=== PATIENT | male | born 1955 | race Hispanic/Latino ===

== ENCOUNTER 2017-09-01 09:31 | Emergency (ER) | payer SELFPAY ==
[2017-09-01 09:57] LABS: Bilirubin Small (Negative); Blood, Urine Moderate (Negative); Glucose, Urine (Dipstick) Negative (Negative); Ketone, Urine Negative (Negative); Nitrite Negative (Negative); Protein, Urine (Dipstick) Trace mg/dL (Neg-Trace); Urobilinogen 0.2 mg/dL (0.2-1.0)
[2017-09-01 10:10] LABS: Bacteria/HPF 2+ HPF (None Seen); Hyaline Casts/LPF NONE SEEN LPF (0-3 Hyaline)
[2017-09-01] MEDS ORDERED: cefTRIAXone\\ROCEPHIN 1 GM VIAL ONE (11:15)
[2017-09-01 11:23] LABS: Hematocrit 41.7 % (42.0-52.0); Mean Platelet Volume 8.9 fL (7.4-10.4); Red Blood Cell (RBC) Count 4.22 mill/uL (4.70-6.10); White Blood Cell (WBC) Count 22.1 thou/uL (4.8-10.8)
[2017-09-01 11:36] LABS: ALT (SGPT) 14 U/L (8-55); AST (SGOT) 20 U/L (5-34); Acetaminophen Less than 6.0 mcg/mL (10.0-30.0); Alkaline Phosphatase 86 U/L (40-150); Anion Gap 10 mmol/L (10-20); BUN (Urea Nitrogen) 15 mg/dL (8.4-25.7); Calc. Creatinine Clearance 0 mL/min (70-130); Calcium 9.1 mg/dL (7.8-10.44); Carbon Dioxide 27 mmol/L (23-31); Chloride 101 mmol/L (98-107); Estimated GFR-MDRD 68; Globulin 4.6 g/dL (2.4-3.5); Lipase 13 U/L (8-78)
[2017-09-01 11:43] LABS: Band 4 % (5-11); Metamyelocyte 2 % (0-0); Neutrophil 71 % (42-75)
--- NOTE | 2017-09-01 14:11 | CT ---
CT ABDOMEN AND PELVIS WITH CONTRAST: Date: 09/01/17 HISTORY: Fever, chills, and right flank pain. Patient recently finished a bottle of Tylenol. FINDINGS: Lung bases are clear. No pericardial effusion. There is right-sided perinephric stranding, especially along the inferior margin. The exam is limite d to motion. There has been poor enhancement of intrapolar right kidney anterior cortex. There is also some poor enhancement of the superior pole posterior cortex. Small volume gas within the urinary bladder. No dilated loops of large or small bowel. Gallbladder i s unremarkable, as well as the liver. Spleen is unremarkable. Aortoiliac contour is normal. Moderate degenerative disease of the L5-S1 disc space. Moderate vascular calcification of the coronary arter ies. IMPRESSION: 1. Multifocal right-sided poor renal enhancement suggests multifocal pyelonephritis. There are also a few areas of poor enhancement of the left kidney, also concerning for pyelonephritis. Embolic phe nomenon is also within the differential. Recommend correlation with urinalysis. 2. Small volume gas within the urinary bladder may be sequelae of recent instrumentation. POS: TITO
== END 2017-09-01 13:15 | disposition home or self-care (01) ==
LOC: ERS 09:31
DX: N39.0 Urinary tract infection, site not specified (principal); I10 Essential (primary) hypertension; F17.200 Nicotine dependence, unspecified, uncomplicated; Z86.73 Personal history of transient ischemic attack (TIA), and cerebral infarction without residual deficits
CPT/HCPCS: 74177; 80053; 80307; 81003; 81015; 83690; 85025; 96365; 96375; J0696; J2270

== ENCOUNTER 2018-02-09 12:25 | Inpatient (IN) | payer SELFPAY ==
--- NOTE | 2018-02-09 13:21 | RAD ---
PORTABLE CHEST: Date: 02/09/18 PROVIDED CLINICAL HISTORY: Dyspnea. FINDINGS: Comparison is made with the study dated 07/22/17. The cardiac silhouette appears enlarged. The lungs are hypoinflated with accentuation of pulmonary br onchovascular markings. There is obscuration of a portion of the medial left hemidiaphragm which coul d reflect basilar parenchymal opacity. Lungs appear otherwise clear. No pleural fluid or pneumothorax apparent. IMPRESSION: Cardiomegaly and possible left basilar air space disease. Follow-up is recommended. POS: TIOT
[2018-02-09 13:24] LABS: Mean Corpuscular HGB CONC 32.5 g/dL (32.0-36.0); Mean Corpuscular Hemoglobin 32.3 pg (27.0-31.0); Mean Corpuscular Volume 99.4 fl (80.0-94.0); RBC Distribution Width 12.9 % (11.5-14.5); Red Blood Cell (RBC) Count 4.02 mill/uL (4.70-6.10); White Blood Cell (WBC) Count 7.8 thou/uL (4.8-10.8)
[2018-02-09 13:33] LABS: #Basophils 0.1 thou/uL (0.0-0.2); #Eosinphils 0.1 thou/uL (0.0-0.7); #Lymphocytes 2.8 thou/uL (1.20-3.40); #Monocytes 0.7 thou/uL (0.11-0.59); %Basophils 1.6 % (0.0-1.0); %Eosinophils 1.7 % (0.0-10.0); %Lymphocytes 35.9 % (21.0-51.0); %Monocytes 8.8 % (0.0-10.0); %Neutrophils 52.1 % (42.0-75.0); Large Platelets SLIGHT; MDiff Complete? YES; Mean Platelet Volume 10.2 fL (7.4-10.4); PLT Morphology Comment Appears Adequate; Platelet Count 146 thou/uL (130-400); RBC Morphology Normal
[2018-02-09 13:35] LABS: ALT (SGPT) 51 U/L (8-55); AST (SGOT) 70 U/L (5-34); Albumin 3.7 g/dL (3.4-4.8); Alkaline Phosphatase 98 U/L (40-150); Anion Gap 16 mmol/L (10-20); BUN (Urea Nitrogen) 10 mg/dL (8.4-25.7); Bilirubin, Total 1.6 mg/dL (0.2-1.2); Calc. Creatinine Clearance 0 mL/min (70-130); Calcium 8.5 mg/dL (7.8-10.44); Carbon Dioxide 21 mmol/L (23-31); Chloride 103 mmol/L (98-107); Estimated GFR-MDRD 72; Glucose 99 mg/dL (80-115); Potassium 3.8 mmol/L (3.5-5.1); Protein, Total 6.7 g/dL (5.8-8.1); Sodium 136 mmol/L (136-145)
[2018-02-09 13:39] LABS: CKMB 3.6 ng/mL (0-6.6); Troponin I 0.029 ng/mL (< 0.028)
[2018-02-09] MEDS ORDERED: Esmolol 100 MG/10 ML VIAL IVP SCH (14:45)
[2018-02-09] MEDS ORDERED: Diltiazem HCl 125 MG, Admixture Fee 1 EACH in Sodium Chloride 0.9% 100 ML IVPB SCH (14:45)
[2018-02-09] MEDS ORDERED: Calcium Carbonate 500 MG ChewTAB PO PRN (17:16)
[2018-02-09] MEDS ORDERED: Bisacodyl 5 MG TAB PO PRN (17:16)
[2018-02-09] MEDS ORDERED: Mag-Al 1200 mg/1200 mg/30 ML UDCUP PO PRN (17:16)
[2018-02-09] MEDS ORDERED: Senokot 8.6 MG TAB PO PRN (17:16)
[2018-02-09] MEDS ORDERED: Ondansetron HCl/PF 4 MG/2 ML Vial IVP PRN (17:16)
[2018-02-09] MEDS ORDERED: Milk Of Magnesia 30 ML UDCUP PO PRN (17:16)
[2018-02-09] MEDS ORDERED: Acetaminophen 325 MG TAB PO PRN (17:16)
--- NOTE | 2018-02-09 18:26 | HP ---
CHIEF COMPLAINT: Shortness of breath with generalized weakness for the past 3-4 weeks. HISTORY OF PRESENT ILLNESS: This is a 63-year-old gentleman with a past medical history significant for alcohol abuse as well as hypertension and a history of a hemorrhagic CVA who presents to the hosp ital because of shortness of breath and generalized weakness that has been going on for the past 3-4 weeks. The patient states that over these past 3-4 week span he has noticed that his shortness of br eath has gotten progressively worse, that was occurring on exertion, but is now occurring at rest. H e also along with this has been having generalized weakness. Because his symptoms do not go away and continued to persist or get worse, he decided to come to the hospital for further evaluation and man agement. While here, the patient was found to have heart rates as high as into 150s, which had impro armando with giving esmolol as the hospital is currently out of [facility] With esmolol given, his heart rate had improved to the 120s. Currently, the patient states that he is doing alright. He denies an y chest pain, cough, fevers, chills, dizziness, nausea, vomiting. Still does have some shortness of breath, but states that has improved a little bit since being here in the hospital. Of note, when as ked of the patient, the patient drinks approximately 10-12 beers a day as per the patient. PAST MEDICAL HISTORY: See HPI. PAST SURGICAL HISTORY: None. SOCIAL HISTORY: Current smoker. Drinks approximately 10-12 beers a day. Denies any recreational dr ug use. FAMILY HISTORY: He is unclear of his family history. REVIEW OF SYSTEMS: A 14-point review of systems was reviewed and was negative other than what was me ntioned in the HPI. HOME MEDICATIONS: Still trying to be retrieved at this time. PHYSICAL EXAMINATION: VITAL SIGNS: The patient had a blood pressure of 124/85, pulse was anywhere from 115-125, respirator y rate was 16, temperature was 98.6 and the patient was satting 98% oxygen on room air. GENERAL: Patient was in no apparent distress, resting comfortably in the bed, alert, awake, oriented x3. HEENT: Normocephalic, atraumatic. Eyes: Pupils are round and reactive to light. Extraocular muscl es were intact. Conjunctiva was pink. Sclerae was nonicteric. Mouth: Oral mucosa is pink and mois t. No erythema was noted. NECK: Soft, supple, no JVD, no carotid bruits, no lymphadenopathy. CARDIOVASCULAR: Irregularly regular rhythm, tachycardic S1, S2 sounds are heard. Cannot appreciate a murmur or gallops. RESPIRATORY: Clear to auscultation bilaterally. No added sounds. ABDOMEN: Bowel sounds, soft, nontender, nondistended. EXTREMITIES: Pulses were 2+ both dorsalis and radial pulse. No pitting edema could be appreciated. NEUROLOGIC: Cranial nerves II-XII are grossly intact. No focal deficits could be appreciated. DATABASE: White blood cell count was 7.8, hemoglobin is 13.0, hematocrit is 39.9, and platelet count was 146. Sodium 136, potassium 3.8, chloride is 103, bicarb is 21, BUN was 10, creatinine was 1.04. Troponin was 0.029 and BNP was 1400. Chest x-ray showed a possible left basilar airspace disease a nd EKG showed atrial fibrillation with RVR. ASSESSMENT AND PLAN: 1. Atrial fibrillation with rapid ventricular response. 2. Hypertension. 3. History of cerebrovascular accident. 4. Alcohol abuse. 5. Indeterminate elevation in troponins. PLAN: The patient is currently placed on esmolol drip as Cardizem has apparently been ran out of hos pital. We will start the patient on metoprolol 25 mg p.o. b.i.d. in hopes of being able to wean him off of the esmolol drip. We will consult Cardiology. We will get a 2-D echo with TSH. We will chec k liver panel as well. We will also check another set of troponins. I do believe this is likely due to the atrial fibrillation with RVR than other and a true ischemic event. We will also discuss with the patient about the importance of alcohol cessation. There is possibly that this could have been brought on due to significant alcohol use. We will monitor closely for withdrawals. On chest x-ray, it did show an opacity; however, patient does not appear to have any symptoms suggestive of an infec tious etiology. Therefore, we will hold off on starting him on any antibiotics. If the patient does begin to spike fevers, chills or leukocytosis without any left shift of any sort or symptoms suggest vicente of infectious etiology, at that point, we can reevaluate and start the patient on antibiotics. Espinoza ybarra was discussed with the patient. Further management pending reports. We will place the patient a s well on DVT prophylaxis as well.
[2018-02-09] MEDS: Esmolol 2,500 MG/250 ML 250 ML IVPB SCH (20:19)
[2018-02-09 20:57] LABS: Troponin I 0.032 ng/mL (< 0.028)
[2018-02-09] MEDS ORDERED: Metoprolol Tartrate 25 MG TAB PO SCH (21:00)
[2018-02-09] MEDS: Metoprolol Tartrate 25 MG TAB PO SCH (22:28)
[2018-02-10] MEDS: Esmolol 2,500 MG/250 ML 250 ML IVPB SCH ×5 (04:53→20:30)
[2018-02-10 05:51] LABS: #Basophils 0.1 thou/uL (0.0-0.2); #Eosinphils 0.2 thou/uL (0.0-0.7); #Lymphocytes 2.5 thou/uL (1.20-3.40); #Monocytes 0.6 thou/uL (0.11-0.59); #Neutrophils 3.3 thou/uL (1.40-6.50); %Basophils 1.3 % (0.0-1.0); %Eosinophils 2.9 % (0.0-10.0); %Lymphocytes 37.6 % (21.0-51.0); %Monocytes 9.1 % (0.0-10.0); %Neutrophils 49.2 % (42.0-75.0); Hemoglobin 12.8 g/dL (14.0-18.0); Mean Corpuscular HGB CONC 32.8 g/dL (32.0-36.0); Mean Corpuscular Hemoglobin 32.5 pg (27.0-31.0); Mean Corpuscular Volume 99.1 fl (80.0-94.0); Platelet Count 140 thou/uL (130-400); RBC Distribution Width 12.9 % (11.5-14.5); Red Blood Cell (RBC) Count 3.94 mill/uL (4.70-6.10); White Blood Cell (WBC) Count 6.6 thou/uL (4.8-10.8)
[2018-02-10 06:01] LABS: ALT (SGPT) 43 U/L (8-55); AST (SGOT) 54 U/L (5-34); Albumin 3.4 g/dL (3.4-4.8); Alkaline Phosphatase 86 U/L (40-150); Anion Gap 13 mmol/L (10-20); BUN (Urea Nitrogen) 12 mg/dL (8.4-25.7); Bilirubin, Total 1.6 mg/dL (0.2-1.2); Calc. Creatinine Clearance 68 mL/min (70-130); Calcium 8.6 mg/dL (7.8-10.44); Carbon Dioxide 22 mmol/L (23-31); Cardiac Risk 2.8 (Less than 4.5); Chloride 107 mmol/L (98-107); Cholesterol 99 mg/dl (< 200 Desired); Estimated GFR-MDRD 69; Globulin 2.8 g/dL (2.4-3.5); Glucose 95 mg/dL (80-115); HDL Cholesterol 36 mg/dL (>60 Neg Risk); LDL Cholesterol, Calculated 51 mg/dL; Potassium 4.2 mmol/L (3.5-5.1); Protein, Total 6.2 g/dL (5.8-8.1); Sodium 138 mmol/L (136-145); Triglycerides 59 mg/dL (Less than 150)
[2018-02-10] MEDS ORDERED: Lorazepam 2 MG/ML VIAL SLOW IVP PRN (08:03)
[2018-02-10] MEDS: Metoprolol Tartrate 25 MG TAB PO SCH (08:28)
[2018-02-10] MEDS: Enoxaparin Sodium 40 MG/0.4 ML SYRINGE SC SCH (08:29)
[2018-02-10] MEDS ORDERED: FLU VACC QS2017-18 36 mo. & older 0.5 ML SYRINGE IM ONE (09:00)
[2018-02-10] MEDS ORDERED: Metoprolol Tartrate 25 MG TAB PO ONE (11:25)
--- NOTE | 2018-02-10 14:08 | PDOC.PN ---
- Subjective Encounter Start Date: 02/10/18 Encounter Start Time: 10:45 Subjective: pt up in bed no complains - Objective Vital Signs & Weight: Vital Signs (12 hours) Temp Pulse Resp BP Pulse Ox 02/10/18 11:47 97.4 F L 114 H 20 144/103 H 02/10/18 08:32 97 F L 94 24 H 139/85 02/10/18 07:31 98.4 F 96 18 139/94 H 98 02/10/18 04:00 97.4 F L 98 18 132/92 H 98 Weight Weight 152 lb 14.4 oz I&O: 02/09/18 02/10/18 02/11/18 06:59 06:59 06:59 Intake Total 951 480 Output Total 500 Balance 451 480 Result Diagrams: 02/10/18 05:05 02/10/18 05:05 Phys Exam - Physical Examination HEENT: PERRLA Neck: no nodes Respiratory: no wheezing, no rales Cardiovascular: irregular Gastrointestinal: soft, non-tender Dx/Plan - Plan * . 1)New dx of afib ( afib with RVR) 2) alcohol abuse 3) hx of hemorrhagic CVA 4) htn plan: pt on esmolol will start to decrease dose. pt receiving metoprolol. his CHADVAS score is 1 will start pt on asa. He has had falls and had hemorrhagic cva in the past. His afib most likely due to his alcohol use. Pt was explained this using termite technician. echo pending pt educated to decrease his alcohol intake or stop. will place pt on ativan po and prn htn stable continue to monitor. Review of Systems - Review of Systems Eyes: negative: Pain, Vision Change, Conjunctivae Inflammation, Eyelid Inflammation, Redness, Other ENT: negative: Ear Pain, Ear Discharge, Nose Pain, Nose Discharge, Nose Congestion, Mouth Pain, Mouth Swelling, Throat Pain, Throat Swelling, Other Respiratory: negative: Cough, Dry, Shortness of Breath, Hemoptysis, SOB with Excertion, Pleuritic Pain, Sputum, Wheezing Cardiovascular: negative: chest pain, palpitations, orthopnea, paroxysmal nocturnal dyspnea, edema, light headedness, other Gastrointestinal: negative: Nausea, Vomiting, Abdominal Pain, Diarrhea, Constipation, Melena, Hematochezia, Other - Medications/Allergies Allergies/Adverse Reactions: Allergies Allergy/AdvReac Type Severity Reaction Status Date / Time No Known Drug Allergies Allergy Verified 02/02/15 15:49 Medications: Current Medications Acetaminophen (Tylenol) 650 mg PO Q6H PRN PRN Reason: Headache/Fever or Pain Al Hydroxide/Mg Hydroxide (Maalox) 30 ml PO Q6H PRN PRN Reason: Heartburn or Indigestion Bisacodyl (Dulcolax) 10 mg PO DAILYPRN PRN PRN Reason: Constipation Calcium Carbonate (Tums) 1,000 mg PO Q4H PRN PRN Reason: Heartburn or Indigestion Enoxaparin Sodium (Lovenox) 40 mg SC 0900 [facility] Last Admin: 02/10/18 08:29 Dose: 40 mg Esmolol HCl/Sodium Chloride (Brevibloc Rtu) 250 mls @ 41.708 mls/hr IVPB INF [facility]; 100 MCG/KG/MIN PRN Reason: Protocol Last Admin: 02/10/18 12:14 Dose: 250 mls Lorazepam (Ativan) 1 mg PO Q4H PRN PRN Reason: Alcohol Withdrawal Lorazepam (Ativan) 1 mg SLOW IVP Q4H PRN PRN Reason: Alcohol Withdrawal Lorazepam (Ativan) 0.5 mg PO Q4H [facility] Magnesium Hydroxide (Milk Of Magnesium) 30 ml PO DAILYPRN PRN PRN Reason: Constipation Metoprolol Tartrate (Lopressor) 50 mg PO BID [facility] Ondansetron HCl (Zofran) 4 mg IVP Q6H PRN PRN Reason: Nausea/Vomiting Senna (Senokot) 2 tab PO HSPRN PRN PRN Reason: Constipation Sodium Chloride (Flush - Normal Saline) 10 ml IVF Q12HR [facility] Sodium Chloride (Flush - Normal Saline) 10 ml IVF PRN PRN PRN Reason: Saline Flush
[2018-02-10] MEDS: Lorazepam 1 MG TAB PO PRN (14:32)
[2018-02-10] MEDS: Lorazepam 0.5 MG TAB PO SCH ×3 (14:34→21:53)
[2018-02-10 15:01] LABS: Troponin I 0.016 ng/mL (< 0.028)
[2018-02-10] MEDS: Famotidine 20 MG TAB PO SCH (20:33)
[2018-02-10] MEDS: Metoprolol Tartrate 50 MG TAB PO SCH (20:33)
[2018-02-11] MEDS: Lorazepam 0.5 MG TAB PO SCH ×6 (02:15→22:50)
[2018-02-11] MEDS: Esmolol 2,500 MG/250 ML 250 ML IVPB SCH (03:30)
[2018-02-11] MEDS: Famotidine 20 MG TAB PO SCH ×2 (09:03→20:35)
[2018-02-11] MEDS: Metoprolol Tartrate 50 MG TAB PO SCH ×2 (09:03→20:35)
[2018-02-11] MEDS: Enoxaparin Sodium 40 MG/0.4 ML SYRINGE SC SCH (09:05)
--- NOTE | 2018-02-11 17:46 | PDOC.PN ---
- Subjective Encounter Start Date: 02/11/18 Encounter Start Time: 10:00 Subjective: pt up in bed no complains - Objective Vital Signs & Weight: Vital Signs (12 hours) Temp Pulse Resp BP Pulse Ox 02/11/18 11:37 98.2 F 105 H 18 148/95 H 98 02/11/18 07:40 97.0 F L 101 H 17 142/105 H 97 Weight Weight 155 lb 1.6 oz I&O: 02/10/18 02/11/18 02/12/18 06:59 06:59 06:59 Intake Total 951 2367 480 Output Total 500 1200 Balance 451 1167 480 Result Diagrams: 02/14/18 09:35 02/15/18 10:35 Phys Exam - Physical Examination HEENT: PERRLA, moist MMs Neck: no nodes, no JVD Respiratory: no wheezing Cardiovascular: irregular Gastrointestinal: soft, non-tender Musculoskeletal: no edema Dx/Plan - Plan * . * . 1)New dx of afib ( afib with RVR) 2) alcohol abuse 3) hx of hemorrhagic CVA 4) htn 5) new systolic heart failure ef of 20-25% compensated plan: pt on esmolol will start to decrease dose. pt receiving metoprolol. his CHADVAS score is 1 will start pt on asa. He has had falls and had hemorrhagic cva in the past. His afib most likely due to his alcohol use. Pt was explained this using laborer pipelines. pt educated to decrease his alcohol intake or stop. will place pt on ativan po and prn htn stable continue to monitor. pt's echo indicates ef of 20-25% will add lisinopril. possible alcohol related vs CAD. cardiology consulted. pt on scheduled ativan for withdrawal Review of Systems - Review of Systems Eyes: negative: Pain, Vision Change, Conjunctivae Inflammation, Eyelid Inflammation, Redness, Other ENT: negative: Ear Pain, Ear Discharge, Nose Pain, Nose Discharge, Nose Congestion, Mouth Pain, Mouth Swelling, Throat Pain, Throat Swelling, Other Respiratory: negative: Cough, Dry, Shortness of Breath, Hemoptysis, SOB with Excertion, Pleuritic Pain, Sputum, Wheezing Cardiovascular: negative: chest pain, palpitations, orthopnea, paroxysmal nocturnal dyspnea, edema, light headedness, other - Medications/Allergies Allergies/Adverse Reactions: Allergies Allergy/AdvReac Type Severity Reaction Status Date / Time No Known Drug Allergies Allergy Verified 02/12/18 01:26 Medications: Current Medications Acetaminophen (Tylenol) 650 mg PO Q6H PRN PRN Reason: Headache/Fever or Pain Al Hydroxide/Mg Hydroxide (Maalox) 30 ml PO Q6H PRN PRN Reason: Heartburn or Indigestion Aspirin (Aspirin Chewable) 81 mg PO DAILY [facility] Last Admin: 02/11/18 09:03 Dose: 81 mg Bisacodyl (Dulcolax) 10 mg PO DAILYPRN PRN PRN Reason: Constipation Calcium Carbonate (Tums) 1,000 mg PO Q4H PRN PRN Reason: Heartburn or Indigestion Enoxaparin Sodium (Lovenox) 40 mg SC 0900 [facility] Last Admin: 02/11/18 09:05 Dose: 40 mg Famotidine (Pepcid) 20 mg PO BID [facility] Last Admin: 02/11/18 09:03 Dose: 20 mg Lisinopril (Zestril) 10 mg PO DAILY [facility] Lorazepam (Ativan) 1 mg PO Q4H PRN PRN Reason: Alcohol Withdrawal Last Admin: 02/10/18 14:32 Dose: 1 mg Lorazepam (Ativan) 1 mg SLOW IVP Q4H PRN PRN Reason: Alcohol Withdrawal Lorazepam (Ativan) 0.5 mg PO Q4H [facility] Last Admin: 02/11/18 14:50 Dose: 0.5 mg Magnesium Hydroxide (Milk Of Magnesium) 30 ml PO DAILYPRN PRN PRN Reason: Constipation Metoprolol Tartrate (Lopressor) 50 mg PO BID [facility] Last Admin: 02/11/18 09:03 Dose: 50 mg Ondansetron HCl (Zofran) 4 mg IVP Q6H PRN PRN Reason: Nausea/Vomiting Senna (Senokot) 2 tab PO HSPRN PRN PRN Reason: Constipation Last Admin: 02/11/18 06:41 Dose: 2 tab Sodium Chloride (Flush - Normal Saline) 10 ml IVF Q12HR [facility] Last Admin: 02/11/18 09:05 Dose: 10 ml Sodium Chloride (Flush - Normal Saline) 10 ml IVF PRN PRN PRN Reason: Saline Flush
[2018-02-11] MEDS ORDERED: Amiodarone In Dextrose 200 ML IVPB SCH (19:30)
[2018-02-11] MEDS ORDERED: Communication Order-Pharmacy FS SCH (19:45)
--- NOTE | 2018-02-11 19:49 | CON ---
DATE OF CONSULTATION: 02/11/2018 REASON FOR CONSULTATION: Heart failure. HISTORY OF PRESENT ILLNESS: Mr. Ortiz is a 63-year-old gentleman, mostly Greek speaking, who comes to the hospital for shortness of breath. He has noted increased shortness of breath over the last 3-4 weeks to the point where he could not take it last night, so he had to come in for evalu ation. He was found to have elevated BNP and also was in atrial fibrillation and RVR, heart rate in the 150s, so he was started on an esmolol drip and heart rate is better in the 120s. He feels better after some diuresis; however, he continues to feel short of breath with any exertion. PAST MEDICAL HISTORY: 1. Hypertension. 2. Hemorrhagic cerebrovascular accident in the past. 3. Alcohol abuse. PAST SURGICAL HISTORY: None. OUTPATIENT MEDICATIONS: None recently, but should be on lisinopril, thiamine, folic acid, and famoti dine. ALLERGIES: No known drug allergies. FAMILY HISTORY: Noncontributory. SOCIAL HISTORY: Smokes every day, drinks about 12 beers every day. Denies any drug use. REVIEW OF SYSTEMS: A 12 point review of systems was done and is all negative and as stated in histor y of present illness. PHYSICAL EXAMINATION: VITAL SIGNS: Temperature 98.0, pulse 122, respiration rate 19, satting 97% on room air, blood pressu re 142/96. GENERAL: Awake, alert, oriented x3, in no distress. HEENT: Normocephalic, atraumatic. NECK: Supple. LUNGS: Clear. CARDIOVASCULAR: S1, S2, no S3, S4. Irregularly irregular heart rate in the 120s. SKIN: Warm and dry. LABORATORY WORK: Reviewed. CBC was reviewed. Chemistries were reviewed. Total bilirubin 1.6, AST was 54, ALT and alkaline phosphatase were both normal. Troponin has been 0.02, 0.03 and 0.01. CK-MB was normal. BNP was 1404. TSH was normal. Triglycerides of 59, cholesterol of 99, LDL of 51, HDL of 36. Echocardiogram was reviewed, EF is severely reduced at 20-25% in atrial fibrillation during study, gl obal hypokinesis with a small pericardial effusion. No tamponade was seen. ASSESSMENT AND PLAN: 1. Acute systolic heart failure: Most likely related to alcohol use; however, due to his history of tobacco use, this may be also related to coronary artery disease. We will plan on further risk stra tifying with a heart catheterization. I spoke with him about this and he has agreed to stay for this . He really wants to go. He has not had a drink for 2 days. He says he is afraid that he is going to from not drinking as he has friends who stopped drinking and they soon after. I encourag ed him to stay as this is the best place to go through withdrawal, which is what would happen now kate t he stopped drinking, he will probably start going into withdrawal sometime tomorrow, so we will try to get this heart catheterization done before that. If unable to do so, we will wait for his withdr awal symptoms to get better. Otherwise, he agrees to proceed. We will plan on doing this tomorrow m matthew. 2. Agree with beta nataliia and YVONNE inhibitor for blood pressure control and heart failure. 3. Continue IV Lasix. 4. For his atrial fibrillation, we will switch his esmolol drip to amiodarone. Aspirin alone for st roke prophylaxis at this time as he is a poor candidate for full anticoagulation given noncompliance and alcohol use. Thank you for letting us participate in the care of your patient. We will follow.
[2018-02-11] MEDS: Amiodarone HCl 450 MG, Admixture Fee 1 EACH in Dextrose 5% in Water 250 ML IVPB SCH (21:23)
[2018-02-12] MEDS: Amiodarone HCl 450 MG, Admixture Fee 1 EACH in Dextrose 5% in Water 250 ML IVPB SCH (00:21)
[2018-02-12] MEDS: Lorazepam 0.5 MG TAB PO SCH ×2 (02:09→07:21)
[2018-02-12] MEDS ORDERED: Lorazepam 2 MG/ML VIAL SLOW IVP SCH ×2 (03:45→08:00)
[2018-02-12 05:38] LABS: Eosinophils 1 % (0-10); Hemoglobin 12.5 g/dL (14.0-18.0); Lymphocytes 39 % (21-51); MDiff Complete? YES; Mean Corpuscular HGB CONC 32.2 g/dL (32.0-36.0); Mean Corpuscular Hemoglobin 32.6 pg (27.0-31.0); Mean Platelet Volume 11.1 fL (7.4-10.4); Monocytes 11 % (0-10); Neutrophil 49 % (42-75); PLT Morphology Comment Appears Adequate; Platelet Count 125 thou/uL (130-400); RBC Distribution Width 13.2 % (11.5-14.5); Red Blood Cell (RBC) Count 3.85 mill/uL (4.70-6.10); White Blood Cell (WBC) Count 7.9 thou/uL (4.8-10.8)
[2018-02-12 05:51] LABS: Anion Gap 14 mmol/L (10-20); BUN (Urea Nitrogen) 12 mg/dL (8.4-25.7); Calc. Creatinine Clearance 80 mL/min (70-130); Calcium 8.6 mg/dL (7.8-10.44); Carbon Dioxide 22 mmol/L (23-31); Chloride 106 mmol/L (98-107); Estimated GFR-MDRD 82; Glucose 113 mg/dL (80-115); Potassium 3.7 mmol/L (3.5-5.1); Sodium 138 mmol/L (136-145)
[2018-02-12] MEDS ORDERED: BEER 1 CAN PO PRN (09:00)
[2018-02-12 09:46] LABS: ALT (SGPT) 37 U/L (8-55); AST (SGOT) 52 U/L (5-34); Albumin 3.5 g/dL (3.4-4.8); Alkaline Phosphatase 79 U/L (40-150); Bilirubin, Direct 0.7 mg/dL (0.1-0.3); Bilirubin, Total 1.3 mg/dL (0.2-1.2); Protein, Total 6.4 g/dL (5.8-8.1)
[2018-02-12] MEDS: Metoprolol Tartrate 50 MG TAB PO SCH ×2 (10:36→20:53)
[2018-02-12] MEDS: Lisinopril 10 MG TAB PO SCH (10:36)
[2018-02-12] MEDS: Lorazepam 2 MG/ML VIAL SLOW IVP SCH ×3 (10:36→22:26)
[2018-02-12] MEDS: Famotidine 20 MG TAB PO SCH ×2 (10:36→20:53)
[2018-02-12] MEDS ORDERED: BEER 1 CAN PO SCH (12:00)
--- NOTE | 2018-02-12 15:45 | PDOC.CTH ---
Cardiology Progress Note - Subjective He went into withdrawal earlier this morning and could not have LHC done. He is currently sedated in 4 points restraint, family at bedside. - Objective Vital Signs Temp Pulse Resp BP Pulse Ox 02/12/18 15:31 97.0 F L 100 20 165/110 H 99 02/12/18 12:31 97 F L 122 H 19 167/113 H 98 02/12/18 11:49 97.4 F L 100 22 H 96 02/12/18 08:00 97.0 F L 100 22 H 02/12/18 04:00 97.5 F L 100 20 139/98 H 99 Weight 154 lb 8 oz 02/11/18 02/12/18 02/13/18 06:59 06:59 06:59 Intake Total 2367 1590.5 Output Total 1200 675 Balance 1167 915.5 - Physical Examination General/Neuro: other: (sedtaed. ) Neck: no JVD present Lungs: unlabored respirations Heart: other: (Irregular.) Abdomen: NT/ND Extremities: + edema B (trace) - Telemetry Telemetry Rhythm: Afib HR 90-110 - Labs Result Diagrams: 02/12/18 04:31 02/12/18 04:31 Troponin/CKMB CK-MB (CK-2) 3.6 ng/mL (0-6.6) 02/09/18 13:05 Troponin I 0.016 ng/mL (< 0.028) 02/10/18 14:28 - Assessment/Plan 1. new onset CM EF at 20-25% 2. New onset Afib 3. Alcohol abuse. 4. Alcohol withdrawal with hallucinations. 5. Tobacco abuse. 6. HTN PLAN: - Continue supportive care for withdrawal. - Amiodarone for rate control for now. - Aspirin alone for stroke prophylaxis given alcohol use and history of hemorrhagic CVA which happened in the setting of being very drunk and falling and hitting his head on no anticoagulation. - Family tells me he drinks more than just a 12 pack of beers a day but he also takes a whole bottle of Bacardi rum and drinks it almost daily. - Absolutely no alcohol to be used for withrawal as this is toxic for his heart at this time. - Continue BB and ACEi for now. - Currently HR and BP elevated likely due to withdrawal. - Will follow.
--- NOTE | 2018-02-12 22:35 | PDOC.PN ---
- Subjective Encounter Start Date: 02/12/18 Encounter Start Time: 08:00 Subjective: pt up in bed 4 point restraints. updated - Objective Vital Signs & Weight: Vital Signs (12 hours) Temp Pulse Resp BP Pulse Ox 02/12/18 15:31 97.0 F L 100 20 165/110 H 99 02/12/18 12:31 97 F L 122 H 19 167/113 H 98 02/12/18 11:49 97.4 F L 100 22 H 96 Weight Weight 154 lb 8 oz I&O: 02/11/18 02/12/18 02/13/18 06:59 06:59 06:59 Intake Total 2367 1590.5 176 Output Total 1200 675 Balance 1167 915.5 176 Result Diagrams: 02/12/18 04:31 02/12/18 04:31 Phys Exam - Physical Examination HEENT: PERRLA Neck: no nodes Respiratory: no wheezing, no rales Cardiovascular: irregular Gastrointestinal: soft, non-tender Musculoskeletal: no edema Psychiatric: A&O x 3 Dx/Plan - Plan * 1)New dx of afib ( afib with RVR) 2) alcohol abuse 3) hx of hemorrhagic CVA 4) htn 5) new systolic heart failure ef of 20-25% compensated plan: pt on esmolol will start to decrease dose. pt receiving metoprolol. his CHADVAS score is 1 will start pt on asa. He has had falls and had hemorrhagic cva in the past. His afib most likely due to his alcohol use. Pt was explained this using renewals manager. pt educated to decrease his alcohol intake or stop. will place pt on ativan po and prn htn stable continue to monitor. pt's echo indicates ef of 20-25% will add lisinopril. possible alcohol related vs CAD. cardiology consulted. pt on scheduled ativan for withdrawal. 02/12 pt went into withdrawal this am. pt in 4 point restraints. will increase his ativan and give him beer with meals. at bedside updated. Review of Systems - Review of Systems Respiratory: negative: Cough, Dry, Shortness of Breath, Hemoptysis, SOB with Excertion, Pleuritic Pain, Sputum, Wheezing Cardiovascular: negative: chest pain, palpitations, orthopnea, paroxysmal nocturnal dyspnea, edema, light headedness, other Gastrointestinal: negative: Nausea, Vomiting, Abdominal Pain, Diarrhea, Constipation, Melena, Hematochezia, Other Genitourinary: negative: Dysuria, Frequency, Incontinence, Hematuria, Retention , Other - Medications/Allergies Allergies/Adverse Reactions: Allergies Allergy/AdvReac Type Severity Reaction Status Date / Time No Known Drug Allergies Allergy Verified 02/12/18 01:26 Medications: Current Medications Acetaminophen (Tylenol) 650 mg PO Q6H PRN PRN Reason: Headache/Fever or Pain Al Hydroxide/Mg Hydroxide (Maalox) 30 ml PO Q6H PRN PRN Reason: Heartburn or Indigestion Aspirin (Aspirin Chewable) 81 mg PO DAILY [facility] Last Admin: 02/12/18 10:36 Dose: 81 mg Bisacodyl (Dulcolax) 10 mg PO DAILYPRN PRN PRN Reason: Constipation Calcium Carbonate (Tums) 1,000 mg PO Q4H PRN PRN Reason: Heartburn or Indigestion Famotidine (Pepcid) 20 mg PO BID [facility] Last Admin: 02/12/18 20:53 Dose: 20 mg Folic Acid (Folvite) 1 mg PO DAILY [facility] Amiodarone HCl 450 mg/Miscellaneous Medication 1 each/ Dextrose/Water 259 mls @ 0 mls/hr IVPB INF [facility]; As Directed PRN Reason: Protocol Last Admin: 02/12/18 00:21 Dose: 259 mls Thiamine HCl 100 mg/ Sodium (Chloride) 51 mls @ 100 mls/hr IVPB Q24HR [facility] Last Admin: 02/12/18 10:47 Dose: 51 mls Lisinopril (Zestril) 10 mg PO DAILY [facility] Last Admin: 02/12/18 10:36 Dose: 10 mg Lorazepam (Ativan) 1 mg PO Q4H PRN PRN Reason: Alcohol Withdrawal Last Admin: 02/10/18 14:32 Dose: 1 mg Lorazepam (Ativan) 1 mg SLOW IVP Q4H PRN PRN Reason: Alcohol Withdrawal Lorazepam (Ativan) 2 mg SLOW IVP Q6H [facility] Last Admin: 02/12/18 22:26 Dose: 2 mg Magnesium Hydroxide (Milk Of Magnesium) 30 ml PO DAILYPRN PRN PRN Reason: Constipation Metoprolol Tartrate (Lopressor) 50 mg PO BID [facility] Last Admin: 02/12/18 20:53 Dose: 50 mg Ondansetron HCl (Zofran) 4 mg IVP Q6H PRN PRN Reason: Nausea/Vomiting Senna (Senokot) 2 tab PO HSPRN PRN PRN Reason: Constipation Last Admin: 02/11/18 06:41 Dose: 2 tab Sodium Chloride (Flush - Normal Saline) 10 ml IVF Q12HR [facility] Last Admin: 02/12/18 20:53 Dose: 10 ml Sodium Chloride (Flush - Normal Saline) 10 ml IVF PRN PRN PRN Reason: Saline Flush Last Admin: 02/12/18 04:40 Dose: 10 ml
[2018-02-12] MEDS ORDERED: Lorazepam 2 MG/ML VIAL SLOW IVP PRN (22:38)
[2018-02-13] MEDS: Lorazepam 2 MG/ML VIAL SLOW IVP SCH ×4 (03:55→21:24)
[2018-02-13 05:46] LABS: ALT (SGPT) 42 U/L (8-55); AST (SGOT) 58 U/L (5-34); Albumin 3.5 g/dL (3.4-4.8); Alkaline Phosphatase 79 U/L (40-150); Anion Gap 16 mmol/L (10-20); BUN (Urea Nitrogen) 11 mg/dL (8.4-25.7); Bilirubin, Total 1.3 mg/dL (0.2-1.2); Calc. Creatinine Clearance 76 mL/min (70-130); Calcium 8.8 mg/dL (7.8-10.44); Carbon Dioxide 18 mmol/L (23-31); Chloride 109 mmol/L (98-107); Estimated GFR-MDRD 79; Glucose 103 mg/dL (80-115); Potassium 3.6 mmol/L (3.5-5.1); Protein, Total 6.5 g/dL (5.8-8.1); Sodium 139 mmol/L (136-145)
[2018-02-13] MEDS: Amiodarone HCl 450 MG, Admixture Fee 1 EACH in Dextrose 5% in Water 250 ML IVPB SCH ×2 (06:09→22:29)
[2018-02-13] MEDS: Lisinopril 10 MG TAB PO SCH ×2 (09:55→21:13)
[2018-02-13] MEDS: Folic Acid 1 MG TAB PO SCH (09:55)
[2018-02-13] MEDS: Metoprolol Tartrate 50 MG TAB PO SCH (09:55)
[2018-02-13] MEDS: Famotidine 20 MG TAB PO SCH ×2 (09:55→21:13)
--- NOTE | 2018-02-13 16:11 | PDOC.PN ---
- Subjective Encounter Start Date: 02/13/18 Encounter Start Time: 08:45 Subjective: pt up in bed calm, sitter at bedside - Objective Vital Signs & Weight: Vital Signs (12 hours) Temp Pulse Resp BP BP Pulse Ox 02/13/18 12:00 97.6 F 118 H 20 165/118 H 165/118 H 98 02/13/18 11:00 111 H 20 152/102 H 02/13/18 10:00 121 H 20 163/117 H 02/13/18 09:55 163/117 H 02/13/18 09:00 120 H 20 155/125 H 02/13/18 08:00 97.9 F 116 H 20 163/117 H 159/126 H 98 02/13/18 07:00 120 H 20 154/122 H Weight Weight 153 lb 4.8 oz I&O: 02/12/18 02/13/18 02/14/18 06:59 06:59 06:59 Intake Total 1590.5 605 Output Total 675 Balance 915.5 605 Result Diagrams: 02/12/18 04:31 02/13/18 04:34 Phys Exam - Physical Examination HEENT: PERRLA, moist MMs Neck: no nodes, no JVD Respiratory: no wheezing, no rales Cardiovascular: irregular Gastrointestinal: soft, non-tender Musculoskeletal: no edema Dx/Plan - Plan * 1)New dx of afib ( afib with RVR) 2) alcohol abuse 3) hx of hemorrhagic CVA 4) htn 5) new systolic heart failure ef of 20-25% compensated plan: pt on esmolol will start to decrease dose. pt receiving metoprolol. his CHADVAS score is 1 will start pt on asa. He has had falls and had hemorrhagic cva in the past. His afib most likely due to his alcohol use. Pt was explained this using receiving team member. pt educated to decrease his alcohol intake or stop. will place pt on ativan po and prn htn stable continue to monitor. pt's echo indicates ef of 20-25% will add lisinopril. possible alcohol related vs CAD. cardiology consulted. pt on scheduled ativan for withdrawal. 02/12 pt went into withdrawal this am. pt in 4 point restraints. will increase his ativan and give him beer with meals. at bedside updated. 02/13 will continue ativan 2mg q6 will start decreasing it tri. pt more cooperative. Review of Systems - Review of Systems Eyes: negative: Pain, Vision Change, Conjunctivae Inflammation, Eyelid Inflammation, Redness, Other ENT: negative: Ear Pain, Ear Discharge, Nose Pain, Nose Discharge, Nose Congestion, Mouth Pain, Mouth Swelling, Throat Pain, Throat Swelling, Other Respiratory: negative: Cough, Dry, Shortness of Breath, Hemoptysis, SOB with Excertion, Pleuritic Pain, Sputum, Wheezing Cardiovascular: negative: chest pain, palpitations, orthopnea, paroxysmal nocturnal dyspnea, edema, light headedness, other Gastrointestinal: negative: Nausea, Vomiting, Abdominal Pain, Diarrhea, Constipation, Melena, Hematochezia, Other - Medications/Allergies Allergies/Adverse Reactions: Allergies Allergy/AdvReac Type Severity Reaction Status Date / Time No Known Drug Allergies Allergy Verified 02/12/18 01:26 Medications: Current Medications Acetaminophen (Tylenol) 650 mg PO Q6H PRN PRN Reason: Headache/Fever or Pain Al Hydroxide/Mg Hydroxide (Maalox) 30 ml PO Q6H PRN PRN Reason: Heartburn or Indigestion Aspirin (Aspirin Chewable) 81 mg PO DAILY [facility] Last Admin: 02/13/18 09:55 Dose: 81 mg Bisacodyl (Dulcolax) 10 mg PO DAILYPRN PRN PRN Reason: Constipation Calcium Carbonate (Tums) 1,000 mg PO Q4H PRN PRN Reason: Heartburn or Indigestion Famotidine (Pepcid) 20 mg PO BID [facility] Last Admin: 02/13/18 09:55 Dose: 20 mg Folic Acid (Folvite) 1 mg PO DAILY [facility] Last Admin: 02/13/18 09:55 Dose: 1 mg Amiodarone HCl 450 mg/Miscellaneous Medication 1 each/ Dextrose/Water 259 mls @ 0 mls/hr IVPB INF MACARIO; As Directed PRN Reason: Protocol Last Admin: 02/13/18 06:09 Dose: 259 mls Thiamine HCl 100 mg/ Sodium (Chloride) 51 mls @ 100 mls/hr IVPB Q24HR [facility] Last Admin: 02/13/18 11:54 Dose: 51 mls Lisinopril (Zestril) 10 mg PO BID [facility] Lorazepam (Ativan) 1 mg PO Q4H PRN PRN Reason: Alcohol Withdrawal Last Admin: 02/10/18 14:32 Dose: 1 mg Lorazepam (Ativan) 2 mg SLOW IVP Q6H [facility] Last Admin: 02/13/18 10:02 Dose: 2 mg Lorazepam (Ativan) 1 mg SLOW IVP Q4H PRN PRN Reason: Anxiety/Agitation Magnesium Hydroxide (Milk Of Magnesium) 30 ml PO DAILYPRN PRN PRN Reason: Constipation Metoprolol Succinate (Toprol Xl) 100 mg PO BID [facility] Ondansetron HCl (Zofran) 4 mg IVP Q6H PRN PRN Reason: Nausea/Vomiting Senna (Senokot) 2 tab PO HSPRN PRN PRN Reason: Constipation Last Admin: 02/11/18 06:41 Dose: 2 tab Sodium Chloride (Flush - Normal Saline) 10 ml IVF Q12HR [facility] Last Admin: 02/13/18 09:56 Dose: 10 ml Sodium Chloride (Flush - Normal Saline) 10 ml IVF PRN PRN PRN Reason: Saline Flush Last Admin: 02/12/18 04:40 Dose: 10 ml
[2018-02-14] MEDS: Lorazepam 2 MG/ML VIAL SLOW IVP SCH ×5 (03:54→20:52)
[2018-02-14] MEDS ORDERED: Metoprolol Tartrate 5 MG/5 ML VIAL ONE (09:35)
[2018-02-14 09:55] LABS: INR-International Normal Ratio 1.4; PTT 42.2 SEC (22.9-36.1); Prothrombin Time 17.7 SEC (12.0-14.7)
[2018-02-14 10:03] LABS: #Eosinphils 0.1 thou/uL (0.0-0.7); #Lymphocytes 2.5 thou/uL (1.20-3.40); #Monocytes 1.3 thou/uL (0.11-0.59); #Neutrophils 7.9 thou/uL (1.40-6.50); %Basophils 0.1 % (0.0-1.0); %Eosinophils 0.7 % (0.0-10.0); %Lymphocytes 20.8 % (21.0-51.0); %Monocytes 11.2 % (0.0-10.0); %Neutrophils 67.2 % (42.0-75.0); Hemoglobin 14.3 g/dL (14.0-18.0); Mean Corpuscular HGB CONC 32.3 g/dL (32.0-36.0); Mean Corpuscular Hemoglobin 32.2 pg (27.0-31.0); Mean Corpuscular Volume 99.6 fl (80.0-94.0); Mean Platelet Volume 10.6 fL (7.4-10.4); Platelet Count 111 thou/uL (130-400); RBC Distribution Width 13.6 % (11.5-14.5); Red Blood Cell (RBC) Count 4.45 mill/uL (4.70-6.10); White Blood Cell (WBC) Count 11.8 thou/uL (4.8-10.8)
[2018-02-14 10:11] LABS: CKMB 1.3 ng/mL (0-6.6); Troponin I 0.011 ng/mL (< 0.028)
[2018-02-14] MEDS ORDERED: Sodium Chloride 0.9% 1,000 ML IV SCH (10:15)
[2018-02-14] MEDS ORDERED: Diltiazem 125 MG in Sodium Chloride 0.9% 100 ML IVPB SCH (10:45)
[2018-02-14] MEDS ORDERED: Esmolol 2,500 MG/250 ML 250 ML IVPB SCH (11:00)
[2018-02-14] MEDS: Folic Acid 1 MG TAB PO SCH (11:09)
[2018-02-14] MEDS: Famotidine 20 MG TAB PO SCH ×2 (11:09→20:50)
[2018-02-14] MEDS: Lisinopril 10 MG TAB PO SCH ×2 (11:09→20:50)
[2018-02-14] MEDS ORDERED: Esmolol 100 MG/10 ML VIAL IVP SCH (11:15)
--- NOTE | 2018-02-14 11:30 | CT ---
CT BRAIN WITHOUT CONTRAST: Date: 02/14/18 HISTORY: 63-year-old male with left-sided facial droop, left arm weakness, and slurred speech. FINDINGS: Comparison made with exam of 02/04/15. No evidence of acute infarct, hemorrhage, midline shift, or abnormal extra-axial fluid collections ar e seen. The ventricular size is normal and the basilar cisterns are patent. There are changes of nuclear scientist radha small vessel ischemic disease in the periventricular white matter. There is a small bur hole in t he right frontal bone. Sclerotic lesion in the right lateral frontal bone is again seen. No acute oss eous abnormalities are seen. There is partial opacification of the right mastoid air cells. The paran allen sinuses and left mastoid air cells are well aerated. IMPRESSION: No CT evidence of acute intracranial process. Discussed over the telephone with at 0953 hours. CODE CR. POS: OFF
[2018-02-14] MEDS ORDERED: Lorazepam 2 MG/ML VIAL SLOW IVP SCH ×3 (12:00→13:00)
--- NOTE | 2018-02-14 12:01 | CT ---
CONTRAST ENHANCED CTA IMAGES OF THE CAROTIDS AND BRAIN: HISTORY: Patient with left facial drooping, possible stroke. TECHNIQUE: Contrast enhanced CTA images of the carotid and intracranial structures performed with 2D and 3D manjeet nstructed images performed on an independent 3D work station. FINDINGS: Images demonstrate small bilateral pleural effusions. Coronary artery calcifications are seen in the LAD and right coronary arteries. The aortic arch is unremarkable. The right and left common carotid arteries are unremarkable. There is minimal right proximal ICA atherosclerotic plaque, resulting in approximately 20% stenosis. The left ICA is patent. Normal flow is seen in the cervical, petrous, cavernous, and supraclinoid ICAs. Normal flow is seen in the CHENCHO, MCA, and WIND FIELD MANAGER vessels. Normal flow is seen in the right and left vertebral arteries, as w ell as the basilar artery. CT brain perfusion was performed. No evidence of abnormalities seen on t he mean transit time, blood flow, or blood volume study. IMPRESSION: 1. No significant evidence of carotid or intracranial occlusion. 2. Normal intracranial brain perfusion without evidence of ischemia. Message left for Dr. Ann on voice mail at 10:27 a.m. on 02/14/2018. CODE CR POS: [facility]
--- NOTE | 2018-02-14 13:30 | CON ---
DATE OF CONSULTATION: 02/14/2018 CHIEF COMPLAINT: Weakness on the left face, arm and leg. HISTORY OF PRESENT ILLNESS: The patient is able to give some history, but his primary girlfriend, monica riley was able to provide history as well. This morning around 9:20ish the patient was telling monica riley that he was feeling queasy, ready to throw up and did not feel right and he started to fall when they were walking to the bathroom. He had left-sided face, arm and leg weakness. She alerted t he nurse immediately. The episode lasted approximately 30 minutes per her. The patient reports he h as had a prior stroke with left-sided weakness and facial droop and he has not had any stroke-like sy mptoms. He reports he takes aspirin on a daily basis at home. At this time, he does not complain of any double vision or nausea or loss of vision or weakness or numbness. The patient's physician call ed me to consult on this patient and she also gave me additional history stating the patient has had high blood pressures through the admission and the concern is whether he has hypertensive crises vers us stroke. The patient had a CT of the brain which was reported as no evidence of acute infarct and he does have chronic small vessel ischemic changes and a small bur hole in the right frontal bone wit h a sclerotic lesion in the right lateral frontal bone and no acute stroke or bleeding was reported. CT angiogram report is pending at this time. PAST MEDICAL HISTORY: The patient has history of hypertension and he is also being evaluated by Card iology for atrial fibrillation and he has history of hemorrhagic cerebrovascular accident in the past . He is also pending cardiac cath at this time. He is on amiodarone which was started during this v isit for his atrial fibrillation. He also has history of alcohol abuse. PAST SURGICAL HISTORY: Although there is not much recorded in the chart, he does have a bur hole in the right side. I am assuming he has had a prior surgery for his hemorrhagic infarct. FAMILY HISTORY: Positive for stroke in his paternal side of the family. LABORATORY REPORTS: White count 11.8, hemoglobin 14.3, hematocrit 44.3, MCV 99.6, platelet count 111 . His chemistries: Sodium 139, potassium 3.6, chloride 109, bicarbonate 18, BUN 11, creatinine 0.96 . Glucose 103. AST 58, ALT 42, alkaline phosphatase 79. A CT scan of the head as discussed. PHYSICAL EXAMINATION: VITAL SIGNS: His blood pressure is 165/120, temperature 97.6, respiratory rate 18. GENERAL APPEARANCE: Well-built, well-nourished gentleman who is stable in his bed. CHEST: Clear vesicular breathing. CARDIOVASCULAR: S1, S2 heard, no murmurs. Carotids are clear. ABDOMEN: Soft, nontender. NEUROLOGICAL: High intellectual functions. He in is normal with normal orientation to time, place a nd person. Cranial nerves II-XII normal except for left facial droop. Normal extraocular movements. Fundus exam normal. Normal facial sensation. Tongue midline, no atrophy noted. Normal elevation of palate. Normal hearing. Motor exam; bulk normal, tone normal, strength 5/5 throughout in iliopso as, hamstrings, quadriceps, ankle dorsiflexion, plantar flexion, deltoid, biceps, triceps, wrist exte nsion and flexion bilaterally. Sensory examination; normal touch, pinprick, proprioception, vibratio n, and temperature bilaterally. Cerebellar: Normal [id number] and [id number]. Gait not exami gris. IMPRESSION: The patient is a 63-year-old gentleman with risk factors for stroke including hypertensi on, atrial fibrillation and prior hemorrhagic cerebrovascular accident with a bur hole in the right s lisa, perhaps prior surgery for his hemorrhage. He is pending cardiac catheterization at this time. He had a transient neurologic event which lasted approximately 30 minutes including left face, arm an d leg weakness. CT studies are negative. CT angio result is pending and he will need further workup to investigate if this is in fact a stroke versus hypertensive crisis. RECOMMENDATIONS: 1. MRI of the brain. 2. Echocardiogram and ultrasound of the carotid and check with the if he is in fact taking aspi rin on a daily basis at home and I will follow up with you. 3. Blood pressure parameters, allow for permissive hypertension with a systolic around 180 and diast olic around 80-90. Thank you. I will follow up with you.
[2018-02-14] MEDS: Lorazepam 1 MG TAB PO PRN (15:51)
--- NOTE | 2018-02-14 15:53 | PDOC.PN ---
- Subjective Encounter Start Date: 02/14/18 Encounter Start Time: 09:30 Subjective: went to see pt, had left side facial droop. stroke alert called -: pt states " i do not feel well" -: Nurse in room stated that she had walked the patient earlier Nurse stated that she walked pt earlier without any problems and he did not complain of any issues. - Objective Vital Signs & Weight: Vital Signs (12 hours) Temp Pulse Resp BP BP BP Pulse Ox 02/14/18 11:09 165/120 H 02/14/18 11:00 97.6 F 121 H 18 92 L 02/14/18 08:00 97.6 F 121 H 18 165/120 H 165/120 H 98 02/14/18 07:45 97.6 F 121 H 18 97 02/14/18 04:00 97.6 F 118 H 14 131/102 H 131/102 H 91 L Weight Weight 150 lb 9.6 oz I&O: 02/13/18 02/14/18 02/15/18 06:59 06:59 06:59 Intake Total 605 1628 Output Total 1050 Balance 605 578 Result Diagrams: 02/14/18 09:35 02/13/18 04:34 Additional Labs: Accuchecks 02/14/18 09:28 POC Glucose 119 H Phys Exam - Physical Examination HEENT: PERRLA, moist MMs Neck: no nodes Respiratory: no wheezing, no rales Cardiovascular: irregular tachycardia Gastrointestinal: soft, non-tender Musculoskeletal: no edema pt had left sided weakness Lymphatic: no nodes Dx/Plan - Plan * . * 1)New dx of afib ( afib with RVR) 2) alcohol abuse 3) hx of hemorrhagic CVA 4) htn 5) new systolic heart failure ef of 20-25% compensated plan: pt on esmolol will start to decrease dose. pt receiving metoprolol. his CHADVAS score is 1 will start pt on asa. He has had falls and had hemorrhagic cva in the past. His afib most likely due to his alcohol use. Pt was explained this using engineering manager electronics. pt educated to decrease his alcohol intake or stop. will place pt on ativan po and prn htn stable continue to monitor. pt's echo indicates ef of 20-25% will add lisinopril. possible alcohol related vs CAD. cardiology consulted. pt on scheduled ativan for withdrawal. 02/12 pt went into withdrawal this am. pt in 4 point restraints. will increase his ativan and give him beer with meals. at bedside updated. 02/13 will continue ativan 2mg q6 will start decreasing it tri. pt more cooperative. 02/14 pt's blood pressure has been elevated significantly. Pt was on ativan scheduled and prn were ordered per withdrawal score but pt was not receiving much prn ativan. I was not notified about his persisted elevated blood pressure. This am pt's heart rate was at 122 and his blood pressure was very high. He was found to have left facial droop and at this point stroke alert was called. Pt did have some left side weakness. He does have a hx of ? subdural hematomo vs hemorrhagic stroke. ct head negative. ct brain perfusion negative. I did call neurology in regards to pt's condition thinking possible Reversible posterior leukoencephalopathy syndrome. However the ct head did not indicate this. cta head and neck no embolic given his afib. Initially i was told his heart rate was ST but upon reveiwing his ekg he was in afib/flutter. I did given him one liter of NS. Cardiology was called in regards to pt's elevated heart rate and high blood pressure. Cardiology recommend no cardizem but ok for bb. He also recommended EP but i believe his elevated bp and tachycardia is due to withdrawal. Once esmolol was started his heart rate is more controlled and bp is improving. may add isosorbid for lowering his diastolic pressure since his ef is only 20%. unable to anticoagulate given his hx of falls and possible subdural hematoma vs hemorrhagic stroke ( i do not see any evidence of previous hemorrhagic stroke on his ct).
[2018-02-14] MEDS: Esmolol 2,500 MG/250 ML 250 ML IVPB SCH (21:57)
[2018-02-15] MEDS: Lorazepam 2 MG/ML VIAL SLOW IVP SCH ×5 (00:41→16:51)
[2018-02-15 01:28] LABS: Amphetamine Not Detected (NotDetected); Barbiturates Screen Not Detected (NotDetected); Benzodiazepine Screen Detected (NotDetected); Cocaine Metabolite Screen Not Detected (NotDetected); Medtox Control Line Valid? VALID (VALID); Medtox Reader # READER 4; Methadone Not Detected (NotDetected); Methamphetamine Detected (NotDetected); Opiate Screen Not Detected (NotDetected); Oxycodone Screen Not Detected (NotDetected); Phencyclidine (PCP) Not Detected (NotDetected); THC/Cannabinoid Screen Not Detected (NotDetected); Tricyclic Screen Not Detected (NotDetected)
[2018-02-15] MEDS: Esmolol 2,500 MG/250 ML 250 ML IVPB SCH (02:51)
[2018-02-15] MEDS ORDERED: Isosorbide Dinitrate 20 MG TAB PO ONE (07:25)
[2018-02-15] MEDS ORDERED: Isosorbide Dinitrate 5 MG TAB PO ONE (07:30)
[2018-02-15] MEDS ORDERED: Digoxin 0.5 MG/2 ML AMP SLOW IVP SCH ×2 (07:30→10:30)
[2018-02-15] MEDS: Famotidine 20 MG TAB PO SCH ×2 (08:59→20:53)
[2018-02-15] MEDS: Lisinopril 10 MG TAB PO SCH ×2 (08:59→20:53)
[2018-02-15] MEDS: Folic Acid 1 MG TAB PO SCH (09:00)
[2018-02-15] MEDS: Sodium Chloride 0.9% 1,000 ML IV SCH (10:33)
[2018-02-15 10:58] LABS: Anion Gap 14 mmol/L (10-20); BUN (Urea Nitrogen) 16 mg/dL (8.4-25.7); Calc. Creatinine Clearance 56 mL/min (70-130); Calcium 8.6 mg/dL (7.8-10.44); Carbon Dioxide 22 mmol/L (23-31); Chloride 107 mmol/L (98-107); Estimated GFR-MDRD 56; Glucose 91 mg/dL (80-115); Magnesium 1.7 mg/dL (1.6-2.6); Potassium 4.2 mmol/L (3.5-5.1); Sodium 139 mmol/L (136-145)
--- NOTE | 2018-02-15 11:47 | PRG ---
DATE OF SERVICE: 02/15/2018 CHIEF COMPLAINT: CVA. INTERVAL HISTORY: The patient and nursing staff report the patient has been doing well. No further events or weakness. His MRI is currently pending due to him not being cooperative during yesterday's MRI. It had to be rescheduled. The patient remained stable. LABORATORY RESULTS: White count 11.8, hemoglobin 14.3, hematocrit 44.3, platelets 111. Chemistry is as noted. His glucose levels are at 130 and is today's labs. He did not have labs yesterday, but p labs from 02/13/2018 shows sodium 139, potassium 3.6, chloride 109, bicarbonate 18, BUN 11, and creatinine 0.8. PHYSICAL EXAMINATION: VITAL SIGNS: Blood pressure 130/101 and pulse is 119, temperature 97.7. GENERAL: Well-built, well-nourished man. He is stable, doing well at this time. NEUROLOGIC: Higher intellectual functions, normal orientation to time, place, person. Cranial nerve s: Left facial droop. Motor exam, bulk normal, tone normal, strength 5/5 in upper and lower extremi ties. IMPRESSION: Patient with possible acute stroke; however, transient event with symptoms that lasted o nly 30 minutes and currently he is still in the ICU for better blood pressure control. His blood pre ssures seem to be rather high. At this time, his examination is essentially normal except for facial droop. RECOMMENDATIONS: Please continue to complete his MRI and will follow up clinically tomorrow.
--- NOTE | 2018-02-15 13:12 | EKG ---
Test Reason : Blood Pressure : / mmHG Vent. Rate : 143 BPM Atrial Rate : 178 BPM P-R Int : 000 ms QRS Dur : 078 ms QT Int : 316 ms P-R-T Axes : 000 000 -06 degrees QTc Int : 487 ms Atrial fibrillation with rapid ventricular response Nonspecific T wave abnormality Abnormal ECG Confirmed by IMANI COLLINS [id number]), editor dictionary ELSY MENDEZ ([id number]) on 02/15/2018 1:12:00 PM Referred By: Confirmed By:IMANI COLLINS
--- NOTE | 2018-02-15 14:20 | PDOC.PN ---
- Subjective Encounter Start Date: 02/15/18 Encounter Start Time: 08:30 Subjective: pt up in bed still feels weak all over -: at bedside updated about pt's condition - Objective Vital Signs & Weight: Vital Signs (12 hours) Temp Pulse Resp BP BP BP Pulse Ox 02/15/18 12:00 97.6 F 92 20 119/73 100 02/15/18 10:33 119 H 02/15/18 08:59 119 H 130/101 H 02/15/18 07:55 97.7 F 119 H 24 H 132/104 H 97 02/15/18 07:38 98.5 F 120 H 18 97 02/15/18 06:06 120 H 18 134/110 H 02/15/18 05:05 120 H 20 133/104 H 02/15/18 04:10 98.5 F 119 H 20 130/101 H 130/101 H 02/15/18 03:00 136/98 H Weight Weight 150 lb 9.6 oz I&O: 02/14/18 02/15/18 02/16/18 06:59 06:59 06:59 Intake Total 1628 600 Output Total 1050 400 Balance 578 200 Result Diagrams: 02/14/18 09:35 02/15/18 10:35 Additional Labs: Accuchecks 02/15/18 02/14/18 02/14/18 11:11 22:00 16:31 POC Glucose 165 H 130 H 124 H Phys Exam - Physical Examination HEENT: PERRLA, moist MMs Neck: no nodes, no JVD Respiratory: no wheezing, no rales Cardiovascular: irregular Gastrointestinal: soft, non-tender He does have some drooping of his left facial area. Dx/Plan - Plan * . * 1)New dx of afib ( afib with RVR) 2) alcohol abuse 3) hx of hemorrhagic CVA 4) htn 5) new systolic heart failure ef of 20-25% compensated plan: pt on esmolol will start to decrease dose. pt receiving metoprolol. his CHADVAS score is 1 will start pt on asa. He has had falls and had hemorrhagic cva in the past. His afib most likely due to his alcohol use. Pt was explained this using production mechanic tin cans. pt educated to decrease his alcohol intake or stop. will place pt on ativan po and prn htn stable continue to monitor. pt's echo indicates ef of 20-25% will add lisinopril. possible alcohol related vs CAD. cardiology consulted. pt on scheduled ativan for withdrawal. 02/12 pt went into withdrawal this am. pt in 4 point restraints. will increase his ativan and give him beer with meals. at bedside updated. 02/13 will continue ativan 2mg q6 will start decreasing it tri. pt more cooperative. 02/14 pt's blood pressure has been elevated significantly. Pt was on ativan scheduled and prn were ordered per withdrawal score but pt was not receiving much prn ativan. I was not notified about his persisted elevated blood pressure. This am pt's heart rate was at 122 and his blood pressure was very high. He was found to have left facial droop and at this point stroke alert was called. Pt did have some left side weakness. He does have a hx of ? subdural hematomo vs hemorrhagic stroke. ct head negative. ct brain perfusion negative. I did call neurology in regards to pt's condition thinking possible Reversible posterior leukoencephalopathy syndrome. However the ct head did not indicate this. cta head and neck no embolic given his afib. Initially i was told his heart rate was ST but upon reveiwing his ekg he was in afib/flutter. I did given him one liter of NS. Cardiology was called in regards to pt's elevated heart rate and high blood pressure. Cardiology recommend no cardizem but ok for bb. He also recommended EP but i believe his elevated bp and tachycardia is due to withdrawal. Once esmolol was started his heart rate is more controlled and bp is improving. may add isosorbid for lowering his diastolic pressure since his ef is only 20%. unable to anticoagulate given his hx of falls and possible subdural hematoma vs hemorrhagic stroke ( i do not see any evidence of previous hemorrhagic stroke on his ct). 02/15 pt's bp and heart rate was still elevated this am. He is on esmolol drip. will start pt on digoxin load and daily for heart rate control. Not sure if his elevated heart rate is due to alcohol withdrawal vs uncontrolled afib. pt is on ativan scheduled and prn and has been getting it. spoke with cardiology who agreed with digoxin for rate control given his poor ef. cardioversion is an option but pt is no on AC due to his hx of fall and subdural hematoma in the past. pt also given one dose of isosorbid for elevated diastolic bp. pt on asa. frequency of ativan decreased. pt yesterday unable to do MRI brain Review of Systems - Review of Systems Eyes: negative: Pain, Vision Change, Conjunctivae Inflammation, Eyelid Inflammation, Redness, Other ENT: negative: Ear Pain, Ear Discharge, Nose Pain, Nose Discharge, Nose Congestion, Mouth Pain, Mouth Swelling, Throat Pain, Throat Swelling, Other Respiratory: negative: Cough, Dry, Shortness of Breath, Hemoptysis, SOB with Excertion, Pleuritic Pain, Sputum, Wheezing Cardiovascular: negative: chest pain, palpitations, orthopnea, paroxysmal nocturnal dyspnea, edema, light headedness, other - Medications/Allergies Allergies/Adverse Reactions: Allergies Allergy/AdvReac Type Severity Reaction Status Date / Time No Known Drug Allergies Allergy Verified 02/12/18 01:26 Medications: Current Medications Acetaminophen (Tylenol) 650 mg PO Q6H PRN PRN Reason: Headache/Fever or Pain Al Hydroxide/Mg Hydroxide (Maalox) 30 ml PO Q6H PRN PRN Reason: Heartburn or Indigestion Aspirin (Aspirin Chewable) 81 mg PO DAILY [facility] Last Admin: 02/15/18 08:59 Dose: 81 mg Bisacodyl (Dulcolax) 10 mg PO DAILYPRN PRN PRN Reason: Constipation Calcium Carbonate (Tums) 1,000 mg PO Q4H PRN PRN Reason: Heartburn or Indigestion Digoxin (Lanoxin) 0.125 mg PO DAILY [facility] Digoxin (Lanoxin) 0.125 mg PO NOW [facility] Stop: 02/15/18 16:30 Famotidine (Pepcid) 20 mg PO BID [facility] Last Admin: 02/15/18 08:59 Dose: 20 mg Folic Acid (Folvite) 1 mg PO DAILY [facility] Last Admin: 02/15/18 09:00 Dose: 1 mg Thiamine HCl 100 mg/ Sodium (Chloride) 51 mls @ 100 mls/hr IVPB Q24HR [facility] Last Admin: 02/15/18 10:33 Dose: 51 mls Esmolol HCl/Sodium Chloride (Brevibloc Rtu) 250 mls @ 51.233 mls/hr IVPB INF MACARIO; 125 MCG/KG/MIN PRN Reason: Protocol Last Admin: 02/15/18 02:51 Dose: 250 mls Sodium Chloride (Normal Saline 0.9%) 1,000 mls @ 50 mls/hr IV .Q20H [facility] Last Admin: 02/15/18 10:33 Dose: 1,000 mls Magnesium Sulfate 2 gm/ Device 100 mls @ 100 mls/hr IVPB NOW [facility] Stop: 02/15/18 16:30 Lisinopril (Zestril) 10 mg PO BID [facility] Last Admin: 02/15/18 08:59 Dose: 10 mg Lorazepam (Ativan) 1 mg PO Q4H PRN PRN Reason: Alcohol Withdrawal Last Admin: 02/14/18 15:51 Dose: 1 mg Lorazepam (Ativan) 1 mg SLOW IVP Q4H PRN PRN Reason: Anxiety/Agitation Last Admin: 02/14/18 11:47 Dose: 1 mg Lorazepam (Ativan) 2 mg SLOW IVP Q6HR [facility] Last Admin: 02/15/18 12:19 Dose: Not Given Magnesium Hydroxide (Milk Of Magnesium) 30 ml PO DAILYPRN PRN PRN Reason: Constipation Ondansetron HCl (Zofran) 4 mg IVP Q6H PRN PRN Reason: Nausea/Vomiting Last Admin: 02/14/18 09:22 Dose: 4 mg Senna (Senokot) 2 tab PO HSPRN PRN PRN Reason: Constipation Last Admin: 02/11/18 06:41 Dose: 2 tab Sodium Chloride (Flush - Normal Saline) 10 ml IVF Q12HR [facility] Last Admin: 02/15/18 09:00 Dose: 10 ml Sodium Chloride (Flush - Normal Saline) 10 ml IVF PRN PRN PRN Reason: Saline Flush Last Admin: 02/13/18 17:13 Dose: 10 ml
[2018-02-15] MEDS ORDERED: Magnesium 2 GM/NS 0.9% 100 ML 2 GM in Premix Bag 1 BAG IVPB SCH (14:30)
[2018-02-15] MEDS ORDERED: Digoxin 0.125 MG TAB PO SCH (14:30)
[2018-02-15] MEDS ORDERED: Lorazepam 2 MG/ML VIAL SLOW IVP SCH (15:00)
[2018-02-15] MEDS ORDERED: Metoprolol Tartrate 50 MG TAB PO SCH (16:30)
--- NOTE | 2018-02-15 17:19 | CON ---
DATE OF CONSULTATION: 02/15/2018 HISTORY OF PRESENT ILLNESS: Mr. Jamshid Ortiz is a 63-year-old gentleman who was transferre d from the medical floor to the stroke unit for stroke alert. He had a CT angio of the head and neck, all has revealed no obvious ischemic event. He is now on an esmolol drip and digoxin for SVT. Cardiology has been seeing him. His is at [facility] bedside who states that he has been in the hospital here now for several days. In fact, he present ed a week ago with what appears to be shortness of breath. He has a longstanding history of excessiv e alcohol and tobacco abuse. is an extremely poor historian. The patient denies any chest pain, chills or sweats. He was found on numerous times, in fact, during his previous hospitalization, he had traumatic subdur al hematoma. He drinks, apparently, over 12 beers a day. He has no history of atrial fibrillation. He is apparen tly with a new problem. His states he has no primary care physician, lives in [facility], go es to [facility] for routine care. PAST MEDICAL AND SURGICAL HISTORY: Hypertension, 2 hemorrhagic cerebrovascular accidents, previous c raniotomy for a bleed from fall. HABITS: Chronic alcohol or tobacco abuse. Denies substance abuse. MEDICATIONS: List of medicines at home, unknown. 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 REVIEW OF SYSTEMS: Otherwise, difficult to obtain. PHYSICAL EXAMINATION: GENERAL: He is sedated with Ativan. VITAL SIGNS: on room air; blood pressure 100/ ; pulse 119, atrial fibrillation; and temper ature 97. CHEST: No wheezing, no crackle. CARDIAC: Normal S1 and S2. ABDOMEN: Soft. No masses. LABORATORY AND X-RAY FINDINGS: White count 11,000, hemoglobin and hematocrit 14 and 43, platelet cou nt is low 111. This has been getting progressively low. His INR is 1.4. His toxicology screen reve aled meth and benzos. CT head, brain perfusions; neck, negative. His chemistry profile shows that his BUN and creatinine are normal. His liver functions were mildly elevated. IMPRESSION: 1. Atrial fibrillation. 2. Tobacco abuse. 3. Alcohol abuse. 4. Multiple cerebral events, traumatic brain injury, status post evacuation of subdural. 5. Atrial fibrillation that is new. PLAN: The patient needs ongoing counseling if he is able to go to one. Continue present medication, esmolol, IV digoxin, though clearly he can be switched over to oral medication. He is getting Ativa n for withdrawal symptoms, 2 mg as scheduled every 4 hours. I would definitely try and decrease it. Pulmonary is going to follow while in the MICU. This is a consultation note, 70 minutes of which 50% of the time was spent in direct patient care.
[2018-02-15] MEDS: Metoprolol Tartrate 50 MG TAB PO SCH (20:53)
[2018-02-16] MEDS: Lorazepam 2 MG/ML VIAL SLOW IVP SCH ×4 (00:19→17:25)
[2018-02-16] MEDS: Sodium Chloride 0.9% 1,000 ML IV SCH (06:00)
[2018-02-16] MEDS: Lisinopril 10 MG TAB PO SCH ×2 (09:05→20:08)
[2018-02-16] MEDS: Famotidine 20 MG TAB PO SCH ×2 (09:05→20:08)
[2018-02-16] MEDS: Metoprolol Tartrate 50 MG TAB PO SCH ×2 (09:05→20:08)
[2018-02-16] MEDS: Folic Acid 1 MG TAB PO SCH (09:05)
[2018-02-16] MEDS: Digoxin 0.125 MG TAB PO SCH (09:05)
--- NOTE | 2018-02-16 09:10 | PDOC.PN ---
- Subjective Encounter Start Date: 02/16/18 Encounter Start Time: 09:08 Subjective: Seen and examined feeling better - Objective Vital Signs & Weight: Vital Signs (12 hours) Temp Pulse Resp BP BP BP BP 02/16/18 09:05 82 111/55 L 02/16/18 08:00 82 18 164/91 H 02/16/18 06:03 82 18 145/94 H 02/16/18 04:22 134/85 02/16/18 03:57 98.3 F 75 19 134/85 02/16/18 02:10 79 18 130/83 02/16/18 00:17 148/89 H 02/16/18 00:00 98.3 F 76 19 148/89 H 02/15/18 22:14 62 18 134/77 02/15/18 21:23 65 18 119/81 Pulse Ox 02/16/18 09:05 02/16/18 08:00 100 02/16/18 06:03 02/16/18 04:22 02/16/18 03:57 96 02/16/18 02:10 02/16/18 00:17 02/16/18 00:00 93 L 02/15/18 22:14 02/15/18 21:23 Weight Weight 150 lb 9.6 oz I&O: 02/15/18 02/16/18 02/17/18 06:59 06:59 06:59 Intake Total 600 800 Output Total 400 925 Balance 200 -125 Result Diagrams: 02/14/18 09:35 02/15/18 10:35 Additional Labs: Accuchecks 02/16/18 02/15/18 02/15/18 05:51 20:36 16:34 POC Glucose 88 110 115 H 02/15/18 02/15/18 16:18 11:11 POC Glucose 40 L* 165 H Phys Exam - Physical Examination Constitutional: NAD HEENT: PERRLA, moist MMs, sclera anicteric, TM's clear Neck: no nodes, no JVD, supple, full ROM Respiratory: no wheezing, no rales, no rhonchi, clear to auscultation bilateral Cardiovascular: RRR, no significant murmur, no rub Gastrointestinal: soft, non-tender, no distention, positive bowel sounds Musculoskeletal: no edema, pulses present Dx/Plan (1) Afib Code(s): I48.91 - UNSPECIFIED ATRIAL FIBRILLATION Status: Acute (2) Alcohol abuse Code(s): F10.10 - ALCOHOL ABUSE, UNCOMPLICATED Status: Acute (3) Intracerebral hemorrhage Code(s): I61.9 - NONTRAUMATIC INTRACEREBRAL HEMORRHAGE, UNSPECIFIED Status: Acute - Plan cont current plan of care, plan discussed w/ family, PT/OT, renal social worker, respiratory therapy Ok to transfer to Tele or stroke unit -: D/c IVF * .
--- NOTE | 2018-02-16 12:34 | PRG ---
DATE OF SERVICE: 02/16/2018 CHIEF COMPLAINT: Left-sided weakness. INTERVAL HISTORY: The patient is stable. He is still pending his MRI brain. At this time, he does not report any new problems. LABORATORY RESULTS: White count 11.8, hemoglobin 14.3, hematocrit 44.3, platelets 111. Chemistry: Glucose is 97. Chem, sodium 139, potassium 4.2, chloride 107, carbon dioxide 22, BUN 16, creatinine 1.29. PHYSICAL EXAMINATION: VITAL SIGNS: Blood pressure is 143/80, temperature 97.6, pulse 69, respiratory rate 18. CHEST: Clear vesicular breathing. CARDIOVASCULAR: Normal. NEUROLOGIC: Higher intellectual functions, normal orientation to time, place, person. Cranial nerve s, no facial asymmetry noted. Motor exam, bulk normal, tone normal, strength 5/5 in upper and lower extremities. IMPRESSION: Patient is a 63-year-old man with transient left-sided weakness lasted about 10 minutes or so. At this time, he is still pending his MRI and echocardiogram. RECOMMENDATIONS: Please continue aspirin for stroke prophylaxis and complete his stroke workup inclu ding echo and MRI. Please call Neurology if MRI is abnormal.
--- NOTE | 2018-02-16 18:17 | PRG ---
DATE OF SERVICE: 02/16/2018 SUBJECTIVE: This morning, he appears somewhat more responsive, not agitated. Apparently, he had run of V-tach, given magnesium. OBJECTIVE: VITAL SIGNS: Blood pressure 110/50, sats are 100% on room air, respirations 18, temperature 98. CHEST: Reveals no wheezing. CARDIAC: Normal S1 and S2. ABDOMEN: Soft, no masses. IMPRESSION: 1. Encephalopathy. 2. Stroke alert. 3. Atrial fibrillation. 4. Previous cerebrovascular accident. PLAN: From a pulmonary standpoint of view, nothing additional to offer. Await input from Cardiology . We will follow.
[2018-02-17] MEDS: Lorazepam 2 MG/ML VIAL SLOW IVP SCH ×4 (00:57→17:32)
[2018-02-17] MEDS: Digoxin 0.125 MG TAB PO SCH (08:27)
[2018-02-17] MEDS: Metoprolol Tartrate 50 MG TAB PO SCH (08:27)
[2018-02-17] MEDS: Folic Acid 1 MG TAB PO SCH (08:27)
[2018-02-17] MEDS: Lisinopril 10 MG TAB PO SCH (08:28)
[2018-02-17] MEDS: Famotidine 20 MG TAB PO SCH ×2 (08:28→22:04)
--- NOTE | 2018-02-17 11:17 | PDOC.PN ---
- Subjective Encounter Start Date: 02/17/18 Encounter Start Time: 11:16 Patient seen and examined, states he feels about the same as yesterday with no new symptoms or issues overnight. No family at bedside, all questions answered. - Objective MAR Reviewed: Yes Vital Signs & Weight: Vital Signs (12 hours) Temp Pulse Resp BP BP BP BP 02/17/18 08:28 177/108 H 02/17/18 08:27 91 02/17/18 08:00 98.3 F 91 18 159/91 H 02/17/18 07:43 97.5 F L 95 16 02/17/18 04:40 97.5 F L 95 16 177/108 H 177/108 H 02/16/18 23:30 97.6 F 83 18 161/105 H 161/105 H Pulse Ox 02/17/18 08:28 02/17/18 08:27 02/17/18 08:00 95 02/17/18 07:43 02/17/18 04:40 97 02/16/18 23:30 97 Weight Weight 150 lb 9.6 oz I&O: 02/16/18 02/17/18 02/18/18 06:59 06:59 06:59 Intake Total 800 100 Output Total 925 Balance -125 100 Result Diagrams: 02/14/18 09:35 02/15/18 10:35 Additional Labs: Accuchecks 02/16/18 11:23 POC Glucose 97 Phys Exam - Physical Examination Constitutional: NAD HEENT: PERRLA, moist MMs Neck: no nodes, no JVD Respiratory: no wheezing, no rales Cardiovascular: RRR, no significant murmur Gastrointestinal: soft, non-tender Musculoskeletal: no edema, pulses present Neurological: non-focal, normal sensation Dx/Plan (1) Afib Code(s): I48.91 - UNSPECIFIED ATRIAL FIBRILLATION Status: Acute (2) Alcohol abuse Code(s): F10.10 - ALCOHOL ABUSE, UNCOMPLICATED Status: Acute (3) Encephalopathy Code(s): G93.40 - ENCEPHALOPATHY, UNSPECIFIED Status: Acute - Plan * MRI pending * neurology and critical care following * Await image results for now * no changes in plan of care from medical perspective * no family at bedside * further management per subspecialists
--- NOTE | 2018-02-17 11:58 | PDOC.CTH ---
<Xuan Levi - Last Filed: 02/17/18 11:56> Cardiology Progress Note - Subjective EP progress note: Patient seen and examined. Resting in bed. Going for brain MRI soon. No heart racing, palpitations, shortness of breath, syncope/near syncope, or chest pain. Denies new stroke or stroke like symptoms. No new cardiac complaints or concerns today. - Objective Vital Signs Temp Pulse Resp BP BP BP Pulse Ox 02/17/18 11:55 97.7 F 82 16 175/108 H 97 02/17/18 08:28 177/108 H 02/17/18 08:27 91 02/17/18 08:00 98.3 F 91 18 159/91 H 95 02/17/18 07:43 97.5 F L 95 16 02/17/18 04:40 97.5 F L 95 16 177/108 H 177/108 H 97 Weight 150 lb 9.6 oz 02/16/18 02/17/18 02/18/18 06:59 06:59 06:59 Intake Total 800 100 Output Total 925 Balance -125 100 - Physical Examination General/Neuro: alert & oriented x3, NAD Neck: carotid US brisk, no JVD present Lungs: CTA, unlabored respirations Heart: PMI normal Abdomen: no HSM, NT/ND - Telemetry Telemetry Rhythm: A. Fib - Labs Result Diagrams: 02/14/18 09:35 02/15/18 10:35 Troponin/CKMB CK-MB (CK-2) 1.3 ng/mL (0-6.6) 02/14/18 09:35 Troponin I 0.011 ng/mL (< 0.028) 02/14/18 09:35 - Assessment/Plan 1. Atrial arrhythmias. Initially noted to be in a CTI dependent typical flutter. Now, in atrial fibrillation. Rates are well controlled with digoxin 0.125mg QD and metoprolol 50mg BID. 2. Not on anticoagulation, given history of 2 prior hemorrhagic CVAs as well as a SDH requiring craniotomy for hematoma evacuation. 3. History of hemorrhagic CVA in the setting of severe hypertension precluding patient from oral anticoagulation 02/02/14-right basal ganglia intraparenchymal hemorrhage 02/02/15- intraventricular hemorrhage (3rd Ventricle) and mild obstructive hydrocephalus 4. Severe hypertension- per medicine 5. Severe alcohol abuse- per medicine Recommendations: Continue rate control. If this becomes difficult with medication alone, ablation can be considered. Treatment is somewhat limited given patient not being anticoagulated at this time. If neurology feels patient can safely be anticoagulated, he could be scheduled for FAVIO/DCCV either as inpatient or outpatient. <Hima Bowen - Last Filed: 02/17/18 16:18> Cardiology Progress Note - Objective Vital Signs Temp Pulse Resp BP BP BP Pulse Ox 02/17/18 16:00 97.4 F L 83 16 175/89 H 96 02/17/18 11:55 97.7 F 82 16 175/108 H 97 02/17/18 08:28 177/108 H 02/17/18 08:27 91 02/17/18 08:00 98.3 F 91 18 159/91 H 95 02/17/18 07:43 97.5 F L 95 16 02/17/18 04:40 97.5 F L 95 16 177/108 H 177/108 H 97 Weight 150 lb 9.6 oz 02/16/18 02/17/18 02/18/18 06:59 06:59 06:59 Intake Total 800 100 Output Total 925 Balance -125 100 - Labs Result Diagrams: 02/14/18 09:35 02/15/18 10:35 Troponin/CKMB CK-MB (CK-2) 1.3 ng/mL (0-6.6) 02/14/18 09:35 Troponin I 0.011 ng/mL (< 0.028) 02/14/18 09:35 Attending Addendum - Attending Addendum Date/Time: 02/17/18 0001 I personally evaluated the patient and discussed the management with Ms Moeller. I agree with the History, Examination, Assessment and Plan documented above with any addition or exceptions noted below.
--- NOTE | 2018-02-17 13:58 | MRI ---
MRI BRAIN WITHOUT CONTRAST: Date: 02/17/18 HISTORY: Left-sided facial drop, weakness. COMPARISON: None. FINDINGS: Along both the left middle frontal gyrus and precentral gyrus is a focal area of abnormally increased signal on the diffusion-weighted imaging sequence with associated decreased signal on ADC confirming an acute infarction. No other abnormal areas of diffusion restriction. Multiple areas of signal alteration in the basal ganglia and subcortical white matter on the suscepti bility weighted imaging sequence suggesting an old foci of hemorrhage. No hydrocephalus. Moderate microvascular ischemic changes in periventricular and deep white matter. O rbits unremarkable. The flow-voids are maintained. The marrow signal of the clivus is normal. Corpus callosum appears unremarkable. IMPRESSION: 1. Acute infarction, small, of the right middle frontal gyrus and precentral gyrus, likely accountin g for patient's symptomatology. 2. Likely chronic small hypertensive hemorrhages in the basal ganglia and subcortical white matter. POS: TPC
[2018-02-17] MEDS ORDERED: ADENOSINE 60 MG/20 ML VIAL ONE (16:01)
--- NOTE | 2018-02-17 18:13 | PDOC.CTH ---
Cardiology Progress Note - Subjective He has new right facial weakness. His MRI confirms new CVA. He still wants to go home. He states he feels better and is able to lay flat without getting SOB or coughing. - Objective Vital Signs Temp Pulse Pulse Pulse Resp BP BP 02/17/18 16:00 97.4 F L 83 16 02/17/18 15:10 87 94 172/105 H 02/17/18 11:55 97.7 F 82 16 02/17/18 08:28 177/108 H 02/17/18 08:27 91 02/17/18 08:00 98.3 F 91 18 02/17/18 07:43 97.5 F L 95 16 BP BP Pulse Ox 02/17/18 16:00 175/89 H 96 02/17/18 15:10 186/102 H 02/17/18 11:55 175/108 H 97 02/17/18 08:28 02/17/18 08:27 02/17/18 08:00 159/91 H 95 02/17/18 07:43 Weight 150 lb 9.6 oz 02/16/18 02/17/18 02/18/18 06:59 06:59 06:59 Intake Total 800 100 Output Total 925 Balance -125 100 - Physical Examination General/Neuro: alert & oriented x3, NAD Neck: no JVD present Lungs: CTA, unlabored respirations Heart: other: (Irreg) Abdomen: NT/ND Extremities: other: (no edema.) - Telemetry Telemetry Rhythm: Afib - Labs Result Diagrams: 02/14/18 09:35 02/15/18 10:35 Troponin/CKMB CK-MB (CK-2) 1.3 ng/mL (0-6.6) 02/14/18 09:35 Troponin I 0.011 ng/mL (< 0.028) 02/14/18 09:35 - Assessment/Plan 1. New onset CM EF at 20-25% 2. New onset Afib/flutter 3. Alcohol abuse. 4. Alcohol withdrawal with hallucinations, improved. 5. Tobacco abuse. 6. HTN 7. Acute stroke. PLAN: - Continue amiodarone for rate control for now. - Aspirin alone for stroke prophylaxis given alcohol use and history of hemorrhagic CVA. - Continue BB and ACEI for now. - Not good candidate for anticoagulation due to alcohol use, previous hemorrhagic CVA. - Lariat may be a possibility, Will discuss with EP. - Likely non ischemic CM due to alcohol use, will screen for ischemia with an MPI. Would not do a LHC due to acute CVA.
--- NOTE | 2018-02-17 20:14 | PRG ---
DATE OF SERVICE: 02/17/2018 SUBJECTIVE: Mr. Mendes is a pleasant 63-year-old male who presented with the complaint of l eft generalized weakness and shortness of breath. He had a sudden onset of left face, arm and leg we akness. He had MRI brain done today which did show acute right middle cerebral artery distribution i schemic infarct. The patient reports of improvement in his strength. He denies any headache, chest pain, palpitation, nausea, vomiting, or abdominal pain. OBJECTIVE: VITAL SIGNS: Blood pressure of 175/89, pulse of 83, temperature of 97.4, respirations of 16, O2 sats of 96% on room air. GENERAL: Well-developed, well-nourished male, in no apparent distress. RESPIRATORY: Clear to auscultation bilaterally. CARDIOVASCULAR: Regular rate and rhythm. NEUROLOGICAL: Mental status: The patient is awake, alert, oriented x3. Speech and language: Fluen t speech. Cranial nerves: Pupils are 3 mm and reactive. Visual horne are intact. He has a left f acial droop noted. Motor exam showed normal tone and bulk with a 5/5 strength in both upper extremit ies. Sensory: Sensation appears intact. Babinski: Plantar responses flexion bilaterally. IMAGING STUDIES: MRI brain without contrast was reviewed, which showed a small acute right distal mi ddle cerebral artery distribution ischemic infarct. IMPRESSION: 1. Small acute right distal middle cerebral artery distribution ischemic infarct. 2. Cardiomyopathy. 3. Congestive heart failure. 4. Alcohol abuse. PLAN: Mr. Mendes is a pleasant 63-year-old male who presented with the shortness of breath and later developed left-sided weakness. He is found to have small distal right middle cerebral myrna ry distribution ischemic infarct. I agree with Dr. Quintero of continuing patient on aspirin for secon marvin stroke prevention. I would not recommend starting him on anticoagulation given his behavioral h istory of alcohol use in the past along with poor compliance. I would recommend continuing current m edical management. No further neurological workup needed from my standpoint. I will sign off. Plea se call us if there are any questions or concern.
[2018-02-17] MEDS: Lisinopril 20 MG TAB PO SCH (22:03)
[2018-02-17] MEDS: Atorvastatin Calcium 10 MG TAB PO SCH (22:05)
[2018-02-17] MEDS: Metoprolol Tartrate 100 MG TAB PO SCH (22:05)
[2018-02-18] MEDS: Lorazepam 2 MG/ML VIAL SLOW IVP SCH ×4 (00:07→11:58)
[2018-02-18] MEDS: Metoprolol Tartrate 100 MG TAB PO SCH ×2 (11:58→20:50)
[2018-02-18] MEDS: Lisinopril 20 MG TAB PO SCH ×2 (12:22→20:49)
[2018-02-18] MEDS: Digoxin 0.125 MG TAB PO SCH (12:22)
[2018-02-18] MEDS: Folic Acid 1 MG TAB PO SCH (12:23)
[2018-02-18] MEDS: Famotidine 20 MG TAB PO SCH ×2 (12:23→20:49)
--- NOTE | 2018-02-18 13:10 | NM ---
NUCLEAR MEDICINE CARDIAC STRESS TEST WITH EJECTION FRACTION: HISTORY: Cardiomyopathy. Difficulty breathing. Hypertension. CVA. Smoker. COMPARISON: None. TECHNIQUE: Stress and rest was performed after the intravenous administration of 33 and 9 mCi technetium-99m ses tamibi intravenously, respectively. FINDINGS: No evidence of scar or ischemia. There is hypokinesis of the inferior wall and septal wall. Calculated ejection fraction is 45%. IMPRESSION: 1. No evidence of scar or ischemia. 2. Hypokinesis of the inferior wall and septal wall. 3. Ejection fraction is 45%. POS: TITO
--- NOTE | 2018-02-18 13:59 | STRESS ---
Acquisition Time: 2018-02-18 09:50:01 Total Exercise Time: 00:04:00 Test Indications: DIFFICULTY BREATHING Medications: Protocol: ADENOSINE Max HR: 087 BPM 55% of Pred: 156 BPM Max BP: 174/098 mmHG Max Work Load: 1.0 METS THE PATIENT WAS INJECTED WITH ADENOSINE. HE DID NOT DEVELOP CHEST PAIN. THERE WAS NO SIGNIFICANT ST DEPRESSION. AWAIT NUCLEAR IMAGES FOR DEFINITIVE DIAGNOSIS. Confirmed by NAYA ALEXANDER ([id number]), editorial manager KAROLYN MANSFIELD ([id number]) on 02/18/2018 1:58:55 PM Referred By: MD Mitzy VALENCIA Confirmed By:NAYA ALEXANDER
--- NOTE | 2018-02-18 14:26 | CT ---
CONTRAST ENHANCED CTA IMAGES OF THE CAROTIDS AND BRAIN: HISTORY: Patient with left facial drooping, possible stroke. TECHNIQUE: Contrast enhanced CTA images of the carotid and intracranial structures performed with 2D and 3D manjeet nstructed images performed on an independent 3D work station. FINDINGS: Images demonstrate small bilateral pleural effusions. Coronary artery calcifications are seen in the LAD and right coronary arteries. The aortic arch is unremarkable. The right and left common carotid arteries are unremarkable. There is minimal right proximal ICA atherosclerotic plaque, resulting in approximately 20% stenosis. The left ICA is patent. Normal flow is seen in the cervical, petrous, cavernous, and supraclinoid ICAs. Normal flow is seen in the CHENCHO, MCA, and SENIOR CIVIL ENG[employer]ER vessels. Normal flow is seen in the right and left vertebral arteries, as w ell as the basilar artery. CT brain perfusion was performed. No evidence of abnormalities seen on t he mean transit time, blood flow, or blood volume study. IMPRESSION: 1. No significant evidence of carotid or intracranial occlusion. 2. Normal intracranial brain perfusion without evidence of ischemia. Message left for Dr. Ann on voice mail at 10:27 a.m. on 02/14/2018. CODE CR
--- NOTE | 2018-02-18 14:42 | PDOC.PN ---
- Subjective Encounter Start Date: 02/18/18 Encounter Start Time: 09:00 Patient seen and examined, no new issues or complaints, pending stress test for today. - Objective Vital Signs & Weight: Vital Signs (12 hours) Temp Pulse Resp BP BP BP BP 02/18/18 13:43 168/93 H 02/18/18 13:41 168/93 H 02/18/18 12:22 88 02/18/18 12:00 98 F 88 18 187/102 H 02/18/18 08:00 98.1 F 88 20 175/119 H 02/18/18 07:47 175/110 H 02/18/18 07:30 98.1 F 88 20 175/119 H 175/119 H 02/18/18 04:00 97.8 F 70 16 166/104 H 166/104 H Pulse Ox 02/18/18 13:43 02/18/18 13:41 02/18/18 12:22 02/18/18 12:00 02/18/18 08:00 96 02/18/18 07:47 02/18/18 07:30 96 02/18/18 04:00 97 Weight Weight 150 lb 9.6 oz I&O: 02/17/18 02/18/18 02/19/18 06:59 06:59 06:59 Intake Total 100 Balance 100 Result Diagrams: 02/14/18 09:35 02/15/18 10:35 Phys Exam - Physical Examination Constitutional: NAD HEENT: PERRLA, moist MMs, sclera anicteric Neck: no nodes, no JVD, supple Respiratory: no wheezing, no rales, no rhonchi Cardiovascular: RRR, no significant murmur, no rub Gastrointestinal: soft, non-tender, no distention Musculoskeletal: no edema, pulses present Dx/Plan (1) Afib Code(s): I48.91 - UNSPECIFIED ATRIAL FIBRILLATION Status: Acute (2) Alcohol abuse Code(s): F10.10 - ALCOHOL ABUSE, UNCOMPLICATED Status: Acute (3) Encephalopathy Code(s): G93.40 - ENCEPHALOPATHY, UNSPECIFIED Status: Acute - Plan * stress test for today * cardio and EP followng * continue current medical management * will follow up with results and input from subspecialists once available * case and plan d/w patient at length, he understands and agrees with this plan
[2018-02-18] MEDS ORDERED: Lorazepam 2 MG/ML VIAL SLOW IVP PRN (15:44)
--- NOTE | 2018-02-18 16:39 | PDOC.CTH ---
<AyoestefaniXuan reyna - Last Filed: 02/18/18 16:37> Cardiology Progress Note - Subjective Patient seen and examined. No new cardiac complaints overnight. - Objective Vital Signs Temp Pulse Resp BP BP BP BP 02/18/18 16:00 97.2 F L 81 16 168/101 H 02/18/18 13:43 168/93 H 02/18/18 13:41 168/93 H 02/18/18 12:22 88 02/18/18 12:00 98 F 88 18 187/102 H 02/18/18 08:00 98.1 F 88 20 175/119 H 02/18/18 07:47 175/110 H 02/18/18 07:30 98.1 F 88 20 175/119 H 175/119 H Pulse Ox 02/18/18 16:00 96 02/18/18 13:43 02/18/18 13:41 02/18/18 12:22 02/18/18 12:00 02/18/18 08:00 96 02/18/18 07:47 02/18/18 07:30 96 Weight 150 lb 9.6 oz 02/17/18 02/18/18 02/19/18 06:59 06:59 06:59 Intake Total 100 480 Balance 100 480 - Physical Examination General/Neuro: NAD, other: Neck: carotid US brisk, no JVD present Lungs: CTA, unlabored respirations Abdomen: no HSM, NT/ND, soft - Labs Result Diagrams: 02/14/18 09:35 02/15/18 10:35 Troponin/CKMB CK-MB (CK-2) 1.3 ng/mL (0-6.6) 02/14/18 09:35 Troponin I 0.011 ng/mL (< 0.028) 02/14/18 09:35 - Assessment/Plan 1. Atrial arrhythmias. Initially noted to be in a CTI dependent typical flutter. Now, in atrial fibrillation. Rates are well controlled with digoxin 0.125mg QD and metoprolol 50mg BID. For now, continue rate control & medical management. 2. Not on anticoagulation, given history of 2 prior hemorrhagic CVAs as well as a SDH requiring craniotomy for hematoma evacuation. 3. History of hemorrhagic CVA in the setting of severe hypertension precluding patient from oral anticoagulation 02/02/14-right basal ganglia intraparenchymal hemorrhage 02/02/15- intraventricular hemorrhage (3rd Ventricle) and mild obstructive hydrocephalus 4. Severe hypertension- per medicine 5. Severe alcohol abuse- per medicine Recommendations: Continue rate control. If this becomes difficult with medication alone, ablation can be considered. Treatment is somewhat limited with patient not anticoagulated at this time. Even watchman placement for left atrial appendage closure would require brief anticoagulation (6 weeks on coumadin followed by 6 months on ASA and plavix). Per neurology note, patient is ok for ASA but not in favor of full anticoagulation given ETOH, non compliance, and multiple bleeds. Will follow up as outpatient. <Hima Bowen - Last Filed: 02/19/18 16:52> Cardiology Progress Note - Objective Vital Signs Temp Pulse Resp BP BP BP Pulse Ox 02/19/18 16:00 98.3 F 86 16 178/100 H 96 02/19/18 14:49 168/103 H 02/19/18 12:00 98.3 F 73 16 172/100 H 99 02/19/18 08:06 97.6 F 69 16 02/19/18 08:05 160/101 H 02/19/18 08:03 160/101 H 02/19/18 08:02 69 02/19/18 08:00 98.2 F 69 16 160/101 H 97 Weight 150 lb 9.6 oz 02/18/18 02/19/18 02/20/18 06:59 06:59 06:59 Intake Total 710 Balance 710 - Labs Result Diagrams: 02/14/18 09:35 02/15/18 10:35 Troponin/CKMB CK-MB (CK-2) 1.3 ng/mL (0-6.6) 02/14/18 09:35 Troponin I 0.011 ng/mL (< 0.028) 02/14/18 09:35 Attending Addendum - Attending Addendum Date/Time: 02/19/18 [id number] I personally evaluated the patient and discussed the management with Ms Levi. I agree with the History, Examination, Assessment and Plan documented above with any addition or exceptions noted below.
--- NOTE | 2018-02-18 17:34 | PDOC.CTH ---
Cardiology Progress Note - Subjective No new issues. He had his stress test done. - Objective Vital Signs Temp Pulse Resp BP BP BP BP 02/18/18 17:26 168/101 H 02/18/18 16:00 97.2 F L 81 16 168/101 H 02/18/18 13:43 168/93 H 02/18/18 13:41 168/93 H 02/18/18 12:22 88 02/18/18 12:00 98 F 88 18 187/102 H 02/18/18 08:00 98.1 F 88 20 175/119 H 02/18/18 07:47 175/110 H 02/18/18 07:30 98.1 F 88 20 175/119 H 175/119 H Pulse Ox 02/18/18 17:26 02/18/18 16:00 96 02/18/18 13:43 02/18/18 13:41 02/18/18 12:22 02/18/18 12:00 02/18/18 08:00 96 02/18/18 07:47 02/18/18 07:30 96 Weight 150 lb 9.6 oz 02/17/18 02/18/18 02/19/18 06:59 06:59 06:59 Intake Total 100 480 Balance 100 480 - Physical Examination General/Neuro: alert & oriented x3, NAD Neck: no JVD present Lungs: CTA, unlabored respirations Heart: RRR Abdomen: NT/ND Extremities: other: (no edema.) - Telemetry Telemetry Rhythm: Afib HR 80's. - Labs Result Diagrams: 02/14/18 09:35 02/15/18 10:35 Troponin/CKMB CK-MB (CK-2) 1.3 ng/mL (0-6.6) 02/14/18 09:35 Troponin I 0.011 ng/mL (< 0.028) 02/14/18 09:35 - Assessment/Plan 1. New onset CM EF at 20-25% 2. New onset Afib/flutter 3. Alcohol abuse. 4. Alcohol withdrawal with hallucinations, improved. 5. Tobacco abuse. 6. HTN 7. Acute stroke. PLAN: - Continue amiodarone, BB and digoxin for rate control for now. - Aspirin alone for stroke prophylaxis given alcohol use and history of hemorrhagic CVA. - Continue BB and ACEI for now. - Lariat may be a possibility in the future. - Likely non ischemic CM due to alcohol use and afib, no ischemia or scar on stress test. - EF improved now to 45%, no need for lifevest. - May discharge home any time from cardiac perspective.
--- NOTE | 2018-02-18 20:14 | EKG ---
Test Reason : AFTER Blood Pressure : / mmHG Vent. Rate : 118 BPM Atrial Rate : 118 BPM P-R Int : 154 ms QRS Dur : 084 ms QT Int : 404 ms P-R-T Axes : 070 061 059 degrees QTc Int : 566 ms Sinus tachycardia Nonspecific ST and T wave abnormality Abnormal ECG When compared with ECG of 09-FEB-2018 11:37, (Unconfirmed) Sinus rhythm has replaced Atrial fibrillation Questionable change in QRS axis ST elevation now present in Inferior leads Non-specific change in ST segment in Lateral leads Inverted T waves have replaced nonspecific T wave abnormality in Anterior leads Confirmed by MONE KWAN (2) on 02/18/2018 8:13:38 PM Referred By: CHECO Confirmed By:MONE KWAN
[2018-02-18] MEDS: Atorvastatin Calcium 10 MG TAB PO SCH (20:49)
[2018-02-19] MEDS: Famotidine 20 MG TAB PO SCH ×2 (08:02→20:35)
[2018-02-19] MEDS: Folic Acid 1 MG TAB PO SCH (08:02)
[2018-02-19] MEDS: Digoxin 0.125 MG TAB PO SCH (08:02)
[2018-02-19] MEDS: Lisinopril 20 MG TAB PO SCH ×2 (08:03→20:34)
[2018-02-19] MEDS: Metoprolol Tartrate 100 MG TAB PO SCH ×2 (08:03→20:35)
--- NOTE | 2018-02-19 14:43 | PDOC.EVN ---
Event Note - Event Note Event Note: [id number] dc summary dictated 1. Acute stroke 2. HTN 3. Afib 4. chf see dc summary
--- NOTE | 2018-02-19 14:58 | DIS ---
DATE OF ADMISSION: 02/09/2018 DATE OF DISCHARGE: 02/19/2018 DISCHARGE DIAGNOSES: 1. Acute stroke. 2. New onset atrial fibrillation. 3. New onset atrial flutter. 4. New onset congestive heart failure, but improved to 45%. 5. Alcohol abuse. 6. Alcohol withdrawal. 7. Hypertension. 8. Tobacco abuse. DISCHARGE CONDITION: Stable. DISPOSITION: To home. CONSULTANTS DURING THE HOSPITAL STAY: 1. Cardiology. 2. Pulmonary. 3. Neurology. PROCEDURES DURING HOSPITAL STAY: 1. CTA head and neck. 2. MRI brain. 3. Nuclear stress test. 4. CTA. 5. Echocardiogram. DISCHARGE DIAGNOSIS: Stable. DISPOSITION: Home. HOSPITAL COURSE: The patient is 63-year-old male admitted secondary to new onset atrial fibrillation . 1. New onset atrial fibrillation. The patient was seen by Cardiology in the hospital stay. The elton bess's initial 2D echo showed low ejection fraction, but improved later on. The patient was advised to follow with Cardiology as an outpatient. 2. Hypertension. Blood pressure monitored during the hospital stay and was stable. Advised to cont inue same medications. 3. Alcohol abuse. The patient was also initially admitted to the ICU. The patient's mental status improved. At the time of discharge, patient was seen by Pulmonary also during the hospital stay. 4. Acute stroke during the hospital stay. The patient was in acute stroke, but patient was seen by PT, OT and Neurology also. The patient is stable at the time of discharge and the patient discharged on aspirin. PHYSICAL EXAMINATION: On the day of discharge: VITAL SIGNS: Temperature 98.3, heart rate 73, respiration 16, pulse ox 99%. GENERAL: The patient appears comfortable. HEENT: Pupils equal, round, and reactive. Anterior nares patent. Nose normal. Ears normal. Teeth intact. Tongue is moist. NECK: Supple, no JVD. CARDIOVASCULAR: S1, S2 present. No murmurs, no rubs. RESPIRATORY SYSTEM: No wheezing, no rhonchi. Breath sounds present bilaterally. GASTROINTESTINAL: Abdomen is soft. The patient is stable at the time of discharge. Discharge time 45 minutes.
[2018-02-19] MEDS ORDERED: NIFEdipine XL 60 MG TAB PO SCH (15:00)
--- NOTE | 2018-02-19 17:41 | PDOC.CTH ---
Cardiology Progress Note - Subjective He was getting ready to go home but his BP was very high. He feels well otherwise. - Objective Vital Signs Temp Pulse Resp BP BP BP Pulse Ox 02/19/18 16:00 98.3 F 86 16 178/100 H 96 02/19/18 14:49 168/103 H 02/19/18 12:00 98.3 F 73 16 172/100 H 99 02/19/18 08:06 97.6 F 69 16 02/19/18 08:05 160/101 H 02/19/18 08:03 160/101 H 02/19/18 08:02 69 02/19/18 08:00 98.2 F 69 16 160/101 H 97 Weight 150 lb 9.6 oz 02/18/18 02/19/18 02/20/18 06:59 06:59 06:59 Intake Total 710 Balance 710 - Physical Examination General/Neuro: alert & oriented x3, NAD Neck: no JVD present Lungs: CTA, unlabored respirations Heart: other: (Irregular) Abdomen: NT/ND Extremities: other: (no edema.) - Telemetry Telemetry Rhythm: Afib HR 80's. - Labs Result Diagrams: 02/14/18 09:35 02/15/18 10:35 Troponin/CKMB CK-MB (CK-2) 1.3 ng/mL (0-6.6) 02/14/18 09:35 Troponin I 0.011 ng/mL (< 0.028) 02/14/18 09:35 - Assessment/Plan 1. New onset CM EF better at 45%, suspected non ischemic from alcohol abuse. 2. New onset Afib/flutter 3. Alcohol abuse. 4. Alcohol withdrawal with hallucinations, resolved. 5. Tobacco abuse. 6. HTN 7. Acute stroke. PLAN: - Will add Imdur to regimen for better BP control. - Continue amiodarone, BB and digoxin for rate control for now. - Aspirin alone for stroke prophylaxis given alcohol use and history of hemorrhagic CVA. - Continue BB and ACEI for now. - Lariat may be a possibility in the future. - Likely non ischemic CM due to alcohol use and afib, no ischemia or scar on stress test. - EF improved now to 45%, no need for lifevest. - Home tomorrow. - Follow up in 1 month in the office.
--- NOTE | 2018-02-19 18:00 | PRG ---
ELECTROPHYSIOLOGY FOLLOWUP NOTE DATE OF SERVICE: 02/19/2018 REFERRING PHYSICIAN: Dr. Brewer. I am seeing Mr. Mendes at our telemetry floor as a followup. SUBJECTIVE: He seems to be doing well. No new chest pain or shortness of breath. No new neurologic al deficits are seen. OBJECTIVE DATA: VITAL SIGNS: Blood pressure is 160/100, heart rate 86, respiration rate 16 and temperature 98.3 degr ees Fahrenheit. GENERAL: This is an alert and oriented man in no apparent distress. NECK: Supple. Jugular veins not distended. CHEST: Coarse without crackles. CARDIOVASCULAR: Heart sounds are regular to rate and rhythm. No murmur or gallop. ABDOMEN: Benign. Bowel sounds positive. EXTREMITIES: Lower extremity edema without edema, clubbing or cyanosis. DATABASE: The EKG reveals atrial fibrillation. ASSESSMENT AND PLAN: Mr. Mendes is a 63-year-old man with; 1. History of recurrent strokes. He had a hemorrhagic stroke in the past as well, although he has n ewly onset persisting atrial fibrillation. At this point, we managed him conservatively and the hist ory of hemorrhagic stroke. For now, he is unable to take anticoagulants, aspirin. Consideration for appendage occlusion device could be made in the future. 2. New onset cardiomyopathy, initially 20% to 25%, but improved to 45% on a stress test. For now, n o significant arrhythmias. Continue monitoring. For now, he does not qualify for ICD implantation. 3. History of EtOH abuse and tobacco abuse cessation advised. 4. Hypertension, rate controlled. Routine follow up requested in the office.
[2018-02-19] MEDS: NIFEdipine XL 60 MG TAB PO SCH (20:35)
[2018-02-19] MEDS: Atorvastatin Calcium 10 MG TAB PO SCH (20:35)
[2018-02-20] MEDS: Lisinopril 20 MG TAB PO SCH (08:56)
[2018-02-20] MEDS: Famotidine 20 MG TAB PO SCH (08:56)
[2018-02-20] MEDS: Metoprolol Tartrate 100 MG TAB PO SCH (08:56)
[2018-02-20] MEDS: NIFEdipine XL 60 MG TAB PO SCH (08:56)
[2018-02-20] MEDS: Digoxin 0.125 MG TAB PO SCH (08:56)
[2018-02-20] MEDS: Folic Acid 1 MG TAB PO SCH (08:56)
[2018-02-20 11:49] VITALS: BP 115/73; TEMP 97.3
--- NOTE | 2018-02-20 14:22 | PDOC.PN ---
- Subjective Encounter Start Date: 02/20/18 Encounter Start Time: 14:37 cc: dyspnea sub: pt says he feels better - Objective Vital Signs & Weight: Vital Signs (12 hours) Temp Pulse Resp BP BP BP Pulse Ox 02/20/18 11:48 97.3 F L 70 20 115/73 97 02/20/18 08:56 76 116/74 02/20/18 08:00 97.7 F 76 18 115/66 96 02/20/18 04:07 116/74 02/20/18 04:00 97.3 F L 70 16 116/74 96 Weight Weight 150 lb 9.6 oz I&O: 02/19/18 02/20/18 02/21/18 06:59 06:59 06:59 Intake Total 710 120 Balance 710 120 Result Diagrams: 02/14/18 09:35 02/15/18 10:35 Phys Exam - Physical Examination Constitutional: NAD HEENT: moist MMs Neck: no JVD Respiratory: no wheezing, no rales, no rhonchi Cardiovascular: RRR, no significant murmur, no rub Gastrointestinal: soft, non-tender, no distention Musculoskeletal: no edema Neurological: non-focal Psychiatric: normal affect, A&O x 3 Skin: no rash Dx/Plan - Plan Pt is 63 yrs old male 1. Acute stroke 2. HTN 3. New onset acute CHF 4. AFIB/Alfutter PLAN Improving will dc patient home adviced to follow up with cardio dinah adams case d/w pt & RN
== END 2018-02-20 15:02 | disposition home or self-care (01) | DRG 64 ==
LOC: ERS 12:25 → 2NO 17:58 → IMCU/EMU 02-14 09:54 → 2SE 02-16 11:58
PROVIDERS: ADMIT Internal Medicine; ATTEND Internal Medicine
PROC: [UNRECOGNIZED PROCEDURE] (principal; 2018-02-18)
DX: I63.511 Cerebral infarction due to unspecified occlusion or stenosis of right middle cerebral artery (principal); G93.40 Encephalopathy, unspecified; I47.2 Ventricular tachycardia; I50.23 Acute on chronic systolic (congestive) heart failure; I42.6 Alcoholic cardiomyopathy; G81.94 Hemiplegia, unspecified affecting left nondominant side; I48.92 Unspecified atrial flutter; F10.151 Alcohol abuse with alcohol-induced psychotic disorder with hallucinations; I48.2 Chronic atrial fibrillation; Z86.73 Personal history of transient ischemic attack (TIA), and cerebral infarction without residual deficits; F17.210 Nicotine dependence, cigarettes, uncomplicated; R29.810 Facial weakness; Z79.82 Long term (current) use of aspirin; I11.0 Hypertensive heart disease with heart failure; Z78.1 Physical restraint status
CPT/HCPCS: 0042T; 36415; 36416; 70450; 70496; 70498; 70551; 71045; 78452; 80048; 80053; 80061; 80076; 80162; 80306; 82550; 82553; 83735; 83880; 84100; 84443; 84484; 85007; 85025; 85027; 85610; 85730; 90471; 90682; 90732; 93005; 93010; 93017; 93306; 96365; 96366; 96376; A4216; A9500; G0008; G0009; G8978-GP-CJ; G8979-GP-CJ; G8980-GP-CJ; G8987-GO-CI; G8988-GO-CI; G8989-GO-CI; G9168-GN-CK; G9169-GN-CJ; J0153; J0282; J1160; J1650; J2060; J2405; J3411; J7050; J7070; Q2036

== ENCOUNTER 2018-05-14 15:56 | Inpatient (IN) | payer SELFPAY ==
--- NOTE | 2018-05-14 16:50 | RAD ---
CHEST ONE VIEW: 05/14/18 HISTORY: Dyspnea. Swelling. COMPARISON: 02/09/18. FINDINGS: The cardiac silhouette magnified and enlarged. Pulmonary vasculature upper limits of normal. Mediasti num midline. No lobar consolidation or evidence of pneumothorax. Blunting of the right lateral costop hrenic angle. IMPRESSION: Cardiomegaly with mild pulmonary vascular congestion. Small amount of right pleural fluid. POS: [facility]
[2018-05-14 16:53] LABS: #Eosinphils 0.2 thou/uL (0.0-0.7); #Lymphocytes 2.1 thou/uL (1.20-3.40); #Neutrophils 5.4 thou/uL (1.40-6.50); %Basophils 0.2 % (0.0-1.0); %Eosinophils 2.6 % (0.0-10.0); %Lymphocytes 23.9 % (21.0-51.0); %Monocytes 11.2 % (0.0-10.0); %Neutrophils 62.1 % (42.0-75.0); Hemoglobin 11.6 g/dL (14.0-18.0); Mean Corpuscular HGB CONC 33.5 g/dL (32.0-36.0); Mean Corpuscular Volume 98.4 fl (80.0-94.0); Mean Platelet Volume 10.6 fL (7.4-10.4); Platelet Count 121 thou/uL (130-400); RBC Distribution Width 15.9 % (11.5-14.5); Red Blood Cell (RBC) Count 3.53 mill/uL (4.70-6.10); White Blood Cell (WBC) Count 8.7 thou/uL (4.8-10.8)
[2018-05-14 17:09] LABS: ALT (SGPT) 30 U/L (8-55); AST (SGOT) 52 U/L (5-34); Albumin 4.2 g/dL (3.4-4.8); Alkaline Phosphatase 89 U/L (40-150); Anion Gap 14 mmol/L (10-20); BUN (Urea Nitrogen) 15 mg/dL (8.4-25.7); Bilirubin, Total 2.4 mg/dL (0.2-1.2); CK (CPK) 301 U/L (30-200); Calc. Creatinine Clearance 0 mL/min (70-130); Calcium 9.5 mg/dL (7.8-10.44); Carbon Dioxide 22 mmol/L (23-31); Chloride 107 mmol/L (98-107); Estimated GFR-MDRD 54; Globulin 3.3 g/dL (2.4-3.5); Glucose 136 mg/dL (80-115); Potassium 3.3 mmol/L (3.5-5.1); Protein, Total 7.5 g/dL (5.8-8.1); Sodium 140 mmol/L (136-145)
[2018-05-14 17:13] LABS: CKMB 3.2 ng/mL (0-6.6); Troponin I 0.012 ng/mL (< 0.028)
[2018-05-14] MEDS ORDERED: Benzonatate 100 MG CAP PO PRN (17:30)
[2018-05-14] MEDS ORDERED: traMADol HCl 50 MG TAB PO PRN (17:30)
[2018-05-14] MEDS ORDERED: Mag-Al 1200 mg/1200 mg/30 ML UDCUP PO PRN (17:30)
[2018-05-14] MEDS ORDERED: Loratadine 10 MG TAB PO PRN (17:30)
[2018-05-14] MEDS ORDERED: Acetaminophen 325 MG TAB PO PRN (17:30)
[2018-05-14] MEDS ORDERED: Diabetic Tussin 200 MG/10 ML UDCUP PO PRN (17:30)
[2018-05-14] MEDS ORDERED: cloNIDine 0.1 MG TAB PO PRN (17:30)
[2018-05-14] MEDS ORDERED: Bisacodyl 5 MG TAB PO PRN ×2 (17:30)
[2018-05-14] MEDS ORDERED: hydrALAZINE 20 MG/ML VIAL SLOW IVP PRN (17:30)
[2018-05-14] MEDS ORDERED: Calcium Carbonate 500 MG ChewTAB PO PRN (17:30)
[2018-05-14] MEDS ORDERED: Senokot 8.6 MG TAB PO PRN ×2 (17:30)
[2018-05-14] MEDS ORDERED: Ondansetron HCl/PF 4 MG/2 ML Vial IVP PRN (17:30)
[2018-05-14] MEDS ORDERED: Lorazepam 1 MG TAB PO PRN (17:30)
[2018-05-14] MEDS ORDERED: Nitroglycerin 0.4 MG TAB (25 Tab Bottle) SL PRN (17:30)
[2018-05-14] MEDS ORDERED: Diltiazem 125 MG/25 ML ONE (17:31)
[2018-05-14] MEDS ORDERED: Diltiazem HCl 125 MG, Admixture Fee 1 EACH in Sodium Chloride 0.9% 100 ML IVPB SCH (17:45)
[2018-05-14] MEDS ORDERED: Aspirin 325 MG TAB PO SCH (17:45)
[2018-05-14] MEDS ORDERED: Digoxin 0.5 MG/2 ML AMP ONE (18:30)
[2018-05-14] MEDS ORDERED: Furosemide 20 MG/2 ML VIAL SLOW IVP SCH (19:00)
--- NOTE | 2018-05-14 20:09 | HP ---
PRIMARY CARE PHYSICIAN: Dr. Huber. CHIEF COMPLAINT: Worsening shortness of breath. HISTORY OF PRESENT ILLNESS: Mr. Mendes is a 63-year-old male with a history of new diagnosi s of atrial fibrillation and congestive heart failure and acute ischemic stroke in 01/2018 and chroni c alcohol abuse, who presented to the ER with the above-mentioned complaint. History is mainly obtai gris by the patient himself and his has supplemented the history. Case has been discussed with t he admitting ER physician, Dr. Mosley. Electronic medical records have been reviewed. He was admit mayra to our facility in 01/2018, and at which time, he was found to have acute infarction as well as n ew onset atrial fibrillation and congestive heart failure. 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 He was started on aspirin for anticoagulation as he has a history of hemorrha gic CVA and cannot take any other anticoagulation. He was discharged on appropriate medications. The patient reports that at the medications were too expensive and he only took them for 1 month and then he stopped taking them. He continues to drink a lot of alcohol on a daily basis, mainly beer. He has noted that for the last 2 weeks, he is unable to sleep flat. Every time, he starts to go to [facility], he has a feeling of choking. He is also noticing worsening shortness of breath especially on e xertion. He has also been noticing that his legs, arms, abdomen, and scrotum are really swollen. He eventually presented to his primary care physician's office yesterday and his medications were refil led including the digoxin, isosorbide, nifedipine, and Lasix, and he has only taken one dose of all o f them. He presented to the ER today with worsening symptoms and he was found to have atrial fibrillation wit h RVR again. His heart rate was in the 130s, and his blood pressure systolic was in the 110s. He wa s also found to have significant swelling. His BNP was elevated to over 300 almost 400 and a chest x -ray was done which suggested mild pulmonary vascular congestion. Because of the low blood pressure, he was not given any diuretics and after discussion with emergency room physician, he will receive r ate control medication before any diuretics if his blood pressure permits. He is now being admitted to the hospital with recurrence of atrial fibrillation with RVR and acute co ngestive heart failure. Please note that his EF in the past has been up to 25%, but most recently in 01/2018. His EF was noted to be improved to 45%. PAST MEDICAL HISTORY: 1. Atrial fibrillation. 2. Alcohol abuse. 3. Chronic systolic heart failure, EF of 45% in 01/2018. 4. Hypertension. 5. Tobacco abuse. 6. Acute ischemic stroke in 01/2018. 7. History of hemorrhagic cerebrovascular accident. PAST SURGICAL HISTORY: None and reviewed with the patient. SOCIAL HISTORY: He drinks 10-12 beers per day of 12 ounce or more. No history of drug abuse. He sm okes on a daily basis. FAMILY HISTORY: The patient denies any family history of any heart disease or stroke. MEDICATIONS: None. ALLERGIES: No known medication allergies. REVIEW OF SYSTEMS: Twelve-point review of systems was done and is negative except for those mentione d in the history and physical. Constitutional: Weight loss or gain, ability to conduct usual activities. Skin: Rash, itching. Eyes: Double vision, pain. ENT/Mouth: Nose bleeding, neck stiffness, pain, tenderness. Cardiovascular: Palpitations, dyspnea on exertion, orthopnea. Respiratory: Shortness of breath, wheezing, cough, hemoptysis, fever or night sweats. Gastrointestinal: Poor appetite, abdominal pain, heartburn, nausea, vomiting, constipation, or diarrhea. Genitourinary: Urgency, frequency, dysuria, nocturia. Musculoskeletal: Pain, swelling. Neurologic/Psychiatric: Anxiety, depression. Allergy/Immunologic: Skin rash, bleeding tendency. LABORATORY DATA: His CBC today shows hemoglobin of 11.6 and macrocytosis. Platelet count of 121. S ryne chemistry shows potassium of 3.3, bicarbonate 22, creatinine 1.33, total bilirubin 2.4, AST 52, ALT 30, creatinine kinase is 301. BNP 391. CK-MB and troponin within normal limits. Chest x-ray by my review shows mild pulmonary vascular congestion. PHYSICAL EXAMINATION: VITAL SIGNS: Systolic blood pressure most recent 113, heart rate of 117, saturating 95% on room air, afebrile. GENERAL: No acute distress. He is awake, alert, oriented x3. HEENT: Mucous membrane is moist and pink. No oropharyngeal exudate or erythema. Head is normocepha lic and atraumatic. Pupils equal, reactive to light and accommodation. Extraocular movement intact. NECK: Supple without any lymphadenopathy, JVD or bruit. CHEST: Has few bibasilar crackles bilaterally without any significant wheezes. Rate and rhythm is t achycardic and irregular. No specific murmurs heard. ABDOMEN: Distended with positive fluid wave and tender to palpation in the right and left upper quad rants. EXTREMITIES: Diffuse pitting edema extending all the way up to his thighs and scrotum. SKIN: Free of any rashes or bruises. Feel warm and dry to touch. NEUROLOGIC: Nonfocal. PSYCHIATRIC: Normal affect. IMPRESSION AND PLAN: 1. Recurrent atrial fibrillation with rapid ventricular response. This is secondary to medication n oncompliance and continued alcohol abuse. The patient has a history of nonischemic cardiomyopathy du e to alcohol abuse in the past. At this time, he will get rate control medication either with calciu m channel nataliia, beta nataliia if the blood pressure permits and if not, then just with the digoxin for now. If necessary, we will give him fluid and start him on Cardizem drip. We will repeat the ec hocardiogram to rule out any intracardiac thrombus and consult Cardiology again. There is a high pos sibility that the patient has worsening of his ejection fraction due to continued alcohol abuse and m edication noncompliance even though it was because of financial reasons. We will restart him on aspi rin to full dose for now for thromboembolism prophylaxis. He will be admitted to telemetry floor. 2. Acute on chronic systolic congestive heart failure. He will be diuresed gently and with monitori ng of his blood pressure closely. 3. Acute kidney insufficiency. This is likely secondary to cardiorenal syndrome. Monitor his sympt oms and diurese as the blood pressure tolerates. 4. Cardiogenic shock, most likely because of worsening congestive heart failure and atrial fibrillat ion. We will restart him on cardiac prudent medication. We performed an echocardiogram and resuscit ate him with fluids if necessary. We will give him dopamine or dobutamine drip. 5. Alcohol abuse. The patient has been counseled extensively. 6. History of hemorrhagic and ischemic stroke in the past. Continue with aspirin and avoid any furt her anticoagulation for now. 7. Deep venous thrombosis and gastrointestinal prophylaxis. 8. Code status: FULL CODE. Discussed with the patient. DISPOSITION: Mr. Mendes is currently being admitted to the hospital with recurrent atrial fibrillati on RVR and acute CHF. Estimated length of stay is at least 2-3 midnight. Further management will de pend upon his clinical course.
[2018-05-14 20:30] LABS: Troponin I Less than 0.010 ng/mL (< 0.028)
[2018-05-14 20:38] VITALS: BMI 27.6
[2018-05-14] MEDS ORDERED: Potassium Chloride 20 MEQ TAB PO SCH (21:00)
[2018-05-14 22:54] LABS: Troponin I 0.011 ng/mL (< 0.028)
[2018-05-14] MEDS: Metoprolol Tartrate 50 MG TAB PO SCH (23:05)
[2018-05-14] MEDS: Famotidine 20 MG TAB PO SCH (23:05)
[2018-05-15 05:43] LABS: #Eosinphils 0.5 thou/uL (0.0-0.7); #Lymphocytes 1.8 thou/uL (1.20-3.40); #Monocytes 0.9 thou/uL (0.11-0.59); %Basophils 0.6 % (0.0-1.0); %Eosinophils 6.5 % (0.0-10.0); %Lymphocytes 25.3 % (21.0-51.0); %Monocytes 12.6 % (0.0-10.0); %Neutrophils 54.9 % (42.0-75.0); Hemoglobin 11.2 g/dL (14.0-18.0); Mean Corpuscular HGB CONC 33.2 g/dL (32.0-36.0); Mean Corpuscular Hemoglobin 32.9 pg (27.0-31.0); Mean Platelet Volume 10.6 fL (7.4-10.4); Platelet Count 108 thou/uL (130-400); Red Blood Cell (RBC) Count 3.41 mill/uL (4.70-6.10); White Blood Cell (WBC) Count 7.2 thou/uL (4.8-10.8)
[2018-05-15 05:53] LABS: Anion Gap 13 mmol/L (10-20); BUN (Urea Nitrogen) 13 mg/dL (8.4-25.7); Calc. Creatinine Clearance 72 mL/min (70-130); Calcium 8.8 mg/dL (7.8-10.44); Carbon Dioxide 26 mmol/L (23-31); Chloride 106 mmol/L (98-107); Estimated GFR-MDRD 75; Glucose 115 mg/dL (80-115); Potassium 3.4 mmol/L (3.5-5.1); Sodium 142 mmol/L (136-145)
[2018-05-15] MEDS ORDERED: Digoxin 0.125 MG TAB PO SCH (09:00)
[2018-05-15] MEDS ORDERED: Furosemide 40 MG/4 ML VIAL SLOW IVP SCH (09:00)
[2018-05-15] MEDS: Aspirin 325 MG TAB PO SCH (09:23)
[2018-05-15] MEDS: Metoprolol Tartrate 50 MG TAB PO SCH ×2 (09:23→21:10)
[2018-05-15] MEDS: Enoxaparin Sodium 40 MG/0.4 ML SYRINGE SC SCH (09:23)
[2018-05-15] MEDS: Famotidine 20 MG TAB PO SCH ×2 (09:23→21:10)
--- NOTE | 2018-05-15 12:28 | PDOC.PN ---
- Subjective Encounter Start Date: 05/15/18 Encounter Start Time: 12:26 Subjective: feels much better. reports that breathing easier & leg swelling improving -: no F/C.no Cough -: no chest pain - Objective MAR Reviewed: Yes Vital Signs & Weight: Vital Signs (12 hours) Temp Pulse Resp BP Pulse Ox 05/15/18 09:23 84 05/15/18 09:14 98.0 F 84 17 108/68 94 L 05/15/18 04:10 97.6 F 86 21 H 113/68 93 L Weight Weight 151 lb I&O: 05/14/18 05/15/18 05/16/18 06:59 06:59 06:59 Intake Total 200 Output Total 800 Balance -600 Result Diagrams: 05/15/18 05:12 05/15/18 05:12 Additional Labs: Laboratory Tests 05/14/18 05/14/18 05/14/18 16:39 19:40 22:19 Troponin I 0.012 Less than 0.010 0.011 LABS REVIEWED Phys Exam - Physical Examination Constitutional: NAD HEENT: PERRLA, moist MMs, sclera anicteric, oral pharynx no lesions Neck: no nodes, no JVD, supple, full ROM Respiratory: no wheezing, no rales, no rhonchi, clear to auscultation bilateral Cardiovascular: RRR, no significant murmur, no rub Gastrointestinal: soft, non-tender, no distention, positive bowel sounds Musculoskeletal: edema present (+2 pitting) Neurological: non-focal, normal sensation, moves all 4 limbs Psychiatric: normal affect, A&O x 3 Skin: no rash Dx/Plan (1) Chronic atrial fibrillation with RVR Code(s): I48.2 - CHRONIC ATRIAL FIBRILLATION Status: Acute Comment: HR controlled on Metoprolol now (2) Acute on chronic systolic CHF (congestive heart failure) Code(s): I50.23 - ACUTE ON CHRONIC SYSTOLIC (CONGESTIVE) HEART FAILURE Status : Acute (3) Non-ischemic cardiomyopathy Code(s): I42.8 - OTHER CARDIOMYOPATHIES Status: Acute (4) Hypokalemia Code(s): E87.6 - HYPOKALEMIA Status: Acute (5) Alcohol abuse Code(s): F10.10 - ALCOHOL ABUSE, UNCOMPLICATED Status: Chronic Comment: counselling provided (6) Cardiogenic shock Code(s): R57.0 - CARDIOGENIC SHOCK Status: Resolved - Plan plan discussed w/ family, PT/OT, out of bed/ambulate, DVT proph w/SCDs cont lasix .strict I/Os.daily weight. -: ECHO shows improved EF.cont BB,ASA.restart YVONNE-i if BP permits -: BP improved.monitro. -: replace and recheck lytes -: cardiology consulted.CR ,refer to HF clinic * . Review of Systems - Review of Systems Constitutional: negative: fever, chills, sweats, weakness, malaise, other Eyes: negative: Pain, Vision Change, Conjunctivae Inflammation, Eyelid Inflammation, Redness, Other Respiratory: SOB with Excertion. negative: Cough, Dry, Shortness of Breath, Hemoptysis, Pleuritic Pain, Sputum, Wheezing Cardiovascular: orthopnea, edema. negative: chest pain, palpitations, paroxysmal nocturnal dyspnea, light headedness, other Gastrointestinal: negative: Nausea, Vomiting, Abdominal Pain, Diarrhea, Constipation, Melena, Hematochezia, Other Genitourinary: negative: Dysuria, Frequency, Incontinence, Hematuria, Retention , Other Musculoskeletal: negative: Neck Pain, Shoulder Pain, Arm Pain, Back Pain, Hand Pain, Leg Pain, Foot Pain, Other Skin: negative: Rash, Lesions, Maycol, Bruising, Other Neurological: negative: Weakness, Numbness, Incoordination, Change in Speech, Confusion, Seizures, Other - Medications/Allergies Allergies/Adverse Reactions: Allergies Allergy/AdvReac Type Severity Reaction Status Date / Time No Known Drug Allergies Allergy Verified 02/12/18 01:26 Medications: Current Medications Acetaminophen (Tylenol) 650 mg PO Q4H PRN PRN Reason: Headache/Fever or Pain Al Hydroxide/Mg Hydroxide (Maalox) 30 ml PO Q6H PRN PRN Reason: Heartburn or Indigestion Aspirin (Aspirin) 325 mg PO QA-[facility] Last Admin: 05/15/18 09:23 Dose: 325 mg Benzonatate (Tessalon) 100 mg PO Q4H PRN PRN Reason: Cough Bisacodyl (Dulcolax) 10 mg PO DAILYPRN PRN PRN Reason: Constipation Calcium Carbonate (Tums) 1,000 mg PO Q4H PRN PRN Reason: Heartburn or Indigestion Clonidine (Catapres) 0.1 mg PO Q4H PRN PRN Reason: Systolic BP > 160 Enoxaparin Sodium (Lovenox) 40 mg SC 0900 [facility] Last Admin: 05/15/18 09:23 Dose: 40 mg Famotidine (Pepcid) 20 mg PO BID [facility] Last Admin: 05/15/18 09:23 Dose: 20 mg Furosemide (Lasix) 40 mg PO 0900,1400 [facility] Guaifenesin (Robitussin Sf) 200 mg PO Q4H PRN PRN Reason: Cough Hydralazine HCl (Apresoline) 10 mg SLOW IVP Q4H PRN PRN Reason: Systolic BP > 170 Loratadine (Claritin) 10 mg PO DAILYPRN PRN PRN Reason: Sinus Symptoms Lorazepam (Ativan) 1 mg PO Q4H PRN PRN Reason: Anxiety/Agitation Metoprolol Tartrate (Lopressor) 50 mg PO BID [facility] Last Admin: 05/15/18 09:23 Dose: 50 mg Nitroglycerin (Nitrostat) 0.4 mg SL Q5MIN PRN PRN Reason: Chest Pain Ondansetron HCl (Zofran) 4 mg IVP Q6H PRN PRN Reason: Nausea/Vomiting Potassium Chloride (Klor-Con) 20 meq PO BID-[facility] Senna (Senokot) 2 tab PO HSPRN PRN PRN Reason: Constipation Sodium Chloride (Flush - Normal Saline) 10 ml IVF Q12HR [facility] Last Admin: 05/15/18 10:13 Dose: 10 ml Sodium Chloride (Flush - Normal Saline) 10 ml IVF PRN PRN PRN Reason: Saline Flush Tramadol HCl (Ultram) 50 mg PO Q4H PRN PRN Reason: Moderate Pain (4-6)
[2018-05-15] MEDS: Furosemide 40 MG TAB PO SCH (14:14)
[2018-05-15] MEDS: Potassium Chloride 20 MEQ TAB PO SCH (17:05)
--- NOTE | 2018-05-15 21:01 | CON ---
DATE OF CONSULTATION: 05/15/2018 REASON FOR CONSULTATION: Heart failure. PRIMARY WELL LOGGING CAPTAIN MUD ANALYSIS: Ion Quintero M.D. HISTORY OF PRESENT ILLNESS: Mr. Mendes is a pleasant 63-year-old gentleman who comes to the hospital for increased shortness of breath. He was diagnosed about 2 to 3 months ago with what was thought to be nonischemic cardiomyopathy. His EF was about 20%-25%. At that time, he had daily alco hol use. It was thought to be possibly alcoholic cardiomyopathy. Also has had a new diagnosis of at rial fibrillation with RVR. He was diuresed at that time slowed down and discharged home in good hea rt failure medication. Before discharge, he had a stress test that showed an EF of 45%. He had alre burak improved and he had no ischemia on his MPI, so he was labeled as nonischemic cardiomyopathy. He has never had a heart catheterization. He never followed up. He never had any follow up with Cardio logy. He did see his primary care doctor who prescribed his medications. Again, he ran out. He was off of them for about a month. He had noticed increased swelling, increased lower extremity edema a s well as abdominal and lower back edema. He saw PCP who gave him back his prescriptions. He got hi m 1 day, but his shortness of breath became so much worse that he had to come in for evaluation. Her e, he was found to be in atrial fibrillation with RVR, heart rate in the 130s and to be in heart fail ure, so he was admitted. He was given already one dose of IV Lasix and he has diuresed a little bit more and is already feeling better. He still has significant edema, however. PAST MEDICAL HISTORY: 1. Chronic atrial fibrillation. 2. Alcohol use. 3. Chronic systolic heart failure, last EF of 45%. Most recent echo today was more like 50%-55%, th ought to be nonischemic. 4. Hypertension. 5. Tobacco abuse. 6. History of hemorrhagic cerebrovascular accident. PAST SURGICAL HISTORY: None. SOCIAL HISTORY: Drinks about 2 to 6 packs of beer a day. No drug use. Smokes daily. FAMILY HISTORY: Noncontributory. OUTPATIENT MEDICATIONS: Currently none. ALLERGIES: No known drug allergies. REVIEW OF SYSTEMS: A 12-point review of systems was done and it is all negative unless stated in the history of present illness. PHYSICAL EXAMINATION: VITAL SIGNS: Temperature 97.8, pulse 72, respiration rate 16, satting 93% on room air, blood pressur e 117/76. GENERAL: Awake, alert, oriented x3, in no distress. HEENT: Normocephalic, atraumatic. NECK: Supple. LUNGS: Clear. CARDIOVASCULAR: S1, S2, no S3 or S4. Irregular regular heart rate in the 80s. ABDOMEN: Soft, positive bowel sounds. EXTREMITIES: 2+ edema. Edema is all the way up to the mid thighs, also on his scrotum initially, bu t much better now. SKIN: Warm and dry. LABORATORY DATA: Laboratory work was reviewed. CBC with a normal white count, hemoglobin of 11.6, h ematocrit of 34, platelet count of 121. Chemistries with a sodium of 140, potassium was 3.4, BUN of 13, creatinine is better from 1.3 to 1.0, GFR of 75, glucose of 115, calcium of 8.8. Troponin is neg ative x3. BNP was 391. IMAGING DATA: Echocardiogram done on this admission was reviewed, EF is now at 50%-55%, it is still in atrial fibrillation, moderately dilated left atrium. Dilated IVC is consistent with history of fl uid overload and a very tiny pericardial effusion without tamponade. ASSESSMENT AND PLAN: 1. Acute on chronic systolic and diastolic heart failure. 2. Atrial fibrillation with rapid ventricular rate, rate controlled now. 3. Noncompliance. 4. Alcohol use. 5. Most likely nonischemic cardiomyopathy. PLAN: 1. Diurese with IV Lasix. We will restart beta nataliia and YVONNE inhibitor in the next few days as bl ood pressure allows. 2. We will try to get all his medications to be included in the [facility] list so he will be able to afford these. 3. Counseled on need to be compliant as this will continue to happen. He will continue to get admit mayra to the hospital. I also counseled on substance abuse and not drinking any alcohol. He understan ds and verbalized understanding of this. He states that he just felt so bad in the last week that he started to drink again. Thank you for letting us to participate in the care of your patient. We will follow.
[2018-05-16 05:50] LABS: Anion Gap 15 mmol/L (10-20); BUN (Urea Nitrogen) 10 mg/dL (8.4-25.7); Calc. Creatinine Clearance 79 mL/min (70-130); Calcium 9.1 mg/dL (7.8-10.44); Carbon Dioxide 33 mmol/L (23-31); Chloride 97 mmol/L (98-107); Estimated GFR-MDRD Greater than 90; Glucose 88 mg/dL (80-115); Sodium 142 mmol/L (136-145)
[2018-05-16 05:53] LABS: Potassium 2.8 mmol/L (3.5-5.1)
[2018-05-16] MEDS ORDERED: Potassium Chloride 20 MEQ TAB PO SCH (06:00)
[2018-05-16] MEDS: Metoprolol Tartrate 50 MG TAB PO SCH (08:09)
[2018-05-16] MEDS: Aspirin 325 MG TAB PO SCH (08:09)
[2018-05-16] MEDS: Potassium Chloride 20 MEQ TAB PO SCH (08:09)
[2018-05-16] MEDS: Famotidine 20 MG TAB PO SCH (08:09)
[2018-05-16] MEDS: Furosemide 40 MG TAB PO SCH ×2 (08:10→14:51)
[2018-05-16] MEDS: Enoxaparin Sodium 40 MG/0.4 ML SYRINGE SC SCH (08:10)
[2018-05-16] MEDS ORDERED: Lisinopril 5 MG TAB PO SCH ×2 (09:00→13:20)
--- NOTE | 2018-05-16 12:40 | PDOC.PN ---
- Subjective Encounter Start Date: 05/16/18 Encounter Start Time: 12:38 Subjective: feels very well & wants to go home -: reports that his abd swelling and leg swelling is completly gone -: no more orthopnea and SOB - Objective MAR Reviewed: Yes Vital Signs & Weight: Vital Signs (12 hours) Temp Pulse Pulse Pulse Resp BP BP 05/16/18 11:38 83 84 130/90 123/74 05/16/18 08:09 91 05/16/18 08:05 97.8 F 64 16 05/16/18 03:33 98.8 F 91 14 BP Pulse Ox Pulse Ox Pulse Ox 05/16/18 11:38 96 96 05/16/18 08:09 05/16/18 08:05 136/37 L 94 L 05/16/18 03:33 148/84 H 100 Weight Weight 137 lb I&O: 05/15/18 05/16/18 05/17/18 06:59 06:59 06:59 Intake Total 200 630 Output Total 800 400 Balance -600 230 Result Diagrams: 05/15/18 05:12 05/16/18 04:35 Phys Exam - Physical Examination Constitutional: NAD HEENT: PERRLA, moist MMs, sclera anicteric, oral pharynx no lesions Neck: no nodes, no JVD, supple, full ROM Respiratory: no wheezing, no rales, no rhonchi, clear to auscultation bilateral Cardiovascular: RRR, no significant murmur, no rub Gastrointestinal: soft, non-tender, no distention, positive bowel sounds Musculoskeletal: no edema, pulses present Neurological: non-focal, normal sensation, moves all 4 limbs Psychiatric: normal affect, A&O x 3 Skin: no rash Dx/Plan (1) Chronic atrial fibrillation with RVR Code(s): I48.2 - CHRONIC ATRIAL FIBRILLATION Status: Acute Comment: HR controlled on Metoprolol and digoxin now (2) Acute on chronic systolic CHF (congestive heart failure) Code(s): I50.23 - ACUTE ON CHRONIC SYSTOLIC (CONGESTIVE) HEART FAILURE Status : Acute (3) Non-ischemic cardiomyopathy Code(s): I42.8 - OTHER CARDIOMYOPATHIES Status: Acute Comment: Improved EF (4) Hypokalemia Code(s): E87.6 - HYPOKALEMIA Status: Acute (5) Alcohol abuse Code(s): F10.10 - ALCOHOL ABUSE, UNCOMPLICATED Status: Chronic Comment: counselling provided (6) Cardiogenic shock Code(s): R57.0 - CARDIOGENIC SHOCK Status: Resolved - Plan out of bed/ambulate, DVT proph w/SCDs Cont diuresis .lost almost 14 lbs .Hd stable. -: cont BB,digoxin.BP stable -: add Lisinopril back on w BP monitoring -: renata ERICKSON later today if cleared by cardiology -: extensive counselling about alcohal & med compliance * . Review of Systems - Review of Systems Constitutional: negative: fever, chills, sweats, weakness, malaise, other ENT: negative: Ear Pain, Ear Discharge, Nose Pain, Nose Discharge, Nose Congestion, Mouth Pain, Mouth Swelling, Throat Pain, Throat Swelling, Other Respiratory: negative: Cough, Dry, Shortness of Breath, Hemoptysis, SOB with Excertion, Pleuritic Pain, Sputum, Wheezing Cardiovascular: negative: chest pain, palpitations, orthopnea, paroxysmal nocturnal dyspnea, edema, light headedness, other Gastrointestinal: negative: Nausea, Vomiting, Abdominal Pain, Diarrhea, Constipation, Melena, Hematochezia, Other Genitourinary: negative: Dysuria, Frequency, Incontinence, Hematuria, Retention , Other Musculoskeletal: negative: Neck Pain, Shoulder Pain, Arm Pain, Back Pain, Hand Pain, Leg Pain, Foot Pain, Other Skin: negative: Rash, Lesions, Maycol, Bruising, Other Neurological: negative: Weakness, Numbness, Incoordination, Change in Speech, Confusion, Seizures, Other - Medications/Allergies Allergies/Adverse Reactions: Allergies Allergy/AdvReac Type Severity Reaction Status Date / Time No Known Drug Allergies Allergy Verified 02/12/18 01:26 Medications: Current Medications Acetaminophen (Tylenol) 650 mg PO Q4H PRN PRN Reason: Headache/Fever or Pain Al Hydroxide/Mg Hydroxide (Maalox) 30 ml PO Q6H PRN PRN Reason: Heartburn or Indigestion [facility] Admin: 05/16/18 08:09 Dose: 325 mg Benzonatate (Tessalon) 100 mg PO Q4H PRN PRN Reason: Cough Bisacodyl (Dulcolax) 10 mg PO DAILYPRN PRN PRN Reason: Constipation Calcium Carbonate (Tums) 1,000 mg PO Q4H PRN PRN Reason: Heartburn or Indigestion Clonidine (Catapres) 0.1 mg PO Q4H PRN PRN Reason: Systolic BP > 160 Enoxaparin Sodium (Lovenox) 40 mg SC 0900 [facility] Last Admin: 05/16/18 08:10 Dose: 40 mg Famotidine (Pepcid) 20 mg PO BID [facility] Last Admin: 05/16/18 08:09 Dose: 20 mg Furosemide (Lasix) 40 mg PO 0900,1400 [facility] Last Admin: 05/16/18 08:10 Dose: 40 mg Guaifenesin (Robitussin Sf) 200 mg PO Q4H PRN PRN Reason: Cough Hydralazine HCl (Apresoline) 10 mg SLOW IVP Q4H PRN PRN Reason: Systolic BP > 170 Lisinopril (Zestril) 5 mg PO BID [facility] Last Admin: 05/16/18 08:09 Dose: 5 mg Loratadine (Claritin) 10 mg PO DAILYPRN PRN PRN Reason: Sinus Symptoms Lorazepam (Ativan) 1 mg PO Q4H PRN PRN Reason: Anxiety/Agitation Metoprolol Tartrate (Lopressor) 50 mg PO BID [facility] Last Admin: 05/16/18 08:09 Dose: 50 mg Nitroglycerin (Nitrostat) 0.4 mg SL Q5MIN PRN PRN Reason: Chest Pain Ondansetron HCl (Zofran) 4 mg IVP Q6H PRN PRN Reason: Nausea/Vomiting Potassium Chloride (K-Dur) 20 meq PO BID-[facility] Last Admin: 05/16/18 08:09 Dose: 20 meq Senna (Senokot) 2 tab PO HSPRN PRN PRN Reason: Constipation Sodium Chloride (Flush - Normal Saline) 10 ml IVF Q12HR [facility] Last Admin: 05/16/18 08:11 Dose: 10 ml Sodium Chloride (Flush - Normal Saline) 10 ml IVF PRN PRN PRN Reason: Saline Flush Tramadol HCl (Ultram) 50 mg PO Q4H PRN PRN Reason: Moderate Pain (4-6)
[2018-05-16 12:57] VITALS: BP 146/93; TEMP 97.3
--- NOTE | 2018-05-16 13:25 | PDOC.CTH ---
Cardiology Progress Note - Subjective He is doing much better. He has diuresed well. - Objective Vital Signs Temp Pulse Pulse Pulse Resp BP BP 05/16/18 12:00 97.3 F L 93 16 05/16/18 11:38 83 84 130/90 123/74 05/16/18 08:09 91 05/16/18 08:05 97.8 F 64 16 05/16/18 03:33 98.8 F 91 14 BP Pulse Ox Pulse Ox Pulse Ox 05/16/18 12:00 146/93 H 94 L 05/16/18 11:38 96 96 05/16/18 08:09 05/16/18 08:05 136/37 L 94 L 05/16/18 03:33 148/84 H 100 Weight 137 lb 05/15/18 05/16/18 05/17/18 06:59 06:59 06:59 Intake Total 200 630 Output Total 800 400 Balance -600 230 - Physical Examination General/Neuro: alert & oriented x3, NAD Neck: no JVD present Lungs: unlabored respirations Heart: other: (Irreg) Abdomen: NT/ND Extremities: + edema B (Trace) - Telemetry Telemetry Rhythm: Afib HR 60's to 90's. - Labs Result Diagrams: 05/15/18 05:12 05/16/18 04:35 Troponin/CKMB CK-MB (CK-2) 3.2 ng/mL (0-6.6) 05/14/18 16:39 Troponin I 0.011 ng/mL (< 0.028) 05/14/18 22:19 - Assessment/Plan 1. Acute on chronic systolic heart failure. 2. Dilated CM, presumed non ischemic with a normal MPI 3. Alcohol abuse 4. Hypokalemia. 5. Chronic afib 6. Non compliance. PLAN: - Will continue current dose of BB, increase lisinopril to 10 mg BID. - Continue aspirin for stroke prophylaxis as full anticoagulation would be prohibitive in the setting of alcohol abuse. - Continue current lasix dose with potassium supplementation only when taking lasix. - May discharge home today. - Follow up in office in 1-2 months. - Alcohol cessation counseling performed.
[2018-05-16] MEDS ORDERED: Lisinopril 10 MG TAB PO SCH ×2 (13:30→21:00)
--- NOTE | 2018-05-16 15:01 | DIS ---
DATE OF ADMISSION: 05/14/2018 DATE OF DISCHARGE: 05/16/2018 PRIMARY CARE PHYSICIAN: Dr. Huber. DISCHARGE DIAGNOSES: 1. Acute on chronic systolic congestive heart failure. 2. Dilated cardiomyopathy, presumed nonischemic. 3. Ongoing alcohol abuse. 4. Hypokalemia. 5. Chronic atrial fibrillation with rapid ventricular response on presentation. 6. Noncompliance. DISCHARGE MEDICATIONS: Potassium chloride 10 mEq daily, metoprolol tartrate 50 mg p.o. b.i.d., lisin opril 10 mg p.o. b.i.d., Lasix 40 mg p.o. b.i.d., digoxin 0.125 mg daily, Lipitor 10 mg daily, and as pirin 325 mg daily. DISCHARGE FOLLOWUP: 1. Outpatient cardiac rehabilitation. 2. Cardiology, Dr. Quintero. 3. Primary care physician on 05/22/2018 at 3:00 p.m. 4. [facility]. CONSULTATIONS INHOUSE: Cardiology, Dr. Qunitero. PROCEDURES DONE IN HOSPITAL: Include transthoracic echocardiogram that shows improvement in his ejec tion fraction to 50%-55%. Initially, he had EF of 25%, which has improved to 40% in the past. He holder d atrial fibrillation and dilated IVC as well as moderate enlarged right atrium and left atrium dilat ation. HISTORY OF PRESENT ILLNESS: Mr. Mendes is a 63-year-old male with known history of paroxysm al atrial fibrillation and acute systolic CHF and nonischemic cardiomyopathy, who presented to the ER with complaints of significant orthopnea, PND, shortness of breath and significant swelling of the l eg and abdomen. He was found to be in atrial fibrillation with RVR in the emergency room and somewha t hypotensive. He was treated with digoxin due to low blood pressure which helped control his heart rate very well. He was also restarted on his metoprolol. Please see admission history and physical for further details. HOSPITAL COURSE: Mr. Mendes has been very noncompliant with his medications. He has not had any med ications that were described to him for more than 2 months. He was diagnosed with atrial fibrillatio n not too long ago with a nonischemic cardiomyopathy and CHF. He was found to be in gross fluid over load and acute CHF. He was started on diuretics. Lisinopril, metoprolol, aspirin and atorvastatin w ere restarted and Cardiology was consulted. Echocardiogram was done. Echo actually showed improveme nt in his ejection fraction. He had significant improvement in his symptoms with extensive diuresis, and all of his swelling and his dyspnea resolved. He was back to his baseline and eager to go home this morning and has been cleared by Cardiology for discharge as well. Extensive counseling was prov ided for medication compliance. He was provided medication from the [facility] list. He is a lso drinking heavily on a daily basis and counseling was provided extensively. He was set up for out patient cardiac rehabilitation and [facility] Failure [facility] follow up. He is instructed to follow up wit h primary care physician as well. He was seen and examined prior to discharge this morning. Please see hospitalist progress note from today's date for further detail including [id number] interaction. The patient is currently hemodyn amically stable and will be discharged. Total time spent in the discharge 32 minutes.
== END 2018-05-16 15:30 | disposition home or self-care (01) | DRG 291 ==
LOC: ERS 15:56 → 2NO 20:01
PROVIDERS: ADMIT Internal Medicine; ATTEND Internal Medicine
DX: I11.0 Hypertensive heart disease with heart failure (principal); R57.0 Cardiogenic shock; I48.2 Chronic atrial fibrillation; I50.23 Acute on chronic systolic (congestive) heart failure; E87.6 Hypokalemia; F10.10 Alcohol abuse, uncomplicated; Z86.73 Personal history of transient ischemic attack (TIA), and cerebral infarction without residual deficits; Z91.14 Patient's other noncompliance with medication regimen; F17.210 Nicotine dependence, cigarettes, uncomplicated; N28.9 Disorder of kidney and ureter, unspecified; I42.0 Dilated cardiomyopathy; I48.0 Paroxysmal atrial fibrillation; I95.9 Hypotension, unspecified
CPT/HCPCS: 36415; 71045; 80048; 80053; 82553; 83880; 84484; 85025; 93005; 93306; 93798; 96374; A4216; J1160; J1650; J1940; J7050

== ENCOUNTER 2018-12-06 12:55 | Inpatient (IN) | payer SELFPAY ==
[2018-12-06 13:43] LABS: Digoxin Less than 0.15 ng/mL (0.8-2.0)
[2018-12-06 13:45] LABS: ALT (SGPT) 105 U/L (8-55); AST (SGOT) 220 U/L (5-34); Albumin 3.7 g/dL (3.4-4.8); Alkaline Phosphatase 87 U/L (40-150); Anion Gap 17 mmol/L (10-20); BUN (Urea Nitrogen) 19 mg/dL (8.4-25.7); Bilirubin, Total 1.6 mg/dL (0.2-1.2); CK (CPK) 160 U/L (30-200); Calc. Creatinine Clearance 0 mL/min (70-130); Carbon Dioxide 20 mmol/L (23-31); Chloride 103 mmol/L (98-107); Estimated GFR-MDRD 60; Globulin 3.5 g/dL (2.4-3.5); Glucose 86 mg/dL (80-115); Lipase 18 U/L (8-78); Potassium 3.9 mmol/L (3.5-5.1); Protein, Total 7.2 g/dL (5.8-8.1); Sodium 136 mmol/L (136-145)
[2018-12-06 13:51] LABS: #Basophils 0.1 thou/uL (0.0-0.2); #Eosinphils 0.1 thou/uL (0.0-0.7); #Lymphocytes 2.5 thou/uL (1.20-3.40); #Monocytes 1.2 thou/uL (0.11-0.59); #Neutrophils 4.8 thou/uL (1.40-6.50); %Basophils 0.9 % (0.0-1.0); %Eosinophils 0.8 % (0.0-10.0); %Lymphocytes 29.2 % (21.0-51.0); %Monocytes 13.9 % (0.0-10.0); %Neutrophils 55.2 % (42.0-75.0); Hemoglobin 13.2 g/dL (14.0-18.0); Mean Corpuscular HGB CONC 32.8 g/dL (32.0-36.0); Mean Corpuscular Volume 97.4 fL (78.0-98.0); Platelet Count 143 thou/uL (130-400); RBC Distribution Width 12.6 % (11.5-14.5); Red Blood Cell (RBC) Count 4.12 mill/uL (4.70-6.10); White Blood Cell (WBC) Count 8.7 thou/uL (4.8-10.8)
[2018-12-06 14:06] LABS: CKMB 3.3 ng/mL (0-6.6)
[2018-12-06] MEDS ORDERED: Pantoprazole 40 MG VIAL ONE ×2 (14:23→14:24)
--- NOTE | 2018-12-06 16:00 | CT ---
CT ABDOMEN AND PELVIS WITH CONTRAST: 12/06/18 HISTORY: Abdominal pain. COMPARISON: CT 09/01/17. FINDINGS: There is a moderate layering right pleural effusion. Heart size is enlarged. New from the comparison examination is small volume ascites. The pancreas is unremarkable. Renal hyp odensities are similar. Adrenal glands are unremarkable. The aortoiliac contour is nonaneurysmal. No acute osseous abnormality. IMPRESSION: Marked cardiomegaly with new moderate right pleural effusion as well as third spacing of fluid and sm all volume ascites, all likely sequela of underlying congestive heart failure. No acute inflammatory process with abdomen or pelvis. POS: [facility]
[2018-12-06] MEDS ORDERED: Diltiazem 125 MG/25 ML ONE (16:02)
[2018-12-06] MEDS ORDERED: Furosemide 40 MG/4 ML VIAL ONE (16:02)
[2018-12-06] MEDS ORDERED: Iopamidol 370 76% 100 ML VIAL ONE (17:08)
[2018-12-06 17:37] LABS: Troponin I 0.191 ng/mL (< 0.028)
[2018-12-06] MEDS ORDERED: hydrALAZINE 20 MG/ML VIAL SLOW IVP PRN (19:05)
[2018-12-06] MEDS ORDERED: Ondansetron PF 4 MG/2 ML Vial IVP PRN (19:05)
[2018-12-06] MEDS ORDERED: Lorazepam 2 MG/ML VIAL SLOW IVP PRN (19:05)
[2018-12-06] MEDS ORDERED: Diltiazem 125 MG in Sodium Chloride 0.9% 100 ML IVPB SCH (19:05)
[2018-12-06] MEDS ORDERED: Ondansetron ODT 4 MG TAB PO PRN (19:05)
[2018-12-06] MEDS ORDERED: Acetaminophen 500 MG TAB PO PRN (19:05)
[2018-12-06 20:08] LABS: Bilirubin Negative (Negative); Blood, Urine Negative (Negative); Clarity CLEAR (Clear); Glucose, Urine (Dipstick) Negative (Negative); Leukocyte Negative (Negative); Nitrite Negative (Negative); Protein, Urine (Dipstick) Negative (Neg-Trace); Specific Gravity, Urine 1.012 (1.002-1.036); Urobilinogen 0.2 mg/dL (0.2-1.0); pH, Urine 6.5 (5.0-9.0)
[2018-12-06 20:24] LABS: Troponin I 0.175 ng/mL (< 0.028)
[2018-12-06] MEDS ORDERED: Metoprolol Tartrate 50 MG TAB ONE (20:47)
[2018-12-06] MEDS ORDERED: Famotidine 20 MG TAB ONE (20:47)
[2018-12-06] MEDS ORDERED: Multivitamins, Adult 10 ML, Folic Acid 1 MG, Thiamine HCl 100 MG in Dextrose 5 %-0.45 %... IV SCH (21:00)
[2018-12-06 21:48] VITALS: BMI 23.6
[2018-12-06] MEDS: Sodium Chloride 0.9% 1,000 ML IV SCH (21:59)
[2018-12-06] MEDS: Famotidine 20 MG TAB PO SCH (22:17)
--- NOTE | 2018-12-07 00:33 | HP ---
PRIMARY CARE PROVIDER: Dr. Huber. CHIEF COMPLAINT: Abdominal pain. HISTORY OF PRESENT ILLNESS: This is a 63-year-old male who presents to [facility] Emergency Department complaining of 1 to 2 day history of increasing abdominal pain with some bloating sensation. The patient denied any recent trauma, injury, diarrhea, documented fever, chills, or exposure history. The patient does admit to drinking 10 beers a day with intermittent Tequila on a daily basis. The patient denies any specific increasing weight gain or documented weight loss. The patient states he has been eating a regular diet with some mild increased shortness of breath. The patient admits to some fatigue, but typically ambulates without assistance or difficulty. The patient denied any withdrawal symptoms, blacking out, unilateral weakness, or chest pain. The patient denies taking any specific home remedies for his symptoms and denies any other family members have similar symptoms. The patient denies any specific nausea, vomiting, but localizes most of the symptoms in his mid to left lower quadrant. In the emergency room, the patient underwent general evaluation including CT of the abdomen and pelvis showing cardiomegaly with moderate right pleural effusion and mild small volume ascites. The patient received IV Lasix 40 mg x1 dose in addition to thiamine 100 mg and Cardizem 10 mg IV push x1 dose after the patient's telemetry monitoring showed atrial fibrillation with rapid ventricular response in the 120s. Currently, the patient is asking to eat and when he will move to his regular room. PAST MEDICAL HISTORY: 1. Chronic atrial fibrillation without anticoagulation. 2. Hypertension. 3. Medication noncompliance. 4. Alcohol abuse. 5. History of CVA x2. 6. Congestive heart failure with preserved ejection fraction of 50% to 55%. 7. Cardiomyopathy, secondary to alcohol abuse. PAST SURGICAL HISTORY: Status post craniotomy, secondary to hemorrhage status post mechanical fall. CURRENT MEDICATIONS: 1. Lasix 20 mg p.o. daily. 2. Isosorbide mononitrate 30 mg p.o. daily. 3. Nifedipine extended release 60 mg p.o. daily. 4. Aspirin 325 mg p.o. daily. 5. Lipitor 10 mg p.o. at bedtime. 6. Digoxin 0.125 mg p.o. daily. 7. Lisinopril 10 mg p.o. b.i.d. 8. Metoprolol tartrate 50 mg p.o. b.i.d. 9. Potassium chloride 10 mEq p.o. daily. ALLERGIES: NO KNOWN DRUG ALLERGIES. FAMILY HISTORY: No inheritable disease per the patient's report. SOCIAL HISTORY: The patient is , resides in [place], [place]. Former tobacco user, none currently. Drinks 10 beers with intermittent Tequila daily. No illicit drug use. REVIEW OF SYSTEMS: CONSTITUTIONAL: Negative for weight loss or gain, ability to conduct usual activities. SKIN: Negative for rash, itching. EYES: Negative for double vision, pain. ENT/MOUTH: Negative for nose bleeding, neck stiffness, pain, tenderness. CARDIOVASCULAR: Negative for palpitations, dyspnea on exertion, orthopnea. RESPIRATORY: Negative for shortness of breath, wheezing, cough, hemoptysis, fever or night sweats. GASTROINTESTINAL: Negative for poor appetite, abdominal pain, heartburn, nausea, vomiting, constipation, or diarrhea. GENITOURINARY: Negative for urgency, frequency, dysuria, nocturia. MUSCULOSKELETAL: Negative for pain, swelling. NEUROLOGIC/PSYCHIATRIC: Negative for anxiety, depression. ALLERGY/IMMUNOLOGIC: Negative for skin rash, bleeding tendency. Otherwise negative except as stated per HPI. PHYSICAL EXAMINATION: VITAL SIGNS: On admission; blood pressure 148/108, pulse 110, respiratory rate 18, temperature 99.1 degrees Fahrenheit, and O2 saturation is 99% on room air. GENERAL APPEARANCE: This is a 63-year-old male, alert and oriented x3, responsive, in no acute distress. HEENT: Pupils are equal, round, and reactive to light and accommodation. Extraocular muscles are intact. No scleral icterus. No conjunctival injection. Nares patent. OP is clear. Teeth in poor repair. NECK: Supple. No cervical adenopathy. No thyromegaly. No carotid bruits. No JVD appreciated. Cervical spine with full active and passive range of motion. No meningeal signs appreciated. CHEST: Diminished breath sounds in the right base. Occasional crackle noted. CARDIOVASCULAR: S1 and S2 with irregular rate and rhythm. No murmur or rub appreciated. ABDOMEN: Rounded, soft with mild tenderness to palpation in the left lower quadrant. No rebound or guarding noted. No fluid wave noted. No palpable mass. EXTREMITIES: Warm and dry with fair turgor. Minimal edema to the distal tibias bilaterally. Pulses are palpable distally at the dorsalis pedis, posterior tibial, and popliteal arteries bilaterally. Capillary refill less than 2 seconds. NEUROLOGIC: Cranial nerves 2 through 12 are grossly intact. No focal or lateralizing signs appreciated. PERTINENT LAB AND X-RAY FINDINGS: Sodium 136, potassium 3.9, chloride 103, CO2 of 20, BUN 19, creatinine 1.22, estimated GFR 60, glucose 86, and calcium 9.0. Total bilirubin 1.6, AST 220, ALT 105, and alkaline phosphatase 87. Troponin I ranged between 0.191 to 0.200. BNP 2577 previously noted 391 on 05/14/2018. Lipase 18. CBC showed a white blood cell count of 8.7, hemoglobin 13.2, hematocrit 40, platelet count 143 with 55% neutrophils. Digoxin level less than 0.15. CT of the abdomen and pelvis dated 12/06/2018 showed marked cardiomegaly with moderate right pleural effusion and small volume of ascites. EKG dated 12/06/2018 by my interpretation shows atrial fibrillation with rapid ventricular response, heart rates in the low 110s. Attenuated R-waves noted in the precordial leads. Normal axis. No acute ST-T wave changes appreciated. ASSESSMENT AND PLAN: 1. Atrial fibrillation with rapid ventricular response. The patient will be admitted to the telemetry unit. We will initiate Cardizem 5 mg/hour. The patient received Cardizem 10 mg IV push x1 dose in the emergency room. We will resume home digoxin, metoprolol, and nifedipine. We will continue to monitor clinical response. We will initiate intravenous normal saline at 75 mL/h. No anticoagulation due to alcohol abuse, history of falls, and noncompliance. 2. Demand ischemia. Suspect secondarily to #1. We will continue trending troponin I. Continue aspirin 325 mg daily. 3. Right pleural effusion. Suspect multifactorial given the patient's alcohol abuse in conjunction with history of congestive heart failure. We will continue Lasix 40 mg IV b.i.d. Monitor respiratory status. Oxygen supplementation to maintain O2 saturations greater than or equal to 90%. 4. Alcohol abuse. Banana bag intravenously daily. Ativan 1 mg IV q.6 hours p.r.n. withdrawal symptoms. We will offer alcohol cessation resources prior to discharge. 5. Transaminitis, secondary to alcohol abuse. We will continue serial monitoring. See above. Repeat LFTs in the a.m. 6. Prophylaxis. Sequential compression devices while in bed. Pepcid 20 mg p.o. b.i.d. CODE STATUS: Full. The patient's surrogate medical decision maker is the patient's spouse. Job ID: [id number]
[2018-12-07] MEDS: Furosemide 40 MG/4 ML VIAL SLOW IVP SCH ×2 (04:23→13:36)
[2018-12-07] MEDS: Metoprolol Tartrate 50 MG TAB PO SCH ×3 (06:42→21:28)
[2018-12-07 07:08] LABS: Band 2 % (5-11); Eosinophils 3 % (0-10); Hemoglobin 12.9 g/dL (14.0-18.0); Lymphocytes 29 % (21-51); MDiff Complete? YES; Mean Corpuscular HGB CONC 33.7 g/dL (32.0-36.0); Mean Corpuscular Hemoglobin 32.8 pg (27.0-31.0); Mean Corpuscular Volume 97.4 fL (78.0-98.0); Mean Platelet Volume 10.1 fL (7.4-10.4); Monocytes 7 % (0-10); Neutrophil 53 % (42-75); Platelet Count 156 thou/uL (130-400); RBC Distribution Width 12.6 % (11.5-14.5); Reactive Lymphocytes 6 % (0-10); Red Blood Cell (RBC) Count 3.93 mill/uL (4.70-6.10); White Blood Cell (WBC) Count 9.1 thou/uL (4.8-10.8)
[2018-12-07 07:18] LABS: ALT (SGPT) 85 U/L (8-55); AST (SGOT) 130 U/L (5-34); Albumin 3.5 g/dL (3.4-4.8); Alkaline Phosphatase 87 U/L (40-150); Anion Gap 13 mmol/L (10-20); BUN (Urea Nitrogen) 19 mg/dL (8.4-25.7); Calc. Creatinine Clearance 63 mL/min (70-130); Calcium 8.5 mg/dL (7.8-10.44); Carbon Dioxide 25 mmol/L (23-31); Chloride 104 mmol/L (98-107); Estimated GFR-MDRD 65; Globulin 3.4 g/dL (2.4-3.5); Glucose 113 mg/dL (80-115); Magnesium 1.5 mg/dL (1.6-2.6); Potassium 3.1 mmol/L (3.5-5.1); Protein, Total 6.9 g/dL (5.8-8.1); Sodium 139 mmol/L (136-145)
[2018-12-07] MEDS ORDERED: Furosemide 20 MG TAB PO SCH (09:00)
[2018-12-07] MEDS: Digoxin 0.125 MG TAB PO SCH (09:43)
[2018-12-07] MEDS: Aspirin 325 MG TAB PO SCH (09:43)
[2018-12-07] MEDS: Folic Acid 1 MG TAB PO SCH (09:44)
[2018-12-07] MEDS: NIFEdipine XL 60 MG TAB PO SCH (09:44)
[2018-12-07] MEDS: Famotidine 20 MG TAB PO SCH ×2 (09:44→21:30)
[2018-12-07] MEDS: Sodium Chloride 0.9% 1,000 ML IV SCH (09:53)
--- NOTE | 2018-12-07 14:40 | PDOC.PN ---
- Subjective Encounter Start Date: 12/07/18 Encounter Start Time: 14:38 Subjective: feels much better.denies any SOB/CP/palpitations -: had stopped taking meds when he runs out - Objective Resuscitation Status - Order Detail: 12/06/18 18:59 Resuscitation Status Routine Resuscitation Status: FULL: Full Resuscitation MAR Reviewed: Yes Vital Signs & Weight: Vital Signs (12 hours) Temp Pulse Resp BP BP Pulse Ox 12/07/18 11:45 98.6 F 56 L 18 111/74 96 12/07/18 09:44 70 115/67 12/07/18 09:43 70 12/07/18 07:49 97.3 F L 75 18 120/81 98 12/07/18 04:00 96 Weight Weight 150 lb 11.2 oz I&O: 12/06/18 12/07/18 12/08/18 06:59 06:59 06:59 Intake Total 900 360 Output Total 1600 Balance -700 360 Result Diagrams: 12/07/18 06:20 12/07/18 06:20 Additional Labs: Laboratory Tests 05/14/18 05/14/18 12/06/18 16:39 16:39 13:11 Total Bilirubin 1.6 H AST 52 H 220 H ALT 30 105 H Troponin I B-Natriuretic Peptide 391.0 H Lipase 18 TSH 3rd Generation 12/06/18 12/06/18 12/06/18 13:11 13:40 17:05 Total Bilirubin AST ALT Troponin I 0.200 H 0.191 H B-Natriuretic Peptide 2576.9 H Lipase TSH 3rd Generation 12/06/18 12/07/18 12/07/18 19:48 06:20 06:20 Total Bilirubin 1.0 AST 130 H ALT 85 H Troponin I 0.175 H B-Natriuretic Peptide Lipase TSH 3rd Generation 4.1967 Phys Exam - Physical Examination Constitutional: NAD HEENT: PERRLA, moist MMs, sclera anicteric, oral pharynx no lesions Neck: no nodes, no JVD, supple, full ROM Respiratory: no wheezing, no rales, no rhonchi, clear to auscultation bilateral Cardiovascular: RRR, no significant murmur, no rub Gastrointestinal: soft, non-tender, no distention, positive bowel sounds Musculoskeletal: no edema, pulses present Neurological: non-focal, normal sensation, moves all 4 limbs Psychiatric: normal affect, A&O x 3 Skin: no rash Dx/Plan (1) Acute on chronic systolic CHF (congestive heart failure) Code(s): I50.23 - ACUTE ON CHRONIC SYSTOLIC (CONGESTIVE) HEART FAILURE Status : Acute (2) Chronic atrial fibrillation with RVR Code(s): I48.2 - CHRONIC ATRIAL FIBRILLATION Status: Acute Comment: SVR .CCB drip stopped. cont BB and Digoxin.not on any OAC due to fall eisk,non compliance and chronic ETOH abuse (3) Troponin level elevated Code(s): R74.8 - ABNORMAL LEVELS OF OTHER SERUM ENZYMES Status: Acute Comment: demand ischemia due to #1 (4) Non-ischemic cardiomyopathy Code(s): I42.8 - OTHER CARDIOMYOPATHIES Status: Acute Comment: Improved EF (5) Alcohol abuse Code(s): F10.10 - ALCOHOL ABUSE, UNCOMPLICATED Status: Chronic Comment: counselling provided - Plan DVT proph w/SCDs counselling done again for med compliance & ETOH abstinence -: educated about [employer] & 4$ scrpit programs -: HD stable. -: Stop IVF.start PO thiamine,FA -: start ASE protocol. high risk of DTs. * .home in am if HR better. * HD stable Review of Systems - Review of Systems Constitutional: negative: fever, chills, sweats, weakness, malaise, other ENT: negative: Ear Pain, Ear Discharge, Nose Pain, Nose Discharge, Nose Congestion, Mouth Pain, Mouth Swelling, Throat Pain, Throat Swelling, Other Respiratory: negative: Cough, Dry, Shortness of Breath, Hemoptysis, SOB with Excertion, Pleuritic Pain, Sputum, Wheezing Cardiovascular: negative: chest pain, palpitations, orthopnea, paroxysmal nocturnal dyspnea, edema, light headedness, other Gastrointestinal: negative: Nausea, Vomiting, Abdominal Pain, Diarrhea, Constipation, Melena, Hematochezia, Other Genitourinary: negative: Dysuria, Frequency, Incontinence, Hematuria, Retention , Other Neurological: negative: Weakness, Numbness, Incoordination, Change in Speech, Confusion, Seizures, Other - Medications/Allergies Allergies/Adverse Reactions: Allergies Allergy/AdvReac Type Severity Reaction Status Date / Time No Known Drug Allergies Allergy Verified 12/06/18 21:47 Medications: Current Medications Acetaminophen (Tylenol) 1,000 mg PO Q6H PRN PRN Reason: Mild Pain (1-3) Aspirin (Aspirin) 325 mg PO QAM-WM [facility] Last Admin: 12/07/18 09:43 Dose: 325 mg Digoxin (Lanoxin) 0.125 mg PO DAILY [facility] Last Admin: 12/07/18 09:43 Dose: 0.125 mg Famotidine (Pepcid) 20 mg PO BID [facility] Last Admin: 12/07/18 09:44 Dose: 20 mg Folic Acid (Folvite) 1 mg PO DAILY [facility] Last Admin: 12/07/18 09:44 Dose: 1 mg Furosemide (Lasix) 40 mg SLOW IVP 0600,1400 [facility] Last Admin: 12/07/18 13:36 Dose: 40 mg Hydralazine HCl (Apresoline) 10 mg SLOW IVP Q4H PRN PRN Reason: SBP > 180 and HR < 70 Diltiazem HCl 125 mg/ Sodium (Chloride) 125 mls @ 5 mls/hr IVPB INF [facility]; Protocol Last Admin: 12/06/18 22:17 Dose: 125 mls Isosorbide Mononitrate (Imdur Er) 30 mg PO DAILY [facility] Last Admin: 12/07/18 09:44 Dose: 30 mg Lorazepam (Ativan) 1 mg SLOW IVP Q6H PRN PRN Reason: Alcohol Withdrawal Metoprolol Tartrate (Lopressor) 50 mg PO BID [facility] Last Admin: 12/07/18 09:44 Dose: 50 mg Nifedipine (Procardia Xl) 60 mg PO DAILY [facility] Last Admin: 12/07/18 09:44 Dose: 60 mg Ondansetron HCl (Zofran Odt) 4 mg PO Q6H PRN PRN Reason: Nausea/Vomiting Ondansetron HCl (Zofran) 4 mg IVP Q6H PRN PRN Reason: Nausea/Vomiting Sodium Chloride (Flush - Normal Saline) 10 ml IVF Q12HR [facility] Sodium Chloride (Flush - Normal Saline) 10 ml IVF PRN PRN PRN Reason: Saline Flush Thiamine HCl (Thiamine) 100 mg PO DAILY [facility] Last Admin: 12/07/18 09:45 Dose: 100 mg
[2018-12-08] MEDS: Furosemide 40 MG/4 ML VIAL SLOW IVP SCH ×2 (05:39→15:26)
[2018-12-08] MEDS: NIFEdipine XL 60 MG TAB PO SCH (09:00)
[2018-12-08] MEDS: Digoxin 0.125 MG TAB PO SCH (09:00)
[2018-12-08] MEDS: Metoprolol Tartrate 50 MG TAB PO SCH ×2 (09:00→21:02)
[2018-12-08] MEDS: Aspirin 325 MG TAB PO SCH (09:00)
[2018-12-08] MEDS: Folic Acid 1 MG TAB PO SCH (09:01)
[2018-12-08] MEDS: Famotidine 20 MG TAB PO SCH ×2 (09:01→21:01)
--- NOTE | 2018-12-08 12:55 | PDOC.PN ---
- Subjective Encounter Start Date: 12/08/18 Encounter Start Time: 12:54 -: old records requested/rev Pt seen and examined, chart reviewe din its entirety. This is my first visit with this patient follow up for NSTEMI, New onset CHF. No f/C, no N/V/D/C, ambulating in room. All systems reviewed and neg x as above - Objective Resuscitation Status - Order Detail: 12/06/18 18:59 Resuscitation Status Routine Resuscitation Status: FULL: Full Resuscitation MAR Reviewed: Yes Vital Signs & Weight: Vital Signs (12 hours) Temp Pulse Resp BP BP Pulse Ox 12/08/18 12:10 101/58 L 12/08/18 11:56 97.8 F 90 16 101/58 L 98 12/08/18 09:00 94 100/61 12/08/18 08:07 100/61 12/08/18 07:48 98.8 F 94 16 100/61 92 L 12/08/18 03:37 98.4 F 90 12 92/58 L 94 L Weight Weight 150 lb 11.2 oz I&O: 12/07/18 12/08/18 12/09/18 06:59 06:59 06:59 Intake Total 900 1440 300 Output Total 1600 1125 Balance -700 315 300 Result Diagrams: 12/07/18 06:20 12/07/18 06:20 Radiology Reviewed by me: Yes EKG Reviewed by me: Yes Phys Exam - Physical Examination Constitutional: NAD HEENT: PERRLA, moist MMs, sclera anicteric, oral pharynx no lesions Neck: no nodes, no JVD, supple, full ROM Respiratory: no wheezing, no rales, no rhonchi, clear to auscultation bilateral Cardiovascular: RRR, no significant murmur, no rub Gastrointestinal: soft, non-tender, no distention, positive bowel sounds Musculoskeletal: pulses present, edema present Neurological: non-focal, normal sensation, moves all 4 limbs Lymphatic: no nodes Psychiatric: normal affect, A&O x 3 Skin: no rash, normal turgor, cap refill <2 seconds Dx/Plan (1) Acute on chronic systolic CHF (congestive heart failure) Code(s): I50.23 - ACUTE ON CHRONIC SYSTOLIC (CONGESTIVE) HEART FAILURE Status : Acute Comment: echo 6 months ago, pt noncomplaint [employer] meds, restarted, better. (2) Troponin level elevated Code(s): R74.8 - ABNORMAL LEVELS OF OTHER SERUM ENZYMES Status: Acute Comment: demand ischemia due to #1 (3) Afib Code(s): I48.91 - UNSPECIFIED ATRIAL FIBRILLATION Status: Chronic Qualifiers: Atrial fibrillation type: chronic Qualified Code(s): I48.2 - Chronic atrial fibrillation (4) Chronic atrial fibrillation with RVR Code(s): I48.2 - CHRONIC ATRIAL FIBRILLATION Status: Acute Comment: SVR .CCB drip stopped. cont BB and Digoxin.not on any OAC due to fall risk,non compliance and chronic ETOH abuse (5) Encephalopathy Code(s): G93.40 - ENCEPHALOPATHY, UNSPECIFIED Status: Resolved (6) Hypokalemia Code(s): E87.6 - HYPOKALEMIA Status: Resolved (7) Non-ischemic cardiomyopathy Code(s): I42.8 - OTHER CARDIOMYOPATHIES Status: Chronic Comment: Improved EF (8) Alcohol abuse Code(s): F10.10 - ALCOHOL ABUSE, UNCOMPLICATED Status: Chronic Comment: counselling provided (9) Cardiogenic shock Code(s): R57.0 - CARDIOGENIC SHOCK Status: Resolved - Plan cont current plan of care, PT/OT, out of bed/ambulate * .
[2018-12-09] MEDS: Furosemide 40 MG/4 ML VIAL SLOW IVP SCH ×2 (05:51→15:59)
[2018-12-09] MEDS: Digoxin 0.125 MG TAB PO SCH (08:57)
[2018-12-09] MEDS: Aspirin 325 MG TAB PO SCH (08:57)
[2018-12-09] MEDS: Metoprolol Tartrate 50 MG TAB PO SCH (08:58)
[2018-12-09] MEDS: Folic Acid 1 MG TAB PO SCH (08:58)
[2018-12-09] MEDS: NIFEdipine XL 60 MG TAB PO SCH (08:58)
[2018-12-09] MEDS: Famotidine 20 MG TAB PO SCH (08:59)
--- NOTE | 2018-12-09 11:48 | DIS ---
DATE OF ADMISSION: 12/06/2018 DATE OF DISCHARGE: 12/09/2018 PRIMARY CARE PHYSICIAN: Kati Henry. DIAGNOSES ON ADMISSION: 1. [id number] diastolic congestive heart failure. 2. Chronic alcohol abuse. 3. Hypertension, essential. 4. Chronic atrial fibrillation, medical nonadherence. 5. Demand ischemia. 6. Atrial fibrillation with rapid ventricular response, present on admission, now resolved. CONSULTATIONS: None. PROCEDURES: None. HISTORY AND PHYSICAL: The patient is a 63-year-old gentleman with a history of heavy alcohol abuse and the other above medical issues. He presented to the emergency department for evaluation on the day of admission with complaint of abdominal pain and shortness of breath. Workup revealed him to be in heart failure and atrial fibrillation with RVR, so we were called for admission. HOSPITAL COURSE: The patient was seen and examined by Dr. Gary. His home medicines were restarted. The patient was placed on inpatient status on the telemetry monitoring unit. From 12/07 to 12/09, the patient continued to take his regular medications. His troponins normalized out. His respiratory status improved, he was weaned off oxygen, and subsequently his heart rate came back down into the controlled atrial fibrillation rate. Heart rate in the 70s. He is stable for discharge with outpatient followup. PHYSICAL EXAMINATION: The patient was seen and examined discharge on the day of discharge. Discharge planning, disposition, and need to adhere to his medical regimen were discussed with the patient [id number] at the bedside. DISCHARGE MEDICATIONS: 1. Lasix 40 mg p.o. b.i.d. 2. Isosorbide mononitrate 30 mg p.o. daily. 3. Nifedipine ER 60 mg p.o. daily. 4. Aspirin 325 mg daily. 5. Digoxin 0.125 mg p.o. daily. 6. Metoprolol tartrate 50 mg p.o. b.i.d. FOLLOWUP APPOINTMENTS: Primary care physician in a week. DISCHARGE ACTIVITY: Per cardiopulmonary limits. DISCHARGE DIET: Heart healthy recommended. DISCHARGE CONDITION: Stable. DISPOSITION: Discharged home via private vehicle. DISCHARGE INSTRUCTIONS: The patient was counseled on the dissociate drinking. Job ID: [id number]
[2018-12-09 15:28] VITALS: BP 104/58; TEMP 97.4
== END 2018-12-09 18:35 | disposition home or self-care (01) | DRG 291 ==
LOC: ERS 12:55 → ERHOLD 16:21 → 2SW 21:24
PROVIDERS: ADMIT Family Medicine; ATTEND Family Medicine
DX: I11.0 Hypertensive heart disease with heart failure (principal); R57.0 Cardiogenic shock; R18.8 Other ascites; I24.8 Other forms of acute ischemic heart disease; G93.40 Encephalopathy, unspecified; I50.33 Acute on chronic diastolic (congestive) heart failure; I42.9 Cardiomyopathy, unspecified; I48.2 Chronic atrial fibrillation; F10.10 Alcohol abuse, uncomplicated; Z91.19 Patient's noncompliance with other medical treatment and regimen; I42.8 Other cardiomyopathies; E87.5 Hyperkalemia; Z86.73 Personal history of transient ischemic attack (TIA), and cerebral infarction without residual deficits
CPT/HCPCS: 36415; 74177; 80053; 80162; 81003; 82550; 82553; 83690; 83735; 83880; 84443; 84484; 85007; 85025; 85027; 90471; 90686; 90732; 93005; 93798; 96361; 96374; 96375; C9113; G0008; G0009; J1940; J3411; J7042; J7050

== ENCOUNTER 2019-03-30 20:10 | Inpatient (IN) | payer SELFPAY ==
[2019-03-30 21:32] LABS: Bilirubin Negative (Negative); Blood, Urine Negative (Negative); Clarity CLEAR (Clear); Glucose, Urine (Dipstick) Negative (Negative); Leukocyte Negative (Negative); Nitrite Negative (Negative); Protein, Urine (Dipstick) 100 mg/dL (Neg-Trace); Specific Gravity, Urine 1.013 (1.002-1.036)
[2019-03-30 21:34] LABS: Bacteria/HPF None Seen HPF (None Seen); Hyaline Casts/LPF 0-3 HYALINE CAST LPF (0-3 Hyaline); RBC/HPF 0-3 HPF (0-3); Squamous Epithelial None Seen HPF (0-3); WBC/HPF None Seen HPF (0-3)
[2019-03-30 21:42] LABS: Hemoglobin 14.4 g/dL (14.0-18.0); Mean Corpuscular HGB CONC 32.3 g/dL (32.0-36.0); Mean Corpuscular Hemoglobin 32.4 pg (27.0-31.0); RBC Distribution Width 14.6 % (11.5-14.5); Red Blood Cell (RBC) Count 4.44 mill/uL (4.70-6.10); White Blood Cell (WBC) Count 12.8 thou/uL (4.8-10.8)
--- NOTE | 2019-03-30 21:43 | RAD ---
Radiograph chest 2 views: 03/30/2019 at 9:23 PM HISTORY: 64-year-old male with dyspnea COMPARISON: A 1 View study of 05/14/2018 FINDINGS: There is a new finding of a retrocardiac left lower lobe infiltrate currently there is no pleural eff usion. There is cardiomegaly but no pulmonary edema. No pneumothorax. Upper lobe pulmonary veins are mildly dilated, as previously. IMPRESSION: 1. Left lower lobe infiltrate suspicious for left lower lobe pneumonia. 2. Cardiomegaly and borderline pulmonary venous congestion.
[2019-03-30 21:57] LABS: #Lymphocytes 2.2 thou/uL (1.20-3.40); #Monocytes 1.1 thou/uL (0.11-0.59); #Neutrophils 9.5 thou/uL (1.40-6.50); %Basophils 0.2 % (0.0-1.0); %Eosinophils 0.1 % (0.0-10.0); %Monocytes 8.3 % (0.0-10.0); %Neutrophils 74.4 % (42.0-75.0); Large Platelets SLIGHT; MDiff Complete? YES; Mean Platelet Volume 10.3 fL (7.4-10.4); Platelet Count 114 thou/uL (130-400); Platelet Morphology Comment Appears Decreased
[2019-03-30 22:02] LABS: ALT (SGPT) 23 U/L (8-55); AST (SGOT) 57 U/L (5-34); Albumin 3.9 g/dL (3.4-4.8); Alkaline Phosphatase 97 U/L (40-150); Anion Gap 15 mmol/L (10-20); BUN (Urea Nitrogen) 11 mg/dL (8.4-25.7); Bilirubin, Total 1.6 mg/dL (0.2-1.2); Calc. Creatinine Clearance 0 mL/min (70-130); Carbon Dioxide 26 mmol/L (23-31); Chloride 99 mmol/L (98-107); Estimated GFR-MDRD 66; Globulin 3.5 g/dL (2.4-3.5); Glucose 111 mg/dL (80-115); Protein, Total 7.4 g/dL (5.8-8.1); Sodium 136 mmol/L (136-145)
[2019-03-30 22:24] LABS: CKMB 2.5 ng/mL (0-6.6)
[2019-03-30] MEDS ORDERED: Aspirin Chewable 81 MG TAB ONE (22:27)
[2019-03-30] MEDS ORDERED: cefTRIAXone\\ROCEPHIN 2 GM VIAL ONE ×2 (22:28)
[2019-03-31 01:01] LABS: Troponin I 0.034 ng/mL (< 0.028)
[2019-03-31 03:59] LABS: Troponin I 0.014 ng/mL (< 0.028)
[2019-03-31] MEDS ORDERED: Sodium Chloride 0.9% 1,000 ML IV SCH (04:00)
[2019-03-31] MEDS ORDERED: Eucerin (Mineral Oil/Petrolatum,White) 30 gm Jar TOP PRN (08:35)
[2019-03-31] MEDS ORDERED: Loratadine 10 MG TAB PO PRN (08:35)
[2019-03-31] MEDS ORDERED: Artificial Tears 18 DROP/0.9 ML EA EYE PRN (08:35)
[2019-03-31] MEDS ORDERED: Zolpidem Tartrate 5 MG TAB PO PRN ×2 (08:35)
[2019-03-31] MEDS ORDERED: Senokot S 8.6-50 MG TAB PO PRN (08:35)
[2019-03-31] MEDS ORDERED: HYDROcodone/Acetaminophen 5/325 mg Tablet PO PRN (08:35)
[2019-03-31] MEDS ORDERED: Diabetic Tussin 200 MG/10 ML UDCUP PO PRN (08:35)
[2019-03-31] MEDS ORDERED: Nitroglycerin 0.4 MG TAB (25 Tab Bottle) SL PRN (08:35)
[2019-03-31] MEDS ORDERED: Sodium Chloride 0.65% Nasal 44 ML BOT EA NARE PRN (08:35)
[2019-03-31] MEDS ORDERED: hydrALAZINE 20 MG/ML VIAL SLOW IVP PRN (08:35)
[2019-03-31] MEDS ORDERED: Loperamide HCl 2 MG CAP PO PRN (08:35)
[2019-03-31] MEDS ORDERED: Calcium Carbonate 500 MG ChewTAB PO PRN (08:35)
[2019-03-31] MEDS ORDERED: Cepastat Lozenges 1 LOZ PO PRN (08:35)
[2019-03-31] MEDS ORDERED: Bisacodyl 10 MG SUPP PR PRN (08:35)
[2019-03-31] MEDS ORDERED: NIFEdipine XL 60 MG TAB PO SCH (09:00)
[2019-03-31] MEDS ORDERED: Prevnar 13-Val Conj/PF 0.5 ML SYRINGE IM ONE (09:00)
[2019-03-31] MEDS ORDERED: Diltiazem 125 MG in Sodium Chloride 0.9% 100 ML IVPB SCH ×2 (10:00→11:30)
[2019-03-31] MEDS ORDERED: Furosemide 40 MG TAB ONE ×2 (10:22→14:40)
[2019-03-31] MEDS ORDERED: Digoxin 0.125 MG TAB ONE (10:22)
[2019-03-31] MEDS ORDERED: Famotidine 20 MG TAB ONE (10:22)
[2019-03-31] MEDS ORDERED: Enoxaparin Sodium 40 MG/0.4 ML SYRINGE ONE (10:22)
[2019-03-31] MEDS ORDERED: Metoprolol Tartrate 50 MG TAB ONE (10:22)
[2019-03-31] MEDS: guaiFENesin ER 600 MG TAB PO SCH ×2 (10:29→21:12)
[2019-03-31] MEDS: Furosemide 40 MG TAB PO SCH ×2 (10:29→14:42)
[2019-03-31] MEDS: Lisinopril 10 MG TAB PO SCH (10:29)
[2019-03-31] MEDS: Digoxin 0.125 MG TAB PO SCH (10:29)
[2019-03-31] MEDS: Famotidine 20 MG TAB PO SCH (10:29)
[2019-03-31] MEDS: Metoprolol Tartrate 50 MG TAB PO SCH ×2 (10:30→21:12)
[2019-03-31] MEDS: Saccharomyces boulardii 250 MG CAP PO SCH (10:30)
--- NOTE | 2019-03-31 10:38 | HP ---
PRIMARY CARE PHYSICIAN: Saira Huber MD. REASON FOR ADMISSION: Left lower lobe pneumonia and atrial fibrillation with rapid ventricular response. HISTORY OF PRESENT ILLNESS: A 64-year-old male, who came to emergency room with complaint of recent upper respiratory infection. Subsequently, his symptom progressed to sore throat. He denies any difficulty swallowing. He was having subjective low-grade fever at home and he was having dry cough. He was feeling gradually day-by-day more weak and he started having productive of scant amount of sputum without any blood. He was also having chest pain left-sided, which was pleuritic in nature. He denies any recent travel or sick exposure. He denies any UTI symptoms. He denies any constipation, diarrhea, melena, or hematochezia. When he presented to emergency room, he was having AFib with RVR. He was given IV fluid. Despite that when I saw this morning at that time, his heart rate was not well controlled. He was still having cough and shortness of breath. He denies any lower extremity edema, orthopnea, or PND. Today, in the emergency room, evaluation showed leukocytosis with left shift and slightly elevated troponin along with chest x-ray showing left lower lobe pneumonia. PAST MEDICAL HISTORY: Chronic diastolic heart failure, nonischemic cardiomyopathy due to alcohol, history of CVA x2, alcohol abuse, medication noncompliance, hypertension, and chronic atrial fibrillation. PAST SURGICAL HISTORY: Craniotomy due to hemorrhage after mechanical fall. PAST PSYCHIATRIC HISTORY: Reviewed and negative. CURRENT HOME MEDICATIONS: The patient does not have any medications with him at this point, but based on our hospital record, he is on following medications; 1. Aspirin 325 mg daily. 2. Digoxin 0.125 mg p.o. daily. 3. Lasix 40 mg b.i.d. 4. Imdur 30 mg daily. 5. Lisinopril 10 mg b.i.d. 6. Metoprolol 50 mg p.o. b.i.d. 7. Procardia XL 60 mg p.o. daily. ALLERGIES: NO KNOWN DRUG ALLERGIES. FAMILY HISTORY: No family history of coronary artery disease, stroke, or cancer. SOCIAL HISTORY: The patient lives in [place], [place]. He is . He is a former smoker. He currently denies any smoking. He drinks alcohol in the form of Tequila intermittently. No other illicit drug abuse. REVIEW OF SYSTEMS: CONSTITUTIONAL: Negative for weight loss or gain, ability to conduct usual activities. SKIN: Negative for rash, itching. EYES: Negative for double vision, pain. ENT/MOUTH: Negative for nose bleeding, neck stiffness, pain, tenderness. CARDIOVASCULAR: Negative for palpitations, dyspnea on exertion, orthopnea. RESPIRATORY: Negative for shortness of breath, wheezing, cough, hemoptysis, fever or night sweats. GASTROINTESTINAL: Negative for poor appetite, abdominal pain, heartburn, nausea, vomiting, constipation, or diarrhea. GENITOURINARY: Negative for urgency, frequency, dysuria, nocturia. MUSCULOSKELETAL: Negative for pain, swelling. NEUROLOGIC/PSYCHIATRIC: Negative for anxiety, depression. ALLERGY/IMMUNOLOGIC: Negative for skin rash, bleeding tendency. Please see my HPI for pertinent positives and negatives. All other review of systems reviewed and negative except as mentioned in HPI. EMERGENCY ROOM COURSE: The patient received Rocephin, levofloxacin, IV fluid, and aspirin. PHYSICAL EXAMINATION: VITAL SIGNS: Currently, blood pressure 154/102, pulse 122 and irregular, respiratory rate 22, temperature 97.9, saturation 97% on room air, and weight 63.5 kg. GENERAL: The patient is currently alert and awake. No obvious acute distress. HEENT: Head, normocephalic and atraumatic. Eyes; pupils round and reactive to light. Extraocular muscle intact. ENT, oropharynx within normal limits. Moist mucous membranes. No oral lesion. No pharyngeal erythema. No exudate. NECK: Supple. No JVD. No thyromegaly. No carotid bruit. LUNGS: Bilateral wheezing noted. Left lower lobe rales noted. CARDIAC: S1 and S2 irregularly irregular. No murmur. No gallop. No rub. ABDOMEN: Soft. Bowel sounds present. Nontender. Nondistended. No organomegaly. No mass. No suprapubic tenderness. BACK: Unremarkable. No CVA tenderness. EXTREMITIES: Upper extremity, passive movement of all joints are normal. Lower extremity, no edema. Good distal pulsation. No calf tenderness. SKIN: No skin rash. HEMATOLOGICAL SYSTEM: No lymphadenopathy. PSYCHIATRIC: Normal affect. SIGNIFICANT LABORATORY DATA: EKG showing AFib with RVR. Chest x-ray showing left lower lobe infiltration, cardiomegaly, and pulmonary vascular congestion. CBC; WBC 12.8, hemoglobin 14.4, and platelet 114 with left shift. BMP; sodium 136, potassium 4.0, chloride 99, carbon dioxide 26, BUN 11, creatinine 1.12, glucose 111, and calcium 9.0. Lactic acid 1.6. LFT; bilirubin 1.6, AST 57, ALT 23, alkaline phosphatase 97, albumin 3.9, and CK-MB 2.5. Troponin 0.029, 0.034, and then 0.014. Urinalysis normal. Chest x-ray consistent with left lower lobe pneumonia, cardiomegaly, and pulmonary vascular congestion. ASSESSMENT: 1. Sepsis secondary to community-acquired pneumonia. 2. Left lower lobe community-acquired pneumonia suspecting streptococcal. 3. Atrial fibrillation with rapid ventricular response. 4. Macrocytosis and thrombocytopenia likely due to alcohol abuse. 5. Chronic diastolic heart failure with acute on chronic exacerbation stage C. 6. Hypertension. 7. Nonischemic cardiomyopathy. 8. Alcohol abuse. PLAN: Admission to telemetry floor. Start Cardizem drip for AFib with RVR. Continue Rocephin 1 g q.24 hours and levofloxacin 750 mg IV daily for pneumonia. Discontinue IV fluid because of congestive heart failure. Resume home medication with aspirin 325 mg p.o. daily, digoxin 0.125 mg p.o. daily, metoprolol 50 mg b.i.d., lisinopril 10 mg p.o. b.i.d., and Imdur 30 mg p.o. daily. Monitor on telemetry floor and repeat labs tomorrow. DVT prophylaxis, Lovenox 40 mg subcu daily. GI prophylaxis, Pepcid 20 mg p.o. daily. CODE STATUS: The patient is full code. The patient does not have any surrogate decision maker. DISPOSITION PLAN: Based on clinical course. We are expecting the patient's stay in hospital more than 2 midnights. Plan of care discussed with the patient in detail. Job ID: [id number]
[2019-03-31] MEDS: Enoxaparin Sodium 40 MG/0.4 ML SYRINGE SC SCH (10:45)
[2019-03-31] MEDS: cefTRIAXone\\ROCEPHIN 1 GM in Sodium Chloride 0.9% 100 ML IVPB SCH (21:55)
[2019-04-01] MEDS: Lisinopril 10 MG TAB PO SCH ×3 (00:01→20:09)
[2019-04-01 05:34] LABS: ALT (SGPT) 18 U/L (8-55); AST (SGOT) 35 U/L (5-34); Albumin 3.1 g/dL (3.4-4.8); Alkaline Phosphatase 92 U/L (40-150); Anion Gap 13 mmol/L (10-20); BUN (Urea Nitrogen) 14 mg/dL (8.4-25.7); Calc. Creatinine Clearance 70 mL/min (70-130); Calcium 8.3 mg/dL (7.8-10.44); Carbon Dioxide 26 mmol/L (23-31); Chloride 104 mmol/L (98-107); Estimated GFR-MDRD 80; Glucose 94 mg/dL (80-115); Potassium 3.4 mmol/L (3.5-5.1); Protein, Total 6.1 g/dL (5.8-8.1); Sodium 140 mmol/L (136-145)
[2019-04-01 05:47] LABS: #Basophils 0.1 thou/uL (0.0-0.2); #Eosinphils 0.1 thou/uL (0.0-0.7); #Lymphocytes 2.6 thou/uL (1.20-3.40); #Neutrophils 8.2 thou/uL (1.40-6.50); %Basophils 0.5 % (0.0-1.0); %Eosinophils 0.8 % (0.0-10.0); %Lymphocytes 21.6 % (21.0-51.0); %Monocytes 8.3 % (0.0-10.0); %Neutrophils 68.8 % (42.0-75.0); Hemoglobin 13.9 g/dL (14.0-18.0); MDiff Complete? YES; Macrocytosis SLIGHT = 6-15 cells (100X) (0-5/hpf); Mean Corpuscular HGB CONC 33.1 g/dL (32.0-36.0); Mean Corpuscular Hemoglobin 33.3 pg (27.0-31.0); Platelet Count 113 thou/uL (130-400); Platelet Morphology Comment Appears Decreased; RBC Distribution Width 14.3 % (11.5-14.5); Red Blood Cell (RBC) Count 4.17 mill/uL (4.70-6.10); White Blood Cell (WBC) Count 11.9 thou/uL (4.8-10.8)
[2019-04-01] MEDS: Digoxin 0.125 MG TAB PO SCH (09:40)
[2019-04-01] MEDS: Acetaminophen 325 MG TAB PO PRN (09:40)
[2019-04-01] MEDS: Furosemide 40 MG TAB PO SCH ×2 (09:41→13:25)
[2019-04-01] MEDS: Famotidine 20 MG TAB PO SCH (09:42)
[2019-04-01] MEDS: Saccharomyces boulardii 250 MG CAP PO SCH (09:43)
[2019-04-01] MEDS: Aspirin 325 MG TAB PO SCH (09:43)
[2019-04-01] MEDS: Enoxaparin Sodium 40 MG/0.4 ML SYRINGE SC SCH (09:43)
[2019-04-01] MEDS: Metoprolol Tartrate 50 MG TAB PO SCH ×2 (09:49→20:09)
--- NOTE | 2019-04-01 11:07 | PDOC.PN ---
- Subjective Encounter Start Date: 04/01/19 Encounter Start Time: 11:05 Subjective: f/u for LLL PNA on Levaquin/Rocephin and A-fib RVR on Cardizem gtt. -: No new complaints. - Objective Resuscitation Status - Order Detail: 03/31/19 08:35 Resuscitation Status Routine Resuscitation Status: FULL: Full Resuscitation MAR Reviewed: Yes Vital Signs & Weight: Vital Signs (12 hours) Temp Pulse Resp BP BP Pulse Ox 04/01/19 09:41 153/103 H 97 04/01/19 09:40 89 04/01/19 07:40 97.6 F 89 18 153/103 H 97 04/01/19 03:59 98.6 F 91 18 146/99 H 99 03/31/19 23:59 99.6 F 99 20 132/75 96 Weight Weight 139 lb 15.896 oz Result Diagrams: 04/01/19 04:39 04/01/19 04:39 Additional Labs: Microbiology 03/30/19 21:30 Throat - Pending Group A Streptococcus Culture - Final 03/30/19 21:00 Tonsil - Pending Group A Streptococcus Screen (JENNIFER) - Final 03/30/19 21:00 Nasal swab Influenza Types A,B Direct EIA - Final 03/30/19 22:45 Venous blood - Right Hand Blood Culture - Preliminary Specimen has been received and culture in progress. No Growth to date. 03/30/19 22:41 Venous blood - Right Arm Blood Culture - Preliminary Specimen has been received and culture in progress. No Growth to date. 03/30/19 21:06 Urine voided Urine Culture - Preliminary NO GROWTH AT 12 HOURS Laboratory Tests 03/30/19 03/30/19 03/31/19 21:33 21:33 00:30 Potassium 4.0 AST 57 H Troponin I 0.029 H 0.034 H 03/31/19 04/01/19 03:28 04:39 Potassium AST 35 H Troponin I 0.014 Radiology Reviewed by me: Yes (PCXR - LLL infilitrate) EKG Reviewed by me: Yes (Tele - A-fib in 90's) Phys Exam - Physical Examination Constitutional: NAD HEENT: PERRLA, sclera anicteric, oral pharynx no lesions Neck: no nodes, no JVD, supple, full ROM Respiratory: no wheezing, no rales, no rhonchi, clear to auscultation bilateral S1, S2 Cardiovascular: no significant murmur, no rub, gallop, irregular Gastrointestinal: soft, non-tender, no distention, positive bowel sounds Musculoskeletal: no edema, pulses present Neurological: normal sensation, moves all 4 limbs Psychiatric: A&O x 3 Skin: normal turgor, cap refill <2 seconds Dx/Plan (1) LLL pneumonia Code(s): J18.1 - LOBAR PNEUMONIA, UNSPECIFIED ORGANISM Status: Acute Comment : Continue Rocephin/Levaquin another 24h then de-escalate coverage, initial cx negative, suspect gm + cocci bacterial PNA (2) Chronic atrial fibrillation with RVR Code(s): I48.2 - CHRONIC ATRIAL FIBRILLATION Status: Acute Comment: Rate controlled currently, d/c Cardizem gtt, resume Digoxin/Metoprolol, no anticoagulation due to non-compliance and alcohol abuse (3) Non-ischemic cardiomyopathy Code(s): I42.8 - OTHER CARDIOMYOPATHIES Status: Chronic Comment: Last EF in 50-55%%, compensated (4) HTN (hypertension) Code(s): I10 - ESSENTIAL (PRIMARY) HYPERTENSION Status: Chronic Qualifiers: Hypertension type: essential hypertension Qualified Code(s): I10 - Essential (primary) hypertension Comment: Resume home BP regimen and titrate to optimal response (5) Alcohol abuse Code(s): F10.10 - ALCOHOL ABUSE, UNCOMPLICATED Status: Chronic Comment: Cessation resources, start MVI, Thiamine/Folate - Plan continue antibiotics, 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
[2019-04-01] MEDS: guaiFENesin ER 600 MG TAB PO SCH ×2 (11:43→20:10)
[2019-04-01] MEDS ORDERED: Multivitamin W/ Minerals 1 TAB PO SCH (12:15)
[2019-04-01 12:36] VITALS: BMI 21.9
[2019-04-01] MEDS: cefTRIAXone\\ROCEPHIN 1 GM in Sodium Chloride 0.9% 100 ML IVPB SCH (22:42)
[2019-04-02 05:17] LABS: Eosinophils 5 % (0-10); Hemoglobin 13.8 g/dL (14.0-18.0); Lymphocytes 25 % (21-51); MDiff Complete? YES; Mean Corpuscular HGB CONC 31.9 g/dL (32.0-36.0); Mean Corpuscular Hemoglobin 32.1 pg (27.0-31.0); Monocytes 13 % (0-10); Neutrophil 54 % (42-75); Platelet Count 138 thou/uL (130-400); RBC Distribution Width 14.3 % (11.5-14.5); Reactive Lymphocytes 3 % (0-10); Red Blood Cell (RBC) Count 4.29 mill/uL (4.70-6.10); White Blood Cell (WBC) Count 10.6 thou/uL (4.8-10.8)
[2019-04-02 05:24] LABS: Anion Gap 11 mmol/L (10-20); BUN (Urea Nitrogen) 17 mg/dL (8.4-25.7); Calc. Creatinine Clearance 67 mL/min (70-130); Calcium 8.4 mg/dL (7.8-10.44); Carbon Dioxide 30 mmol/L (23-31); Chloride 101 mmol/L (98-107); Estimated GFR-MDRD 77; Glucose 97 mg/dL (80-115); Potassium 3.3 mmol/L (3.5-5.1); Sodium 139 mmol/L (136-145)
[2019-04-02] MEDS: Acetaminophen 325 MG TAB PO PRN (08:45)
[2019-04-02] MEDS: Saccharomyces boulardii 250 MG CAP PO SCH (08:46)
[2019-04-02] MEDS: Digoxin 0.125 MG TAB PO SCH (08:46)
[2019-04-02] MEDS: Aspirin 325 MG TAB PO SCH (08:46)
[2019-04-02] MEDS: Metoprolol Tartrate 50 MG TAB PO SCH (08:47)
[2019-04-02] MEDS: Lisinopril 10 MG TAB PO SCH (08:47)
[2019-04-02] MEDS: Furosemide 40 MG TAB PO SCH (08:48)
[2019-04-02] MEDS: guaiFENesin ER 600 MG TAB PO SCH (08:48)
[2019-04-02] MEDS: Famotidine 20 MG TAB PO SCH (08:48)
[2019-04-02] MEDS: Enoxaparin Sodium 40 MG/0.4 ML SYRINGE SC SCH (08:49)
[2019-04-02] MEDS ORDERED: Folic Acid 1 MG TAB PO SCH (09:00)
[2019-04-02] MEDS ORDERED: Thiamine 100 MG TAB PO SCH (09:00)
[2019-04-02] MEDS ORDERED: Multivitamin W/ Minerals 1 TAB PO SCH (09:00)
[2019-04-02 11:40] VITALS: BP 140/97; TEMP 98.6
--- NOTE | 2019-04-03 01:40 | DIS ---
DATE OF ADMISSION: 03/31/2019 DATE OF DISCHARGE: 04/02/2019 DISCHARGE DIAGNOSES: 1. Left lower lobe bacterial pneumonia, suspected gram-positive cocci, improved. 2. Chronic atrial fibrillation with variable rate. 3. Nonischemic cardiomyopathy with ejection fraction 50% to 55%. 4. Hypertension, stable. 5. Alcohol abuse. CONSULTATIONS: None. PERTINENT LAB AND X-RAY FINDINGS: Potassium ranged between 3.3 to 4.0. Lactic acid level 1.6. CBC showed a white blood cell count ranged between 10.6 to 12.8, hemoglobin ranged between 13.8 to 14.4. Blood cultures x2 dated 03/30/2019, showed no growth at 48 hours. Influenza A and B antigen dated 03/30/2019, negative. Group A throat streptococcal screen dated 03/30/2019, negative. Urine culture dated 03/30/2019, showed no growth at 36 hours. Portable chest x-ray dated 03/30/2019, showed left lower lobe infiltrate consistent with pneumonia. HOSPITAL COURSE: The patient was admitted to the telemetry unit after initially presenting with subjective fever, dry cough, and shortness of breath. The patient also complained of left-sided chest pain, undergoing chest imaging showing evidence of left lower lobe infiltrate concerning for pneumonia. The patient was placed on Levaquin and Rocephin and given general pulmonary supportive measures. The patient was also noted with concomitant atrial fibrillation with rapid ventricular response, placed on a Cardizem drip. The patient with longstanding history of chronic atrial fibrillation, on rate control measures at home. The patient transitioned off Cardizem infusion and resumed his home rate control agents including metoprolol and digoxin. Overall, the patient did clinically stabilize with general supportive management and continuation of IV antibiotic therapy. I have examined the patient at the time of discharge and discussed followup instructions. The patient verbalized understanding and agreement ready for discharge on 04/02/2019. DISCHARGE MEDICATIONS: 1. Aspirin 325 mg p.o. daily. 2. Digoxin 0.125 mg p.o. daily. 3. Lasix 40 mg p.o. b.i.d. 4. Imdur 30 mg p.o. daily. 5. Levaquin 500 mg p.o. daily x7 days. 6. Metoprolol tartrate 50 mg p.o. b.i.d. FOLLOWUP: The patient may follow up with his primary care provider, Dr. Saira Huber within 7 days of discharge. CONDITION ON DISCHARGE: Stable. ACTIVITY: Ad-suzi. DIET: Heart healthy. SPECIAL INSTRUCTIONS: No anticoagulation recommended due to the patient's ongoing alcohol abuse. CODE STATUS: Full. DISPOSITION: Home, 04/02/2019. Job ID: [id number]
== END 2019-04-02 12:32 | disposition home or self-care (01) | DRG 871 ==
LOC: ERS 20:10 → ERHOLD 03-31 00:03 → 2SE 03-31 16:35
PROVIDERS: ADMIT Hospitalist; ATTEND Hospitalist
DX: A41.9 Sepsis, unspecified organism (principal); J18.1 Lobar pneumonia, unspecified organism; I50.33 Acute on chronic diastolic (congestive) heart failure; I42.8 Other cardiomyopathies; F10.10 Alcohol abuse, uncomplicated; I11.0 Hypertensive heart disease with heart failure; I48.2 Chronic atrial fibrillation; D69.6 Thrombocytopenia, unspecified; Z86.73 Personal history of transient ischemic attack (TIA), and cerebral infarction without residual deficits; Z91.14 Patient's other noncompliance with medication regimen; Z79.82 Long term (current) use of aspirin; Z79.01 Long term (current) use of anticoagulants; Z79.899 Other long term (current) drug therapy; Z87.891 Personal history of nicotine dependence
CPT/HCPCS: 36415; 71046; 80048; 80053; 81003; 81015; 82553; 83605; 84484; 85007; 85025; 85027; 87040; 87081; 87086; 87430; 87804; 93005; J0696; J1650; J1956; J3490

== ENCOUNTER 2019-04-23 04:30 | Observation (INO) | payer SELFPAY ==
[2019-04-23] MEDS ORDERED: Morphine 4 MG/ML VIAL ONE (04:44)
[2019-04-23] MEDS ORDERED: Ondansetron PF 4 MG/2 ML Vial ONE (04:44)
[2019-04-23 05:03] LABS: #Basophils 0.1 thou/uL (0.0-0.2); #Eosinphils 0.6 thou/uL (0.0-0.7); #Lymphocytes 3.1 thou/uL (1.20-3.40); #Monocytes 0.6 thou/uL (0.11-0.59); #Neutrophils 3.6 thou/uL (1.40-6.50); %Eosinophils 6.9 % (0.0-10.0); %Lymphocytes 39.1 % (21.0-51.0); %Monocytes 7.7 % (0.0-10.0); %Neutrophils 45.2 % (42.0-75.0); Hemoglobin 13.8 g/dL (14.0-18.0); Mean Corpuscular HGB CONC 32.9 g/dL (32.0-36.0); Mean Corpuscular Hemoglobin 32.7 pg (27.0-31.0); Mean Corpuscular Volume 99.5 fL (78.0-98.0); Mean Platelet Volume 10.1 fL (7.4-10.4); Platelet Count 164 thou/uL (130-400); RBC Distribution Width 13.6 % (11.5-14.5); Red Blood Cell (RBC) Count 4.22 mill/uL (4.70-6.10)
[2019-04-23 05:28] LABS: ALT (SGPT) 17 U/L (8-55); AST (SGOT) 43 U/L (5-34); Albumin 3.8 g/dL (3.4-4.8); Alcohol 13 mg/dL (Less than 10); Alkaline Phosphatase 88 U/L (40-150); Anion Gap 15 mmol/L (10-20); BUN (Urea Nitrogen) 8 mg/dL (8.4-25.7); Bilirubin, Total 1.3 mg/dL (0.2-1.2); Calc. Creatinine Clearance 0 mL/min (70-130); Calcium 8.9 mg/dL (7.8-10.44); Carbon Dioxide 22 mmol/L (23-31); Chloride 106 mmol/L (98-107); Estimated GFR-MDRD 69; Globulin 3.7 g/dL (2.4-3.5); Glucose 102 mg/dL (80-115); Lipase 18 U/L (8-78); Potassium 4.4 mmol/L (3.5-5.1); Protein, Total 7.5 g/dL (5.8-8.1); Sodium 139 mmol/L (136-145)
[2019-04-23 05:50] LABS: CKMB 4.8 ng/mL (0-6.6)
[2019-04-23 06:03] LABS: Clarity Clear (Clear); Leukocyte Negative (Negative); Nitrite Negative (Negative); Protein, Urine (Dipstick) Negative (Neg-Trace); Specific Gravity, Urine 1.015 (1.005-1.030)
[2019-04-23 06:04] LABS: Bilirubin Negative (Negative); Blood, Urine Negative (Negative); Glucose, Urine (Dipstick) Negative (Negative); Urobilinogen 0.2 mg/dL (0.2-1.0)
[2019-04-23] MEDS ORDERED: Furosemide 40 MG/4 ML VIAL ONE (06:04)
[2019-04-23] MEDS ORDERED: Nitroglycerin 2% Ointment 1 INCH/1 GM Packet ONE (06:04)
[2019-04-23 06:15] LABS: Digoxin 0.42 ng/mL (0.8-2.0)
--- NOTE | 2019-04-23 06:57 | CT ---
CT ABDOMEN AND PELVIS WITH IV CONTRAST: Date: 04/23/19 COMPARISON: 12/06/18. INDICATION: Generalized abdominal pain. FINDINGS: There is enlargement of the visualized cardiac chambers. Mild, nonspecific subpleural opacification i s seen at the lung bases. There is mild generalized ascites. Right renal hypodensity is stable. There is moderate distention of the gallbladder with a hyperdense, thickened wall. The urinary bladder wall is thickened and there i s ill-defined multifocal heterogeneity at the lower pole of the left kidney. To a lesser extent, ther e is also subtle heterogeneity posteriorly within the right kidney. Scattered vascular disease is pre sent. The bowel is incompletely assessed without enteric contrast administration. There is no free ai r. No interval acute osseous pathology. IMPRESSION: 1. Moderate distention of gallbladder with hyperdense, thickened wall. Consider gallbladder ultrasou nd for further evaluation. 2. Ill-defined multifocal heterogeneous hypodensity at the lower pole of the left kidney, as well as subtle hypodensity involving the posterior aspect of the mid right kidney, together with urinary mitchell dder wall thickening indicating urinary tract infection, ascending, with development of pyelonephriti s. Correlate with laboratory values. 3. Ascites and evidence of CHF. POS: NWK
--- NOTE | 2019-04-23 07:51 | RAD ---
CHEST 1 VIEW: INDICATION: Dyspnea. COMPARISON: Prior exam dated 05/14/2018. IMPRESSION: There is moderate cardiomegaly with mild pulmonary vascular congestion. Left costophrenic angle is e xcluded. No definite pleural effusion is evident. No pneumothorax is noted. COMMENTS: No acute osseous abnormality is evident. POS: BH
[2019-04-23 07:53] VITALS: BMI 21.6
[2019-04-23 09:11] LABS: Troponin I 0.028 ng/mL (< 0.028)
[2019-04-23] MEDS ORDERED: Guaifenesin DM 100-10/5 ML UDCUP PO PRN (09:46)
[2019-04-23] MEDS ORDERED: Senokot S 8.6-50 MG TAB PO PRN (09:46)
[2019-04-23] MEDS ORDERED: Acetaminophen 325 MG TAB PO PRN (09:46)
--- NOTE | 2019-04-23 11:29 | HP ---
REASON FOR ADMISSION: Abdominal pain, CHF exacerbation with diastolic dysfunction. HISTORY OF PRESENTING ILLNESS: The patient gives history of having right upper and lower quadrant pain, felt like as though he had stones in his stomach. This pain radiated upwards to his right shoulder and neck area. This started around 10 in the morning yesterday. The pain was off and on, colicky in nature. He currently has no pain. He has felt very nauseous, but not had any vomiting. No diarrhea, but passed 2 regular stools yesterday. No blood in his stool. He could not sleep the whole night and finally his brought him to the emergency room. Has no complaints of chest pain as such at present. No complaints of shortness of breath. No palpitations or PND. PAST MEDICAL AND SURGICAL HISTORY: History of chronic atrial fibrillation, history of CHF with diastolic dysfunction, prior history of CVA, hypertension, history of craniotomy, dyslipidemia, tobacco and alcohol abuse, recent history of left lung pneumonia. CURRENT MEDICATIONS: The patient is on: 1. Aspirin 81 mg p.o. daily. 2. Digoxin 0.125 mg p.o. daily. 3. Lasix 40 mg twice daily. 4. Imdur 30 mg daily. 5. Lopressor 50 mg twice daily. ALLERGIES: NO KNOWN DRUG ALLERGIES. PERSONAL HISTORY: Does not smoke or abuse drugs, but drinks 6 beer cans on a daily basis. He lives with his . FAMILY HISTORY: Mother at the age of 70. Father at the age of 80, both due to old age per the patient. They in [place] and he does not know the actual cause of . Has a brother living here, who does not have any history of cancer. CODE STATUS: Full. Power of employment attorney is his . REVIEW OF SYSTEMS: CONSTITUTIONAL: Negative for weight loss or gain, ability to conduct usual activities. SKIN: Negative for rash, itching. EYES: Negative for double vision, pain. ENT/MOUTH: Negative for nose bleeding, neck stiffness, pain, tenderness. CARDIOVASCULAR: Negative for palpitations, dyspnea on exertion, orthopnea. RESPIRATORY: Negative for shortness of breath, wheezing, cough, hemoptysis, fever or night sweats. GASTROINTESTINAL: Negative for poor appetite, abdominal pain, heartburn, nausea , vomiting, constipation, or diarrhea. GENITOURINARY: Negative for urgency, frequency, dysuria, nocturia. MUSCULOSKELETAL: Negative for pain, swelling. NEUROLOGIC/PSYCHIATRIC: Negative for anxiety, depression. ALLERGY/IMMUNOLOGIC: Negative for skin rash, bleeding tendency. PHYSICAL EXAMINATION: GENERAL: The patient is a 64-year-old male, who is currently not in any acute distress. VITAL SIGNS: Blood pressure 142/94, pulse 86 per minute, respiratory rate 16 per minute, temperature 97.6 degrees Fahrenheit, saturating 98% on room air. NECK: Supple. No elevated JVD. The patient has fullness in his left supraclavicular area, likely fat pad. MOUTH: Oral cavity, mucous membranes are moist. No exudates or congestion. CARDIOVASCULAR: S1, S2 heard. Irregular rhythm. RESPIRATORY: Air entry 1+ bilateral, basal rales plus. No wheezing. ABDOMEN: Soft. Mild tenderness in the right upper quadrant. No rigidity or guarding. EXTREMITIES: No peripheral edema or calf tenderness. VASCULAR: Peripheral pulses 1+ bilateral. No ischemic ulcerations or gangrene. CENTRAL NERVOUS: No gross focal deficits noted. The patient is oriented well. PSYCHIATRIC: The patient's mood is euthymic. No hallucinations or delusions. LABORATORY DATA: White count of 8, H and H 13 and 42, platelet count 164, MCV is 99 with 45% neutrophils. Electrolytes stable. BUN 8, creatinine 1.0, total bilirubin 1.3, AST 43, ALT 17, CK-MB 4.8, troponin I 0.03, second set is normal at 0.02. BNP is 2904. Albumin is 3.8, dig levels are 0.42. Plasma alcohol levels are 13 mg/ dL. IMAGIN. EKG done shows atrial fibrillation at 103 beats per minute. 2. CT of the abdomen and pelvis done, shows moderate distention of gallbladder with hyperdense thickened wall. There is also ill-defined multifocal heterogeneous hypodensity at the lower pole of left kidney as well as subtle hypodensity involving posterior aspect of mid right kidney. He also has urinary bladder wall thickening suggestive of possible UTI, ascites with evidence of CHF. 3. Chest x-ray shows cardiomegaly with mild pulmonary vascular congestion. CLINICAL IMPRESSION AND PLAN: The patient will be under observation on telemetry for right upper and lower quadrant pain radiating to his chest and neck area. The patient has known history of alcohol abuse with cirrhosis and mild ascites. His CT scan findings are suspicious for possible cholecystitis and with the patient's typical symptoms, we will obtain a right upper quadrant ultrasound and General surgery consultation with Dr. Stuart. The patient also has [id number] congestive heart failure exacerbation with diastolic dysfunction. His last echo in May of 2018 showed an EF of 50%. He also had a stress test in January of 2018, which showed no reversible ischemia, but had inferior and septal wall hypokinesis. He will be gently diuresed for this. We will continue his aspirin, digoxin, Lopressor, and Imdur as before. We will follow up on the ultrasound scans and keep him n.p.o. for now. Job ID: [id number] [facility] HOSPITALAndrade
--- NOTE | 2019-04-23 11:44 | ULT ---
EXAM: Abdominal ultrasound complete: HISTORY: Follow-up abnormal CT scan, abdominal pain COMPARISON: CT scan, 04/23/2019 FINDINGS: The liver appears unremarkable. Evidence for ascites. No gallstones, there does appear to be some pericholecystic fluid and wall thickening. If there is concern for acute cholecystitis, follow-up nuclear medicine hepatobiliary scan is suggest ed. The common bile duct is Within normal limits. Visualized pancreas: Unremarkable. Visualized abdominal aorta: Unremarkable. Visualized IVC: Unremarkable. Visualized spleen: Unremarkable. Visualized kidneys: No evidence for renal hydronephrosis. 1.3 cm right renal cyst. Somewhat less than optimal imaging of the left kidney, in particular the lower pole which is abnormal prior CT. No evidence of mass, abscess, or adenopathy. IMPRESSION: Scattered ascites. Somewhat distended gallbladder with minimal gallbladder wall thickening without ov ert gallstones. Consider follow-up nuclear medicine hepatobiliary scan. Right renal cyst. Poor visualization of the lower pole region of the left kidney.
[2019-04-23] MEDS ORDERED: Iopamidol 370 76% 100 ML VIAL ONE (14:16)
[2019-04-23] MEDS: Furosemide 40 MG/4 ML VIAL SLOW IVP SCH (15:32)
[2019-04-23] MEDS: Metoprolol Tartrate 50 MG TAB PO SCH (19:54)
--- NOTE | 2019-04-23 20:34 | CON ---
DATE OF CONSULTATION: 04/23/2019 HISTORY: A 64-year-old man, who was admitted with insidious onset of right-sided abdominal pain, which radiated to his neck and right shoulder. Pain started approximately at 10 a.m. in the morning. It was crampy in nature and associated with some nausea, but no emesis. The patient denies any abdominal bloating, frequent flatulence, or diarrhea. His bowel habit has been normal, and last bowel movement was yesterday and regular. He denies any hematochezia or melena. The patient denies any fevers or chills. PAST MEDICAL HISTORY: Significant for chronic atrial fibrillation, status post cerebrovascular accident with no residual neurologic deficits, chronic congestive heart failure, and essential hypertension. PAST SURGICAL HISTORY: Pertinent for previous craniotomy. SOCIAL HISTORY: Drinks 6 pack of beer per day. He denies any cigarette smoking or illicit drug abuse. He resides at home with his . FAMILY HISTORY: Noncontributory for this patient's age. PREHOSPITALIZATION MEDICATIONS: Include; 1. Imdur 30 mg p.o. daily. 2. Lasix 40 mg p.o. b.i.d. 3. Lopressor 50 mg p.o. b.i.d. 4. Digoxin 0.125 mg p.o. daily. 5. Aspirin 81 mg p.o. daily. ALLERGIES: THE PATIENT DENIES ANY KNOWN DRUG ALLERGIES. REVIEW OF SYSTEMS: Ten-point review of systems is essentially unremarkable except as stated in past medical history and chief complaint. Acute coronary syndrome has been excluded. PHYSICAL EXAMINATION: GENERAL: Reveals a 64-year-old, normally developed man, who is otherwise coherent, interactive, and appears stated age. The patient is alert and oriented x3. Denies any abdominal pain at the time of this evaluation. VITAL SIGNS: Currently include blood pressure 147/90, pulse 85, respiratory rate 16, temperature 97.3 degrees Fahrenheit, and oxygen saturation 98% on room air. HEENT: Reveals normocephalic and atraumatic. Pupils are equal, round, reactive to light and accommodation. HEART: Reveals regular rate and rhythm. No murmurs or gallops auscultated. LUNGS: Clear to auscultation bilaterally. Breathing, regular and nonlabored. ABDOMEN: Soft, nontender, and nondistended. Liver and spleen are nonpalpable below costal margin. EXTREMITIES: Reveals 2+ radial and pedal pulses bilaterally. NEUROLOGIC: Reveals no focal deficits present. LABORATORY FINDINGS: Today includes CBC with 8000 white blood cells, hemoglobin and hematocrit are 13.8 and 42.0 respectively. Platelet count is 164,000. Metabolic profile; sodium 139, potassium is 4.4, chloride is 106, bicarb is 22, BUN 8, creatinine is 1.08, glucose 102, total bilirubin is 1.3, AST is 43, ALT is normal at 17, alkaline phosphatase is also normal at 88. Serum lipase is normal at 18. I have personally reviewed the abdominal ultrasound, which reveals biliary sludge. No gallstones, no gallbladder wall thickening or pericholecystic fluid present. The common bile duct is normal in diameter for this patient's age. IMPRESSIONS: Vague abdominal pain, resolved. There is no clinical or radiographic evidence of acute cholecystitis for this patient. Given his history of chronic alcoholism, esophagitis or alcoholic gastritis could certainly be in the differential. RECOMMENDATIONS: There is no acute surgical indication for this patient at this time. Recommend placing the patient on a proton pump inhibitor, which could be both diagnostic and therapeutic in this setting. Above findings and plan discussed with the patient with his nurse present at bedside. I have answered his questions. Thank you again, Dr. Sheldon, for allowing me the opportunity to participate in the care of this patient. Job ID: [id number]
[2019-04-24 04:38] LABS: #Basophils 0.1 thou/uL (0.0-0.2); #Eosinphils 0.9 thou/uL (0.0-0.7); #Lymphocytes 2.2 thou/uL (1.20-3.40); #Monocytes 0.7 thou/uL (0.11-0.59); #Neutrophils 3.1 thou/uL (1.40-6.50); %Basophils 1.5 % (0.0-1.0); %Eosinophils 13.3 % (0.0-10.0); %Lymphocytes 31.3 % (21.0-51.0); %Monocytes 9.8 % (0.0-10.0); %Neutrophils 44.1 % (42.0-75.0); Hemoglobin 13.8 g/dL (14.0-18.0); Mean Corpuscular HGB CONC 33.2 g/dL (32.0-36.0); Mean Corpuscular Hemoglobin 33.1 pg (27.0-31.0); Mean Corpuscular Volume 99.7 fL (78.0-98.0); Mean Platelet Volume 10.1 fL (7.4-10.4); Platelet Count 152 thou/uL (130-400); RBC Distribution Width 13.4 % (11.5-14.5); Red Blood Cell (RBC) Count 4.16 mill/uL (4.70-6.10); White Blood Cell (WBC) Count 7.1 thou/uL (4.8-10.8)
[2019-04-24 05:05] LABS: ALT (SGPT) 13 U/L (8-55); AST (SGOT) 25 U/L (5-34); Albumin 3.5 g/dL (3.4-4.8); Alkaline Phosphatase 87 U/L (40-150); Anion Gap 14 mmol/L (10-20); BUN (Urea Nitrogen) 12 mg/dL (8.4-25.7); Bilirubin, Total 1.7 mg/dL (0.2-1.2); Calc. Creatinine Clearance 59 mL/min (70-130); Calcium 8.5 mg/dL (7.8-10.44); Carbon Dioxide 28 mmol/L (23-31); Chloride 100 mmol/L (98-107); Estimated GFR-MDRD 66; Globulin 3.2 g/dL (2.4-3.5); Glucose 128 mg/dL (80-115); Protein, Total 6.7 g/dL (5.8-8.1); Sodium 139 mmol/L (136-145)
[2019-04-24 05:07] LABS: Potassium 2.9 mmol/L (3.5-5.1)
[2019-04-24] MEDS: Potassium Chloride 20 MEQ TAB PO SCH ×2 (05:35→08:30)
[2019-04-24] MEDS: Furosemide 40 MG/4 ML VIAL SLOW IVP SCH ×2 (05:37→13:39)
[2019-04-24] MEDS: Metoprolol Tartrate 50 MG TAB PO SCH (08:30)
[2019-04-24] MEDS ORDERED: Aspirin Chewable 81 MG TAB PO SCH (09:00)
[2019-04-24] MEDS ORDERED: Enoxaparin Sodium 40 MG/0.4 ML SYRINGE SC SCH (09:00)
[2019-04-24] MEDS ORDERED: Digoxin 0.125 MG TAB PO SCH (09:00)
[2019-04-24 11:44] VITALS: TEMP 97.5
[2019-04-24 11:49] VITALS: BP 125/94
--- NOTE | 2019-04-24 13:01 | PDOC.PN ---
- Subjective Encounter Start Date: 04/24/19 Encounter Start Time: 09:00 Subjective: no abd pain or sob -: is ambulating in hallway -: feels good and wants to go home - Objective Resuscitation Status - Order Detail: 04/23/19 09:41 Resuscitation Status Routine Resuscitation Status: FULL: Full Resuscitation MAR Reviewed: Yes Vital Signs & Weight: Vital Signs (12 hours) Temp Pulse Pulse Pulse Resp BP BP 04/24/19 11:44 97.5 F L 77 16 04/24/19 09:26 90 88 125/94 H 136/85 04/24/19 08:30 88 04/24/19 07:52 97.6 F 88 16 04/24/19 03:13 97.7 F 90 12 BP Pulse Ox Pulse Ox Pulse Ox 04/24/19 11:44 135/85 97 04/24/19 09:26 97 97 04/24/19 08:30 04/24/19 07:52 134/100 H 96 04/24/19 03:13 150/98 H 97 Weight Weight 138 lb 3.2 oz I&O: 04/23/19 04/24/19 04/25/19 06:59 06:59 06:59 Intake Total 844 Output Total 175 Balance 669 Result Diagrams: 04/24/19 04:12 04/24/19 04:12 Phys Exam - Physical Examination HEENT: PERRLA, moist MMs Neck: no JVD, supple Respiratory: no wheezing, no rales Cardiovascular: RRR, no significant murmur Gastrointestinal: soft, non-tender, positive bowel sounds Musculoskeletal: no edema, pulses present Neurological: non-focal, moves all 4 limbs Psychiatric: normal affect, A&O x 3 Dx/Plan (1) Acute exacerbation of CHF (congestive heart failure) Code(s): I50.9 - HEART FAILURE, UNSPECIFIED Status: Acute Qualifiers: Heart failure type: diastolic Qualified Code(s): I50.33 - Acute on chronic diastolic (congestive) heart failure Comment: class B (2) Abdominal pain Code(s): R10.9 - UNSPECIFIED ABDOMINAL PAIN Status: Resolved Qualifiers: Abdominal location: upper abdomen, unspecified Qualified Code(s): R10.10 - Upper abdominal pain, unspecified (3) Afib Code(s): I48.91 - UNSPECIFIED ATRIAL FIBRILLATION Status: Chronic Qualifiers: Atrial fibrillation type: chronic (4) Alcohol abuse Code(s): F10.10 - ALCOHOL ABUSE, UNCOMPLICATED Status: Chronic (5) HTN (hypertension) Code(s): I10 - ESSENTIAL (PRIMARY) HYPERTENSION Status: Chronic Qualifiers: (6) Non-ischemic cardiomyopathy Code(s): I42.8 - OTHER CARDIOMYOPATHIES Status: Chronic Comment: Last EF in 50% - Plan diuresed well, no sob or palp -: total of 3 doses of kdur for today -: dc pt home -: counselled to see his PCP in [place] in 1 week -: Will have outpt f/u with heart failure clinic, will need ref for GI as outp * .
--- NOTE | 2019-04-25 16:22 | DIS ---
DATE OF ADMISSION: 04/23/2019 DATE OF DISCHARGE: 04/24/2019 DISCHARGE DISPOSITION: Home. PRIMARY DISCHARGE DIAGNOSES: Acute congestive heart failure exacerbation with diastolic dysfunction class B; abdominal pain, resolved, unclear etiology. SECONDARY DISCHARGE DIAGNOSES: Nonischemic cardiomyopathy with EF of 50%, alcohol abuse, chronic atrial fibrillation, and hypertension. PROCEDURES DONE DURING HOSPITALIZATION: Ultrasound of the abdomen done showed scattered ascites, somewhat distended gallbladder with minimal gallbladder wall thickening without overt gallstones, right renal cyst, poor visualization of the lower pole region of the left kidney. CT of abdomen and pelvis with IV contrast done showed moderate distention of gallbladder with hyperdense thickened wall consider gallbladder ultrasound. Ill-defined multifocal heterogeneous hypodensity at the lower pole of the left kidney as well as subtle hypodensity involving the posterior aspect of the mid right kidney. Ascites, findings of CHF. Hemoglobin and hematocrit of 13 and 41, platelet count 152, MCV 99. BNP 2904. Albumin is 3.5 , BUN 12, creatinine 1.1. AST on arrival was 43, ALT 17. Plasma alcohol 13 mg/dL. Digoxin levels were 0.42 ng/mL. DISCHARGE MEDICATIONS: 1. Aspirin 81 mg p.o. daily. 2. Digoxin 0.125 mg p.o. daily. 3. Lasix 40 mg twice daily. 4. Imdur extended release 30 mg daily. 5. Lopressor 50 mg twice daily. 6. Protonix 40 mg daily. 7. K-Dur 20 mEq p.o. daily. ALLERGIES: NO KNOWN DRUG ALLERGIES. DISCHARGE PLAN: The patient to follow up with primary care physician in 1 week. He also needs screening colonoscopy and upper endoscopy. He needs to follow up with primary care physician in 1 week. BRIEF COURSE DURING HOSPITALIZATION: The patient initially came to ER with complaints of right upper and lower quadrant abdominal pain with pain radiating to his shoulder. He was also in CHF exacerbation with diastolic dysfunction. The patient had initial CT of the abdomen and pelvis done, which was suspicious for possible cholecystitis. Right upper quadrant ultrasound done showed no evidence of gallstones or cholecystitis. He was evaluated by Dr. Stuart. The patient was placed on Protonix. His abdominal pain completely resolved. He was counseled with regarding alcohol usage. The patient was gently diuresed during his brief stay here. Prior to discharge, he is ambulating and eating well. His medications were optimized prior to discharge. He needs to follow up with Heart Failure Clinic and also needs outpatient referral for Gastroenterology via his primary care physician for screening colonoscopy and likely upper endoscopy as well. He has remained hemodynamically stable and will be shortly discharged home. Please see a [id number] documentation for the day of discharge on [facility]. Job ID: [id number] MTDD
== END 2019-04-24 17:37 | disposition home or self-care (01) ==
LOC: ERS 04:30 → 2SW 06:01
PROVIDERS: ADMIT Hospitalist; ATTEND Hospitalist
DX: I11.0 Hypertensive heart disease with heart failure (principal); I50.33 Acute on chronic diastolic (congestive) heart failure; R10.11 Right upper quadrant pain; R10.31 Right lower quadrant pain; I48.2 Chronic atrial fibrillation; I42.8 Other cardiomyopathies; K70.31 Alcoholic cirrhosis of liver with ascites; F10.10 Alcohol abuse, uncomplicated; E78.5 Hyperlipidemia, unspecified; Z86.73 Personal history of transient ischemic attack (TIA), and cerebral infarction without residual deficits; Z87.891 Personal history of nicotine dependence; Z79.82 Long term (current) use of aspirin; Z79.899 Other long term (current) drug therapy
CPT/HCPCS: 36415; 71045; 74177; 76700; 80053; 80162; 80307; 81003; 82553; 83690; 83880; 84443; 84484; 85025; 93005; 93798; 96372; 96374; 96375; 96376; G0378; J1650; J1940; J2270; J2405; Q9967

== ENCOUNTER 2019-06-13 07:56 | Inpatient (IN) | payer MEDICARE, SELFPAY ==
[2019-06-13 08:24] LABS: #Basophils 0.1 thou/uL (0.0-0.2); #Eosinphils 2.5 thou/uL (0.0-0.7); #Lymphocytes 4.2 thou/uL (1.20-3.40); #Monocytes 0.7 thou/uL (0.11-0.59); #Neutrophils 4.2 thou/uL (1.40-6.50); %Basophils 1.3 % (0.0-1.0); %Eosinophils 20.9 % (0.0-10.0); %Neutrophils 35.8 % (42.0-75.0); Hemoglobin 14.5 g/dL (14.0-18.0); Mean Corpuscular Hemoglobin 31.3 pg (27.0-31.0); Mean Corpuscular Volume 97.8 fL (78.0-98.0); Platelet Count 143 thou/uL (130-400); RBC Distribution Width 13.5 % (11.5-14.5); Red Blood Cell (RBC) Count 4.62 mill/uL (4.70-6.10); White Blood Cell (WBC) Count 11.7 thou/uL (4.8-10.8)
[2019-06-13] MEDS ORDERED: Metoprolol Tartrate 5 MG/5 ML VIAL ONE (08:29)
--- NOTE | 2019-06-13 08:29 | CT ---
CT Brain WO Con: 06/13/2019 8:08 AM CLINICAL HISTORY: Stroke protocol. IMAGING TECHNIQUE: Multiple CT images were obtained of the brain without IV contrast. COMPARISON: Prior exam dated February 14, 2018 FINDINGS: Infarct: No acute infarct is evident. There is a remote interval infarct involving left parietal lob e. There is remote lacunar infarct involving the right globus pallidus. There is remote cortical infarcts involving the right frontal lobe and right cerebellar hemisphere. This is superimposed on mi ld/moderate chronic small vessel white matter ischemic change. Hemorrhage: None.. Hydrocephalus: None.. Basal cisterns: Normal.. Cerebral parenchyma: Normal.. Midline shift: None.. Cerebellum: Remote right cerebellar hemisphere infarct. Brainstem: Normal. OTHER: Calvarium: Intact.. Visualized Paranasal sinuses: Clear.. Extracranial soft tissues:Normal. IMPRESSION: No acute intracranial abnormality. Chronic ischemic change. Findings called to Dr. Britton at 8:20 AM on June 13, 2019.
[2019-06-13 08:33] LABS: INR-International Normal Ratio 1.2; PTT 37.8 SEC (22.9-36.1); Prothrombin Time 15.3 SEC (12.0-14.7)
--- NOTE | 2019-06-13 08:33 | RAD ---
Portable chest: HISTORY: Shortness of breath COMPARISON: 04/23/2019 FINDINGS:Heart mildly enlarged but stable. Lung horne clear. Vascular markings normal. IMPRESSION:Borderline cardiomegaly is stable. No acute lung process.
--- NOTE | 2019-06-13 08:36 | CT ---
CTA of the head with and without IV contrast and 3-D reformatted imaging. CTA of the neck with IV contrast and 3-D reformatted imaging. INDICATION: Level 1 stroke alert; history of right hand weakness, right facial droop and slurred spee ch COMPARISON: CT the brain dated June 13, 2019 FINDINGS: CTA OF THE HEAD WITH CONTRAST: CTA OF THE BRAIN: Right ICA: Patent. Right MCA: Patent. Right CHENCHO: Patent. ACOM: Patent. Left ICA: Patent. Left MCA: Patent. Left CHENCHO: Patent. PCOMs: There is a origin to the left posterior cerebral artery. The right PCO M appears patent . Vertebral arteries: The right vertebral artery is diminutive. Left vertebral artery appears patent Basilar Artery: Patent. technical support director: Right ARRESTING GEAR OPERATOR is patent. The left ARRESTING GEAR OPERATOR is in origin. Incidentals: No area of abnormal enhancement is demonstrated. CTA OF THE NECK WITH CONTRAST: Right CCA: Patent. Right ICA: There are mild vascular calcifications involving the right carotid bulb and proximal righ t ICA. Right Subclavian: Patent. Right Vertebral Artery: Diminutive Left CCA: Patent. Left ICA: Patent. Left Subclavian: Patent. Left Vertebral Artery: There is high-grade stenosis involving the origin and proximal aspect the lef t vertebral artery. Aerodigestive tract: Clear. Parotids/Submandibular/Thyroid glands: Normal. Lymph nodes: No pathologically enlarged lymph nodes. Lung Apices: Mild emphysema Bones: No acute osseous abnormality. Incidentals: None. IMPRESSION: 1. No hemodynamically significant stenosis, occlusion or aneurysmal formation within the brain. 2. High-grade stenosis involving the origin and proximal aspect of left vertebral artery due to calci fied atherosclerotic plaque 3. Findings called to Dr. Britton at 8:30 AM on June 13, 2019
[2019-06-13 08:43] LABS: Digoxin Less than 0.15 ng/mL (0.8-2.0)
[2019-06-13 08:44] LABS: Acetaminophen Less than 6.0 mcg/mL (10.0-30.0); Alcohol Less than 10 mg/dL (Less than 10); Salicylate Less than 8.0 mg/dL (15.0-30.0)
[2019-06-13 08:49] LABS: ALT (SGPT) 11 U/L (8-55); AST (SGOT) 36 U/L (5-34); Albumin 4.2 g/dL (3.4-4.8); Alkaline Phosphatase 102 U/L (40-150); Anion Gap 16 mmol/L (10-20); BUN (Urea Nitrogen) 11 mg/dL (8.4-25.7); Bilirubin, Total 1.7 mg/dL (0.2-1.2); CK (CPK) 129 U/L (30-200); Calc. Creatinine Clearance 0 mL/min (70-130); Calcium 9.4 mg/dL (7.8-10.44); Carbon Dioxide 21 mmol/L (23-31); Chloride 103 mmol/L (98-107); Estimated GFR-MDRD 60; Glucose 110 mg/dL (80-115); Magnesium 1.9 mg/dL (1.6-2.6); Potassium 4.4 mmol/L (3.5-5.1); Protein, Total 8.2 g/dL (5.8-8.1); Sodium 136 mmol/L (136-145)
[2019-06-13 09:04] LABS: CKMB 2.6 ng/mL (0-6.6)
[2019-06-13] MEDS ORDERED: Digoxin 0.5 MG/2 ML AMP ONE (09:06)
[2019-06-13] MEDS ORDERED: Aspirin 325 MG TAB ONE (09:12)
[2019-06-13] MEDS ORDERED: Senokot S 8.6-50 MG TAB PO PRN (10:27)
[2019-06-13] MEDS ORDERED: Nitroglycerin 0.4 MG TAB (25 Tab Bottle) SL PRN (10:27)
[2019-06-13] MEDS ORDERED: Bisacodyl 10 MG SUPP PR PRN (10:27)
[2019-06-13] MEDS ORDERED: Cepastat Lozenges 1 LOZ PO PRN (10:27)
[2019-06-13] MEDS ORDERED: HYDROcodone/Acetaminophen 5/325 mg Tablet PO PRN (10:27)
[2019-06-13] MEDS ORDERED: Loperamide HCl 2 MG CAP PO PRN (10:27)
[2019-06-13] MEDS ORDERED: hydrALAZINE 20 MG/ML VIAL SLOW IVP PRN (10:27)
[2019-06-13] MEDS ORDERED: Sodium Chloride 0.65% Nasal 44 ML BOT EA NARE PRN (10:27)
[2019-06-13] MEDS ORDERED: Calcium Carbonate 500 MG ChewTAB PO PRN (10:27)
[2019-06-13] MEDS ORDERED: Loratadine 10 MG TAB PO PRN (10:27)
[2019-06-13] MEDS ORDERED: Zolpidem Tartrate 5 MG TAB PO PRN (10:27)
[2019-06-13] MEDS ORDERED: Ondansetron PF 4 MG/2 ML Vial IVP PRN (10:27)
[2019-06-13] MEDS ORDERED: Diabetic Tussin 200 MG/10 ML UDCUP PO PRN (10:27)
[2019-06-13] MEDS ORDERED: Ondansetron ODT 4 MG TAB PO PRN (10:27)
[2019-06-13] MEDS ORDERED: Artificial Tears 18 DROP/0.9 ML EA EYE PRN (10:27)
[2019-06-13 10:48] LABS: Amphetamine Not Detected (NotDetected); Barbiturates Screen Not Detected (NotDetected); Benzodiazepine Screen Not Detected (NotDetected); Cocaine Metabolite Screen Not Detected (NotDetected); Medtox Control Line Valid? VALID (VALID); Medtox Reader # READER 4; Methadone Not Detected (NotDetected); Methamphetamine Not Detected (NotDetected); Opiate Screen Not Detected (NotDetected); Oxycodone Screen Not Detected (NotDetected); Phencyclidine (PCP) Not Detected (NotDetected); THC/Cannabinoid Screen Not Detected (NotDetected); Tricyclic Screen Not Detected (NotDetected)
[2019-06-13] MEDS ORDERED: ISOVUE-370 76%-LOCM 1 ML ONE (11:52)
[2019-06-13 11:59] LABS: Troponin I 0.084 ng/mL (< 0.028)
--- NOTE | 2019-06-13 12:08 | HP ---
PRIMARY CARE PHYSICIAN: Dr. Saira Huber. REASON FOR ADMISSION: Stroke-like symptoms. HISTORY OF PRESENT ILLNESS: A 64-year-old male, who came to emergency room with complaint of stroke-like symptoms. The patient woke up his at 3:00 a.m. with complaint of facial droop and slurred speech. He was having right-sided weakness. This symptoms started when the patient woke up, last time he was seen before bedtime. The patient was brought to emergency room this morning, at that time he was having right-sided weakness predominantly in right upper extremity as well as he was having right facial droop and his speech was slurred. Per the patient , symptoms were improving compared to whatever she saw around 3 a.m. The patient has drinking habit almost every day. He drinks 3 beers. He denies any loss of consciousness. He denies any headache. He denies any tingling, numbness, or sensation on either extremity. The patient has underlying history of atrial fibrillation, and he takes only baby aspirin, but he is not on any chronic anticoagulation. He denies any bleeding from any site including no melena, no hematochezia. He denies any chest pain, palpitation, or dizziness. He denies any unsteadiness. In the emergency room, the patient had CT of brain, which did not show any acute process. CT [place] did not show any acute occlusion, but it did show high-grade stenosis of the left vertebral artery. Chest x-ray was unremarkable. Routine blood test including CBC and BMP was unremarkable. He has chronically elevated BNP, and his troponin is also elevated, though the patient does not complain any chest pain. This patient was not a candidate for any tPA. He was given in the emergency room aspirin, digoxin, and metoprolol. Subsequently, we decided to admit him to the stroke floor. When he came to emergency room, he was having atrial fibrillation with RVR, but after digoxin and metoprolol, his rate was under control. 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 PAST SURGICAL HISTORY: Craniotomy due to hemorrhage after mechanical fall. PAST PSYCHIATRIC HISTORY: Reviewed and negative. CURRENT HOME MEDICATIONS: 1. Aspirin 81 mg p.o. daily. 2. Digoxin 0.125 mg p.o. daily. 3. Lasix 40 mg b.i.d. 4. Imdur 30 mg daily. 5. Metoprolol 50 mg b.i.d. 6. Protonix 40 mg p.o. daily. 7. Potassium chloride 20 mEq p.o. daily. ALLERGIES: NO KNOWN DRUG ALLERGIES. FAMILY HISTORY: No family history of coronary artery disease, stroke, or cancer. SOCIAL HISTORY: The patient lives in [place], [place]. He is . His is present at bedside. He is a former smoker. He quit smoking few years ago. He currently drinks alcohol intermittently 2 to 3 beers daily. No other illicit drug abuse. REVIEW OF SYSTEMS: CONSTITUTIONAL: Negative for weight loss or gain, ability to conduct usual activities. SKIN: Negative for rash, itching. EYES: Negative for double vision, pain. ENT/MOUTH: Negative for nose bleeding, neck stiffness, pain, tenderness. CARDIOVASCULAR: Negative for palpitations, dyspnea on exertion, orthopnea. RESPIRATORY: Negative for shortness of breath, wheezing, cough, hemoptysis, fever or night sweats. GASTROINTESTINAL: Negative for poor appetite, abdominal pain, heartburn, nausea, vomiting, constipation, or diarrhea. GENITOURINARY: Negative for urgency, frequency, dysuria, nocturia. MUSCULOSKELETAL: Negative for pain, swelling. NEUROLOGIC/PSYCHIATRIC: Negative for anxiety, depression. ALLERGY/IMMUNOLOGIC: Negative for skin rash, bleeding tendency. Please see my HPI for pertinent positives and negatives. All other review of systems reviewed and negative except as mentioned in HPI. EMERGENCY ROOM COURSE: The patient is given aspirin, digoxin, and metoprolol. PHYSICAL EXAMINATION: VITAL SIGNS: Currently, blood pressure 162/128, pulse 90 and irregular, respiratory rate 16, temperature 97.9, and saturation 98% on room air. Weight 63 kg. GENERAL: The patient is currently alert, awake, and follows commands, in no obvious acute distress. HEENT: Head; normocephalic and atraumatic. Eyes; pupils round and reactive to light. Extraocular muscle intact. ENT; oropharynx within normal limits. Moist mucous membranes. No pharyngeal erythema. No exudate. NECK: Supple. No JVD. No thyromegaly. No carotid bruit. No jugular venous distention. LUNGS: Clear to auscultation without any rhonchi or rales. CARDIAC: S1 and S2, irregular. No murmur elicited. No gallop. No rub. ABDOMEN: Soft. Bowel sounds present. Nontender. Nondistended. No organomegaly. No mass. No suprapubic tenderness. BACK: Unremarkable. No CVA tenderness. EXTREMITIES: Upper extremity; passive movement of all joints is normal. Lower extremity; no edema. Good distal pulsation. NEUROLOGIC: The patient is alert and oriented x3. Cranial nerve 2 through 12 intact. Mild facial droop on the right side noted. The patient does have right upper and lower extremity weakness compared to left side. He has almost 4/5 power on the right side. He has mild pronator drift on the right side. Plantar bilateral flexor. PSYCHIATRIC: Normal affect. SIGNIFICANT LABORATORY DATA: CBC; WBC 11.7, hemoglobin 14.5, platelet 143. INR 1.2. BMP; sodium 136, potassium 4.4, chloride 103, carbon dioxide 21, BUN 11, creatinine 1.21, glucose 110, calcium 9.4, and magnesium 1.9. LFT; AST 36, ALT 11, alkaline phosphatase 102, albumin 4.2. CK 129, CK-MB 2.6, troponin I of 0.081. BNP 2820. Urine drug screen negative. Serum drug screen negative. Digoxin level 0.15. IMAGING STUDIES: CT of brain based on my review, no acute intracranial process. CT [place] negative for any occlusion or stenosis. Chest x-ray negative for any acute cardiopulmonary process. EKG showing atrial fibrillation with RVR. ASSESSMENT AND PLAN: Impression: 1. Stroke-like symptoms. This patient has right upper and lower extremity weakness, slurred speech, some facial droop. He has improvement in his symptoms compared to that at onset as per the patient's family member. Last seen normal was before going to bed. The patient is not a candidate for tPA. He does not have any occlusion or any stenosis, and he does not require any Niki procedure, given he has improvement. This patient is given aspirin in the emergency room. This patient has previous history of hemorrhagic stroke, required craniotomy and that is why he is not a candidate for chronic anticoagulation. He is also noncompliant with the treatment as well as he is using alcohol and based on this, the patient is at high risk for chronic anticoagulation. We will continue with aspirin 325 mg p.o. daily. We will consult Neurology. While in the hospital, we will obtain a Stroke Team evaluation with PT, OT, Speech, and Recreation Therapist consultation. We will also obtain MRI of brain for a better evaluation. Echocardiography to assess EF and other structural abnormality. We will monitor while in the hospital neurologically. 2. Atrial fibrillation with rapid ventricular response. As mentioned above, after emergency room treatment with metoprolol and digoxin, the patient's rate is under control. At this point, we will monitor on telemetry floor. We will continue with p.o. digoxin and metoprolol 50 mg p.o. b.i.d. As mentioned above, this patient has high CHADS2 score, but because of his hemorrhage history as well as noncompliance and alcohol abuse history, the patient is not a candidate for chronic anticoagulation based on risk and benefit. 3. Dyslipidemia. We will check lipid profile and start Lipitor 40 mg p.o. at bedtime. 4. Hypertension. We will continue Imdur 30 mg daily, metoprolol 50 mg b.i.d., and titrate blood pressure medication as needed. 5. Alcohol abuse history. We will continue folic acid, vitamin B12, and thiamine therapy. While in hospital, the patient is given counseling to avoid alcohol. 6. Chronic diastolic heart failure stage C. The patient is currently euvolemic. We will continue Lasix 40 mg p.o. daily along with blood pressure medication and rate control. 7. Gastroesophageal reflux disease. We will continue Protonix 40 mg p.o. daily. CODE STATUS: The patient is a full code. The patient's is surrogate decision maker. Plan of care discussed with the patient's at bedside in the emergency room. Job ID: [id number]
--- NOTE | 2019-06-13 12:31 | MRI ---
MRI Brain WO Con: 06/13/2019 10:27 AM CLINICAL HISTORY: Right-sided facial droop and slurred speech. TECHNIQUE: Multiplanar, multisequence images were obtained of the brain. COMPARISON: CT of the brain dated June 13, 2019 and MR the brain dated February 17, 2018 FINDINGS: Extra axial spaces: Normal in size and morphology for the patient's age. Hemorrhage: None. Ventricular system: Normal in size and morphology for the patient's age. Basal cisterns: Normal. Cerebral parenchyma: There is a acute subcortical white matter infarct involving the left lr radi cristi of the left frontal lobe on image 17. Minimal T2 signal is associated with this region of restricted diffusion. There are remote infarcts involving the right frontal lobe, right basal ganglia , left parietal lobe and right cerebellum.. Midline shift: None. Cerebellum: As above Brainstem: Normal. OTHER: Calvarium: Normal. Vascular system: Normal. Visualized Paranasal sinuses: There is mild mucosal thickening within the ethmoid air cells and maxil isaac sinuses. Visualized Orbits: Normal. Visualized upper cervical spine: Normal. Sella and skull base: There is a partial right mastoid effusion. IMPRESSION: Acute subcortical white matter infarct involving the left frontal lr radiata. Findings sent to Dr Yesenia Martínez via [employer] at 12:27 PM on June 13, 2019. Chronic ischemic changes above. Small right mastoid effusion
[2019-06-13 15:01] LABS: Troponin I 0.105 ng/mL (< 0.028)
[2019-06-13] MEDS ORDERED: Famotidine 20 MG TAB PO SCH (21:00)
[2019-06-13] MEDS: Metoprolol Tartrate 50 MG TAB PO SCH (21:31)
[2019-06-13] MEDS: Atorvastatin Calcium 40 MG TAB PO SCH (21:31)
[2019-06-13] MEDS: Acetaminophen 325 MG TAB PO PRN (21:31)
[2019-06-14 07:09] LABS: Hemoglobin 14.4 g/dL (14.0-18.0); Mean Corpuscular HGB CONC 33.1 g/dL (32.0-36.0); Mean Corpuscular Hemoglobin 32.4 pg (27.0-31.0); Mean Corpuscular Volume 98.1 fL (78.0-98.0); Mean Platelet Volume 9.9 fL (7.4-10.4); Platelet Count 137 thou/uL (130-400); RBC Distribution Width 13.2 % (11.5-14.5); Red Blood Cell (RBC) Count 4.43 mill/uL (4.70-6.10); White Blood Cell (WBC) Count 10.2 thou/uL (4.8-10.8)
[2019-06-14 07:14] LABS: ALT (SGPT) 8 U/L (8-55); AST (SGOT) 21 U/L (5-34); Albumin 3.4 g/dL (3.4-4.8); Alkaline Phosphatase 81 U/L (40-150); Anion Gap 13 mmol/L (10-20); BUN (Urea Nitrogen) 11 mg/dL (8.4-25.7); Bilirubin, Total 1.8 mg/dL (0.2-1.2); Calc. Creatinine Clearance 62 mL/min (70-130); Calcium 9.2 mg/dL (7.8-10.44); Carbon Dioxide 25 mmol/L (23-31); Cardiac Risk 2.4 (Less than 4.5); Chloride 107 mmol/L (98-107); Cholesterol 105 mg/dl (< 200 Desired); Estimated GFR-MDRD 66; Globulin 3.2 g/dL (2.4-3.5); Glucose 90 mg/dL (80-115); HDL Cholesterol 44 mg/dL (>60 Neg Risk); LDL Cholesterol, Calculated 49 mg/dL; Potassium 3.7 mmol/L (3.5-5.1); Protein, Total 6.6 g/dL (5.8-8.1); Sodium 141 mmol/L (136-145); Triglycerides 60 mg/dL (Less than 150)
[2019-06-14 07:45] LABS: Band 1 % (5-11); Eosinophils 31 % (0-10); Lymphocytes 18 % (21-51); MDiff Complete? YES; Monocytes 8 % (0-10); Neutrophil 31 % (42-75); Platelet Morphology Comment Appears Adequate; Reactive Lymphocytes 11 % (0-10)
[2019-06-14] MEDS: Aspirin 325 MG TAB PO SCH (09:44)
[2019-06-14] MEDS: Thiamine 100 MG TAB PO SCH (09:44)
[2019-06-14] MEDS: Metoprolol Tartrate 50 MG TAB PO SCH (09:44)
[2019-06-14] MEDS: Potassium Chloride 20 MEQ TAB PO SCH (09:44)
[2019-06-14] MEDS: Cyanocobalamin (Vitamin B-12) 1,000 MCG TAB PO SCH (09:44)
[2019-06-14] MEDS: Folic Acid 1 MG TAB PO SCH (09:44)
[2019-06-14] MEDS: Digoxin 0.125 MG TAB PO SCH (09:45)
[2019-06-14] MEDS: Enoxaparin Sodium 40 MG/0.4 ML SYRINGE SC SCH (10:07)
--- NOTE | 2019-06-14 10:50 | CON ---
DATE OF CONSULTATION: 06/14/2019 CONSULTING PHYSICIAN: Hospitalist Service. IMPRESSION: 1. Lacunar infarction involving the lr radiata with some right-sided weakness. 2. Ischemic cardiomyopathy with ejection fraction of 30% to 35%. 3. History of atrial fibrillation. 4. Hypertension. 5. Pulmonary hypertension. PLAN: 1. Aspirin 325 per day. 2. Statin. 3. PT, OT evaluations, and consider need for rehab depending on his rate of recovery. HISTORY OF PRESENT ILLNESS: Mr. Ortiz is a 64-year-old man, who presented with acute onset of right-sided weakness. There is no loss of sensation. His symptoms have improved compared to yesterday. His MRI of the brain confirmed a small infarct in the left lr radiata. Echocardiogram showed the depressed ejection fraction as noted. His CT angiogram did not show any carotid or intracranial major vessel stenosis. He reports having a prior history of a stroke 5 years ago. PAST MEDICAL HISTORY: As listed above. ALLERGIES: NONE. SOCIAL HISTORY: Unremarkable. FAMILY HISTORY: Unremarkable. REVIEW OF SYSTEMS: Ten-system review of systems is otherwise negative. PHYSICAL EXAMINATION: VITAL SIGNS: Blood pressure 155/105, pulse 72, respirations 16, and temperature 98.3. HEENT: Pupils are equal. Conjunctivae clear. Oropharynx clear. NECK: Supple. No lymphadenopathy. EXTREMITIES: No cyanosis or edema. NEUROLOGIC: He was alert and cooperative. His speech was a bit dysarthric, but fluent. He had a slight right facial droop. He had antigravity strength on the right side, but diminished coordination. Sensation was intact to touch. He was able to walk independently. No abnormal movements were seen. SUMMARY: This is a 64-year-old gentleman with lacunar infarction, likely secondary to his underlying hypertension. I agree with antiplatelet therapy and a statin. His ejection fraction is borderline, and whether anticoagulation is needed, I would leave to his field sales associate. Job ID: [id number]
--- NOTE | 2019-06-14 14:56 | PDOC.PN ---
- Subjective Encounter Start Date: 06/14/19 Encounter Start Time: 10:30 -: old records requested/rev Patient seen and examined. No new complaints. No overnight events - Objective Resuscitation Status - Order Detail: 06/13/19 10:21 Resuscitation Status Routine Resuscitation Status: FULL: Full Resuscitation MAR Reviewed: Yes Vital Signs & Weight: Vital Signs (12 hours) Temp Pulse Pulse Pulse Pulse Resp BP 06/14/19 11:00 98.2 F 74 16 06/14/19 09:45 68 06/14/19 08:57 78 89 71 142/93 H 06/14/19 08:00 06/14/19 07:00 98.3 F 72 16 06/14/19 03:17 97.4 F L 71 20 BP BP BP Pulse Ox Pulse Ox Pulse Ox 06/14/19 11:00 133/84 95 06/14/19 09:45 06/14/19 08:57 163/109 H 158/95 H 94 L 99 06/14/19 08:00 94 L 06/14/19 07:00 155/105 H 96 06/14/19 03:17 150/86 H 96 Weight Weight 146 lb I&O: 06/13/19 06/14/19 06/15/19 06:59 06:59 06:59 Intake Total 400 Output Total 175 Balance 225 Result Diagrams: 06/14/19 06:30 06/14/19 06:30 Radiology Reviewed by me: Yes (echo report noted) EKG Reviewed by me: Yes (afib) Phys Exam - Physical Examination Constitutional: NAD HEENT: PERRLA, moist MMs, sclera anicteric Neck: no JVD, supple Respiratory: no wheezing, no rales, no rhonchi Cardiovascular: no significant murmur, irregular Gastrointestinal: soft, non-tender, no distention, positive bowel sounds Musculoskeletal: no edema, pulses present Neurological: non-focal, normal sensation Lymphatic: no nodes Psychiatric: normal affect, A&O x 3 Skin: no rash, normal turgor Dx/Plan (1) Acute CVA (cerebrovascular accident) Code(s): I63.9 - CEREBRAL INFARCTION, UNSPECIFIED Status: Acute Comment: likely due to cardioembolic etiology, involving white matter infarct in left lr radiata (2) Chronic atrial fibrillation with RVR Code(s): I48.2 - CHRONIC ATRIAL FIBRILLATION Status: Acute Comment: Rate controlled, continue Digoxin/Metoprolol, no anticoagulation due to non- compliance and alcohol abuse (3) Type 2 ND (myocardial infarction) Code(s): I21.A1 - MYOCARDIAL INFARCTION TYPE 2 Status: Acute Comment: with elevated troponin due to demand ischemia (4) Alcohol abuse Code(s): F10.10 - ALCOHOL ABUSE, UNCOMPLICATED Status: Chronic (5) Chronic combined systolic and diastolic CHF (congestive heart failure) Code(s): I50.42 - CHRONIC COMBINED SYSTOLIC AND DIASTOLIC HRT FAIL Status: Chronic (6) HTN (hypertension) Code(s): I10 - ESSENTIAL (PRIMARY) HYPERTENSION Status: Chronic Qualifiers: (7) Moderate mitral regurgitation Code(s): I34.0 - NONRHEUMATIC MITRAL (VALVE) INSUFFICIENCY Status: Chronic (8) Non-ischemic cardiomyopathy Code(s): I42.8 - OTHER CARDIOMYOPATHIES Status: Chronic (9) Pulmonary hypertension Code(s): I27.20 - PULMONARY HYPERTENSION, UNSPECIFIED Status: Chronic (10) Severe tricuspid regurgitation Code(s): I07.1 - RHEUMATIC TRICUSPID INSUFFICIENCY Status: Chronic - Plan cont current plan of care, plan discussed w/ family, PT/OT, social media marketing specialist * pt is not a candidate for chronic anticoagulation as mentioned in H & P * medication reviewed as below * symptomatic treatment. * may need rehab placement * spoke with pt's son and updated on listed phone number. * stroke team Review of Systems - Review of Systems ENT: negative: Ear Pain, Ear Discharge, Nose Pain, Nose Discharge, Nose Congestion, Mouth Pain, Mouth Swelling, Throat Pain, Throat Swelling, Other Respiratory: negative: Cough, Dry, Shortness of Breath, Hemoptysis, SOB with Excertion, Pleuritic Pain, Sputum, Wheezing Cardiovascular: negative: chest pain, palpitations, orthopnea, paroxysmal nocturnal dyspnea, edema, light headedness, other Gastrointestinal: negative: Nausea, Vomiting, Abdominal Pain, Diarrhea, Constipation, Melena, Hematochezia, Other Genitourinary: negative: Dysuria, Frequency, Incontinence, Hematuria, Retention , Other Musculoskeletal: negative: Neck Pain, Shoulder Pain, Arm Pain, Back Pain, Hand Pain, Leg Pain, Foot Pain, Other - Medications/Allergies Allergies/Adverse Reactions: Allergies Allergy/AdvReac Type Severity Reaction Status Date / Time No Known Drug Allergies Allergy Verified 04/23/19 08:50 Medications: Current Medications Acetaminophen (Tylenol) 650 mg PO Q4H PRN PRN Reason: Headache/Fever/Mild Pain (1-3) Last Admin: 06/13/19 21:31 Dose: 650 mg Hydrocodone Bitart/Acetaminophen (Bowie 5/325) 1 tab PO Q4H PRN PRN Reason: Moderate Pain (4-6) Artificial Tears (Tears Naturale) 2 drop EA EYE PRN PRN PRN Reason: Dry Eyes Aspirin (Aspirin) 325 mg PO DAILY [facility] Last Admin: 06/14/19 09:44 Dose: 325 mg Atorvastatin Calcium (Lipitor) 40 mg PO HS [facility] Last Admin: 06/13/19 21:31 Dose: 40 mg Bisacodyl (Dulcolax) 10 mg [place] DAILYPRN PRN PRN Reason: Constipation Calcium Carbonate (Tums) 1,000 mg PO Q4H PRN PRN Reason: Heartburn or Indigestion Cyanocobalamin (Vitamin B-12) 1,000 mcg PO DAILY [facility] Last Admin: 06/14/19 09:44 Dose: 1,000 mcg Digoxin (Lanoxin) 0.125 mg PO DAILY [facility] Last Admin: 06/14/19 09:45 Dose: 0.125 mg Enoxaparin Sodium (Lovenox) 40 mg SC 0900 [facility] Last Admin: 06/14/19 10:07 Dose: 40 mg Folic Acid (Folvite) 1 mg PO DAILY [facility] Last Admin: 06/14/19 09:44 Dose: 1 mg Guaifenesin (Robitussin Sf) 200 mg PO Q4H PRN PRN Reason: Cough Hydralazine HCl (Apresoline) 10 mg SLOW IVP Q4H PRN PRN Reason: SBP > 180 and HR < 70 Isosorbide Mononitrate (Imdur Er) 30 mg PO DAILY [facility] Last Admin: 06/14/19 09:44 Dose: 30 mg Loperamide HCl (Imodium) 2 mg PO PRN PRN PRN Reason: Diarrhea/Loose Stools Loratadine (Claritin) 10 mg PO DAILYPRN PRN PRN Reason: Sinus Symptoms Metoprolol Tartrate (Lopressor) 50 mg PO BID [facility] Last Admin: 06/14/19 09:44 Dose: 50 mg Nitroglycerin (Nitrostat) 0.4 mg SL Q5MIN PRN PRN Reason: Chest Pain Ondansetron HCl (Zofran Odt) 4 mg PO Q6H PRN PRN Reason: Nausea/Vomiting Ondansetron HCl (Zofran) 4 mg IVP Q6H PRN PRN Reason: Nausea/Vomiting Pantoprazole Sodium (Protonix) 40 mg PO DAILY [facility] Last Admin: 06/14/19 09:44 Dose: 40 mg Potassium Chloride (K-Dur) 20 meq PO DAILY [facility] Last Admin: 06/14/19 09:44 Dose: 20 meq Senna/Docusate Sodium (Senokot S) 2 tab PO BIDPRN PRN PRN Reason: Constipation Sodium Chloride (Ubly Nasal Lynn 0.65%) 0 ml EA NARE QIDPRN PRN PRN Reason: Nasal Congestion Sodium Chloride (Flush - Normal Saline) 10 ml IVF PRN PRN PRN Reason: Saline Flush Thiamine HCl (Thiamine) 100 mg PO DAILY [facility] Last Admin: 06/14/19 09:44 Dose: 100 mg Throat Lozenges (Cepastat Lozenges) 1 ajay PO Q2H PRN PRN Reason: Sore Throat Zolpidem Tartrate (Ambien) 5 mg PO HSPRN PRN PRN Reason: Insomnia
[2019-06-14] MEDS: Carvedilol 25 MG TAB PO SCH (17:22)
[2019-06-14] MEDS: Atorvastatin Calcium 40 MG TAB PO SCH (21:53)
[2019-06-15 05:12] LABS: Anion Gap 13 mmol/L (10-20); BUN (Urea Nitrogen) 15 mg/dL (8.4-25.7); Calc. Creatinine Clearance 57 mL/min (70-130); Calcium 8.9 mg/dL (7.8-10.44); Carbon Dioxide 25 mmol/L (23-31); Chloride 107 mmol/L (98-107); Estimated GFR-MDRD 60; Glucose 90 mg/dL (80-115); Potassium 3.8 mmol/L (3.5-5.1); Sodium 141 mmol/L (136-145)
[2019-06-15 05:32] LABS: #Basophils 0.1 thou/uL (0.0-0.2); #Eosinphils 2.7 thou/uL (0.0-0.7); #Lymphocytes 2.8 thou/uL (1.20-3.40); #Monocytes 0.9 thou/uL (0.11-0.59); #Neutrophils 4.5 thou/uL (1.40-6.50); %Basophils 0.6 % (0.0-1.0); %Eosinophils 24.6 % (0.0-10.0); %Lymphocytes 25.5 % (21.0-51.0); %Monocytes 7.9 % (0.0-10.0); %Neutrophils 41.3 % (42.0-75.0); Hemoglobin 13.8 g/dL (14.0-18.0); Mean Corpuscular HGB CONC 31.5 g/dL (32.0-36.0); Mean Corpuscular Hemoglobin 31.2 pg (27.0-31.0); Mean Corpuscular Volume 99.2 fL (78.0-98.0); Mean Platelet Volume 10.2 fL (7.4-10.4); Platelet Count 144 thou/uL (130-400); RBC Distribution Width 13.7 % (11.5-14.5); Red Blood Cell (RBC) Count 4.43 mill/uL (4.70-6.10); White Blood Cell (WBC) Count 10.8 thou/uL (4.8-10.8)
[2019-06-15] MEDS: Enoxaparin Sodium 40 MG/0.4 ML SYRINGE SC SCH (09:24)
[2019-06-15] MEDS: Aspirin 325 MG TAB PO SCH (09:24)
[2019-06-15] MEDS: Cyanocobalamin (Vitamin B-12) 1,000 MCG TAB PO SCH (09:25)
[2019-06-15] MEDS: Thiamine 100 MG TAB PO SCH (09:25)
[2019-06-15] MEDS: Folic Acid 1 MG TAB PO SCH (09:25)
[2019-06-15] MEDS: Carvedilol 25 MG TAB PO SCH (09:25)
[2019-06-15] MEDS: Acetaminophen 325 MG TAB PO PRN (09:25)
[2019-06-15] MEDS: Potassium Chloride 20 MEQ TAB PO SCH (09:25)
[2019-06-15] MEDS: Digoxin 0.125 MG TAB PO SCH (09:25)
--- NOTE | 2019-06-15 10:26 | PDOC.PN ---
- Subjective Encounter Start Date: 06/15/19 Encounter Start Time: 07:00 Patient seen and examined. No new complaints. No overnight events - Objective Resuscitation Status - Order Detail: 06/13/19 10:21 Resuscitation Status Routine Resuscitation Status: FULL: Full Resuscitation MAR Reviewed: Yes Vital Signs & Weight: Vital Signs (12 hours) Temp Pulse Resp BP Pulse Ox 06/15/19 09:25 84 06/15/19 07:00 97.7 F 75 16 158/102 H 99 06/15/19 03:57 97.5 F L 80 16 152/96 H 98 06/14/19 23:00 98 F 70 16 152/107 H 98 Weight Weight 146 lb 4.8 oz I&O: 06/14/19 06/15/19 06/16/19 06:59 06:59 06:59 Intake Total 400 819 Output Total 175 125 Balance 225 694 Result Diagrams: 06/15/19 04:23 06/15/19 04:23 EKG Reviewed by me: Yes Phys Exam - Physical Examination Constitutional: NAD HEENT: PERRLA, moist MMs, sclera anicteric Neck: no JVD, supple Respiratory: no wheezing, no rales, no rhonchi Cardiovascular: no significant murmur, irregular Gastrointestinal: soft, non-tender, no distention, positive bowel sounds Musculoskeletal: no edema, pulses present Neurological: non-focal, normal sensation Lymphatic: no nodes Psychiatric: normal affect, A&O x 3 Skin: no rash, normal turgor Dx/Plan (1) Acute CVA (cerebrovascular accident) Code(s): I63.9 - CEREBRAL INFARCTION, UNSPECIFIED Status: Acute Comment: likely due to cardioembolic etiology, involving white matter infarct in left lr radiata (2) Chronic atrial fibrillation with RVR Code(s): I48.2 - CHRONIC ATRIAL FIBRILLATION Status: Acute Comment: Rate controlled, continue Digoxin/Metoprolol, no anticoagulation due to non- compliance and alcohol abuse (3) Type 2 AK (myocardial infarction) Code(s): I21.A1 - MYOCARDIAL INFARCTION TYPE 2 Status: Acute Comment: with elevated troponin due to demand ischemia (4) Alcohol abuse Code(s): F10.10 - ALCOHOL ABUSE, UNCOMPLICATED Status: Chronic (5) Chronic combined systolic and diastolic CHF (congestive heart failure) Code(s): I50.42 - CHRONIC COMBINED SYSTOLIC AND DIASTOLIC HRT FAIL Status: Chronic (6) HTN (hypertension) Code(s): I10 - ESSENTIAL (PRIMARY) HYPERTENSION Status: Chronic Qualifiers: (7) Moderate mitral regurgitation Code(s): I34.0 - NONRHEUMATIC MITRAL (VALVE) INSUFFICIENCY Status: Chronic (8) Non-ischemic cardiomyopathy Code(s): I42.8 - OTHER CARDIOMYOPATHIES Status: Chronic (9) Pulmonary hypertension Code(s): I27.20 - PULMONARY HYPERTENSION, UNSPECIFIED Status: Chronic (10) Severe tricuspid regurgitation Code(s): I07.1 - RHEUMATIC TRICUSPID INSUFFICIENCY Status: Chronic - Plan cont current plan of care, 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 Review of Systems - Review of Systems ENT: negative: Ear Pain, Ear Discharge, Nose Pain, Nose Discharge, Nose Congestion, Mouth Pain, Mouth Swelling, Throat Pain, Throat Swelling, Other Respiratory: negative: Cough, Dry, Shortness of Breath, Hemoptysis, SOB with Excertion, Pleuritic Pain, Sputum, Wheezing Cardiovascular: negative: chest pain, palpitations, orthopnea, paroxysmal nocturnal dyspnea, edema, light headedness, other Gastrointestinal: negative: Nausea, Vomiting, Abdominal Pain, Diarrhea, Constipation, Melena, Hematochezia, Other Genitourinary: negative: Dysuria, Frequency, Incontinence, Hematuria, Retention , Other Musculoskeletal: negative: Neck Pain, Shoulder Pain, Arm Pain, Back Pain, Hand Pain, Leg Pain, Foot Pain, Other Skin: negative: Rash, Lesions, Maycol, Bruising, Other - Medications/Allergies Allergies/Adverse Reactions: Allergies Allergy/AdvReac Type Severity Reaction Status Date / Time No Known Drug Allergies Allergy Verified 04/23/19 08:50 Medications: Current Medications Acetaminophen (Tylenol) 650 mg PO Q4H PRN PRN Reason: Headache/Fever/Mild Pain (1-3) Last Admin: 06/15/19 09:25 Dose: 650 mg Hydrocodone Bitart/Acetaminophen ([place] 5/325) 1 tab PO Q4H PRN PRN Reason: Moderate Pain (4-6) Artificial Tears (Tears Naturale) 2 drop EA EYE PRN PRN PRN Reason: Dry Eyes Aspirin (Aspirin) 325 mg PO DAILY [facility] Last Admin: 06/15/19 09:24 Dose: 325 mg Atorvastatin Calcium (Lipitor) 40 mg PO HS [facility] Last Admin: 06/14/19 21:53 Dose: 40 mg Bisacodyl (Dulcolax) 10 mg SC DAILYPRN PRN PRN Reason: Constipation Calcium Carbonate (Tums) 1,000 mg PO Q4H PRN PRN Reason: Heartburn or Indigestion Carvedilol (Coreg) 25 mg PO BID[facility] Last Admin: 06/15/19 09:25 Dose: 25 mg Cyanocobalamin (Vitamin B-12) 1,000 mcg PO DAILY [facility] Last Admin: 06/15/19 09:25 Dose: 1,000 mcg Digoxin (Lanoxin) 0.125 mg PO DAILY [facility] Last Admin: 06/15/19 09:25 Dose: 0.125 mg Enoxaparin Sodium (Lovenox) 40 mg SC 0900 [facility] Last Admin: 06/15/19 09:24 Dose: 40 mg Folic Acid (Folvite) 1 mg PO DAILY [facility] Last Admin: 06/15/19 09:25 Dose: 1 mg Guaifenesin (Robitussin Sf) 200 mg PO Q4H PRN PRN Reason: Cough Hydralazine HCl (Apresoline) 10 mg SLOW IVP Q4H PRN PRN Reason: SBP > 180 and HR < 70 Isosorbide Mononitrate (Imdur Er) 30 mg PO DAILY [facility] Last Admin: 06/15/19 09:25 Dose: 30 mg Loperamide HCl (Imodium) 2 mg PO PRN PRN PRN Reason: Diarrhea/Loose Stools Loratadine (Claritin) 10 mg PO DAILYPRN PRN PRN Reason: Sinus Symptoms Nitroglycerin (Nitrostat) 0.4 mg SL Q5MIN PRN PRN Reason: Chest Pain Ondansetron HCl (Zofran Odt) 4 mg PO Q6H PRN PRN Reason: Nausea/Vomiting Ondansetron HCl (Zofran) 4 mg IVP Q6H PRN PRN Reason: Nausea/Vomiting Pantoprazole Sodium (Protonix) 40 mg PO DAILY [facility] Last Admin: 06/15/19 09:25 Dose: 40 mg Potassium Chloride (K-Dur) 20 meq PO DAILY [facility] Last Admin: 06/15/19 09:25 Dose: 20 meq Senna/Docusate Sodium (Senokot S) 2 tab PO BIDPRN PRN PRN Reason: Constipation Sodium Chloride ([place] Nasal [place] 0.65%) 0 ml EA NARE QIDPRN PRN PRN Reason: Nasal Congestion Sodium Chloride (Flush - Normal Saline) 10 ml IVF PRN PRN PRN Reason: Saline Flush Last Admin: 06/14/19 21:53 Dose: 10 ml Thiamine HCl (Thiamine) 100 mg PO DAILY [facility] Last Admin: 06/15/19 09:25 Dose: 100 mg Throat Lozenges (Cepastat Lozenges) 1 ajay PO Q2H PRN PRN Reason: Sore Throat Zolpidem Tartrate (Ambien) 5 mg PO HSPRN PRN PRN Reason: Insomnia
[2019-06-15 13:03] VITALS: BMI 24.3
--- NOTE | 2019-06-15 16:49 | CON ---
DATE OF CONSULTATION: 06/15/2019 REASON FOR CONSULTATION: Atrial fibrillation and stroke. HISTORY OF PRESENT ILLNESS: Mr. Ortiz is a pleasant 64-year-old gentleman, who comes to the hospital for right-sided weakness and slurred speech. He was admitted for stroke-like symptoms and this was confirmed. He has a history of chronic atrial fibrillation, rate controlled. He also has a history of nonischemic cardiomyopathy. He is noncompliant with his regimen. He comes to the hospital, and he never followed up in the office, but he does see primary care doctor at times. He came in for this and most of his symptoms are resolving, but he continues to have speech difficulties. PAST MEDICAL HISTORY: 1. Nonischemic cardiomyopathy, last LV function was an echo done two days ago and he has an EF of 30% to 35%. 2. Ongoing tobacco use. 3. History of CVAs in the past. 4. Noncompliance. 5. Hypertension. 6. History of hemorrhagic stroke in the past. PAST SURGICAL HISTORY: Craniotomy secondary to hemorrhage after a mechanical fall. SOCIAL HISTORY: Lives in [place], [place]. Continues to drink. History says 2 to 3 beers a day, however, he tells me it is more like a 6-pack a day. No drug use. Former smoker, quit many years ago. ALLERGIES: NO KNOWN DRUG ALLERGIES. OUTPATIENT MEDICATIONS: 1. Aspirin 81 a day. 2. Digoxin 0.125 a day. 3. Lasix 40 mg b.i.d. 4. Imdur 30 mg a day. 5. Metoprolol 50 mg b.i.d. 6. Protonix 40 mg a day. 7. Potassium chloride 20 mEq a day. FAMILY HISTORY: Noncontributory. REVIEW OF SYSTEMS: A 12-point review of systems was done and was all negative unless stated in the history of present illness. PHYSICAL EXAMINATION: VITAL SIGNS: Temperature 97.3, pulse 66, respiratory rate 16, sat 97% on room air, and blood pressure 140/78. GENERAL: Awake, alert, oriented x3. No distress. HEENT: Normocephalic and atraumatic. NECK: Supple. LUNGS: Clear. CARDIOVASCULAR: S1 and S2. No S3 or S4. There is a grade 2/6 systolic murmur. ABDOMEN: Soft. Positive bowel sounds. EXTREMITIES: No edema. SKIN: Warm and dry. LABORATORY DATA: Laboratory work was reviewed. CBC with a white count of 11, down to 10; hemoglobin 13.8; hematocrit 43; MCV is elevated at 99 as well as MCH and MCHC; platelet count of 144. Coags normal. Chemistry unremarkable. Troponin has been 0.08 and 0.010. BNP of 2820. Plasma alcohol was undetectable and UDS is negative. Digoxin level was undetectable suggesting noncompliance. DIAGNOSTIC DATA: MRI of the brain shows acute subcortical white matter infarct involving the left frontal lr radiata. There is a small right mastoid effusion as well. Echocardiogram done two days ago shows an EF of 30% to 35%. He is in chronic atrial fibrillation during study. Left atrium is moderately dilated. Moderate MR, moderate TR, and moderate elevated pulmonary artery pressures. ASSESSMENT: 1. [id number] systolic heart failure. 2. Nonischemic cardiomyopathy. 3. Acute cerebrovascular accident. 4. Chronic atrial fibrillation. 5. Noncompliance. 6. Alcohol abuse. PLAN: He is a poor candidate for any anti-stroke strategies given his noncompliance. At this time, his only option would be a Lariat device; however, this is not done at this institution. We will consult Electrophysiology to see if they feel that he would be even be a candidate for a Lariat device. Otherwise, he also has a dilated cardiomyopathy. However, since he is not compliant with his medications and he has seen improvement in his EF in the past with no alcohol use and medications, then he would have to have three months of optimal medical therapy before receiving an AICD. I do not think he is a candidate at this point. Thank you for letting me to participate in the care of your patient. We will follow. Job ID: [id number]
[2019-06-15] MEDS: Carvedilol 6.25 MG TAB PO SCH (21:27)
[2019-06-15] MEDS: Atorvastatin Calcium 40 MG TAB PO SCH (21:27)
[2019-06-16] MEDS: Enoxaparin Sodium 40 MG/0.4 ML SYRINGE SC SCH (09:43)
[2019-06-16] MEDS: Aspirin 325 MG TAB PO SCH (09:44)
[2019-06-16] MEDS: Potassium Chloride 20 MEQ TAB PO SCH (09:44)
[2019-06-16] MEDS: Thiamine 100 MG TAB PO SCH (09:45)
[2019-06-16] MEDS: Carvedilol 6.25 MG TAB PO SCH ×2 (09:45→20:28)
[2019-06-16] MEDS: Cyanocobalamin (Vitamin B-12) 1,000 MCG TAB PO SCH (09:45)
[2019-06-16] MEDS: Folic Acid 1 MG TAB PO SCH (09:45)
--- NOTE | 2019-06-16 10:29 | PDOC.PN ---
- Subjective Encounter Start Date: 06/16/19 Encounter Start Time: 07:10 Patient seen and examined. No new complaints. No overnight events - Objective Resuscitation Status - Order Detail: 06/13/19 10:21 Resuscitation Status Routine Resuscitation Status: FULL: Full Resuscitation MAR Reviewed: Yes Vital Signs & Weight: Vital Signs (12 hours) Temp Pulse Resp BP BP Pulse Ox 06/16/19 09:45 134/78 06/16/19 08:00 97 06/16/19 07:43 97.7 F 91 16 153/93 H 97 06/16/19 04:00 97.6 F 66 18 133/90 97 06/16/19 00:00 97.8 F 60 18 141/93 H 98 Weight Admit Weight 141 lb 8 oz Weight 148 lb 3.2 oz I&O: 06/15/19 06/16/19 06/17/19 06:59 06:59 06:59 Intake Total 819 790 Output Total 125 Balance 694 790 Result Diagrams: 06/15/19 04:23 06/15/19 04:23 EKG Reviewed by me: Yes (afib) Phys Exam - Physical Examination Constitutional: NAD HEENT: PERRLA, moist MMs, sclera anicteric Neck: no JVD, supple Respiratory: no wheezing, no rales, no rhonchi Cardiovascular: no significant murmur, irregular Gastrointestinal: soft, non-tender, no distention, positive bowel sounds Musculoskeletal: no edema, pulses present Neurological: moves all 4 limbs Lymphatic: no nodes Psychiatric: normal affect, A&O x 3 Skin: no rash, normal turgor Dx/Plan (1) Acute CVA (cerebrovascular accident) Code(s): I63.9 - CEREBRAL INFARCTION, UNSPECIFIED Status: Acute Comment: likely due to cardioembolic etiology, involving white matter infarct in left lr radiata (2) Chronic atrial fibrillation with RVR Code(s): I48.2 - CHRONIC ATRIAL FIBRILLATION Status: Acute Comment: Rate controlled, continue Digoxin/Metoprolol, no anticoagulation due to non- compliance and alcohol abuse (3) Type 2 ND (myocardial infarction) Code(s): I21.A1 - MYOCARDIAL INFARCTION TYPE 2 Status: Acute Comment: with elevated troponin due to demand ischemia (4) Alcohol abuse Code(s): F10.10 - ALCOHOL ABUSE, UNCOMPLICATED Status: Chronic (5) Chronic combined systolic and diastolic CHF (congestive heart failure) Code(s): I50.42 - CHRONIC COMBINED SYSTOLIC AND DIASTOLIC HRT FAIL Status: Chronic (6) HTN (hypertension) Code(s): I10 - ESSENTIAL (PRIMARY) HYPERTENSION Status: Chronic Qualifiers: (7) Moderate mitral regurgitation Code(s): I34.0 - NONRHEUMATIC MITRAL (VALVE) INSUFFICIENCY Status: Chronic (8) Non-ischemic cardiomyopathy Code(s): I42.8 - OTHER CARDIOMYOPATHIES Status: Chronic (9) Pulmonary hypertension Code(s): I27.20 - PULMONARY HYPERTENSION, UNSPECIFIED Status: Chronic (10) Severe tricuspid regurgitation Code(s): I07.1 - RHEUMATIC TRICUSPID INSUFFICIENCY Status: Chronic - Plan cont current plan of care * cardiology recommendation appreciated, EP to decide if pt needs Lariat procedure * medication reviewed as below * symptomatic treatment * overall doing better. Review of Systems - Review of Systems ENT: negative: Ear Pain, Ear Discharge, Nose Pain, Nose Discharge, Nose Congestion, Mouth Pain, Mouth Swelling, Throat Pain, Throat Swelling, Other Respiratory: negative: Cough, Dry, Shortness of Breath, Hemoptysis, SOB with Excertion, Pleuritic Pain, Sputum, Wheezing Cardiovascular: negative: chest pain, palpitations, orthopnea, paroxysmal nocturnal dyspnea, edema, light headedness, other Gastrointestinal: negative: Nausea, Vomiting, Abdominal Pain, Diarrhea, Constipation, Melena, Hematochezia, Other Genitourinary: negative: Dysuria, Frequency, Incontinence, Hematuria, Retention , Other Musculoskeletal: negative: Neck Pain, Shoulder Pain, Arm Pain, Back Pain, Hand Pain, Leg Pain, Foot Pain, Other Skin: negative: Rash, Lesions, Maycol, Bruising, Other - Medications/Allergies Allergies/Adverse Reactions: Allergies Allergy/AdvReac Type Severity Reaction Status Date / Time No Known Drug Allergies Allergy Verified 04/23/19 08:50 Medications: Current Medications Acetaminophen (Tylenol) 650 mg PO Q4H PRN PRN Reason: Headache/Fever/Mild Pain (1-3) Last Admin: 06/15/19 09:25 Dose: 650 mg Hydrocodone Bitart/Acetaminophen ([place] 5/325) 1 tab PO Q4H PRN PRN Reason: Moderate Pain (4-6) Artificial Tears (Tears Naturale) 2 drop EA EYE PRN PRN PRN Reason: Dry Eyes Aspirin (Aspirin) 325 mg PO DAILY [facility] Last Admin: 06/16/19 09:44 Dose: 325 mg Atorvastatin Calcium (Lipitor) 40 mg PO HS [facility] Last Admin: 06/15/19 21:27 Dose: 40 mg Bisacodyl (Dulcolax) 10 mg ME DAILYPRN PRN PRN Reason: Constipation Calcium Carbonate (Tums) 1,000 mg PO Q4H PRN PRN Reason: Heartburn or Indigestion Carvedilol (Coreg) 6.25 mg PO BID [facility] Last Admin: 06/16/19 09:45 Dose: 6.25 mg Cyanocobalamin (Vitamin B-12) 1,000 mcg PO DAILY [facility] Last Admin: 06/16/19 09:45 Dose: 1,000 mcg Enoxaparin Sodium (Lovenox) 40 mg SC 09 [facility] Last Admin: 06/16/19 09:43 Dose: 40 mg Folic Acid (Folvite) 1 mg PO DAILY [facility] Last Admin: 06/16/19 09:45 Dose: 1 mg Guaifenesin (Robitussin Sf) 200 mg PO Q4H PRN PRN Reason: Cough Hydralazine HCl (Apresoline) 10 mg SLOW IVP Q4H PRN PRN Reason: SBP > 180 and HR < 70 Isosorbide Mononitrate (Imdur Er) 30 mg PO DAILY [facility] Last Admin: 06/16/19 09:44 Dose: 30 mg Loperamide HCl (Imodium) 2 mg PO PRN PRN PRN Reason: Diarrhea/Loose Stools Loratadine (Claritin) 10 mg PO DAILYPRN PRN PRN Reason: Sinus Symptoms Nitroglycerin (Nitrostat) 0.4 mg SL Q5MIN PRN PRN Reason: Chest Pain Ondansetron HCl (Zofran Odt) 4 mg PO Q6H PRN PRN Reason: Nausea/Vomiting Ondansetron HCl (Zofran) 4 mg IVP Q6H PRN PRN Reason: Nausea/Vomiting Pantoprazole Sodium (Protonix) 40 mg PO DAILY [facility] Last Admin: 06/16/19 09:45 Dose: 40 mg Potassium Chloride (K-Dur) 20 meq PO DAILY [facility] Last Admin: 06/16/19 09:44 Dose: 20 meq Senna/Docusate Sodium (Senokot S) 2 tab PO BIDPRN PRN PRN Reason: Constipation Sodium Chloride ([place] Nasal [place] 0.65%) 0 ml EA NARE QIDPRN PRN PRN Reason: Nasal Congestion Sodium Chloride (Flush - Normal Saline) 10 ml IVF PRN PRN PRN Reason: Saline Flush Last Admin: 06/16/19 09:47 Dose: 10 ml Thiamine HCl (Thiamine) 100 mg PO DAILY [facility] Last Admin: 06/16/19 09:45 Dose: 100 mg Throat Lozenges (Cepastat Lozenges) 1 ajay PO Q2H PRN PRN Reason: Sore Throat Zolpidem Tartrate (Ambien) 5 mg PO HSPRN PRN PRN Reason: Insomnia
--- NOTE | 2019-06-16 17:41 | CON ---
DATE OF CONSULTATION: 06/16/2019 HISTORY OF PRESENT ILLNESS: I am seeing Mr. 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 His problems are; 1. New ischemic stroke due to cardiogenic emboli in the white matter infarct in left lr radiata. a. Resolving symptoms. 2. Prior history of intracranial hemorrhage in the setting of fall. 3. Chronic systolic congestive heart failure with nonischemic cardiomyopathy. a. Reduced LVEF on 2D echo at 30% to 35%, this admission, but normal LVEF on an echo on 02/03/2015. 4. Chronic atrial fibrillation with controlled rate. 5. History of noncompliance. 6. History of EtOH and tobacco abuse. 7. History of hypertension. ALLERGIES: NONE NOTED. MEDICATIONS: At home include; 1. Aspirin. 2. Digoxin. 3. Lasix. 4. Imdur. 5. Metoprolol. 6. Protonix. 7. Potassium chloride. SUBJECTIVE: Mr. Ortiz came to the hospital due to right-sided weakness and slurred speech, who was diagnosed with an ischemic stroke in the white matter/lr radiata area of the brain. He has been in chronic atrial fibrillation, but not anticoagulated due to prior history of intracranial hemorrhage leading to a fall. Currently, he is doing better with resolving symptoms from stroke. Denies PND, orthopnea, or lower extremity edema. He has fluid overload. No angina-like discomforts. No fever, chills, or cough. No bleeding issues are noted. He seems to not fall anywhere according to him recently. There is no gastrointestinal, musculoskeletal, ear, nose, throat, neurologic, or psychiatric issues are noted and the rest of 12-point review of systems also unremarkable. PAST MEDICAL HISTORY: As above. He has remote history of craniotomy secondary to hemorrhage after mechanical fall. SOCIAL HISTORY: The patient denies drug use. He smokes and has history of EtOH use in the past. PHYSICAL EXAMINATION: VITAL SIGNS: Blood pressure is 147/85, heart rate 80, respiratory rate 16, and temperature 98.2 degrees Fahrenheit. GENERAL: Alert and oriented man, in no apparent distress. Mostly Italian-speaking. NECK: Supple. Jugular venous distention is not noted. CHEST: Coarse without crackles. HEART: Sounds are irregularly irregular. S1 and S2 are variable. No gallop. Faint holosystolic murmur is heard. ABDOMEN: Benign. Bowel sounds positive. EXTREMITIES: Lower extremity without edema, clubbing, or cyanosis. Pulses are adequate. NEUROLOGIC: The patient is nonfocal. MUSCULOSKELETAL: Without joint swelling or deformity. SKIN: Without rash. LABORATORY DATA: None new, but hemoglobin 13.8, white count 10.8, and platelet count 144. Sodium 141, potassium 3.8, BUN 15, and creatinine is 1.21 on labs from 15. EKG is reviewed revealing atrial fibrillation with controlled ventricular rate, narrow QRS. ASSESSMENT AND PLAN: Mr. Ortiz is a 64-year-old man with history of chronic atrial fibrillation. He is now presenting with an episode of stroke and CT of the brain and CT angiogram reveals lr radiata area ischemic infarct. He was evaluated by Dr. Quintero. I was consulted for further management of his atrial fibrillation. The gentleman has chronic atrial fibrillation for unclear duration, but has been kept off anticoagulation hence history of hemorrhagic stroke and craniotomy. His stroke was related to episode of falls in the past, possibly EtOH related, but now he has not been falling recently. His symptoms likely have subsided from the stroke, but due to he is high risk for future events, his CHADS-VASc score is 5 with his heart failure issues, hypertension, age, and a recent ischemic stroke. We discussed the difficulty of preventing future stroke events. He clearly would need anticoagulant, but the history of intracranial bleed makes this proposition difficult. Alternatively to this, we could contemplate elective appendage closure device like Watchman device, although that still require some degree of anticoagulation prior to and six weeks after the Watchman device placement. At this point, I would consider him to be started on Eliquis 2.5 mg twice a day once Neurology approves him to start low-dose anticoagulant. Naturally, he is at risk for intracranial hemorrhage, especially further falls occur, although recently he has not been falling. His LV dysfunction is newly found. At this point, he is reasonable to continue monitoring with optimizing heart failure regimen as per Dr. Quintero. If indeed his LVEF remains suppressed less than 35% in three months therapy, he may be considered for prophylactic implantable cardioverter-defibrillator implant. Other hand period is to demonstrate abstinence from EtOH use as well. These issues were discussed with him. He understands. We will see him back in the office. RECOMENDATION: 1. Consider low-dose Eliquis once Neurology approves to start. 2. Consider Watchman device placement. 3. Standard heart failure therapy. 4. Consider prophylactic ICD implant in three months, if no improvement on the LVEF is seen. Job ID: [id number]
--- NOTE | 2019-06-16 18:44 | PDOC.CTH ---
Cardiology Progress Note - Subjective No new issues. No new complaints. - Objective Vital Signs Temp Pulse Pulse Pulse Resp BP BP 06/16/19 15:59 98.3 F 69 16 06/16/19 11:46 98.2 F 88 16 06/16/19 10:00 68 65 151/97 H 06/16/19 09:45 134/78 06/16/19 08:00 06/16/19 07:43 97.7 F 91 16 BP BP Pulse Ox 06/16/19 15:59 147/89 H 98 06/16/19 11:46 147/85 H 97 06/16/19 10:00 134/78 06/16/19 09:45 06/16/19 08:00 97 06/16/19 07:43 153/93 H 97 Admit Weight 141 lb 8 oz Weight 148 lb 3.2 oz 06/15/19 06/16/19 06/17/19 06:59 06:59 06:59 Intake Total 819 790 Output Total 125 Balance 694 790 - Physical Examination General/Neuro: alert & oriented x3, NAD Neck: no JVD present Lungs: CTA, unlabored respirations Heart: other: (irreg irreg) Abdomen: NT/ND Extremities: other: (no edema) - Telemetry Telemetry Rhythm: Afib HR 60's. - Labs Result Diagrams: 06/15/19 04:23 06/15/19 04:23 Troponin/CKMB CK-MB (CK-2) 2.6 ng/mL (0-6.6) 06/13/19 08:13 Troponin I 0.105 ng/mL (< 0.028) H 06/13/19 14:28 - Assessment/Plan 1. Acute CVA 2. Chronic afb, rate controlled. 3. Non compliance. 4. Severe LV dysfunction, non ischemic 5. Alcohol abuse PLAN: - EP on board. - Low dose Eliquis once clear from neuro stand point, likely in next 2 weeks. . - May be a candidate for Watchman device. - Will have him follow up as an outpatient and if he is compliant and is taking his medications will re image his heart for LV function to see if he is a candidate for an AICD at that time.
[2019-06-16] MEDS: Acetaminophen 325 MG TAB PO PRN (20:28)
[2019-06-16] MEDS: Atorvastatin Calcium 40 MG TAB PO SCH (20:28)
[2019-06-17] MEDS ORDERED: Aspirin 81 mg Enteric Coated Tablet PO SCH (09:00)
[2019-06-17] MEDS ORDERED: Apixaban 2.5 MG TAB PO SCH (09:00)
[2019-06-17] MEDS: Folic Acid 1 MG TAB PO SCH (09:20)
[2019-06-17] MEDS: Potassium Chloride 20 MEQ TAB PO SCH (09:20)
[2019-06-17] MEDS: Carvedilol 6.25 MG TAB PO SCH (09:20)
[2019-06-17] MEDS: Thiamine 100 MG TAB PO SCH (09:20)
[2019-06-17] MEDS: Cyanocobalamin (Vitamin B-12) 1,000 MCG TAB PO SCH (09:20)
[2019-06-17] MEDS: Acetaminophen 325 MG TAB PO PRN (09:21)
--- NOTE | 2019-06-17 11:50 | PDOC.PN ---
- Subjective Encounter Start Date: 06/17/19 Encounter Start Time: 07:10 pt had 3 second pause, he also had RVR on tele, pt is asymptomatic Patient seen and examined. No new complaints. No overnight events - Objective Resuscitation Status - Order Detail: 06/13/19 10:21 Resuscitation Status Routine Resuscitation Status: FULL: Full Resuscitation MAR Reviewed: Yes Vital Signs & Weight: Vital Signs (12 hours) Temp Pulse Resp BP BP Pulse Ox 06/17/19 11:37 97.7 F 60 16 126/86 97 06/17/19 09:20 149/91 H 06/17/19 07:48 97.5 F L 70 16 147/98 H 96 06/17/19 03:14 97.7 F 71 20 147/98 H 98 Weight Admit Weight 141 lb 8 oz Weight 148 lb 3.2 oz I&O: 06/16/19 06/17/19 06/18/19 06:59 06:59 06:59 Intake Total 790 Balance 790 Result Diagrams: 06/15/19 04:23 06/15/19 04:23 EKG Reviewed by me: Yes Phys Exam - Physical Examination Constitutional: NAD HEENT: moist MMs, sclera anicteric Neck: no JVD, supple Respiratory: no wheezing, no rales, no rhonchi Cardiovascular: no significant murmur, irregular Gastrointestinal: soft, non-tender, no distention, positive bowel sounds Musculoskeletal: no edema, pulses present Neurological: non-focal, normal sensation Lymphatic: no nodes Psychiatric: normal affect, A&O x 3 Skin: no rash, normal turgor Dx/Plan (1) Acute CVA (cerebrovascular accident) Code(s): I63.9 - CEREBRAL INFARCTION, UNSPECIFIED Status: Acute Comment: likely due to cardioembolic etiology, involving white matter infarct in left lr radiata (2) Chronic atrial fibrillation with RVR Code(s): I48.2 - CHRONIC ATRIAL FIBRILLATION Status: Acute Comment: Rate controlled, continue Digoxin/Metoprolol, no anticoagulation due to non- compliance and alcohol abuse (3) Type 2 VA (myocardial infarction) Code(s): I21.A1 - MYOCARDIAL INFARCTION TYPE 2 Status: Acute Comment: with elevated troponin due to demand ischemia (4) Alcohol abuse Code(s): F10.10 - ALCOHOL ABUSE, UNCOMPLICATED Status: Chronic (5) Chronic combined systolic and diastolic CHF (congestive heart failure) Code(s): I50.42 - CHRONIC COMBINED SYSTOLIC AND DIASTOLIC HRT FAIL Status: Chronic (6) HTN (hypertension) Code(s): I10 - ESSENTIAL (PRIMARY) HYPERTENSION Status: Chronic Qualifiers: (7) Moderate mitral regurgitation Code(s): I34.0 - NONRHEUMATIC MITRAL (VALVE) INSUFFICIENCY Status: Chronic (8) Non-ischemic cardiomyopathy Code(s): I42.8 - OTHER CARDIOMYOPATHIES Status: Chronic (9) Pulmonary hypertension Code(s): I27.20 - PULMONARY HYPERTENSION, UNSPECIFIED Status: Chronic (10) Severe tricuspid regurgitation Code(s): I07.1 - RHEUMATIC TRICUSPID INSUFFICIENCY Status: Chronic - Plan cont current plan of care, PT/OT * medication reviewed as below * symptomatic treatment * cardiology to decide if any procedure needed in view of pause and RVR with Afib * elliquis low dose started * risk benefit discussed with pt * reduce asa 81 mg. Review of Systems - Review of Systems ENT: negative: Ear Pain, Ear Discharge, Nose Pain, Nose Discharge, Nose Congestion, Mouth Pain, Mouth Swelling, Throat Pain, Throat Swelling, Other Respiratory: negative: Cough, Dry, Shortness of Breath, Hemoptysis, SOB with Excertion, Pleuritic Pain, Sputum, Wheezing Cardiovascular: negative: chest pain, palpitations, orthopnea, paroxysmal nocturnal dyspnea, edema, light headedness, other Gastrointestinal: negative: Nausea, Vomiting, Abdominal Pain, Diarrhea, Constipation, Melena, Hematochezia, Other Genitourinary: negative: Dysuria, Frequency, Incontinence, Hematuria, Retention , Other Musculoskeletal: negative: Neck Pain, Shoulder Pain, Arm Pain, Back Pain, Hand Pain, Leg Pain, Foot Pain, Other - Medications/Allergies Allergies/Adverse Reactions: Allergies Allergy/AdvReac Type Severity Reaction Status Date / Time No Known Drug Allergies Allergy Verified 04/23/19 08:50 Medications: Current Medications Acetaminophen (Tylenol) 650 mg PO Q4H PRN PRN Reason: Headache/Fever/Mild Pain (1-3) Last Admin: 06/17/19 09:21 Dose: 650 mg Hydrocodone Bitart/Acetaminophen (Slaughters 5/325) 1 tab PO Q4H PRN PRN Reason: Moderate Pain (4-6) Apixaban (Eliquis) 2.5 mg PO BID [facility] Last Admin: 06/17/19 09:21 Dose: 2.5 mg Artificial Tears (Tears Naturale) 2 drop EA EYE PRN PRN PRN Reason: Dry Eyes Aspirin (Ecotrin) 81 mg PO DAILY [facility] Last Admin: 06/17/19 09:21 Dose: 81 mg Atorvastatin Calcium (Lipitor) 40 mg PO HS [facility] Last Admin: 06/16/19 20:28 Dose: 40 mg Bisacodyl (Dulcolax) 10 mg [place] DAILYPRN PRN PRN Reason: Constipation Calcium Carbonate (Tums) 1,000 mg PO Q4H PRN PRN Reason: Heartburn or Indigestion Carvedilol (Coreg) 6.25 mg PO BID [facility] Last Admin: 06/17/19 09:20 Dose: 6.25 mg Cyanocobalamin (Vitamin B-12) 1,000 mcg PO DAILY [facility] Last Admin: 06/17/19 09:20 Dose: 1,000 mcg Folic Acid (Folvite) 1 mg PO DAILY [facility] Last Admin: 06/17/19 09:20 Dose: 1 mg Guaifenesin (Robitussin Sf) 200 mg PO Q4H PRN PRN Reason: Cough Hydralazine HCl (Apresoline) 10 mg SLOW IVP Q4H PRN PRN Reason: SBP > 180 and HR < 70 Isosorbide Mononitrate (Imdur Er) 30 mg PO DAILY [facility] Last Admin: 06/17/19 09:20 Dose: 30 mg Loperamide HCl (Imodium) 2 mg PO PRN PRN PRN Reason: Diarrhea/Loose Stools Loratadine (Claritin) 10 mg PO DAILYPRN PRN PRN Reason: Sinus Symptoms Nitroglycerin (Nitrostat) 0.4 mg SL Q5MIN PRN PRN Reason: Chest Pain Ondansetron HCl (Zofran Odt) 4 mg PO Q6H PRN PRN Reason: Nausea/Vomiting Ondansetron HCl (Zofran) 4 mg IVP Q6H PRN PRN Reason: Nausea/Vomiting Pantoprazole Sodium (Protonix) 40 mg PO DAILY [facility] Last Admin: 06/17/19 09:20 Dose: 40 mg Potassium Chloride (K-Dur) 20 meq PO DAILY [facility] Last Admin: 06/17/19 09:20 Dose: 20 meq Senna/Docusate Sodium (Senokot S) 2 tab PO BIDPRN PRN PRN Reason: Constipation Sodium Chloride (Carbon Nasal Emerson 0.65%) 0 ml EA NARE QIDPRN PRN PRN Reason: Nasal Congestion Sodium Chloride (Flush - Normal Saline) 10 ml IVF PRN PRN PRN Reason: Saline Flush Last Admin: 06/16/19 09:47 Dose: 10 ml Thiamine HCl (Thiamine) 100 mg PO DAILY [facility] Last Admin: 06/17/19 09:20 Dose: 100 mg Throat Lozenges (Cepastat Lozenges) 1 ajay PO Q2H PRN PRN Reason: Sore Throat Zolpidem Tartrate (Ambien) 5 mg PO HSPRN PRN PRN Reason: Insomnia
[2019-06-17 15:28] VITALS: BP 149/90; TEMP 97.1
--- NOTE | 2019-06-17 16:25 | PRG ---
DATE OF SERVICE: 06/17/2019 SUBJECTIVE: Mr. Ortiz seems to be doing well. Recovering from his stroke. On telemetry, he continues to be in atrial fibrillation. This morning, there was some bradyarrhythmia with up to 3 seconds of pause is seen without symptoms. OBJECTIVE: VITAL SIGNS: Blood pressure is 140/90, heart rate 74, respiratory rate 16, temperature 97.1 degrees Fahrenheit. GENERAL: Alert and oriented man, in no apparent distress. NECK: Supple. Jugular veins not distended. CHEST: Coarse crackles. HEART: Sounds are irregularly irregular. S1 and S2 are variable. No murmur or gallop. ABDOMEN: Benign. Bowel sounds positive. EXTREMITIES: Lower extremities without edema, clubbing, or cyanosis. DATABASE: Telemetry strips again reveal about 3.3-second pause. LABORATORY DATA: None. ASSESSMENT AND PLAN: 1. Mr. Ortiz is a 64-year-old man who has history of chronic atrial fibrillation, remote history of fall with intracranial hemorrhage, requiring craniotomy also noted, hence, he is not on anticoagulation. This continued with chronic atrial fibrillation. His LVEF is severely reduced. He has had CHADS-VASc score total of 5 with his age, hypertension, CHF, and stroke, and has a risk for recurrence. We discussed the difficulty to propose for anticoagulation with his history of intracranial hemorrhage, albeit that was clearly provoked by a fall. Long-term, he would benefit from Watchman left atrial appendage occlusion device. He will need to be on blood thinner prior to considering this. Once his acute ischemic stroke is resolved and once Neurology agrees, Eliquis 2.5 mg twice a day could be started, and I will see him back in the office to consider setting him up for a Watchman device placement. 1. Severe cardiomyopathy with LVEF 30% to 35%, new findings. We will continue monitor. If LVEF did not improve after 3 months of medical management, consideration for prophylactic ICD could be made. 2. Asymmetric pausing at night, likely sleep apnea related. At this point, would hold off from pacing, hence, he is asymptomatic. I would sign off. I will be happy to see this gentleman back in the office for discussion of Watchman device. Job ID: [id number]
--- NOTE | 2019-06-17 18:13 | DIS ---
DATE OF ADMISSION: 06/13/2019 DATE OF DISCHARGE: 06/17/2019 PRIMARY CARE PHYSICIAN: [facility]. DISCHARGE DISPOSITION: Home. PRIMARY DISCHARGE DIAGNOSES: Acute cerebrovascular accident due to cardioembolic etiology. SECONDARY DISCHARGE DIAGNOSES: Chronic atrial fibrillation with paroxysmal rapid ventricular response, type 2 myocardial infarction, alcohol abuse, moderate mitral regurgitation, nonischemic cardiomyopathy, pulmonary hypertension, and severe tricuspid regurgitation. PRIMARY PROCEDURE/OPERATION: None. RADIOLOGICAL INVESTIGATION: CT brain, CT [place], MRI brain, and echocardiography. SIGNIFICANT LABORATORY DATA: Hemoglobin 13.8. INR 1.2. Creatinine 1.21. Troponin 0.105. Urine drug screen negative. DISCHARGE MEDICATIONS: 1. Eliquis 2.5 mg p.o. b.i.d. 2. Aspirin 81 mg p.o. daily. 3. Lipitor 40 mg p.o. at bedtime. 4. Coreg 6.25 mg p.o. b.i.d. 5. Vitamin B12 1000 mcg p.o. daily. 6. Digoxin 0.125 mg p.o. daily. 7. Folic acid 1 mg daily. 8. Lasix 20 mg b.i.d. 9. Imdur 30 mg p.o. daily. 10. Lisinopril 5 mg p.o. daily. 11. Potassium chloride 20 mEq p.o. daily. 12. Thiamine 100 mg p.o. daily. CONTRAINDICATION: None. CODE STATUS: Full code. INPATIENT CONSULT: Neurology was consulted while in hospital. Cardiology group was consulted while in hospital. Client Support Consultant was consulted while in hospital. TEST RESULT PENDING ON DISCHARGE: None. ALLERGIES: NO KNOWN DRUG ALLERGIES. DISCHARGE PLAN: Posthospital, the patient will follow up with Dr. Adilson Torres, Dr. Bowen, and Dr. Quintero as instructed. HOSPITAL COURSE: A 64-year-old male with above-mentioned medical problem, who was admitted by me on 06/13/2019. Please see my HPI for further details. On admission, he was having right-sided weakness. He had symptoms suggestive of acute CVA. Initial CT brain and CT [place] were negative. Chest x-ray was normal. The patient was not a candidate for tPA because of late presentation. We admitted him to stroke floor. Entire Stroke team was following while in hospital. The patient had rapid improvement in his weakness. MRI brain confirmed lacunar CVA. Echocardiography showed systolic dysfunction. This patient has chronic atrial fibrillation and he was having paroxysmal RVR and that is why we controlled his heart rate with medication. While in hospital, we noted that with the sleep, the patient was also having some bradyarrhythmia and medicare interviewer recommended that this is related with his sleep apnea. At this point, there is no plan for a pacemaker or defibrillator placement because the patient is noncompliant and this can be considered after three months of optimization of medical therapy. To optimize medical therapy, we changed metoprolol to Coreg. We added lisinopril. Rest of medication was continued as per previous. As the patient has chronic atrial fibrillation that is why we discussed risk and benefit of chronic anticoagulation with Eliquis and the patient and family agreed with an Eliquis therapy. Neurology and Cardiology also recommended that medication. We increase Lipitor to 40 and we reduced aspirin to 81 mg p.o. daily. Rest of medication was continued as per above. We provided counseling to avoid alcohol abuse. The patient is overall medically stable for discharge. He does not have any weakness. He does not require any rehab. He is doing much better. The patient is seen and examined at bedside today, please see my progress note from today for further detail. Overall, the patient is medically stable for discharge. Job ID: [id number]
--- NOTE | 2019-06-17 18:57 | PDOC.CTH ---
Cardiology Progress Note - Subjective No new issues. - Objective Vital Signs Temp Pulse Pulse Pulse Resp BP BP 06/17/19 15:28 97.1 F L 74 16 06/17/19 14:11 72 65 160/102 H 06/17/19 11:37 97.7 F 60 16 06/17/19 09:20 149/91 H 06/17/19 09:15 06/17/19 07:48 97.5 F L 70 16 BP BP Pulse Ox 06/17/19 15:28 149/90 H 97 06/17/19 14:11 139/89 06/17/19 11:37 126/86 97 06/17/19 09:20 06/17/19 09:15 96 06/17/19 07:48 147/98 H 96 Admit Weight 141 lb 8 oz Weight 148 lb 3.2 oz 06/16/19 06/17/19 06/18/19 06:59 06:59 06:59 Intake Total 790 Balance 790 - Physical Examination General/Neuro: alert & oriented x3, NAD Neck: no JVD present Lungs: CTA, unlabored respirations Heart: RRR Abdomen: NT/ND Extremities: other: (no edema) - Telemetry Telemetry Rhythm: Afib - Labs Result Diagrams: 06/15/19 04:23 06/15/19 04:23 Troponin/CKMB CK-MB (CK-2) 2.6 ng/mL (0-6.6) 06/13/19 08:13 Troponin I 0.105 ng/mL (< 0.028) H 06/13/19 14:28 - Assessment/Plan 1. Acute CVA 2. Chronic afb, rate controlled. 3. Non compliance. 4. Severe dilated cardiomyopathy EF at 30-35% 5. Alcohol abuse PLAN: - Low dose Eliquis once clear from neuro stand point, likely in 2 weeks. - May be a candidate for Watchman device if he follows up. - Home anytime from cardiac perspective. - Follow up in the office in 2 months.
== END 2019-06-17 19:33 | disposition home or self-care (01) | DRG 64 ==
LOC: ERS 07:56 → ERHOLD 09:48 → 2SE 14:04
PROVIDERS: ADMIT Internal Medicine; ATTEND Internal Medicine
DX: I63.49 Cerebral infarction due to embolism of other cerebral artery (principal); I21.A1 Myocardial infarction type 2; G81.91 Hemiplegia, unspecified affecting right dominant side; I50.32 Chronic diastolic (congestive) heart failure; R29.810 Facial weakness; R47.81 Slurred speech; I11.0 Hypertensive heart disease with heart failure; E78.5 Hyperlipidemia, unspecified; K21.9 Gastro-esophageal reflux disease without esophagitis; I25.5 Ischemic cardiomyopathy; I48.2 Chronic atrial fibrillation; F10.10 Alcohol abuse, uncomplicated; R29.701 NIHSS score 1; I08.1 Rheumatic disorders of both mitral and tricuspid valves; Z86.73 Personal history of transient ischemic attack (TIA), and cerebral infarction without residual deficits; Z79.899 Other long term (current) drug therapy; Z87.891 Personal history of nicotine dependence; Z79.52 Long term (current) use of systemic steroids
CPT/HCPCS: 36415; 70450; 70496; 70498; 70551; 71045; 80048; 80053; 80061; 80162; 80306; 80307; 82550; 82553; 83735; 83880; 84484; 85025; 85610; 85730; 93005; 93306; 94760; 96374; 96375; J1160; J1650; Q9966

== ENCOUNTER 2019-06-19 13:11 | Inpatient (IN) | payer MEDICARE ==
--- NOTE | 2019-06-19 13:24 | CT ---
Exam: CT brain PROVIDED CLINICAL HISTORY: Speech difficulty COMPARISON: None FINDINGS: The ventricular system is normal in size and morphology. No evidence for intracranial hemorrhage or mass effect. The extracranial soft tissues and osseous structures demonstrate no evidence for an acute abnormality. Chronic microvascular ischemic change involving the periventricular white matter. Encephalomalacia involving a portion of the left parieto-occipital region compatible with subacute-chronic infarction. IMPRESSION: No evidence for intracranial hemorrhage or mass effect.
[2019-06-19 13:31] LABS: #Basophils 0.1 thou/uL (0.0-0.2); #Eosinphils 1.6 thou/uL (0.0-0.7); #Lymphocytes 2.2 thou/uL (1.20-3.40); #Monocytes 0.6 thou/uL (0.11-0.59); #Neutrophils 5.3 thou/uL (1.40-6.50); %Basophils 0.6 % (0.0-1.0); %Lymphocytes 22.6 % (21.0-51.0); %Monocytes 6.4 % (0.0-10.0); %Neutrophils 54.3 % (42.0-75.0); Hemoglobin 13.3 g/dL (14.0-18.0); Mean Corpuscular HGB CONC 31.8 g/dL (32.0-36.0); Mean Corpuscular Hemoglobin 31.4 pg (27.0-31.0); Mean Corpuscular Volume 98.8 fL (78.0-98.0); Mean Platelet Volume 10.8 fL (7.4-10.4); Platelet Count 126 thou/uL (130-400); RBC Distribution Width 13.5 % (11.5-14.5); Red Blood Cell (RBC) Count 4.23 mill/uL (4.70-6.10); White Blood Cell (WBC) Count 9.8 thou/uL (4.8-10.8)
[2019-06-19 13:36] LABS: INR-International Normal Ratio 1.2; PTT 39.8 SEC (22.9-36.1); Prothrombin Time 15.4 SEC (12.0-14.7)
[2019-06-19] MEDS ORDERED: ISOVUE-370 76%-LOCM 1 ML ONE (13:38)
[2019-06-19 13:44] LABS: ALT (SGPT) 11 U/L (8-55); AST (SGOT) 27 U/L (5-34); Albumin 4.1 g/dL (3.4-4.8); Alkaline Phosphatase 80 U/L (40-150); Anion Gap 13 mmol/L (10-20); BUN (Urea Nitrogen) 10 mg/dL (8.4-25.7); Bilirubin, Total 0.9 mg/dL (0.2-1.2); CK (CPK) 108 U/L (30-200); Calc. Creatinine Clearance 0 mL/min (70-130); Calcium 9.3 mg/dL (7.8-10.44); Carbon Dioxide 25 mmol/L (23-31); Chloride 103 mmol/L (98-107); Estimated GFR-MDRD 64; Globulin 3.5 g/dL (2.4-3.5); Glucose 115 mg/dL (80-115); Protein, Total 7.6 g/dL (5.8-8.1); Sodium 137 mmol/L (136-145)
--- NOTE | 2019-06-19 13:44 | CT ---
EXAM: CT angiogram brain with IV contrast and three-dimensional reconstructions CT angiogram great vessels neck with IV contrast and three-dimensional reconstructions PROVIDED CLINICAL HISTORY: Speech difficulty COMPARISON: 06/13/2019 FINDINGS: There is a normal three-vessel configuration of the great vessels at the arch. The common carotid, internal carotid, subclavian and vertebral arteries demonstrate a stable appearan ce with left vertebral origin stenosis being the only significant finding. There is no evidence for focal vessel stenosis, branch occlusion or aneurysm involving the intracrani al circulation. IMPRESSION: Stable exam.
[2019-06-19] MEDS ORDERED: Atropine Sulfate 1 mg/10 ml Syringe ONE ×2 (15:09→16:42)
[2019-06-19] MEDS ORDERED: Norepinephrine 4 MG/4 ML VIAL ONE (15:14)
[2019-06-19] MEDS ORDERED: Lorazepam 2 MG/ML VIAL ONE (15:53)
[2019-06-19] MEDS ORDERED: Succinylcholine Chloride 20 MG/ML 10 ml SYRINGE FS ONE (15:54)
--- NOTE | 2019-06-19 16:17 | RAD ---
XR Chest 1 View Portable HISTORY: Intubation COMPARISON: 06/13/2019 study FINDINGS: Heart size is enlarged pulmonary vessels are mildly engorged by largely related to supine t echnique. An NG tube is seen below the hemidiaphragm. Endotracheal tube is at the level the dee and should be retracted several for more optimal placement. IMPRESSION: Low position of endotracheal tube.
[2019-06-19] MEDS ORDERED: Fentanyl 100 MCG/2 ML VIAL ONE ×2 (16:33→17:12)
--- NOTE | 2019-06-19 17:00 | CT ---
CT Brain WO Con HISTORY: Altered mental status. Seizure. COMPARISON: CT of brain done earlier today and CT angiography of head. FINDINGS: The ventricular and cisternal system is within normal limits for age. There are some decrea sed attenuation the periventricular white matter appears represent chronic white matter change. Residual contrast from the previous CT angiography was noted. The area of decreased attenuation in th e left posterior temporal parietal occipital region is unchanged in appearance since the prior exam. Mastoid air cells show poor aeration of the right mastoid air cells, this appears developmental. Muco miguel changes seen in both maxillary sinus IMPRESSION: Stable exam.
--- NOTE | 2019-06-19 17:04 | CT ---
CT Abdomen Pelvis WO Con HISTORY: Seizure. Abdominal pain. COMPARISON: None. FINDINGS: Contrast is present from the previous CT angiogram head. No additional contrast was adminis tered. Coronary artery calcifications are seen. Bibasilar atelectasis is noted. Heart size is enlarged. A ne w G-tube is seen within the stomach. The liver and spleen are normal in size and appearance. Pancreas and gallbladder regions appear unrem arkable. Right and left adrenal glands and right and left kidneys are normal in size and not obstructed. A sma ll hypodensity involving the right kidney is statistically most likely a cyst. There is no significant periaortic or mesenteric adenopathy. CT of pelvis performed with contrast enhancement prostate calcifications are noted. The bladder is mi ldly distended. Moderate amount of stool is seen within the colon. There are arthritic changes of the spine. IMPRESSION: No acute findings of abdomen or pelvis.
[2019-06-19 17:30] LABS: Actual Bicarbonate (HCO3a) 23.2 mEq/L (22-28); Analyzer IN Cardio ER; Base Excess (BEa) -1.8 mEq/L (-2.0 to +3.0); CO2 Tension 40.6 mmHg (35.0-45.0); Calcium, Ionized 1.08 mmol/L (1.12-1.30); Carboxyhemoglobin (COHb) 0.4 gm% (0.0-3.0); Hemoglobin (Hb) 13.8 g/dL (14.0-18.0); O2 Tension (PaO2) 168.7 mmHg (> 80.0); pH, Arterial 7.38 (7.35-7.45)
[2019-06-19 17:32] LABS: Puncture Site RBA
[2019-06-19] MEDS ORDERED: Fentanyl 20 mcg/ml (100 ml CADD) IV PRN (17:33)
[2019-06-19] MEDS ORDERED: EPINEPHrine 1 MG/10 ML Abboject SYRINGE ONE (18:00)
[2019-06-19] MEDS ORDERED: Ondansetron ODT 4 MG TAB SL PRN (18:09)
[2019-06-19] MEDS ORDERED: Ondansetron PF 4 MG/2 ML Vial IVP PRN (18:09)
[2019-06-19] MEDS ORDERED: Lorazepam 2 MG/ML VIAL SLOW IVP PRN ×2 (18:18→18:19)
[2019-06-19] MEDS ORDERED: Acetaminophen 650 MG Suppository PR PRN (18:18)
[2019-06-19] MEDS ORDERED: Ventilator Sedation Protocol 1 EACH FS ONE (18:18)
[2019-06-19] MEDS ORDERED: hydrALAZINE 20 MG/ML VIAL SLOW IVP PRN (18:18)
[2019-06-19] MEDS ORDERED: Morphine 2 MG/ML SYRINGE SLOW IVP PRN (18:19)
[2019-06-19] MEDS ORDERED: Propofol BOLUS 1,000 MG/100 ML VIAL IV PRN (18:19)
[2019-06-19] MEDS ORDERED: DISCONTINUE PREVIOUS NARCOTIC PAIN MEDICATIONS AND BENZODIAZEPINES FS SCH (18:19)
[2019-06-19] MEDS ORDERED: Fentanyl BOLUS 250 ML IVPB PRN (18:19)
[2019-06-19] MEDS ORDERED: fentaNYL Citrate/PF 2,000 MCG in Sodium Chloride 0.9% 60 ML IV SCH (18:19)
[2019-06-19] MEDS ORDERED: Aspirin 300 MG Suppository PR SCH (18:30)
[2019-06-19] MEDS: Propofol 1,000 MG/100 ML VIAL IV PRN (18:39)
[2019-06-19] MEDS: Famotidine/PF 20 mg/2ml Vial SLOW IVP SCH (21:55)
--- NOTE | 2019-06-20 00:17 | HP ---
CHIEF COMPLAINT: Slurred speech and right-sided weakness. HISTORY OF PRESENT ILLNESS: Mr. Ortiz is currently intubated and therefore, I am unable to get any additional history. Mr. Ortiz was actually recently discharged from our facility about 3 days ago. He was under a different medical record number and that . He was discharged after suffering an ischemic stroke, which left him with some residual right-sided weakness. At that time, he was evaluated for atrial fibrillation as well as chronic systolic heart failure. Due to some concerns for medical noncompliance, the patient was placed on a low-dose aspirin, Eliquis regimen with the hopes of transitioning him to a lariat or Watchman's device in the near future. He was also placed on medical management before the decision was made with regard to AICD placement. The patient had been home for about 1 day. His family says that he picked up his medications this morning and noticed that his speech was not making sense and he seemed to be having again right-sided weakness. For this reason, they brought him back to the emergency room. When he was in the emergency room, he would have episodes of desaturation. His nurse noted that his eyes tend to deviate to the right off and on. Prior to this, he went into atrial fibrillation with RVR briefly, was given Cardizem and his heart rate dropped into the 30s and 40s requiring atropine to increase his heart rate again. It is noted that in the ER he also was moving all of his extremities, but then suffered a seizure after he was given the atropine and he desaturated during the seizure and for this reason, he was intubated to protect his airway. He was given a paralytic and therefore, it is difficult for me to do any additional assessment. REVIEW OF SYSTEMS: It is unobtainable as the patient is intubated. PAST MEDICAL HISTORY: Significant for recent cerebrovascular accident, history of atrial fibrillation, history of a hemorrhagic stroke, which was reported to be traumatic. He also has a history of alcoholism and hypertension. PAST SURGICAL HISTORY: He has had a ventriculostomy. ALLERGIES: NO KNOWN DRUG ALLERGIES. SOCIAL HISTORY: He is . He is a former smoker. He quit several years ago. There is a history of alcohol use. FAMILY HISTORY: Unknown. MEDICATIONS: Medications are taken from his discharge list from his previous admission and this includes: 1. Eliquis 2.5 mg twice daily. 2. Aspirin 81 mg daily. 3. Lipitor 40 mg daily. 4. Coreg 6.25 mg twice daily. 5. Vitamin B12 1000 mcg daily. 6. Digoxin 0.125 mg daily. 7. Folic acid 1 mg daily. 8. Lasix 20 mg twice daily. 9. Imdur 30 mg daily. 10. Lisinopril 5 mg daily. PHYSICAL EXAMINATION: GENERAL: He is intubated, well-developed, well-nourished. VITAL SIGNS: Blood pressure was 129/93, heart rate 70, respiratory rate of 15, temperature is 97.9. HEENT: His pupils are somewhat dilated, minimally reactive. Throat, there is no erythema. NECK: No adenopathy, no bruits. LUNGS: Clear to auscultation. There is no wheezing, no rales, no rhonchi. CARDIOVASCULAR: He has a normal S1, S2. There is no S3 or S4. The heart rate is irregular. No murmurs, clicks, or rubs. ABDOMEN: Soft. Positive for bowel sounds. No rebound. No guarding. EXTREMITIES: There is no edema. NEUROLOGIC: He is moving all extremities. However, he is currently intubated and unable to follow commands and his reflexes are equivocal. SKIN AND INTEGUMENT: There are no significant skin changes. No rashes. IMAGING: On his CT scan, there was no evidence of any acute intracranial change or hemorrhage in this is by my reading. The patient also had a CT angiogram, which was negative for any significant flow-limiting disease. The patient had a chest x-ray showing some cardiomegaly and some mild increased pulmonary vascular markings and that is by my reading. He also had an EKG showing atrial fibrillation, the heart rate is in the 40s. LABORATORY DATA: Lab results, the white blood cell count is 9.8, hemoglobin 13.3, hematocrit is 41.8, and platelet count is 126. Sodium 137, potassium 4.0, chloride is 103, CO2 is 25, BUN of 10, creatinine 1.14, glucose is 115. Alcohol level is less than 10. ASSESSMENT: This is a 64-year-old gentleman, who is being admitted for either stroke in evolution or recurrent stroke as well as seizure activity. He is currently intubated for airway protection. 1. With regard to the potential recurrent stroke, he will be given aspirin rectally until oral medication can be administered either through a nasogastric tube or once he is extubated. Neurology will be consulted. 2. Seizure disorder, likely as a result of the prior stroke. However, a repeat CT scan is being done to rule out intracranial hemorrhage since he is reported to have been on Eliquis, but it is unclear whether or not he actually started this since leaving the hospital. Consider IV Keppra and again await neurology recommendations and also place him on seizure precautions. 3. Acute respiratory failure. This is a result of the seizure. Pulmonary and critical Care will be consulted for ventilator management. 4. Atrial fibrillation, currently his heart rate is stable. However, he did have both elevated and low heart rates here in the ER. Cardiology will be consulted for further recommendations. 5. Chronic systolic heart failure. His son admits that he was complaining of some difficulty with breathing. He is likely a bit decompensated and IV Lasix can be administered. 6. Hypertension. We will place him on p.r.n. medications until he is able to take something orally for blood pressure control. Job ID: [id number]
[2019-06-20] MEDS: Propofol 1,000 MG/100 ML VIAL IV PRN (05:24)
[2019-06-20 06:10] LABS: #Basophils 0.1 thou/uL (0.0-0.2); #Eosinphils 0.5 thou/uL (0.0-0.7); #Lymphocytes 3.3 thou/uL (1.20-3.40); #Monocytes 1.2 thou/uL (0.11-0.59); #Neutrophils 5.5 thou/uL (1.40-6.50); %Basophils 0.5 % (0.0-1.0); %Eosinophils 5.1 % (0.0-10.0); %Monocytes 11.5 % (0.0-10.0); %Neutrophils 51.9 % (42.0-75.0); Hemoglobin 12.6 g/dL (14.0-18.0); Mean Corpuscular HGB CONC 31.8 g/dL (32.0-36.0); Mean Corpuscular Hemoglobin 31.4 pg (27.0-31.0); Mean Corpuscular Volume 98.7 fL (78.0-98.0); Mean Platelet Volume 10.9 fL (7.4-10.4); Platelet Count 118 thou/uL (130-400); RBC Distribution Width 13.7 % (11.5-14.5); Red Blood Cell (RBC) Count 4.01 mill/uL (4.70-6.10); White Blood Cell (WBC) Count 10.7 thou/uL (4.8-10.8)
[2019-06-20 06:23] LABS: Anion Gap 14 mmol/L (10-20); BUN (Urea Nitrogen) 11 mg/dL (8.4-25.7); Calc. Creatinine Clearance 61 mL/min (70-130); Calcium 8.8 mg/dL (7.8-10.44); Carbon Dioxide 24 mmol/L (23-31); Cardiac Risk 2.8 (Less than 4.5); Chloride 105 mmol/L (98-107); Cholesterol 91 mg/dl (< 200 Desired); Estimated GFR-MDRD 64; Glucose 82 mg/dL (80-115); HDL Cholesterol 33 mg/dL (>60 Neg Risk); LDL Cholesterol, Calculated 36 mg/dL; Potassium 3.9 mmol/L (3.5-5.1); Sodium 139 mmol/L (136-145); Triglycerides 109 mg/dL (Less than 150)
[2019-06-20] MEDS: Aspirin 300 MG Suppository PR SCH (09:26)
[2019-06-20] MEDS: Famotidine/PF 20 mg/2ml Vial SLOW IVP SCH ×2 (09:27→20:46)
--- NOTE | 2019-06-20 11:03 | PDOC.PN ---
- Subjective Encounter Start Date: 06/20/19 Encounter Start Time: 11:01 Mr. Ortiz was seen today in follow-up of altered mental status, and respiratory failure. He is intubated. He is awake a bit sluggish to respond. He will follow some commands. - Objective Resuscitation Status - Order Detail: 06/19/19 17:10 Resuscitation Status Routine Resuscitation Status: FULL: Full Resuscitation MAR Reviewed: Yes Vital Signs & Weight: Vital Signs (12 hours) Temp Pulse Resp BP 06/20/19 10:07 66 138/88 06/20/19 08:00 98.6 F 12 06/20/19 07:05 67 145/100 H 06/20/19 06:00 12 06/20/19 04:00 99.6 F 12 06/20/19 02:00 12 06/20/19 00:00 99.1 F 12 Weight Admit Weight 146 lb 2.664 oz Weight 146 lb 2.664 oz Most Recent Monitor Data Heart Rate from ECG 76 NIBP 140/100 NIBP BP-Mean 113 Respiration from ECG 13 SpO2 100 I&O: 06/19/19 06/20/19 06/21/19 06:59 06:59 06:59 Intake Total 369.2 Output Total 1225 90 Balance -855.8 -90 Result Diagrams: 06/20/19 05:40 06/20/19 05:41 Additional Labs: Accuchecks 06/19/19 13:16 POC Glucose 117 H Phys Exam - Physical Examination HEENT: PERRLA Respiratory: no wheezing, no rales, no rhonchi, clear to auscultation bilateral Cardiovascular: no significant murmur, no rub, irregular Gastrointestinal: soft, non-tender, no distention, positive bowel sounds Musculoskeletal: no edema, pulses present Neurological: moves all 4 limbs Dx/Plan (1) Seizure Code(s): R56.9 - UNSPECIFIED CONVULSIONS Status: Acute (2) Metabolic encephalopathy Code(s): G93.41 - METABOLIC ENCEPHALOPATHY Status: Acute (3) Hypertension Code(s): I10 - ESSENTIAL (PRIMARY) HYPERTENSION Status: Chronic (4) CVA (cerebral vascular accident) Code(s): I63.9 - CEREBRAL INFARCTION, UNSPECIFIED Status: Chronic (5) Atrial fibrillation Code(s): I48.91 - UNSPECIFIED ATRIAL FIBRILLATION Status: Chronic (6) Chronic systolic heart failure Code(s): I50.22 - CHRONIC SYSTOLIC (CONGESTIVE) HEART FAILURE Status: Chronic - Plan * Patient was recently admitted with an acute CVA with right sided weakness. He had recurrence of aphasia and dysarthria, as well as weakness on the right side. He also developed a seizure as well. He is now intubated- will follow-up with the MRI of the brain to rule out a new CVA, or extanded CVA * Given his history of alcohol abuse will also check an ammonia level * HTN- blood pressure is stable * Seizure- continue Keppra, and Ativan as needed, and await Neurology input * Atrial fibrillation- his heart rate is currently controlled- will await MRI results prior to starting anticoagulation * Chronic systolic heart failure- compensated * Vent wean as per PCCM * I updated the patient's son Donato, and explained what the plan of care is going forward.
--- NOTE | 2019-06-20 11:36 | CON ---
DATE OF CONSULTATION: 06/20/2019 SERVICE: Pulmonary Medicine. REASON FOR CONSULT: ICU patient. HISTORY OF PRESENT ILLNESS: The patient is a 64-year-old male, who recently suffered a stroke. He was left with a little bit of right-sided weakness. That being said, he did walk out of the hospital. Over the last 3 days, he had increasing confusion. He subsequently returned to the emergency department. In the ER, he was apparently in some degree of atrial fibrillation. He got a couple doses of medication for rate control and ultimately developed prolonged episodes of sinus arrest. He never required any chest compressions. He did have a seizure. During the seizure process, he was intubated. The seizure was arrested. He was tucked into the ICU. He indicates he does not have any chest pain or shortness of breath. He did not have any recent nausea or vomiting. The patient's family said that he was more or less improved when he was discharged from the hospital, but the patient had a hard time telling his family that he was feeling unwell on discharge. PAST MEDICAL HISTORY: 1. CVA, recent. 2. Atrial fibrillation. 3. History of hemorrhagic stroke, traumatic. 4. Alcohol abuse. 5. Hypertension. PAST SURGICAL HISTORY: Ventriculostomy drain with subsequent removal. ALLERGIES: NO KNOWN DRUG ALLERGIES. MEDICATIONS: List of his inpatient medications was reviewed. No specific updates were made at this time. SOCIAL HISTORY: He is . He had a history of smoking. He had a greater than [id number] history. He quit multiple years ago. There was heavy alcohol use in recent past. He has no exposure to illicit drugs. FAMILY HISTORY: Noncontributory. REVIEW OF SYSTEMS: This cannot be obtained as the patient is currently intubated and sedated. PHYSICAL EXAMINATION: HEENT: Normocephalic and atraumatic. Sclerae white. Conjunctivae pink. Oral mucosa is moist without lesions. LUNGS: Decent air entry bilaterally. There is not much in the way of a prolonged expiratory phase. No wheezing or rhonchi are appreciated. HEART: Normal rate. Regular. ABDOMEN: Soft. It is distended. Bowel sounds are present. There is tympany with percussion. No rebound or guarding is appreciated. MUSCULOSKELETAL: No cyanosis or clubbing. No pitting in the bilateral lower extremities. NEUROLOGIC: He is breathing comfortably over the ventilator. He nods yes and no appropriately, but he seems to have some sort of a delayed response. With vigorous stimulation, he will move all 4 extremities. This appears to have purposeful activity. That being said, he tends to have an upgoing Babinski bilaterally. LABORATORY DATA: WBC 10.7, hemoglobin 12.6, platelets 118,000. Neutrophil count is stable and normal. INR 1.2. PH 7.38, pCO2 of 41, PO2 of 170, this is while on 50% FiO2 and a PEEP of 5. INR 1.14. Basic metabolic profile is otherwise unremarkable. Liver function studies are unremarkable. Troponin is negative x1. Prolactin is 17.34, at the upper limits of normal. IMAGING STUDIES: 1. CT of the brain demonstrates no acute intracranial abnormality. There is no hemorrhage or mass effect identified. 2. CT of the [place] of Ortiz demonstrates no evidence of focal vessel stenoses or branch occlusion or aneurysm involving the intracranial circulation. There is left vertebral origin stenosis present. 3. Chest x-ray demonstrates no acute cardiopulmonary abnormality. The endotracheal tube is less than a centimeter above the level of the dee. There is an enteric catheter coursing below the level of the diaphragm and out of the field to view. I do not see any obvious consolidating changes present. There are possibly left pleural-parenchymal abnormalities in the retrocardiac region. 4. A repeat CT of the brain demonstrates stable exam. Mucosal changes in the maxillary sinuses are present. 5. CT of the abdomen and pelvis demonstrates no acute findings. On this study, there is no obvious infiltrate in the lower lung horne. ASSESSMENT: 1. Acute hypoxic respiratory failure. 2. Recent cerebrovascular accident. 3. Seizure disorder. 4. Atrial fibrillation with recent RVR. 5. Encephalopathy, unknown cause. 6. Ethanol withdraw. DISCUSSION AND PLAN: The patient is actually being moved down for an MRI of the head right now. I will check an ammonia level. We will add it on to morning laboratories. He will remain on mechanical ventilation until he is much more purposeful and quick with his responses. Pulmonary/Critical Care will follow very closely. CRITICAL CARE TIME: 30 minutes. Job ID: [id number] MTDD
--- NOTE | 2019-06-20 11:39 | MRI ---
EXAM: MRI of the brain without contrast HISTORY: Stroke COMPARISON: None TECHNIQUE: Multiplanar multisequence MR images were obtained of the brain without IV contrast. FINDINGS: There is a 1.4 cm area of restricted diffusion and high FLAIR signal in the left periventricular whit e matter consistent with an acute infarction. A smaller 2 mm focus of restricted diffusion and high FLAIR signal is seen more anteriorly in the left frontal white matter. There are scattered foci of hi gh T2 and FLAIR signal in the subcortical and periventricular white matter without restricted diffusion that likely represent chronic small vessel ischemic disease. Encephalomalacia seen in the l eft parietal lobe. No hydronephrosis. No extra-axial fluid collection or intracranial hemorrhage. The expected flow voids are present. Corpus callosum, pituitary, and craniocervical junction are within normal limits. The calvarium and overlying soft tissues are unremarkable. The paranasal sinuses and mastoid air cells are well aerated. IMPRESSION: 1. Small left white matter lacunar infarctions 2. Encephalomalacia in the left parietal lobe and chronic small vessel ischemic disease.
[2019-06-20] MEDS: Sodium Chloride 0.45% 1,000 ML IV SCH (11:45)
--- NOTE | 2019-06-20 21:35 | CON ---
DATE OF TELEMEDICINE CONSULTATION: CHIEF COMPLAINT: Possible stroke and seizure. HISTORY OF PRESENT ILLNESS: The patient is a 64-year-old man who seems to be a little confused and having difficulty expressing himself. Family gave his medical history to me. The patient was confused and they called his son. He went home to find that he was sitting on the couch and kept talking, he could perform sentences but random stuff came out of his mouth. He kept saying he could not breathe and then he got worse and went into a generalized tonic-clonic seizure for about 20 seconds. He was also aphasic and it is unclear whether he is completely back to baseline. Son seems to think he is having some slowness of processing information. PAST MEDICAL HISTORY: Positive for cerebrovascular accident and also history of atrial fibrillation, hemorrhagic stroke, alcoholism, and hypertension. PAST SURGICAL HISTORY: Ventriculostomy repair. ALLERGIES: NO KNOWN DRUG ALLERGIES. SOCIAL HISTORY: He is . He lives with his . He is a former smoker. He quit several years ago and there is history of alcohol use daily. FAMILY HISTORY: His mother of a CVA in her 60s. HOME MEDICATIONS: 1. Eliquis. 2. Aspirin. 3. Lipitor. 4. Coreg. 5. Vitamin B12. 6. Digoxin 0.125 mg. 7. Folic acid. 8. Lasix. 9. Imdur. 10. Lisinopril. REVIEW OF SYSTEMS: Not very reliable due to his confused state and a seizure. PHYSICAL EXAMINATION: GENERAL: Well-built, well-nourished gentleman, who was not able to give the year after some difficulty, keeps saying it was January, oriented to hospital. CHEST: Clear vesicular breathing. CARDIOVASCULAR: S1 and S2 heard. No murmurs. ABDOMEN: Soft. NEUROLOGICAL: Higher intellectual function; he has slowness in processing information, but he is able to get accurate information now after thinking for a minute. Cranial nerves, extraocular movements are normal. Pupils 2 mm bilaterally. Normal sensation of face bilaterally. No facial asymmetry noted. Tongue midline. No atrophy noted. Normal elevation of palate. Normal hearing. Motor exam; bulk normal. Tone normal. Strength 5/5 throughout in upper and lower extremities. Sensory normal to touch bilaterally. Cerebellar, normal [id number] and [id number]. LABORATORY WORKUP: White count 10.7, hemoglobin 12.6, hematocrit 39.5, platelet count 118. Chemistry; sodium 139, potassium 3.9, chloride 105, bicarb 24, BUN 11, creatinine 1.14, glucose 82. Lipid profile was within normal limits. Plasma alcohol was less than 10. His MRI of the brain did not reveal any acute infarct , but it showed a small left white matter lacunar infarction and encephalomalacia in the left parietal lobe and chronic small vessel ischemic disease. A CT angiogram was also reviewed. He has no evidence of focal vessel stenosis. Echocardiogram is pending. He was intubated earlier and he self-extubated while he was in the MRI. At this time, he is not intubated during my visit. IMPRESSION: The patient is a 64-year-old man who comes in with some confusion and aphasia and he was not able to breathe well and felt like he was choking and then went into a generalized tonic-clonic seizure and he was subsequently intubated. So far, his MRI is negative for any acute stroke, but he does have evidence of lacunar infarct and I am not sure whether he had hypoxic events or any other unusual events right before this and he is also alcoholic, has risk factors including hypertension and family history of stroke. At this time, his neurological exam is normal except for processing abilities and this seems to be some residual aphasia. Diagnosis is most consistent with cerebrovascular accident, likely secondary to atrial fibrillation. RECOMMENDATION: The patient was off Eliquis for 2 days after this recent hospitalization. Please continue Eliquis along with aspirin 325 mg for stroke prophylaxis. Since this is his first seizure, I do not think we need to add any antiepileptic at this time. I will follow up the patient again tomorrow. Job ID: [id number] [facility] CENTERAndrade
--- NOTE | 2019-06-21 02:27 | CON ---
DATE OF CONSULTATION: HISTORY OF PRESENT ILLNESS: Jamshid Ortiz is a 64-year-old male who has been seen by Dr. Quintero for some time. Mr. Ortiz has a history of nonischemic cardiomyopathy, however, his ejection fraction has improved. He is very noncompliant with his medications. He was recently discharged 3 or 4 days prior to this admission with a stroke with right-sided weakness and slurred speech. He has chronic atrial fibrillation, but it is felt he is not an anticoagulation candidate due to his drinking and falls. He now is admitted after having a seizure at home. He was brought to the emergency room and given intravenous Cardizem for his atrial fibrillation and his heart rate dropped to the 30s and 40s. He also had problems with desaturating and was ultimately intubated. He has now been extubated. PAST MEDICAL HISTORY: Recent CVA, chronic atrial fibrillation, history of hemorrhagic stroke, which apparently was traumatic leading to craniotomy. History of alcoholism and hypertension. MEDICATIONS: 1. Aspirin 81 daily. 2. Digoxin 0.125 daily. 3. Furosemide 2 tablets b.i.d. 4. Isosorbide 30 daily. 5. Metoprolol 50 XL daily. 6. Potassium chloride 20 mEq daily. ALLERGIES: NONE. SOCIAL HISTORY: He smoked many years ago. He continues to drink 5 or 6 beers per day. REVIEW OF SYSTEMS: Unobtainable due to the language barrier. PHYSICAL EXAMINATION: VITAL SIGNS: Blood pressure 156/103, pulse of 102. HEENT: PERRL. NECK: Supple. CHEST: Clear. CARDIAC: S1 and S2 normal without any S3 or S4. There is a 2/6 holosystolic murmur along the left sternal border. ABDOMEN: Normal bowel sounds without tenderness. EXTREMITIES: Revealed no clubbing, cyanosis, or edema. NEUROLOGICAL: The patient has right-sided weakness. LABORATORY DATA: EKG reveals atrial fibrillation with nonspecific T-wave changes. Hemoglobin 12.6, hematocrit 39.5, white count 10,700, platelets 118,000. PH 7.38, pCO2 40.6, PO2 168.7. Sodium 139, potassium 3.9, chloride 105, carbon dioxide 24, BUN 11, creatinine 1.14. Ammonia less than 12. Cholesterol 91, triglycerides 109, HDL 33, LDL 36. Cardiac enzymes were unremarkable. IMPRESSION: 1. Seizure. 2. Recent left hemispheric cerebrovascular accident with right-sided weakness. 3. Chronic atrial fibrillation, not an anticoagulation candidate. Rate is controlled. 4. Nonischemic cardiomyopathy. 5. Noncompliance. 6. Alcohol abuse. PLAN: The patient will be resumed on his usual medications. His blood pressure started to gradually increase off the metoprolol and his heart rate now is in the low 100s. Job ID: [id number] MTDD
[2019-06-21] MEDS: Sodium Chloride 0.45% 1,000 ML IV SCH (06:17)
[2019-06-21 06:37] LABS: Anion Gap 14 mmol/L (10-20); BUN (Urea Nitrogen) 10 mg/dL (8.4-25.7); Calc. Creatinine Clearance 63 mL/min (70-130); Calcium 9.2 mg/dL (7.8-10.44); Carbon Dioxide 27 mmol/L (23-31); Chloride 103 mmol/L (98-107); Estimated GFR-MDRD 68; Glucose 89 mg/dL (80-115); Magnesium 1.7 mg/dL (1.6-2.6); Phosphorus 3.3 mg/dL (2.3-4.7); Potassium 4.1 mmol/L (3.5-5.1); Sodium 140 mmol/L (136-145)
[2019-06-21] MEDS ORDERED: cloNIDine 0.1 MG TAB PO PRN (08:16)
[2019-06-21] MEDS: Aspirin 300 MG Suppository PR SCH (08:27)
[2019-06-21] MEDS: Metoprolol Tartrate 50 MG TAB PO SCH ×2 (08:29→21:51)
[2019-06-21] MEDS: Digoxin 0.125 MG TAB PO SCH (08:29)
[2019-06-21] MEDS: Famotidine/PF 20 mg/2ml Vial SLOW IVP SCH (08:29)
--- NOTE | 2019-06-21 08:56 | PDOC.PN ---
- Subjective Encounter Start Date: 06/21/19 Encounter Start Time: 08:54 Mr. Ortiz was seen today in follow-up of altered mental status, and seizure. He has self extubated himself yesterday. His main complaint today is pain in his right knee. He says it started a few days ago. He is not sure if he fell. He knowa he is in [place], at [facility]. he thought the month was January. - Objective Resuscitation Status - Order Detail: 06/19/19 17:10 Resuscitation Status Routine Resuscitation Status: FULL: Full Resuscitation MAR Reviewed: Yes Vital Signs & Weight: Vital Signs (12 hours) Temp Pulse 06/21/19 08:29 102 H 06/21/19 07:00 99.9 F H 06/21/19 04:00 98.3 F 06/21/19 00:00 98.3 F Weight Admit Weight 146 lb 2.664 oz Weight 144 lb 2.917 oz Most Recent Monitor Data Heart Rate from ECG 119 NIBP 170/111 NIBP BP-Mean 130 Respiration from ECG 18 SpO2 97 I&O: 06/20/19 06/21/19 06/22/19 06:59 06:59 06:59 Intake Total 369.2 1787.3 200 Output Total 1225 1250 180 Balance -855.8 537.3 20 Result Diagrams: 06/20/19 05:40 06/21/19 06:08 Phys Exam - Physical Examination HEENT: PERRLA Respiratory: no wheezing, no rales, no rhonchi, clear to auscultation bilateral Cardiovascular: RRR, no significant murmur, no rub Gastrointestinal: soft, non-tender, no distention, positive bowel sounds Musculoskeletal: no edema Dx/Plan (1) Seizure Code(s): R56.9 - UNSPECIFIED CONVULSIONS Status: Acute (2) Metabolic encephalopathy Code(s): G93.41 - METABOLIC ENCEPHALOPATHY Status: Acute (3) Hypertension Code(s): I10 - ESSENTIAL (PRIMARY) HYPERTENSION Status: Chronic (4) CVA (cerebral vascular accident) Code(s): I63.9 - CEREBRAL INFARCTION, UNSPECIFIED Status: Chronic (5) Atrial fibrillation Code(s): I48.91 - UNSPECIFIED ATRIAL FIBRILLATION Status: Chronic (6) Chronic systolic heart failure Code(s): I50.22 - CHRONIC SYSTOLIC (CONGESTIVE) HEART FAILURE Status: Chronic - Plan * Metabolic encephalopathy, and altered mental status likely from the seizure. He is much more alert, and his mental processing speed has improved. * Neurology recommendations were noted. Will discontinue antiepileptic medications * Recent CVA- continue aspirin and Eliquis * AFIB- his heart rate has improved- will continue Metoprolol * HTN- blood pressure is elevated- will re-start Imdur, and will add Lisinopril * Right knee pain- likely from trauma- agree with X-ray, and Orthopedic Surgery has been consulted * He is stable to move out of the ICU
[2019-06-21] MEDS: Lisinopril 5 MG TAB PO SCH (09:28)
--- NOTE | 2019-06-21 09:41 | PRG ---
DATE OF SERVICE: 06/21/2019 SERVICE: Pulmonary Medicine. INTERVAL HISTORY: The patient is doing really well from Respiratory standpoint. He is breathing comfortably. There has been no interval change to his condition other than himself extubating in the MRI yesterday. He did not require any aggressive interventions. He was protecting his airway just fine. This morning, I found the patient cool, calm, and collected. He is following some commands. He is moving bilateral upper and lower extremities. His limiting factor for mobilizing is severe knee discomfort, that has been present for a long period of time with swelling in the joints. That being said, he has never sought medical attention for it, and has only been using some Tylenol on an as-needed basis. PHYSICAL EXAMINATION: VITAL SIGNS: Afebrile, pulse 119, blood pressure 170/71, respirations 18, saturation 97% on 3 L nasal cannula. GENERAL: The patient is awake and alert, in no apparent distress. LUNGS: Decent air entry. There is a prolonged expiratory phase. Wheezing and minimal crackles are present. No rhonchi. HEART: Normal rate and regular. ABDOMEN: Soft, nontender, nondistended. Bowel sounds are positive. MUSCULOSKELETAL: No cyanosis or clubbing. There is no pitting in the bilateral lower extremities. He does have an effusion of the right and left knee. The right knee is larger. NEUROLOGIC: He has some weakness in the right upper and lower extremity compared to the left. LABORATORY DATA: Ammonia was 12. Basic metabolic profile, magnesium and phosphorus this morning are completely unremarkable. ASSESSMENT: 1. Seizure with prolonged postictal state, resolved. 2. Recent cerebrovascular accident. 3. Acute hypoxic respiratory failure, improving. 4. Atrial fibrillation with rapid ventricular response. 5. Encephalopathy, resolving. 6. Arthritis. DISCUSSION AND PLAN: Because the patient's knee is swollen preventing him from mobilizing, we will get Ortho involved. We will see whether or not arthrocentesis is indicated. I will get an x-ray of the bilateral knees and also the bilateral hands. EZRA and rheumatoid factor will be collected with tomorrow morning's laboratories. We will have Speech look at the swallow. If he meets criteria, diet will be provided. At this point, he is stable for transition out of the ICU to the Stroke Unit. Seizure precautions will be continued. He has no further requirements for pulmonary or critical care opinion, so when he is transitioned to the floor , I will sign off. Please call with questions. Job ID: [id number] MTDAndrade
--- NOTE | 2019-06-21 10:07 | RAD ---
XR Hand Lt 3 View STANDARD HISTORY: Hand pain COMPARISON: None. FINDINGS: Vascular calcifications are noted within the ulnar artery. There are mild arthritic changes of the hand mainly related to degenerative changes of the first carpometacarpal joint space. There is also radial carpal joint space narrowing and findings that would suggest a chronic triangular fibr ocartilage tear. IMPRESSION: Arthritic changes of the hand mainly related to the wrist region.
--- NOTE | 2019-06-21 10:08 | RAD ---
XR Hand Rt 3 View STANDARD HISTORY: Hand pain. COMPARISON: None. FINDINGS: Vascular calcifications are noted. There is some mild osteoarthritic changes of the distal interphalangeal joints. Also changes of the first carpometacarpal joint space and triscaphe joint. There is marked joint space narrowing between the lunate and distal radius and changes that would sug gest a chronic triangular fibrocartilage tear. IMPRESSION: Osteoarthritic changes of the hand, the changes of the right hand there is slightly more pronounced than the left hand.
--- NOTE | 2019-06-21 10:09 | RAD ---
XR Knee Rt 4 View STANDARD HISTORY: Knee pain COMPARISON: None. FINDINGS: Vascular calcifications are present. Minimal arthritic changes are present with suggestion of some very slight medial compartment narrowing, there is a small joint effusion seen. IMPRESSION: Mild joint effusion. If internal derangement is clinically suspected MRI would be recomme nded.
[2019-06-21] MEDS ORDERED: Lidocaine 1% (PF) 30 ML VIAL ONE (10:15)
--- NOTE | 2019-06-21 11:01 | OP ---
DATE OF PROCEDURE: 06/21/2019 This is Lila Cheema PA-C dictating a report for Poncho Hernandez MD. INDICATIONS FOR PROCEDURES: Right knee pain with knee effusion, concern for septic arthritis. PROCEDURE PERFORMED: Right knee arthrocentesis. DESCRIPTION OF PROCEDURE: The patient was indicated for the above-mentioned procedure. His right knee was prepped with Betadine Swabsticks. Local anesthesia was achieved with approximately 4 mL of 1% lidocaine plain. Then, an 18-gauge needle was inserted into the knee joint space. Approximately, 20 mL of aspirate was obtained. This appeared to be yellow, cloudy in nature. Needle was removed from the joint space, and pressure dressing was applied. The patient tolerated the procedure well. No complications were incurred. Joint aspirate sent for Gram stain and culture, cell count, crystal ID, and synovial fluid analysis. Job ID: [id number] MTDD
--- NOTE | 2019-06-21 11:14 | CON ---
DATE OF CONSULTATION: 06/21/2019 This is Llia Cheema PA-C dictating a report for Poncho Hernandez MD. CONSULTING PHYSICIAN: Dr. Poncho Hernandez. REASON FOR CONSULTATION: Right knee pain with swelling, eval for septic arthritis. HISTORY OF PRESENT ILLNESS: This is a 64-year-old male, who recently suffered a stroke. He is primarily [place]-speaking, however, a remediation bioanalytics consultant was used for our visit today. He is currently in the ICU for further evaluation of cardiac issues including atrial fibrillation as well as his recent stroke. He also was noted to have a seizure disorder. Upon further workup during this admission, the patient was noted to have right knee pain. He has continued to complain of right knee pain over the last day. He states this is increasing. He does not recall any falls or trauma. He does not recall any fever. He denies any redness to the knee. The pain is worse with any sort of movement to the right knee. 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 PAST SURGICAL HISTORY: Ventriculostomy drain with subsequent removal. ALLERGIES: NO KNOWN DRUG ALLERGIES. FAMILY HISTORY: Reviewed and noncontributory. SOCIAL HISTORY: He is . He has a history of smoking. He quit multiple years ago. He also has heavy alcohol use in his recent past. Denies any illicit drug use. REVIEW OF SYSTEMS: A 10-point review of systems conducted and otherwise negative except for stated above. PHYSICAL EXAMINATION: VITAL SIGNS: Including blood pressure of 152/110, pulse of 124, respiratory rate of 18, and temperature 99.9, this was at 7 a.m. this morning. GENERAL: The patient is awake and alert. He is in no apparent distress. When we walked in the room, Physical Therapy was working with him. No family currently at bedside. HEENT: Head is normocephalic and atraumatic. NECK: Supple. Trachea midline. Breathing nonlabored. EXTREMITIES: The lower extremities were evaluated. The left lower extremity was noted to have no significant knee effusion. No erythema noted. No lesions to the skin. The patient does have active range of motion in the left knee. The right lower extremity was then evaluated. There was a 3+ knee effusion palpable. This was tender to palpation. There is no erythema overlying the knee. There are no wounds or rashes visualized. There is no significant swelling to the right lower extremity in the calf or the ankle or foot. Range of motion was then evaluated. The patient is unable to actively hold a straight leg raise secondary to pain in the knee. He is unable to flex or extend the knee. Passive range of motion also concludes pain elicited with slight passive flexion and extension. Distal neurovascular status is intact. LABORATORY DATA: On review of laboratory data, showing CBC with a normal white blood cell count of 10.7, hemoglobin 12.6, hematocrit of 39.5, and platelet count of 118. Normal chemistry panel. RADIOGRAPHIC DATA: Radiographic findings including four views of the right knee obtained today on 06/21/2019, show no evidence for acute findings. No evidence for fracture. There is a mild joint effusion visualized. ASSESSMENT: Right knee effusion with 1-day history of increasing right knee pain. Overall impression is right knee pain with knee effusion. PLAN: At this time, the patient has normal x-rays. We will go ahead and perform a joint aspiration to the right knee and send this fluid off for further laboratory analysis. The patient maybe weightbearing as tolerated. He does not provide much history, but provides a clear-cut answer as to why his knee is swollen at this time, so we will go ahead and go forward with the joint aspiration. Please see separate dictation note for joint aspiration performed. Job ID: [id number]
[2019-06-21 11:22] LABS: Synovial Fluid, Protein 3.6 g/dL (Not Available); Synovial Fluid, Uric Acid 10.1 mg/dL (Not Available)
[2019-06-21 11:43] LABS: BF Color Yellow; Body Fluid Source Synovial Fluid; Clarity Cloudy/Turbid (Clear)
[2019-06-21 11:44] LABS: RBC Count-Automated 51000 /cumm; WBC/NonHematic-Auto 51200 /cumm
[2019-06-21 12:00] LABS: BF Segmented Neutrophils 96 %; Cell Count Non Hematic 1 %; Lymphocytes 3 %
--- NOTE | 2019-06-21 12:42 | PRG ---
DATE OF TELEMEDICINE FOLLOW UP SERVICE: 06/21/2019 CHIEF COMPLAINT: Seizure. INTERVAL HISTORY: The patient has remained stable. No further seizures are noted. He is somewhat confused and his current workup shows white count 10.7, hemoglobin 12.6, hematocrit 39.5, platelets 118. Chemistry: Sodium 140, potassium 4.1, chloride 103, bicarb 27, BUN 10, creatinine 1.09, ammonia less than 12, and cholesterol panel is as noted. PHYSICAL EXAMINATION: VITAL SIGNS: Temperature 98.3, blood pressure 151/102, pulse is 91. GENERAL APPEARANCE: Well-built, well-nourished man, who is comfortable in bed on higher intellectual functions. He is not oriented to time, but oriented to place today. He stated the month was June and year was 1998. NEUROLOGIC: Cranial nerves, no facial asymmetry. Normal extraocular movements. Tongue midline. Motor exam; bulk normal. Tone normal. Strength is decreased in the right lower extremity at 4/5. IMPRESSION: The patient is with history of seizure. It is unclear what the precipitating factors are. He also had being on Eliquis for 2 days and then it was dropped by him because he did not fill this, and he came in with aphasia. His aphasia has resolved. He has already been seen by Dr. Brewer, who felt he was not a candidate for anticoagulation at this time. His neurological examination remained stable. There are no additional seizures noted. RECOMMENDATIONS: Okay to keep him on antiplatelet agents. By the time this dictation was done, I also noticed the patient was seen by KRIS Cheema, and he had right knee arthrocentesis as well for his right knee pain. Call Neurology if you have any further questions. Otherwise, I think the patient is stable from a neuro standpoint. Job ID: [id number] [facility]
[2019-06-21] MEDS: Acetaminophen 325 MG TAB PO PRN ×2 (16:02→21:51)
[2019-06-22 05:24] LABS: Anion Gap 12 mmol/L (10-20); BUN (Urea Nitrogen) 11 mg/dL (8.4-25.7); CRP (Inflammatory) 10.79 mg/dL (= or < 0.5); Calc. Creatinine Clearance 63 mL/min (70-130); Calcium 8.9 mg/dL (7.8-10.44); Carbon Dioxide 27 mmol/L (23-31); Chloride 103 mmol/L (98-107); Estimated GFR-MDRD 69; Glucose 92 mg/dL (80-115); Potassium 3.5 mmol/L (3.5-5.1); Sodium 138 mmol/L (136-145)
[2019-06-22] MEDS: Acetaminophen 325 MG TAB PO PRN ×3 (06:49→20:40)
[2019-06-22] MEDS ORDERED: Aspirin 81 mg Enteric Coated Tablet PO SCH (09:00)
[2019-06-22] MEDS: Digoxin 0.125 MG TAB PO SCH (09:39)
[2019-06-22] MEDS: Isosorbide Dinitrate 20 MG TAB PO SCH (09:40)
[2019-06-22] MEDS: Metoprolol Tartrate 50 MG TAB PO SCH ×2 (09:40→20:40)
[2019-06-22] MEDS: Lisinopril 5 MG TAB PO SCH (09:41)
[2019-06-22] MEDS ORDERED: Furosemide 40 MG/4 ML VIAL SLOW IVP SCH (10:00)
[2019-06-22] MEDS: Aspirin 325 mg Enteric Coated Tablet PO SCH (10:55)
[2019-06-22 11:08] LABS: ANA Symphony (Qualitative) Negative (Negative); ANA Symphony (Quantitative) 0.2 Ratio (< 0.7 Negative); CCP IgG Antibody 1.6 EliAU/mL (<7 Negative); EliA RAS New Method **** NEW METHOD ****; Rheumatoid Factor IgA Antibody 3.5 IU/mL (<14 Negative); Rheumatoid Factor IgM Antibody 2.6 IU/mL (<3.5 Negative); dsDNA IgG Antibody 1.7 IU/mL (<10 Negative)
--- NOTE | 2019-06-22 17:31 | PDOC.PN ---
- Subjective Encounter Start Date: 06/22/19 Encounter Start Time: 17:30 Mr. Ortiz was seen today in follow-up of seizure and knee pain. He continues to complain of pain in his right knee. He is ahving difficulty lifting it as a result. - Objective Resuscitation Status - Order Detail: 06/19/19 17:10 Resuscitation Status Routine Resuscitation Status: FULL: Full Resuscitation MAR Reviewed: Yes Vital Signs & Weight: Vital Signs (12 hours) Temp Pulse Pulse Resp BP BP BP 06/22/19 16:00 98.2 F 86 16 117/74 06/22/19 12:00 97.7 F 76 16 117/86 06/22/19 09:41 84 139/80 06/22/19 09:39 84 06/22/19 09:12 06/22/19 08:31 94 128/90 06/22/19 08:00 97.5 F L 84 18 131/74 Pulse Ox 06/22/19 16:00 92 L 06/22/19 12:00 95 06/22/19 09:41 06/22/19 09:39 06/22/19 09:12 97 06/22/19 08:31 06/22/19 08:00 97 Weight Admit Weight 146 lb 2.664 oz Weight 143 lb 1 oz Most Recent Monitor Data Heart Rate from ECG 91 NIBP 152/110 NIBP BP-Mean 124 Respiration from ECG 18 SpO2 98 I&O: 06/21/19 06/22/19 06/23/19 06:59 06:59 06:59 Intake Total 1787.3 350 Output Total 1250 770 600 Balance 537.3 -420 -600 Result Diagrams: 06/20/19 05:40 06/22/19 04:42 Phys Exam - Physical Examination HEENT: PERRLA Respiratory: no wheezing, no rales, no rhonchi, clear to auscultation bilateral Cardiovascular: RRR, no significant murmur, no rub Gastrointestinal: soft, non-tender, no distention, positive bowel sounds Musculoskeletal: no edema, pulses present + effusion in the right knee, no erythema or warmth Dx/Plan (1) Seizure Code(s): R56.9 - UNSPECIFIED CONVULSIONS Status: Acute (2) Metabolic encephalopathy Code(s): G93.41 - METABOLIC ENCEPHALOPATHY Status: Acute (3) Hypertension Code(s): I10 - ESSENTIAL (PRIMARY) HYPERTENSION Status: Chronic (4) CVA (cerebral vascular accident) Code(s): I63.9 - CEREBRAL INFARCTION, UNSPECIFIED Status: Chronic (5) Atrial fibrillation Code(s): I48.91 - UNSPECIFIED ATRIAL FIBRILLATION Status: Chronic (6) Chronic systolic heart failure Code(s): I50.22 - CHRONIC SYSTOLIC (CONGESTIVE) HEART FAILURE Status: Chronic - Plan * Seizure- following recent CVA- for now no antiepileptic medications * Right knee effusion- in the process of ruling out a septic joint. He had quite a few WBC's senovial fluid- will await the culture results, as well as crystal analysis * HTN- blood pressure- stable * AFIB- his heart rate is stable. Aspirin only due to poor anticoagulation candidate * Chronic systolic heart failure- compensated * Will place a screen for Rehab
--- NOTE | 2019-06-22 19:06 | PDOC.CTH ---
Cardiology Progress Note - Subjective No new issues. CV stable. He remembers having visual hallucinations before his episode. He has not had an alcoholic drink since his last admission. - Objective Vital Signs Temp Pulse Pulse Resp BP BP BP 06/22/19 16:00 98.2 F 86 16 117/74 06/22/19 12:00 97.7 F 76 16 117/86 06/22/19 09:41 84 139/80 06/22/19 09:39 84 06/22/19 09:12 06/22/19 08:31 94 128/90 06/22/19 08:00 97.5 F L 84 18 131/74 Pulse Ox 06/22/19 16:00 92 L 06/22/19 12:00 95 06/22/19 09:41 06/22/19 09:39 06/22/19 09:12 97 06/22/19 08:31 06/22/19 08:00 97 Admit Weight 146 lb 2.664 oz Weight 143 lb 1 oz 06/21/19 06/22/19 06/23/19 06:59 06:59 06:59 Intake Total 1787.3 350 Output Total 1250 770 600 Balance 537.3 -420 -600 - Physical Examination General/Neuro: alert & oriented x3, NAD Neck: no JVD present Lungs: CTA, unlabored respirations Heart: RRR Abdomen: NT/ND Extremities: other: (no edema) - Telemetry Telemetry Rhythm: NSR - Labs Result Diagrams: 06/20/19 05:40 06/22/19 04:42 Troponin/CKMB Troponin I 0.019 ng/mL (< 0.028) 06/19/19 13:12 - Assessment/Plan 1. Seizure 2. Alcohol iuse 3. Recent CVA 4. Non ischemic CM 5. Severely reduced EF at 20-25% 6. Non compliance. PLAN: - May have had an episode of VT that caused his seizure. - It may have also been delirium tremmens however he has no signs or symptoms of withdrawal. - Will recommend he has a lifevest placed before discharge. - Continue other meds. - If he is compliant with treatments in the next few months he may be a candidate for an AICD.
[2019-06-22] MEDS ORDERED: Colchicine 0.6 MG TAB PO SCH (22:45)
[2019-06-23 05:36] LABS: Anion Gap 13 mmol/L (10-20); BUN (Urea Nitrogen) 15 mg/dL (8.4-25.7); Calc. Creatinine Clearance 60 mL/min (70-130); Calcium 9.4 mg/dL (7.8-10.44); Carbon Dioxide 29 mmol/L (23-31); Chloride 101 mmol/L (98-107); Estimated GFR-MDRD 66; Glucose 91 mg/dL (80-115); Potassium 3.4 mmol/L (3.5-5.1); Sodium 140 mmol/L (136-145)
[2019-06-23] MEDS: Digoxin 0.125 MG TAB PO SCH (09:04)
[2019-06-23] MEDS: Isosorbide Dinitrate 20 MG TAB PO SCH (09:05)
[2019-06-23] MEDS: Colchicine 0.6 MG TAB PO SCH ×2 (09:05→20:16)
[2019-06-23] MEDS: Lisinopril 5 MG TAB PO SCH (09:07)
[2019-06-23] MEDS: Acetaminophen 325 MG TAB PO PRN ×2 (09:07→23:04)
[2019-06-23] MEDS: Aspirin 325 mg Enteric Coated Tablet PO SCH (09:07)
[2019-06-23] MEDS: Metoprolol Tartrate 50 MG TAB PO SCH ×2 (09:07→20:16)
[2019-06-23] MEDS ORDERED: Benzonatate 100 MG CAP PO PRN (12:13)
[2019-06-23] MEDS ORDERED: Famotidine 20 MG TAB PO SCH (12:15)
--- NOTE | 2019-06-23 14:38 | PDOC.HOSPP ---
- Subjective Subjective: Mr. Ortiz was seen today in follow-up of recent CVA, and Seizure, as well as Right knee pain. He says the pain in his right knee has improved. He notes some continued weakness in his right leg. - Objective Vital Signs & Weight: Vital Signs (12 hours) Temp Pulse Resp BP BP BP Pulse Ox 06/23/19 11:25 97.5 F L 78 16 122/78 93 L 06/23/19 09:07 90 148/94 H 06/23/19 09:04 90 06/23/19 08:55 93 L 06/23/19 08:00 97.9 F 90 16 148/94 H 93 L 06/23/19 04:00 97.8 F 90 16 141/100 H 94 L Weight Admit Weight 146 lb 2.664 oz Weight 143 lb 1 oz Most Recent Monitor Data Heart Rate from ECG 91 NIBP 152/110 NIBP BP-Mean 124 Respiration from ECG 18 SpO2 98 I&O: 06/22/19 06/23/19 06/24/19 06:59 06:59 06:59 Intake Total 350 Output Total 770 750 150 Balance -420 -750 -150 Result Diagrams: 06/20/19 05:40 06/23/19 04:53 ROS - Review of Systems All systems: All other ROS were reviewed and found negative. - Medication Medications: Active Medications Generic Name Dose Route Start Last Admin Trade Name Freq PRN Reason Stop Dose Admin Acetaminophen 650 mg 06/19/19 18:18 06/21/19 08:19 Tylenol SD 650 mg Q4H PRN Administration Headache/Fever/Mild Pain (1-3) Acetaminophen 650 mg 06/21/19 15:46 06/23/19 09:07 Tylenol PO 650 mg Q6H PRN Administration Moderate Pain (4-6) Aspirin 325 mg 06/22/19 09:00 06/23/19 09:07 Ecotrin PO 325 mg DAILY MACARIO Administration Benzonatate 100 mg 06/23/19 12:13 06/23/19 12:24 Tessalon PO 100 mg Q4H PRN Administration Cough Colchicine 0.6 mg 06/23/19 09:00 06/23/19 09:05 Colchicine PO 0.6 mg BID MACARIO Administration Digoxin 0.125 mg 06/21/19 09:00 06/23/19 09:04 Lanoxin PO 0.125 mg DAILY MACARIO Administration Isosorbide Dinitrate 30 mg 06/22/19 09:00 06/23/19 09:05 Isordil PO 30 mg DAILY MACARIO Administration Lisinopril 5 mg 06/21/19 09:00 06/23/19 09:07 Zestril PO 5 mg DAILY MACARIO Administration Metoprolol Tartrate 50 mg 06/21/19 09:00 06/23/19 09:07 Lopressor PO 50 mg BID MACARIO Administration Sodium Chloride 10 ml 06/19/19 18:18 06/22/19 20:40 Flush - Normal Saline IVF 10 ml PRN PRN Administration Saline Flush - Exam Eye: PERRL, anicteric sclera Heart: RRR, no murmur, no gallops, no rubs Respiratory: CTAB, no wheezes, no rales, no ronchi Gastrointestinal: soft, non-tender, non-distended, normal bowel sounds Extremities: no cyanosis, no clubbing, no edema Hosp A/P (1) Seizure Code(s): R56.9 - UNSPECIFIED CONVULSIONS Status: Acute (2) Metabolic encephalopathy Code(s): G93.41 - METABOLIC ENCEPHALOPATHY Status: Acute (3) Hypertension Code(s): I10 - ESSENTIAL (PRIMARY) HYPERTENSION Status: Chronic (4) CVA (cerebral vascular accident) Code(s): I63.9 - CEREBRAL INFARCTION, UNSPECIFIED Status: Chronic (5) Atrial fibrillation Code(s): I48.91 - UNSPECIFIED ATRIAL FIBRILLATION Status: Chronic (6) Chronic systolic heart failure Code(s): I50.22 - CHRONIC SYSTOLIC (CONGESTIVE) HEART FAILURE Status: Chronic - Plan * Seizure- thought to be due to recent CVA vs. Alcohol withdrawal seizure- no amti-epileptic medication at this time * HTN- blood pressure is stable * Right knee effusion- this is most consistent with gout- urate crystals were noted in the sample- will give a trial of a short course of Colchicine. Will chek a serum uric acid level, and if elevated he can be discharge home on Allopurinol * AFIB- his heart rate is stable- no anticoagulation due to non-compliance * Chronic systolic heart failure- compensated
--- NOTE | 2019-06-23 17:27 | PDOC.CTH ---
Cardiology Progress Note - Subjective No new issues. Feeling well. Back to normal. - Objective Vital Signs Temp Pulse Pulse Pulse Resp BP BP 06/23/19 15:28 97.6 F 84 16 06/23/19 13:40 66 88 135/84 06/23/19 11:25 97.5 F L 78 16 06/23/19 09:07 90 148/94 H 06/23/19 09:04 90 06/23/19 08:55 06/23/19 08:00 97.9 F 90 16 BP BP BP Pulse Ox 06/23/19 15:28 124/75 96 06/23/19 13:40 122/89 06/23/19 11:25 122/78 93 L 06/23/19 09:07 06/23/19 09:04 06/23/19 08:55 93 L 06/23/19 08:00 148/94 H 93 L Admit Weight 146 lb 2.664 oz Weight 143 lb 1 oz 06/22/19 06/23/19 06/24/19 06:59 06:59 06:59 Intake Total 350 Output Total 770 750 150 Balance -420 -750 -150 - Physical Examination General/Neuro: alert & oriented x3, NAD Neck: no JVD present Lungs: CTA, unlabored respirations Heart: RRR Abdomen: NT/ND Extremities: other: (No edema) - Telemetry Telemetry Rhythm: NSR - Labs Result Diagrams: 06/20/19 05:40 06/23/19 04:53 Troponin/CKMB Troponin I 0.019 ng/mL (< 0.028) 06/19/19 13:12 - Assessment/Plan 1. Seizure 2. Alcohol use 3. Recent CVA 4. Non ischemic CM 5. Severely reduced EF at 20-25% 6. Non compliance. PLAN: - May have had an episode of VT that caused his seizure. - Lifevest before discharge. - Continue other meds. - If he is compliant with treatments in the next few months he may be a candidate for an AICD.
[2019-06-23] MEDS: Famotidine 20 MG TAB PO SCH (20:16)
[2019-06-24 05:43] LABS: Anion Gap 12 mmol/L (10-20); BUN (Urea Nitrogen) 14 mg/dL (8.4-25.7); Calc. Creatinine Clearance 78 mL/min (70-130); Calcium 9.2 mg/dL (7.8-10.44); Carbon Dioxide 28 mmol/L (23-31); Chloride 105 mmol/L (98-107); Estimated GFR-MDRD 88; Glucose 96 mg/dL (80-115); Potassium 3.2 mmol/L (3.5-5.1); Sodium 142 mmol/L (136-145)
[2019-06-24] MEDS: Acetaminophen 325 MG TAB PO PRN ×2 (10:14→21:15)
[2019-06-24] MEDS: Colchicine 0.6 MG TAB PO SCH ×2 (10:15→21:16)
[2019-06-24] MEDS: Isosorbide Dinitrate 20 MG TAB PO SCH (10:15)
[2019-06-24] MEDS: Metoprolol Tartrate 50 MG TAB PO SCH ×2 (10:17→21:16)
[2019-06-24] MEDS: Digoxin 0.125 MG TAB PO SCH (10:17)
[2019-06-24] MEDS: Aspirin 325 mg Enteric Coated Tablet PO SCH (10:17)
[2019-06-24] MEDS: Famotidine 20 MG TAB PO SCH ×2 (10:17→21:16)
[2019-06-24] MEDS: Lisinopril 5 MG TAB PO SCH (10:18)
--- NOTE | 2019-06-24 11:16 | PDOC.HOSPP ---
- Subjective Subjective: Patient seen and examined. No new complaints. No overnight events - Objective Vital Signs & Weight: Vital Signs (12 hours) Temp Pulse Pulse Pulse Resp BP BP 06/24/19 10:20 06/24/19 10:18 89 134/97 H 06/24/19 10:17 89 06/24/19 08:35 89 94 134/97 H 06/24/19 07:50 97.5 F L 83 16 06/24/19 04:00 98.7 F 81 16 06/24/19 00:00 97.9 F 68 20 BP BP Pulse Ox 06/24/19 10:20 94 L 06/24/19 10:18 06/24/19 10:17 06/24/19 08:35 156/115 H 06/24/19 07:50 141/90 H 94 L 06/24/19 04:00 127/91 H 98 06/24/19 00:00 131/90 97 Weight Admit Weight 146 lb 2.664 oz Weight 144 lb Most Recent Monitor Data Heart Rate from ECG 91 NIBP 152/110 NIBP BP-Mean 124 Respiration from ECG 18 SpO2 98 I&O: 06/23/19 06/24/19 06/25/19 06:59 06:59 06:59 Intake Total 240 Output Total 750 550 Balance -750 -310 Result Diagrams: 06/20/19 05:40 06/24/19 05:13 Radiology Reviewed by me: Yes EKG Reviewed by me: Yes (afib) ROS - Review of Systems All systems: All other ROS were reviewed and found negative. Eyes: denies: pain, vision change, conjunctivae inflammation, eyelid inflammation, redness, other ENT: denies: ear pain, ear discharge, nose pain, nose discharge, nose congestion , mouth pain, mouth swelling, throat pain, throat swelling, other Respiratory: denies: cough, dry, shortness of breath, hemoptysis, SOB with excertion, pleuritic pain, sputum, wheezing, other Cardiovascular: denies: chest pain, palpitations, orthopnea, paroxysmal noc. dyspnea, edema, light headedness, other Gastrointestinal: denies: nausea, vomitting, abdominal pain, diarrhea, constipation, melena, hematochezia, other Genitourinary: denies: dysuria, frequency, incontinence, hematuria, retention, other Musculoskeletal: denies: neck pain, shoulder pain, arm pain, back pain, hand pain, leg pain, foot pain, other Skin: denies: rash, lesions, dao, bruising, other - Medication Medications: Active Medications Generic Name Dose Route Start Last Admin Trade Name Freq PRN Reason Stop Dose Admin Acetaminophen 650 mg 06/19/19 18:18 06/21/19 08:19 Tylenol [place] 650 mg Q4H PRN Administration Headache/Fever/Mild Pain (1-3) Acetaminophen 650 mg 06/21/19 15:46 06/24/19 10:14 Tylenol PO 650 mg Q6H PRN Administration Moderate Pain (4-6) Aspirin 325 mg 06/22/19 09:00 06/24/19 10:17 Ecotrin PO 325 mg DAILY MACARIO Administration Benzonatate 100 mg 06/23/19 12:13 06/23/19 12:24 Tessalon PO 100 mg Q4H PRN Administration Cough Colchicine 0.6 mg 06/23/19 09:00 06/24/19 10:15 Colchicine PO 0.6 mg BID MACARIO Administration Digoxin 0.125 mg 06/21/19 09:00 06/24/19 10:17 Lanoxin PO 0.125 mg DAILY MACARIO Administration Famotidine 20 mg 06/23/19 21:00 06/24/19 10:17 Pepcid PO 20 mg BID MACARIO Administration Isosorbide Dinitrate 30 mg 06/22/19 09:00 06/24/19 10:15 Isordil PO 30 mg DAILY MACARIO Administration Lisinopril 5 mg 06/21/19 09:00 06/24/19 10:18 Zestril PO 5 mg DAILY MACARIO Administration Metoprolol Tartrate 50 mg 06/21/19 09:00 06/24/19 10:17 Lopressor PO 50 mg BID MACARIO Administration Sodium Chloride 10 ml 06/19/19 18:18 06/22/19 20:40 Flush - Normal Saline IVF 10 ml PRN PRN Administration Saline Flush - Exam NAD, awake alert Eye: PERRL, anicteric sclera ENT: normocephalic atraumatic, no oropharyngeal lesions Neck: supple, no JVD, no Thyromegaly, no lymphadenopathy, no carotid bruit Heart: no murmur, no gallops, irregular Respiratory: CTAB, no wheezes, no rales, no ronchi, no tachypnea Gastrointestinal: soft, non-tender, non-distended, normal bowel sounds Extremities: no cyanosis, no edema Skin: normal turgor, no lesions, no rashes Neurological: CN's grossly intact, normal sensation to touch, no weakness, no focal deficits Musculoskeletal: normal tone, normal strength, no muscle wasting Psychiatric: normal affect, normal behavior Hosp A/P (1) Metabolic encephalopathy Code(s): G93.41 - METABOLIC ENCEPHALOPATHY Status: Resolved (2) Acute gout Code(s): M10.9 - GOUT, UNSPECIFIED Status: Acute (3) Seizure Code(s): R56.9 - UNSPECIFIED CONVULSIONS Status: Acute (4) Atrial fibrillation Code(s): I48.91 - UNSPECIFIED ATRIAL FIBRILLATION Status: Chronic Qualifiers: Atrial fibrillation type: chronic Qualified Code(s): I48.2 - Chronic atrial fibrillation (5) CVA (cerebral vascular accident) Code(s): I63.9 - CEREBRAL INFARCTION, UNSPECIFIED Status: Chronic (6) Chronic systolic heart failure Code(s): I50.22 - CHRONIC SYSTOLIC (CONGESTIVE) HEART FAILURE Status: Chronic (7) Hypertension Code(s): I10 - ESSENTIAL (PRIMARY) HYPERTENSION Status: Chronic - Plan old records reviewed/req, PT/OT, social welfare administrator continue current treatment medication reviewed as below symptomatic treatment await rehab placement pt is not a candidate for chronic anticoagulation
--- NOTE | 2019-06-24 17:35 | PDOC.CTH ---
Cardiology Progress Note - Subjective Doing well. no chest pain. - Objective Vital Signs Temp Pulse Pulse Pulse Resp BP BP 06/24/19 15:49 97.7 F 71 16 06/24/19 11:39 97.5 F L 85 16 06/24/19 10:20 06/24/19 10:18 89 134/97 H 06/24/19 10:17 89 06/24/19 08:35 89 94 134/97 H 06/24/19 07:50 97.5 F L 83 16 BP BP BP Pulse Ox 06/24/19 15:49 139/81 95 06/24/19 11:39 114/79 94 L 06/24/19 10:20 94 L 06/24/19 10:18 06/24/19 10:17 06/24/19 08:35 156/115 H 06/24/19 07:50 141/90 H 94 L Admit Weight 146 lb 2.664 oz Weight 144 lb 06/23/19 06/24/19 06/25/19 06:59 06:59 06:59 Intake Total 240 420 Output Total 750 550 Balance -750 -310 420 - Physical Examination General/Neuro: alert & oriented x3, NAD Neck: no JVD present Lungs: unlabored respirations Heart: other: (irreg irreg) Abdomen: NT/ND Extremities: other: (no edema) - Telemetry Telemetry Rhythm: Afib HR 60's. - Labs Result Diagrams: 06/20/19 05:40 06/24/19 05:13 Troponin/CKMB Troponin I 0.019 ng/mL (< 0.028) 06/19/19 13:12 - Assessment/Plan 1. Seizure 2. Alcohol use 3. Recent CVA 4. Non ischemic CM 5. Severely reduced EF at 20-25% 6. Non compliance. PLAN: - May have had an episode of VT that caused his seizure. - Lifevest before discharge. - If he is compliant with treatments in the next few months he may be a candidate for an AICD. - May discharge home after lifevest set up. - Bruce Sanz
[2019-06-25 06:20] LABS: Anion Gap 9 mmol/L (10-20); BUN (Urea Nitrogen) 11 mg/dL (8.4-25.7); Calc. Creatinine Clearance 68 mL/min (70-130); Calcium 9.4 mg/dL (7.8-10.44); Carbon Dioxide 31 mmol/L (23-31); Chloride 105 mmol/L (98-107); Estimated GFR-MDRD 75; Glucose 99 mg/dL (80-115); Potassium 3.6 mmol/L (3.5-5.1); Sodium 141 mmol/L (136-145)
[2019-06-25] MEDS ORDERED: Allopurinol 100 MG TAB PO SCH (09:00)
[2019-06-25] MEDS: Isosorbide Dinitrate 20 MG TAB PO SCH (09:16)
[2019-06-25] MEDS: Metoprolol Tartrate 50 MG TAB PO SCH (09:16)
[2019-06-25] MEDS: Colchicine 0.6 MG TAB PO SCH (09:16)
[2019-06-25] MEDS: Aspirin 325 mg Enteric Coated Tablet PO SCH (09:17)
[2019-06-25] MEDS: Lisinopril 5 MG TAB PO SCH (09:17)
[2019-06-25] MEDS: Famotidine 20 MG TAB PO SCH (09:17)
[2019-06-25] MEDS: Digoxin 0.125 MG TAB PO SCH (09:20)
--- NOTE | 2019-06-25 11:55 | DIS ---
DATE OF ADMISSION: 06/19/2019 DATE OF DISCHARGE: 06/25/2019 PRIMARY CARE PHYSICIAN: Dr. Huber. DISCHARGE DISPOSITION: Rehab. PRIMARY DISCHARGE DIAGNOSES: 1. Metabolic encephalopathy, resolved. 2. Seizure. 3. Acute gout. SECONDARY DISCHARGE DIAGNOSES: Hypertension, history of cerebrovascular accident, chronic systolic heart failure, chronic atrial fibrillation, medication noncompliance, hypertension, and dyslipidemia. PRIMARY PROCEDURE/OPERATION: None. RADIOLOGICAL INVESTIGATIONS: CT brain, CT [place], abdomen and pelvis CT scan, MRI brain, hand x-ray. SIGNIFICANT LABORATORY DATA: Hemoglobin 12.6. INR 1.2. CRP 10. Creatinine 1. Rheumatoid factor and autoimmune workup came back negative. Synovial fluid culture negative. DISCHARGE MEDICATIONS: 1. Digoxin 0.125 mg p.o. daily. 2. Isordil 30 mg daily. 3. Allopurinol 100 mg daily. 4. Aspirin 325 mg daily. 5. Lipitor 40 mg p.o. daily. 6. Colchicine 0.6 mg b.i.d. 7. Pepcid 20 mg b.i.d. 8. Lasix 20 mg p.o. b.i.d. 9. Lisinopril 5 mg p.o. daily. 10. Metoprolol tartrate 50 mg p.o. b.i.d. CONTRAINDICATION: The patient is not on chronic anticoagulation in view of chronic atrial fibrillation because of his noncompliance as well as his previous history of intracerebral hemorrhage. The patient is on metoprolol tartrate, which was prescribed by Cardiology rather than Toprol-XL because the patient has atrial fibrillation and he needs rate control with shorter acting medication. 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 Dr. Hernandez was following because the patient was admitted in ICU. Dr. Ana Kohli, neurologist, was consulted. Orthopedic physician was following for gout. Cardiology was consulted for his atrial fibrillation. TEST RESULTS PENDING ON DISCHARGE: None. ALLERGIES: NO KNOWN DRUG ALLERGIES. DISCHARGE PLAN: Posthospital, the patient will follow up with primary care physician and Dr. Quintero. The patient will follow up with Neurology as instructed. HOSPITAL COURSE: A 64-year-old male with above-mentioned medical problem, who was admitted by Dr. Clark. Please see her H and P for further details. This patient has chronic atrial fibrillation and he had recently a cardioembolic stroke. This patient was deemed not a good candidate for chronic anticoagulation because of noncompliance. This time, he was admitted by Dr. Clark and the patient was having seizure. He was also having some stroke-like symptoms. This time, MRI brain, CT brain, and CT [place] were done. Neurology was consulted. This patient was not a candidate for tPA, even he is not a candidate for chronic anticoagulation because of his noncompliance and previous hemorrhage history. He was treated with aspirin. He also had acute gout while in the hospital, which was treated with colchicine with significant improvement. This patient has physical deconditioning and that is why he required placement to rehab. This patient has chronic systolic heart failure, but he is not a candidate for AICD because of his noncompliance with the treatment. Once he proves his noncompliance with the treatment, then he needs to follow up with Cardiology group for AICD evaluation. His telemetry showed only atrial fibrillation without any arrhythmias. Neurology was following while in hospital, Cardiology was following while in hospital, and orthopedic physician was following while in hospital. Now, the patient is up to his baseline level, and he is ready for discharge and he is going to rehab. He has approval for rehab. I saw this patient personally at bedside and examined, and I spoke with the patient's son and updated about plan. His examination is unchanged. Paperwork for discharge done and discharge medication reconciliation done. Job ID: [id number]
[2019-06-25 14:03] VITALS: BMI 24.2
--- NOTE | 2019-06-25 19:51 | PDOC.CTH ---
Cardiology Progress Note - Subjective No new issues. Being fitted and educated for his lifevest. - Objective Vital Signs Temp Pulse Pulse Pulse Resp BP BP 06/25/19 17:48 171/108 H 06/25/19 15:34 97.5 F L 86 16 06/25/19 11:53 97.9 F 69 16 06/25/19 09:32 88 73 138/85 06/25/19 09:20 82 06/25/19 09:17 82 146/84 H 06/25/19 08:00 BP BP Pulse Ox 06/25/19 17:48 06/25/19 15:34 176/89 H 98 06/25/19 11:53 151/83 H 96 06/25/19 09:32 144/87 H 06/25/19 09:20 06/25/19 09:17 06/25/19 08:00 96 Admit Weight 146 lb 2.664 oz Weight 145 lb 3.2 oz 06/24/19 06/25/19 06/26/19 06:59 06:59 06:59 Intake Total 240 870 800 Output Total 550 105 Balance -310 765 800 - Physical Examination General/Neuro: alert & oriented x3, NAD Neck: no JVD present Lungs: CTA, unlabored respirations Heart: RRR Abdomen: NT/ND Extremities: other: (no edema) - Telemetry Telemetry Rhythm: NSR - Labs Result Diagrams: 06/20/19 05:40 06/25/19 05:49 Troponin/CKMB Troponin I 0.019 ng/mL (< 0.028) 06/19/19 13:12 - Assessment/Plan 1. Seizure 2. Alcohol use 3. Recent CVA 4. Non ischemic CM 5. Severely reduced EF at 20-25% 6. Non compliance. PLAN: - May have had an episode of VT that caused his seizure.. - If he is compliant with treatments in the next few months he may be a candidate for an AICD. - May discharge home after lifevest set up. - Follow up in the office in 1 month
[2019-06-25 20:05] VITALS: BP 148/105; TEMP 97.9
== END 2019-06-25 20:13 | DRG 56 ==
LOC: EDBD 13:11 → ERS 13:11 → MERGE 15:45 → CCU 15:45 → 2SE 06-21 09:12
PROVIDERS: ADMIT Internal Medicine; ATTEND Internal Medicine
PROC: 5A1945Z Respiratory Ventilation, 24-96 Consecutive Hours (ICD-10-PCS; principal; 2019-06-19)
PROC: 0BH17EZ Insertion of Endotracheal Airway into Trachea, Via Natural or Artificial Opening (ICD-10-PCS; 2019-06-19)
PROC: 0S9C3ZZ Drainage of Right Knee Joint, Percutaneous Approach (ICD-10-PCS; 2019-06-21)
DX: I69.398 Other sequelae of cerebral infarction (principal); J96.01 Acute respiratory failure with hypoxia; G93.41 Metabolic encephalopathy; I50.22 Chronic systolic (congestive) heart failure; I42.8 Other cardiomyopathies; R56.9 Unspecified convulsions; I11.0 Hypertensive heart disease with heart failure; I48.2 Chronic atrial fibrillation; F10.10 Alcohol abuse, uncomplicated; M19.90 Unspecified osteoarthritis, unspecified site; M10.061 Idiopathic gout, right knee; E78.5 Hyperlipidemia, unspecified; R53.81 Other malaise; Z87.891 Personal history of nicotine dependence; Z79.82 Long term (current) use of aspirin; Z79.01 Long term (current) use of anticoagulants; Z91.14 Patient's other noncompliance with medication regimen
CPT/HCPCS: 31500; 36415; 36416; 51702; 70450; 70496; 70498; 70551; 71045; 74176; 80048; 80053; 80061; 80307; 82140; 82550; 82805; 82945; 83520; 83735; 84100; 84146; 84157; 84484; 84550; 84560; 85025; 85060; 85610; 85652; 85730; 86038; 86140; 86200; 86225; 87070; 87205; 89051; 89060; 93005; 94002; 94003; 94760; 96361; 96374; 96375; 96376; J0171; J0461; J1940; J1953; J2001; J2060; J2405; J2704; J2997; J3010; J3490; Q9966; S0028

== ENCOUNTER 2019-07-31 17:02 | Inpatient (IN) | payer MEDICARE ==
[2019-07-31 17:31] LABS: #Eosinphils 0.6 thou/uL (0.0-0.7); #Lymphocytes 2.4 thou/uL (1.20-3.40); #Monocytes 0.6 thou/uL (0.11-0.59); #Neutrophils 3.6 thou/uL (1.40-6.50); %Basophils 0.2 % (0.0-1.0); %Eosinophils 8.7 % (0.0-10.0); %Monocytes 8.3 % (0.0-10.0); %Neutrophils 49.9 % (42.0-75.0); Hemoglobin 13.6 g/dL (14.0-18.0); Mean Corpuscular HGB CONC 33.7 g/dL (32.0-36.0); Mean Corpuscular Hemoglobin 31.3 pg (27.0-31.0); Mean Corpuscular Volume 92.9 fL (78.0-98.0); Mean Platelet Volume 11.2 fL (7.4-10.4); Platelet Count 108 thou/uL (130-400); RBC Distribution Width 12.4 % (11.5-14.5); Red Blood Cell (RBC) Count 4.36 mill/uL (4.70-6.10); White Blood Cell (WBC) Count 7.3 thou/uL (4.8-10.8)
--- NOTE | 2019-07-31 17:41 | RAD ---
Chest AP view INDICATION: Altered mental status COMPARISON: June 13, 2019 FINDINGS: Lungs:Chronic lung changes are similar Cardiac silhouette:Mild cardiomegaly is stable Pulmonary vasculature:Normal Pleural spaces:No pleural effusion or pneumothorax is demonstrated. Upper abdomen:No abnormality seen. Osseous structures: No acute osseous abnormality. Additional findings:None. IMPRESSION: Stable chronic findings. No definite acute process demonstrated.
[2019-07-31 17:43] LABS: Digoxin 0.87 ng/mL (0.8-2.0)
[2019-07-31 17:45] LABS: Acetaminophen Less than 6.0 mcg/mL (10.0-30.0); Alcohol Less than 10 mg/dL (Less than 10); CK (CPK) 105 U/L (30-200); Salicylate Less than 8.0 mg/dL (15.0-30.0)
[2019-07-31 17:52] LABS: ALT (SGPT) 19 U/L (8-55); AST (SGOT) 27 U/L (5-34); Alkaline Phosphatase 89 U/L (40-150); Anion Gap 14 mmol/L (10-20); BUN (Urea Nitrogen) 9 mg/dL (8.4-25.7); Bilirubin, Total 0.5 mg/dL (0.2-1.2); Calc. Creatinine Clearance 0 mL/min (70-130); Calcium 8.8 mg/dL (7.8-10.44); Carbon Dioxide 26 mmol/L (23-31); Chloride 107 mmol/L (98-107); Estimated GFR-MDRD 57; Glucose 88 mg/dL (80-115); Potassium 4.1 mmol/L (3.5-5.1); Sodium 143 mmol/L (136-145)
--- NOTE | 2019-07-31 17:58 | CT ---
CT BRAIN WITHOUT CONTRAST: 07/31/19 HISTORY: Altered mental status. COMPARISON: 06/13/19. There are old infarcts in the right frontal, left centrum semiovale, left posterior parietal lobe and the right cerebellum. The ventricular size is appropriate and the basilar cisterns patent. No evidence of acute infarct, hemorrhage, midline shift, or abnormal extra-axial fluid collections ar e seen. The bony calvarium is intact. There is an old fracture of the left lamina papyracea. IMPRESSION: No CT evidence of acute intracranial process. Discussed over the telephone with ER physician, Dr. Moser at 5:31 p.m. POS: [facility]
[2019-07-31] MEDS ORDERED: Lorazepam 2 MG/ML VIAL ONE (18:10)
[2019-07-31 18:11] LABS: Bilirubin Negative (Negative); Blood, Urine Negative (Negative); Clarity Clear (Clear); Glucose, Urine (Dipstick) Normal (Negative); Leukocyte Negative Leu/uL (Negative); Nitrite Negative (Negative); Protein, Urine (Dipstick) 10 mg/dL (Neg-Trace); Urobilinogen Normal mg/dL (Less than 2)
[2019-07-31 18:19] LABS: Actual Bicarbonate (HCO3a) 29.3 mEq/L (22-28); Analyzer IN Cardio ER; Base Excess (BEa) -2.1 mEq/L (-2.0 to +3.0); Calcium, Ionized 1.21 mmol/L (1.12-1.30); Carboxyhemoglobin (COHb) 0.3 gm% (0.0-3.0); Hemoglobin (Hb) 14.7 g/dL (14.0-18.0); O2 Tension (PaO2) 163.3 mmHg (> 80.0)
[2019-07-31 18:31] LABS: Amphetamine Not Detected (NotDetected); Barbiturates Screen Not Detected (NotDetected); Benzodiazepine Screen Not Detected (NotDetected); Cocaine Metabolite Screen Not Detected (NotDetected); Medtox Control Line Valid? VALID (VALID); Medtox Reader # READER 4; Methadone Not Detected (NotDetected); Methamphetamine Not Detected (NotDetected); Opiate Screen Not Detected (NotDetected); Oxycodone Screen Not Detected (NotDetected); Phencyclidine (PCP) Not Detected (NotDetected); THC/Cannabinoid Screen Not Detected (NotDetected); Tricyclic Screen Not Detected (NotDetected)
[2019-07-31] MEDS ORDERED: Diltiazem 125 MG/25 ML ONE ×2 (19:18→19:19)
[2019-07-31 19:38] LABS: Actual Bicarbonate (HCO3a) 30.9 mEq/L (22-28); Analyzer IN Cardio ER; Base Excess (BEa) -0.5 mEq/L (-2.0 to +3.0); Carboxyhemoglobin (COHb) 0.3 gm% (0.0-3.0); Hemoglobin (Hb) 14.8 g/dL (14.0-18.0); O2 Tension (PaO2) 150.5 mmHg (> 80.0); Potassium - ABG Lab 4.53 mmol/L (3.70-5.30)
[2019-07-31] MEDS ORDERED: Succinylcholine Chloride 20 MG/ML 10 ml SYRINGE FS ONE (19:46)
[2019-07-31] MEDS ORDERED: Propofol 1,000 MG/100 ML VIAL IV ONE (19:51)
[2019-07-31] MEDS ORDERED: Fentanyl 100 MCG/2 ML VIAL ONE ×2 (20:14→20:44)
[2019-07-31 20:36] LABS: CO2 Tension 85.4 mmHg (35.0-45.0); Puncture Site LRA; pH, Arterial 7.15 (7.35-7.45)
[2019-07-31 20:37] LABS: pH, Arterial 7.17 (7.35-7.45)
[2019-07-31 20:38] LABS: Puncture Site LRA
--- NOTE | 2019-07-31 20:40 | RAD ---
PORTABLE CHEST ONE VIEW: 07/31/19 at 7:49 p.m. HISTORY: Respiratory failure. FINDINGS/IMPRESSION: Comparison made with earlier exam of 5:15 p.m. There has been interval placement of an endotracheal tube with tip just below the level of the clavic ular heads. A nasogastric tube can be traced into the stomach. No pneumothoraces, lobar consolidation , or large effusions are seen. POS: [facility]
[2019-07-31] MEDS ORDERED: fentaNYL Citrate/PF 2,000 MCG in Sodium Chloride 0.9% 60 ML IV SCH ×2 (20:48→22:45)
[2019-07-31] MEDS ORDERED: Atropine Sulfate 1 mg/10 ml Syringe ONE (21:03)
[2019-07-31 21:05] LABS: Actual Bicarbonate (HCO3a) 23.9 mEq/L (22-28); Analyzer IN Cardio ER; Base Excess (BEa) -0.6 mEq/L (-2.0 to +3.0); CO2 Tension 38.8 mmHg (35.0-45.0); Calcium, Ionized 1.09 mmol/L (1.12-1.30); Carboxyhemoglobin (COHb) 0.2 gm% (0.0-3.0); Hemoglobin (Hb) 14.2 g/dL (14.0-18.0); O2 Tension (PaO2) 377.2 mmHg (> 80.0); Potassium - ABG Lab 5.26 mmol/L (3.70-5.30); pH, Arterial 7.41 (7.35-7.45)
[2019-07-31 21:12] LABS: Puncture Site LBA
[2019-07-31] MEDS ORDERED: Aspirin 300 MG Suppository ONE (21:22)
[2019-07-31] MEDS ORDERED: Fentanyl BOLUS 250 ML IVPB PRN (22:45)
[2019-07-31] MEDS ORDERED: Morphine 2 MG/ML SYRINGE SLOW IVP PRN (22:45)
[2019-07-31] MEDS ORDERED: Propofol BOLUS 1,000 MG/100 ML VIAL IV PRN (22:45)
[2019-07-31] MEDS ORDERED: Acetaminophen 650 MG Suppository PR PRN (22:53)
[2019-07-31] MEDS ORDERED: hydrALAZINE 20 MG/ML VIAL SLOW IVP PRN (22:53)
[2019-07-31] MEDS ORDERED: Lorazepam 2 MG/ML VIAL SLOW IVP PRN (22:53)
[2019-07-31] MEDS ORDERED: Ventilator Sedation Protocol 1 EACH FS ONE (22:53)
[2019-08-01] MEDS: Sodium Chloride 0.9% 1,000 ML IV SCH ×3 (00:20→20:42)
--- NOTE | 2019-08-01 02:22 | HP ---
PRIMARY CARE PHYSICIAN: Saira Huber MD. CHIEF COMPLAINT: Found in car unresponsive. HISTORY OF PRESENT ILLNESS: Mr. Ortiz is a pleasant 64-year-old gentleman who is currently intubated and therefore, I am unable to get any history. Currently, there is no family at the bedside. I remember seeing Mr. Ortiz about a month ago with actually very similar presentation. He apparently was found on the side of the road in his car. The car was off. He was located by police officers. When they approached him, they found that he was incoherent and the ignition was not running. EMS was called and by the time they responded, he became diaphoretic and less responsive. He was brought to the emergency room where he was found to be hypoxic and acidotic. He was initially tried on BiPAP. He was also found to be in atrial fibrillation with rapid ventricular response and was given 2 doses of IV Cardizem. This brought his heart rate down sometimes into the low 40s or 50s. He did not improve well with his oxygenation on BiPAP and then was electively intubated. CT scan of the brain was done, which was negative and he is being admitted to the ICU for possible stroke. Also possible seizure given his prolactin level was also elevated. REVIEW OF SYSTEMS: This is unobtainable as the patient is intubated. PAST MEDICAL HISTORY: Significant for recent cerebrovascular accident with right-sided weakness; history of chronic atrial fibrillation, not on anticoagulation, primarily due to noncompliance; history of hemorrhagic stroke; history of seizure disorder; also history of chronic systolic heart failure, recently fitted for a LifeVest on the past admission. PAST SURGICAL HISTORY: He has had a ventriculostomy. ALLERGIES: NO KNOWN DRUG ALLERGIES. SOCIAL HISTORY: He is . He is a former smoker. Unknown alcohol use or drug use. FAMILY HISTORY: Unknown. MEDICATIONS: These are taken from his most recent discharge summary. It is unknown whether or not he is actually taking these, but includes; 1. Digoxin 0.125 mg daily. 2. Isordil 30 mg daily. 3. Allopurinol 100 mg daily. 4. Aspirin 325 mg daily. 5. Lipitor 40 mg a day. 6. Colchicine 0.6 mg twice daily. 7. Pepcid 20 mg twice a day. 8. Lasix 20 mg twice daily. 9. Lisinopril 5 mg daily. 10. Metoprolol 50 mg twice a day. PHYSICAL EXAMINATION: GENERAL: He is intubated. He is well developed, well nourished, unable to assess orientation. VITAL SIGNS: The blood pressure is 138/60, heart rate is in the 90s, respiratory rate of 20. He is afebrile. HEENT: Pupils are pinpoint and sluggish. They are equal. Throat; no erythema, no exudates. NECK: No adenopathy, no bruits. LUNGS: Clear. There is no wheezing, no rales, no rhonchi. CARDIOVASCULAR: His heart rate is irregular. The rate is normal. There is no murmurs, clicks, or rubs. ABDOMEN: Soft, nontender, and nondistended. Positive for bowel sounds. No rebound or guarding. EXTREMITIES: There is no edema. No calf tenderness that we can tell. No joint crepitus. NEUROLOGIC: Difficult to assess as he is intubated and was given sedation. SKIN AND INTEGUMENT: No skin changes. No rashes. LABORATORY DATA AND IMAGING: EKG is atrial fibrillation, frequent PVCs, the rates in the 90s, this is by my reading. CBC; white blood cell count 7.3, hemoglobin 13.6, hematocrit is 40.5, and platelet count is 108. Chemistry; sodium 143, potassium 4.1, chloride is 107, CO2 is 26, BUN of 9, creatinine 1.27, glucose is 88. Prolactin level was 20.73. Urine drug screen is negative. ASSESSMENT: 1. This is a 64-year-old gentleman who has a history of previous stroke, also has a history of previous seizure, who was found unresponsive in his car. There was a question of noncompliance in his past history and he also has a history of atrial fibrillation. It is possible he may have suffered another stroke or possibly seizure. He will be admitted to the ICU. We will continue ventilator management. Consult Neurology in the a.m. Likely need to repeat an MRI to see if there are any new areas of infarct. 2. [address] him on Ativan p.r.n. as well as seizure precautions. We will hold off on any antiepileptic medicine at this time pending Neurology evaluation. 3. Chronic systolic heart failure. He was fitted for a LifeVest, it is unclear whether or not he has been wearing it. He did not appear to have it on today. Currently, the heart failure is compensated and it is possible he could have suffered an arrhythmia, which led to this event as well. 4. Chronic atrial fibrillation, currently his heart rate is controlled. We will monitor this closely and should he have difficulty with managing his heart rate, then consider Cardiology consultation. Job ID: [id number]
[2019-08-01 05:28] LABS: #Eosinphils 0.1 thou/uL (0.0-0.7); #Lymphocytes 2.9 thou/uL (1.20-3.40); #Monocytes 0.8 thou/uL (0.11-0.59); #Neutrophils 6.1 thou/uL (1.40-6.50); %Basophils 0.4 % (0.0-1.0); %Eosinophils 0.9 % (0.0-10.0); %Lymphocytes 28.9 % (21.0-51.0); %Monocytes 8.3 % (0.0-10.0); %Neutrophils 61.5 % (42.0-75.0); Hemoglobin 12.7 g/dL (14.0-18.0); Mean Corpuscular HGB CONC 34.7 g/dL (32.0-36.0); Mean Corpuscular Hemoglobin 31.5 pg (27.0-31.0); Mean Corpuscular Volume 90.9 fL (78.0-98.0); Mean Platelet Volume 11.3 fL (7.4-10.4); Platelet Count 104 thou/uL (130-400); RBC Distribution Width 12.5 % (11.5-14.5); Red Blood Cell (RBC) Count 4.01 mill/uL (4.70-6.10)
[2019-08-01 05:43] LABS: Anion Gap 13 mmol/L (10-20); BUN (Urea Nitrogen) 10 mg/dL (8.4-25.7); Calc. Creatinine Clearance 76 mL/min (70-130); Carbon Dioxide 24 mmol/L (23-31); Chloride 108 mmol/L (98-107); Estimated GFR-MDRD 78; Glucose 99 mg/dL (80-115); Potassium 3.5 mmol/L (3.5-5.1); Sodium 141 mmol/L (136-145)
[2019-08-01 06:58] LABS: Actual Bicarbonate (HCO3a) 24.4 mEq/L (22-28); CO2 Tension 28.3 mmHg (35.0-45.0); Calcium, Ionized 1.09 mmol/L (1.12-1.30); Carboxyhemoglobin (COHb) 0.5 gm% (0.0-3.0); Hemoglobin (Hb) 12.8 g/dL (14.0-18.0); O2 Tension (PaO2) 173.4 mmHg (> 80.0); Potassium - ABG Lab 3.51 mmol/L (3.70-5.30)
[2019-08-01 07:01] LABS: pH, Arterial 7.55 (7.35-7.45)
[2019-08-01 07:02] LABS: ALV-art Gradient 76.425 (0-20); Puncture Site RR
[2019-08-01] MEDS: Aspirin 300 MG Suppository PR SCH (08:36)
[2019-08-01] MEDS: Famotidine/PF 20 mg/2ml Vial SLOW IVP SCH ×2 (08:36→20:32)
[2019-08-01] MEDS: Heparin 5,000 UNITS/ML VIAL SC SCH ×3 (08:36→23:50)
[2019-08-01] MEDS ORDERED: Prevnar 13-Val Conj/PF 0.5 ML SYRINGE IM ONE (09:00)
[2019-08-01] MEDS: Propofol 1,000 MG/100 ML VIAL IV PRN ×2 (10:34→22:48)
--- NOTE | 2019-08-01 10:43 | PDOC.HOSPP ---
- Subjective Encounter Date: 08/01/19 Encounter Time: 10:41 Subjective: 64 y/o male with chronic systolic and diastolic heart failure, NICM with EF of 20-25, seizure disorder, recent CVA amongst others admitted after he was found unresponsive in his parked car reminiscent of recent admission when he was found to have acute CVA. Patient is intubated but awake. - Objective Vital Signs & Weight: Vital Signs (12 hours) Temp Pulse Resp BP Pulse Ox 08/01/19 10:14 85 138/85 08/01/19 10:00 13 08/01/19 08:00 11 L 100 08/01/19 07:10 84 141/74 H 08/01/19 07:00 99.0 F 08/01/19 06:00 99.1 F 16 08/01/19 04:00 98.3 F 16 08/01/19 03:08 92 137/86 08/01/19 02:00 16 08/01/19 00:25 84 08/01/19 00:00 98.5 F 16 Weight Admit Weight 156 lb 1.396 oz Weight 156 lb 1.396 oz Most Recent Monitor Data Heart Rate from ECG 72 NIBP 138/85 NIBP BP-Mean 102 Respiration from ECG 28 SpO2 100 I&O: 07/31/19 08/01/19 08/02/19 06:59 06:59 06:59 Intake Total 562.7 Output Total 590 85 Balance -27.3 -85 Result Diagrams: 08/01/19 05:04 08/01/19 05:04 Additional Labs: Accuchecks 07/31/19 17:22 POC Glucose 88 Hospitalist ROS - Medication Medications: Active Medications Generic Name Dose Route Start Last Admin Trade Name Corbyq PRN Reason Stop Dose Admin Aspirin 300 mg 08/01/19 09:00 08/01/19 08:36 Aspirin MT 300 mg DAILY MACARIO Administration Famotidine 20 mg 08/01/19 09:00 08/01/19 08:36 Pepcid SLOW IVP 20 mg Q12HR MACARIO Administration Heparin Sodium (Porcine) 5,000 units 08/01/19 09:00 08/01/19 08:36 Heparin SC 5,000 units TID MACARIO Administration Sodium Chloride 1,000 mls @ 75 mls/hr 07/31/19 22:53 08/01/19 00:20 Normal Saline 0.9% IV Not Given .[id number] MACARIO Propofol 1,000 mg 07/31/19 22:45 08/01/19 10:34 Diprivan IV 08/30/19 22:45 1,000 mg INF PRN Administration TO ACHIEVE GOAL RASS Protocol - Exam General Appearance: awake alert Eye: anicteric sclera ENT: normocephalic atraumatic ENT - other findings: ET tube in place Neck: supple Heart: irregular Respiratory - other findings: Ventilator transmitted sound heart in all zones Gastrointestinal: soft, non-tender, non-distended, normal bowel sounds Extremities: no edema Neurological: CN's grossly intact Neurological - other findings: moving all limbs Hosp A/P (1) Acute respiratory failure with hypoxia and hypercapnia Code(s): J96.01 - ACUTE RESPIRATORY FAILURE WITH HYPOXIA; J96.02 - ACUTE RESPIRATORY FAILURE WITH HYPERCAPNIA Status: Acute (2) Unresponsiveness Status: Acute (3) Acute encephalopathy Code(s): G93.40 - ENCEPHALOPATHY, UNSPECIFIED Status: Acute (4) Gout Code(s): M10.9 - GOUT, UNSPECIFIED Status: Acute (5) Seizure Code(s): R56.9 - UNSPECIFIED CONVULSIONS Status: Acute (6) Atrial fibrillation Code(s): I48.91 - UNSPECIFIED ATRIAL FIBRILLATION Status: Chronic Qualifiers: Atrial fibrillation type: chronic Qualified Code(s): I48.2 - Chronic atrial fibrillation (7) Chronic combined systolic and diastolic CHF (congestive heart failure) Code(s): I50.42 - CHRONIC COMBINED SYSTOLIC AND DIASTOLIC HRT FAIL Status: Chronic (8) Hypertension Code(s): I10 - ESSENTIAL (PRIMARY) HYPERTENSION Status: Chronic (9) Moderate mitral regurgitation Code(s): I34.0 - NONRHEUMATIC MITRAL (VALVE) INSUFFICIENCY Status: Chronic (10) Non-ischemic cardiomyopathy Code(s): I42.8 - OTHER CARDIOMYOPATHIES Status: Chronic (11) Pulmonary hypertension Code(s): I27.20 - PULMONARY HYPERTENSION, UNSPECIFIED Status: Chronic (12) Severe tricuspid regurgitation Code(s): I07.1 - RHEUMATIC TRICUSPID INSUFFICIENCY Status: Chronic (13) Non compliance with medical treatment Code(s): Z91.19 - PATIENT'S NONCOMPLIANCE W OTH MEDICAL TREATMENT AND REGIMEN Status: Acute - Plan Continue supportive care. Review MRI brain when available to check for new CVA. Continue antiepileptics. Will discuss with patient once extubated hospefully later today
--- NOTE | 2019-08-01 12:45 | MRI ---
Brain MRI without contrast: 08/01/2019 COMPARISON: 06/13/2019 HISTORY: Seizure, possible stroke, altered mental status TECHNIQUE: Multiplanar multisequence MR imaging of the brain provided without contrast. FINDINGS: The diffusion weighted imaging demonstrates no evidence for acute infarction. The gradient echo imaging demonstrates multiple small foci of blooming artifact in the region of the basal ganglia on the right, stable, suggesting areas of prior hemorrhage or calcification. There is mild degenerative change at the atlantoaxial interspace. Regional bone marrow signal intensi ty is within normal limits. There are numerous foci of increased T2 signal within the deep and periventricular white matter, evid ence of small vessel disease and multiple prior infarctions. Small old infarction noted within the posterior aspect of the cerebellum on the right. There is evidence of a prior left temporal occipital infarction as well. Imaged paranasal sinuses/mastoid air cells demonstrate partial opacification of bilateral ethmoid air cells and of right mastoid air cells. IMPRESSION: Chronic findings as above. No evidence for acute infarction.
--- NOTE | 2019-08-01 12:47 | CON ---
DATE OF CONSULTATION: HISTORY OF PRESENT ILLNESS: Mr. Ortiz cannot provide history as he is intubated. This is a pulmonary consult. Angel is a 64-year-old male, who was found down and was intubated. Apparently, this has happened in the past. He was actually found on the side of the road in his car. He was initially treated with BiPAP in the emergency room and subsequently intubated. There is a workup in progress, but it is believed that possibly this maybe seizure-mediated. PAST MEDICAL HISTORY: Remarkable for, 1. CVA, right-sided weakness. 2. History of atrial fibrillation. 3. History of medical noncompliance with anticoagulation. 4. History of seizure disorder. 5. History of heart failure He declined LifeVest in the past. 6. History of ventriculostomy. 7. He is a former smoker, non-alcohol user, nondrug user. According to old records, there were no drug allergies reported. REVIEW OF SYSTEMS: Not obtainable. FAMILY HISTORY: According to old records, it is negative for lung disease in early age. PHYSICAL EXAMINATION: VITAL SIGNS: Blood pressure 138/85, heart rate 85, respiratory rates in the teens, minute volume is 8 L a minute. EXTREMITIES: He moves all extremities spontaneously per the nurses. HEENT: Pupils are equal. Sclerae are anicteric. NECK: Supple. No lymphadenopathy. LUNGS: Clear. HEART: Regular rhythm. S1 and S2 are normal. ABDOMEN: Soft and nontender. EXTREMITIES: Without clubbing, cyanosis, or edema. IMAGING STUDIES: Chest x-ray shows no alveolar infiltrates or mass lesions. LABORATORY DATA: White count 10, hemoglobin 12.7, platelets 104,000. Electrolytes are unremarkable. IMPRESSION: Medical noncompliance with a possible seizure, being found on the side of the road in his vehicle with vehicle turned off. An MRI is scheduled. He was in the hospital approximately a month ago, where he had a CT of his brain , a CT of [place], angiogram, abdomen and pelvis CT, and MRI of his brain, all of which were nonrevealing. He will remain mechanically ventilated. We will decrease his ventilatory rate. He will have his MRI, and then, hopefully if he wakes up and follows commands in the morning and tolerates a decreased ventilatory support, we will extubate him. CRITICAL CARE TIME: 35 minutes. Job ID: [id number] [facility]
--- NOTE | 2019-08-01 15:50 | CON ---
DATE OF TELEMEDICINE CONSULTATION: 08/01/2019 GREGG NANCE CHIEF COMPLAINT: Seizure. HISTORY OF PRESENT ILLNESS: The patient is not awake, therefore history was obtained from the chart. The patient apparently was driving and he was located by police officers on the side of the road and he was incoherent, ignition was not running, and he was diaphoretic and became less responsive. He was found to be hypoxic and acidotic in the ER. Initially, he was on BiPAP, and when he went into atrial fibrillation, he was given IV Cardizem and intubated. His heart rate went down to low 40s or 50s, and he was admitted subsequently and they thought he might have had a seizure and his prolactin level was up. Therefore, he has been on propofol. No antiepileptics were given. PREVIOUS MEDICAL HISTORY: CVA, atrial fibrillation, history of seizure disorder , noncompliance with anticoagulation, congestive heart failure, ventriculostomy. FAMILY HISTORY: Negative for any cardiac issues or seizures. PAST SURGICAL HISTORY: Positive for ventriculostomy. ALLERGIES: NO KNOWN DRUG ALLERGIES. SOCIAL HISTORY: He is . Former smoker. No alcohol or drug use. MEDICATIONS: Recently in the hospital, he was on; 1. Digoxin. 2. Isordil. 3. Allopurinol. 4. Aspirin. 5. Lipitor. 6. Colchicine. 7. Pepcid. 8. Lasix. 9. Lisinopril. 10. Metoprolol. REVIEW OF SYSTEMS: Unobtainable. LABORATORY DATA: Laboratory workup; white count 10, hemoglobin 12.7, hematocrit 36.5, platelet count 104. Chemistry; sodium 143, potassium 3.5, chloride 108, bicarbonate 24, BUN 10, creatinine 0.97. Prolactin 20.73. Urine negative. Urine tox screen was also negative. PHYSICAL EXAMINATION: VITAL SIGNS: His temperature was 98.5, blood pressure 133/89, respiratory rate 12, heart rate is 78. GENERAL APPEARANCE: The patient is intubated, but alert, tries to open his eyes and look around and obey commands. CHEST: Clear vesicular breathing. CARDIOVASCULAR: S1 and S2 heard. ABDOMEN: Soft. NEUROLOGIC: Higher intellectual functions. He tries to follow commands, but fails. He is looking around. Cranial nerves pupils sluggish 2 mm bilaterally. No facial asymmetry noted. Motor exam; bulk normal, tone normal. Strength, difficult to assess. He has some movement of both upper and lower extremities distally, not proximal and the movement is not purposeful. Deep tendon reflexes were absent. Cerebellar and sensory, unable to assess. IMPRESSION: The patient is a 64-year-old man with cardiac issues as well as possible seizures. It is unclear why he was found by the side of the road with a car when he has a seizure disorder, which was diagnosed during his last admission in June. At this time, he is not on any antiepileptic agents. RECOMMENDATIONS: I will go ahead and start him on Keppra 500 mg b.i.d. and his MRI from today did not show any acute infarct. I will continue to follow this patient with you. Job ID: [id number] [id number]
[2019-08-01] MEDS: Lorazepam 2 MG/ML VIAL SLOW IVP PRN (23:15)
[2019-08-02] MEDS: Sodium Chloride 0.9% 1,000 ML IV SCH ×2 (04:45→13:02)
[2019-08-02 07:45] LABS: Albumin 3.5 g/dL (3.4-4.8); Anion Gap 13 mmol/L (10-20); BUN (Urea Nitrogen) 9 mg/dL (8.4-25.7); BUN/Creatinine Ratio 8.82; Calc. Creatinine Clearance 74 mL/min (70-130); Calcium 8.9 mg/dL (7.8-10.44); Carbon Dioxide 24 mmol/L (23-31); Chloride 107 mmol/L (98-107); Estimated GFR-MDRD 73; Glucose 95 mg/dL (80-115); Magnesium 1.4 mg/dL (1.6-2.6); Phosphorus 4.3 mg/dL (2.3-4.7); Potassium 3.4 mmol/L (3.5-5.1); Sodium 141 mmol/L (136-145)
[2019-08-02 08:48] LABS: Actual Bicarbonate (HCO3a) 25.2 mEq/L (22-28); Base Excess (BEa) 0.5 mEq/L (-2.0 to +3.0); CO2 Tension 41.1 mmHg (35.0-45.0); Calcium, Ionized 1.13 mmol/L (1.12-1.30); Carboxyhemoglobin (COHb) 0.7 gm% (0.0-3.0); Hemoglobin (Hb) 13.3 g/dL (14.0-18.0); O2 Tension (PaO2) 140.3 mmHg (> 80.0); Potassium - ABG Lab 3.21 mmol/L (3.70-5.30); pH, Arterial 7.41 (7.35-7.45)
[2019-08-02 08:50] LABS: Puncture Site RR
[2019-08-02] MEDS: Famotidine/PF 20 mg/2ml Vial SLOW IVP SCH ×2 (09:46→20:16)
[2019-08-02] MEDS: Propofol 1,000 MG/100 ML VIAL IV PRN ×3 (09:46→21:08)
[2019-08-02] MEDS: Aspirin 300 MG Suppository PR SCH (09:47)
[2019-08-02] MEDS: Heparin 5,000 UNITS/ML VIAL SC SCH ×3 (09:47→20:17)
--- NOTE | 2019-08-02 10:58 | PDOC.HOSPP ---
- Subjective Encounter Date: 08/02/19 Encounter Time: 10:56 Subjective: 64 y/o male with chronic systolic and diastolic heart failure, NICM with EF of 20-25, seizure disorder, recent CVA amongst others admitted after he was found unresponsive in his parked car reminiscent of recent admission when he was found to have acute CVA. Patient is currently sedated. Reportedly pulled Off IV access. - Objective Vital Signs & Weight: Vital Signs (12 hours) Temp Pulse Resp BP 08/02/19 10:28 90 148/97 H 08/02/19 08:00 100.1 F H 18 08/02/19 07:13 110 H 164/107 H 08/02/19 07:00 100.1 F H 08/02/19 06:00 13 08/02/19 04:00 99.0 F 08/02/19 02:37 90 08/02/19 02:00 13 08/02/19 00:00 100.6 F H 14 Weight Admit Weight 156 lb 1.396 oz Weight 159 lb 2.78 oz Most Recent Monitor Data Heart Rate from ECG 104 NIBP 159/102 NIBP BP-Mean 121 Respiration from ECG 3 SpO2 100 I&O: 08/01/19 08/02/19 08/03/19 06:59 06:59 06:59 Intake Total 562.7 1837 Output Total 590 1452 220 Balance -27.3 385 -220 Result Diagrams: 08/01/19 05:04 08/02/19 07:12 Hospitalist ROS - Medication Medications: Active Medications Generic Name Dose Route Start Last Admin Trade Name Freq PRN Reason Stop Dose Admin Aspirin 300 mg 08/01/19 09:00 08/02/19 09:47 Aspirin LA 300 mg DAILY MACARIO Administration Famotidine 20 mg 08/01/19 09:00 08/02/19 09:46 Pepcid SLOW IVP 20 mg Q12HR MACARIO Administration Heparin Sodium (Porcine) 5,000 units 08/01/19 09:00 08/02/19 09:47 Heparin SC 5,000 units TID MACARIO Administration Sodium Chloride 1,000 mls @ 75 mls/hr 07/31/19 22:53 08/02/19 04:45 Normal Saline 0.9% IV 1,000 mls .[id number] MACARIO Administration Levetiracetam 500 mg/ Device 100 mls @ 200 mls/hr 08/01/19 21:00 08/02/19 09: 47 IVPB 100 mls BID MACARIO Administration Lorazepam 2 mg 07/31/19 22:45 08/01/19 23:15 Ativan SLOW IVP 08/30/19 22:45 2 mg Q1H PRN Administration Breakthrough agitation Propofol 1,000 mg 07/31/19 22:45 08/02/19 09:46 Diprivan IV 08/30/19 22:45 1,000 mg INF PRN Administration TO ACHIEVE GOAL RASS Protocol - Exam General - other findings: sedated Eye: anicteric sclera ENT: normocephalic atraumatic Neck: supple Heart: irregular Respiratory - other findings: ventilator transmitted sound heard in all lung zones. Gastrointestinal: soft, non-distended, normal bowel sounds Extremities: no edema Extremeties - other findings: Soft restrains noted Neurological - other findings: sedated Psychiatric - other findings: Sedated. Hosp A/P (1) Acute respiratory failure with hypoxia and hypercapnia Code(s): J96.01 - ACUTE RESPIRATORY FAILURE WITH HYPOXIA; J96.02 - ACUTE RESPIRATORY FAILURE WITH HYPERCAPNIA Status: Acute (2) Unresponsiveness Status: Acute (3) Acute encephalopathy Code(s): G93.40 - ENCEPHALOPATHY, UNSPECIFIED Status: Acute (4) Gout Code(s): M10.9 - GOUT, UNSPECIFIED Status: Acute (5) Seizure Code(s): R56.9 - UNSPECIFIED CONVULSIONS Status: Acute (6) Atrial fibrillation Code(s): I48.91 - UNSPECIFIED ATRIAL FIBRILLATION Status: Chronic Qualifiers: Atrial fibrillation type: chronic Qualified Code(s): I48.2 - Chronic atrial fibrillation (7) Chronic combined systolic and diastolic CHF (congestive heart failure) Code(s): I50.42 - CHRONIC COMBINED SYSTOLIC AND DIASTOLIC HRT FAIL Status: Chronic (8) Hypertension Code(s): I10 - ESSENTIAL (PRIMARY) HYPERTENSION Status: Chronic (9) Moderate mitral regurgitation Code(s): I34.0 - NONRHEUMATIC MITRAL (VALVE) INSUFFICIENCY Status: Chronic (10) Non-ischemic cardiomyopathy Code(s): I42.8 - OTHER CARDIOMYOPATHIES Status: Chronic (11) Pulmonary hypertension Code(s): I27.20 - PULMONARY HYPERTENSION, UNSPECIFIED Status: Chronic (12) Severe tricuspid regurgitation Code(s): I07.1 - RHEUMATIC TRICUSPID INSUFFICIENCY Status: Chronic (13) Non compliance with medical treatment Code(s): Z91.19 - PATIENT'S NONCOMPLIANCE W OTH MEDICAL TREATMENT AND REGIMEN Status: Acute (14) Hypomagnesemia Code(s): E83.42 - HYPOMAGNESEMIA Status: Acute (15) Hypokalemia Code(s): E87.6 - HYPOKALEMIA Status: Acute - Plan Replete serum potassium and magnesium Continue supportive care. Continue antiepileptics. Vent management as per pulmonary and critical care
[2019-08-02] MEDS ORDERED: Magnesium Sulfate 4 GM in Sodium Chloride 0.9% 250 ML 250 ML IVPB SCH (11:00)
--- NOTE | 2019-08-02 14:57 | PRG ---
DATE OF TELEMEDICINE SERVICE: 08/02/2019, GREGG NANCE CHIEF COMPLAINT: Seizure. INTERVAL HISTORY: The patient had to be re-sedated since he was very agitated today per nursing staff. He is completely sedated at the time of our evaluation. The patient unable to give any history. No further clinical seizures noted per staff. PHYSICAL EXAMINATION: VITAL SIGNS: Temperature 100.1, blood pressure 156/101, pulse is 93. He is on vent. HEENT: Pupils 2 mm, reactive to light. No facial asymmetry noted. Motor exam ; he is unresponsive to any stimuli secondary to sedation. IMPRESSION: The patient with presumed seizure and his MRI did not show any evidence of acute stroke. I will request another EEG for tomorrow so we can follow up on whether there was any evidence of acute seizure and no additional medications at this time. Please maintain him on current anticonvulsant. Job ID: [id number] MTDD
--- NOTE | 2019-08-02 15:26 | PRG ---
DATE OF SERVICE: 08/02/2019 SUBJECTIVE: Mr. Ortiz remains mechanically ventilated. OBJECTIVE: VITAL SIGNS: Heart rate 74, blood pressure 136/89, respiratory rate is 11. LUNGS: Remarkable for equal breath sounds and are clear. HEART: Regular rhythm. ABDOMEN: Soft and nontender. EXTREMITIES: Without clubbing, cyanosis, or edema. LABORATORY DATA: Sodium 141, potassium 3.4, chloride 107, bicarb 24, BUN 9, creatinine 1.02. PH 7.41, CO2 41, PO2 of 140. IMPRESSION: Respiratory failure associated with encephalopathy and seizure ? It is unclear how long he was seizing since he was found on the side of the road in his car. We will continue mechanical ventilation. Once we are sure that he is medically stable when his sedation can be minimized, we can work toward weaning. CRITICAL CARE TIME: 30 minutes. Job ID: [id number]
[2019-08-02] MEDS: Lorazepam 2 MG/ML VIAL SLOW IVP PRN (21:09)
[2019-08-03] MEDS: Propofol 1,000 MG/100 ML VIAL IV PRN (04:19)
[2019-08-03] MEDS: Sodium Chloride 0.9% 1,000 ML IV SCH ×2 (04:19→13:51)
[2019-08-03 05:53] LABS: #Eosinphils 0.1 thou/uL (0.0-0.7); #Lymphocytes 2.4 thou/uL (1.20-3.40); #Monocytes 0.8 thou/uL (0.11-0.59); #Neutrophils 9.5 thou/uL (1.40-6.50); %Basophils 0.3 % (0.0-1.0); %Lymphocytes 18.4 % (21.0-51.0); %Monocytes 6.3 % (0.0-10.0); Hemoglobin 13.6 g/dL (14.0-18.0); Mean Corpuscular HGB CONC 33.7 g/dL (32.0-36.0); Mean Corpuscular Hemoglobin 31.5 pg (27.0-31.0); Mean Corpuscular Volume 93.6 fL (78.0-98.0); Mean Platelet Volume 11.8 fL (7.4-10.4); Platelet Count 98 thou/uL (130-400); RBC Distribution Width 12.7 % (11.5-14.5); Red Blood Cell (RBC) Count 4.33 mill/uL (4.70-6.10); White Blood Cell (WBC) Count 12.8 thou/uL (4.8-10.8)
[2019-08-03 06:25] LABS: Albumin 3.3 g/dL (3.4-4.8); Anion Gap 12 mmol/L (10-20); BUN (Urea Nitrogen) 9 mg/dL (8.4-25.7); BUN/Creatinine Ratio 9.28; Calc. Creatinine Clearance 78 mL/min (70-130); Calcium 8.9 mg/dL (7.8-10.44); Carbon Dioxide 25 mmol/L (23-31); Chloride 109 mmol/L (98-107); Estimated GFR-MDRD 78; Glucose 93 mg/dL (80-115); Phosphorus 3.2 mg/dL (2.3-4.7); Potassium 3.5 mmol/L (3.5-5.1); Sodium 142 mmol/L (136-145)
[2019-08-03] MEDS: Famotidine/PF 20 mg/2ml Vial SLOW IVP SCH ×2 (08:57→20:27)
[2019-08-03] MEDS: Aspirin 300 MG Suppository PR SCH (08:57)
[2019-08-03] MEDS: Heparin 5,000 UNITS/ML VIAL SC SCH ×3 (12:13→20:26)
[2019-08-03] MEDS ORDERED: DC Sedation Protocol FS ONE (12:13)
--- NOTE | 2019-08-03 12:35 | PRG ---
DATE OF SERVICE: 08/03/2019 TIME SPENT: 35 minutes of critical care time. SUBJECTIVE: The patient is awake, follows commands, currently intubated. OBJECTIVE: VITAL SIGNS: Temperature is 99.2, pulse 101, blood pressure 148/106, and O2 saturation 100%. Intake 2532, output 1700. HEENT: Unremarkable. NECK: No adenopathy or JVD. CHEST: Clear to auscultation. CARDIAC: S1 and S2. Regular. ABDOMEN: Soft. EXTREMITIES: No edema. NEUROLOGIC: Nonfocal. LABORATORY DATA: White blood cell count 12.8, hematocrit 40, and platelet count 98. Sodium 142, potassium 3.5, BUN 9, creatinine 0.9, and glucose 78. ASSESSMENT: 1. Seizure disorder. 2. Respiratory failure. PLAN: 1. Extubate and observe. 2. Physical therapy consult. 3. Out of bed as tolerated. Job ID: [id number]
[2019-08-03] MEDS ORDERED: Diltiazem HCl 125 MG, Admixture Fee 1 EACH in Sodium Chloride 0.9% 100 ML IVPB SCH (13:30)
[2019-08-03] MEDS: Metoprolol Tartrate 5 MG/5 ML VIAL IVP SCH ×2 (14:36→20:28)
--- NOTE | 2019-08-03 15:03 | CON ---
DATE OF CONSULTATION: 08/03/2019 REASON FOR CONSULTATION: Atrial fibrillation with RVR. HISTORY OF PRESENT ILLNESS: Mr. Ortiz is a pleasant 64-year-old gentleman, [place]-speaking only, who comes to the hospital for being found unresponsive in his car. He was admitted here about a month ago with a diagnosis of new onset seizures. He was started on anti-seizure medications and discharged home. At that time, he had a severely reduced EF of 20% to 25%. We recommended he go home on a LifeVest as he may have had VT causing hypoperfusion to the head and causing his seizures. He apparently was wearing his LifeVest during this episode and no therapies were delivered as far as I can tell. He was brought in unresponsive. He was intubated to protect the airway. He has been extubated now this morning. Currently, on my evaluation, he remains confused. PAST MEDICAL HISTORY: 1. Recent CVA. 2. Right-sided weakness. 3. Chronic atrial fibrillation, not on any anticoagulation secondary to noncompliance. He also has a history of hemorrhagic stroke. 4. Seizure disorder, diagnosed just a month ago. 5. Chronic systolic heart failure. PAST SURGICAL HISTORY: Ventriculostomy in the past. SOCIAL HISTORY: Former heavy alcohol use. Has not had any use when he was admitted probably 2 or 3 months ago. However, it is unknown whether he has drank in the last month or not. Former tobacco use. No drug use. FAMILY HISTORY: Noncontributory. OUTPATIENT MEDICATIONS: Include: 1. Digoxin. 2. Isordil 30 mg a day. 3. Allopurinol 100 mg a day. 4. Aspirin 325 mg a day. 5. Lipitor 40 mg q.h.s. 6. Colchicine. 7. Pepcid 20 mg twice a day. 8. Lasix 20 mg twice a day. 9. Lisinopril 5 mg a day. 10. Metoprolol 50 mg twice a day. ALLERGIES: NO KNOWN DRUG ALLERGIES. REVIEW OF SYSTEMS: Unobtainable as the patient is confused. PHYSICAL EXAMINATION: VITAL SIGNS: Temperature 100.0, but has been as high as 100.6; pulse between 80s to 90s; respiratory rate 22; saturating 98% on 2 L nasal cannula; blood pressure 129/80. GENERAL: Awake, alert. He is not oriented to person, place, or time. He is resting comfortably on the bed, in no distress. HEENT: Normocephalic and atraumatic. NECK: Supple. LUNGS: Clear. CARDIOVASCULAR: Irregularly irregular. Heart rate in the 90s. ABDOMEN: Soft. Positive bowel sounds. EXTREMITIES: No edema. SKIN: Warm and dry. LABORATORY DATA: Laboratory work was reviewed. White count from 7 on admission to 12.8 now, hemoglobin 13.6, hematocrit 40.5, platelet count of 98. ABGs were reviewed. Chemistries were reviewed, unremarkable for now except for an albumin of 3.3. UA was unremarkable. Toxicology was negative for any alcohol or any drugs. MRI of the brain was reviewed. He has chronic changes, but no acute CVA. CT of the brain; no evidence of bleeding. ASSESSMENT AND PLAN: 1. Chronic atrial fibrillation, currently in rapid ventricular response. I agree with slowing him down with diltiazem drip. We will continue this for now. We would also start metoprolol 5 mg IV q.6 to try to get him back on his home regimen once he is able to tolerate p.o. Currently, he is too confused to take any pills in my opinion. He may need full anticoagulation; however, he continues to not have any followup whatsoever in the office and he has a history of intracranial bleed from falls and alcohol use. Not a good candidate for full anticoagulation. 2. Seizure disorder. Likely, the cause of this episode. I have advised him in the past about not driving at all until his seizures are better controlled. He understood and verbalized understanding of that at that time. It is unclear to me whether he was driving his car or not, but he has been advised this should not be the case. Thank you for letting me to participate in the care of your patient. We will follow. Job ID: [id number] [facility]
--- NOTE | 2019-08-03 17:02 | PDOC.HOSPP ---
- Subjective Encounter Date: 08/03/19 Encounter Time: 11:01 Subjective: 64 y/o male with chronic systolic and diastolic heart failure, NICM with EF of 20-25, seizure disorder, recent CVA amongst others admitted after he was found unresponsive in his parked car reminiscent of recent admission when he was found to have acute CVA. Patient was extubated earlier today but flipped into A fib with RVR post extuabation. More appropriate post extubation. remained afebrile. - Objective Vital Signs & Weight: Vital Signs (12 hours) Temp Pulse Resp BP Pulse Ox 08/03/19 16:00 99.2 F 08/03/19 13:24 163 H 163/104 H 08/03/19 12:30 100 08/03/19 12:16 99 08/03/19 12:00 100.0 F H 08/03/19 10:21 71 152/103 H 08/03/19 10:00 9 L 08/03/19 08:00 99.2 F 8 L 100 08/03/19 07:25 80 144/86 H 08/03/19 06:00 13 Weight Admit Weight 156 lb 1.396 oz Weight 160 lb 0.889 oz Most Recent Monitor Data Heart Rate from ECG 78 NIBP 173/95 NIBP BP-Mean 121 Respiration from ECG 29 SpO2 98 I&O: 08/02/19 08/03/19 08/04/19 06:59 06:59 06:59 Intake Total 1837 2532 45 Output Total 1452 1700 540 Balance 385 832 -495 Result Diagrams: 08/03/19 04:49 08/03/19 04:49 Hospitalist ROS - Medication Medications: Active Medications Generic Name Dose Route Start Last Admin Trade Name Freq PRN Reason Stop Dose Admin Aspirin 300 mg 08/01/19 09:00 08/03/19 08:57 Aspirin LA 300 mg DAILY MACARIO Administration Famotidine 20 mg 08/01/19 09:00 08/03/19 08:57 Pepcid SLOW IVP 20 mg Q12HR MACARIO Administration Heparin Sodium (Porcine) 5,000 units 08/01/19 09:00 08/03/19 14:36 Heparin SC 5,000 units TID MACARIO Administration Sodium Chloride 1,000 mls @ 75 mls/hr 07/31/19 22:53 08/03/19 13:51 Normal Saline 0.9% IV 1,000 mls .[id number] MACARIO Administration Levetiracetam 500 mg/ Device 100 mls @ 200 mls/hr 08/01/19 21:00 08/03/19 08: 57 IVPB 100 mls BID MACARIO Administration Diltiazem HCl 125 mg/ 125 mls @ 0 mls/hr 08/03/19 13:30 08/03/19 13:51 Miscellaneous Medication 1 IVPB 125 mls each/ Sodium Chloride INF MACARIO Administration Protocol As Directed Metoprolol Tartrate 5 mg 08/03/19 14:30 08/03/19 14:36 Lopressor IVP 5 mg Q6H MACARIO Administration - Exam General Appearance: awake alert Eye: anicteric sclera ENT: normocephalic atraumatic Neck: supple Heart: irregular Respiratory: no wheezes, no ronchi, normal chest expansion Respiratory - other findings: fair air entry with some transmitted sound Gastrointestinal: soft, non-tender, non-distended, normal bowel sounds Extremities: no edema Neurological: CN's grossly intact, no focal deficits Neurological - other findings: some memory lapses noted Psychiatric: oriented to person, oriented to place Hosp A/P (1) Acute respiratory failure with hypoxia and hypercapnia Code(s): J96.01 - ACUTE RESPIRATORY FAILURE WITH HYPOXIA; J96.02 - ACUTE RESPIRATORY FAILURE WITH HYPERCAPNIA Status: Acute (2) Unresponsiveness Status: Acute (3) Acute encephalopathy Code(s): G93.40 - ENCEPHALOPATHY, UNSPECIFIED Status: Acute (4) Gout Code(s): M10.9 - GOUT, UNSPECIFIED Status: Acute (5) Seizure Code(s): R56.9 - UNSPECIFIED CONVULSIONS Status: Acute (6) Atrial fibrillation Code(s): I48.91 - UNSPECIFIED ATRIAL FIBRILLATION Status: Chronic Qualifiers: Atrial fibrillation type: chronic Qualified Code(s): I48.2 - Chronic atrial fibrillation (7) Chronic combined systolic and diastolic CHF (congestive heart failure) Code(s): I50.42 - CHRONIC COMBINED SYSTOLIC AND DIASTOLIC HRT FAIL Status: Chronic (8) Hypertension Code(s): I10 - ESSENTIAL (PRIMARY) HYPERTENSION Status: Chronic (9) Moderate mitral regurgitation Code(s): I34.0 - NONRHEUMATIC MITRAL (VALVE) INSUFFICIENCY Status: Chronic (10) Non-ischemic cardiomyopathy Code(s): I42.8 - OTHER CARDIOMYOPATHIES Status: Chronic (11) Pulmonary hypertension Code(s): I27.20 - PULMONARY HYPERTENSION, UNSPECIFIED Status: Chronic (12) Severe tricuspid regurgitation Code(s): I07.1 - RHEUMATIC TRICUSPID INSUFFICIENCY Status: Chronic (13) Non compliance with medical treatment Code(s): Z91.19 - PATIENT'S NONCOMPLIANCE W OTH MEDICAL TREATMENT AND REGIMEN Status: Acute (14) Hypomagnesemia Code(s): E83.42 - HYPOMAGNESEMIA Status: Acute (15) Hypokalemia Code(s): E87.6 - HYPOKALEMIA Status: Acute (16) Staphylococcus aureus pneumonia Code(s): J15.211 - PNEUMONIA DUE TO METHICILLIN SUSCEP STAPH Status: Acute - Plan Cardiology consulted for atrial fib RVR/Cardiomyopathy Replete serum potassium and magnesium Agree with cardizem for rate control Restart ASA, Imdur and metoprolol if tolerated. Continue supportive care. Repeat CBC and Renal function and magnesium in the am.
[2019-08-03] MEDS ORDERED: Potassium Chloride 20 MEQ TAB PO SCH (17:15)
[2019-08-03] MEDS: Vancomycin HCl 1 GM in Premix Bag 1 BAG IVPB SCH (19:36)
[2019-08-03] MEDS ORDERED: Potassium Chloride 20 MEQ in Premix Bag 1 BAG IVPB SCH (20:00)
[2019-08-03] MEDS: Colchicine 0.6 MG TAB PO SCH (20:26)
[2019-08-03] MEDS: Metoprolol Tartrate 50 MG TAB PO SCH (20:26)
[2019-08-04] MEDS: Metoprolol Tartrate 5 MG/5 ML VIAL IVP SCH ×2 (02:34→09:30)
[2019-08-04 05:33] LABS: Anion Gap 12 mmol/L (10-20); BUN (Urea Nitrogen) 9 mg/dL (8.4-25.7); Calc. Creatinine Clearance 89 mL/min (70-130); Carbon Dioxide 24 mmol/L (23-31); Chloride 109 mmol/L (98-107); Estimated GFR-MDRD 90; Glucose 95 mg/dL (80-115); Potassium 3.1 mmol/L (3.5-5.1); Sodium 142 mmol/L (136-145)
[2019-08-04] MEDS: Vancomycin HCl 1 GM in Premix Bag 1 BAG IVPB SCH ×2 (09:36→20:35)
[2019-08-04] MEDS: Famotidine 20 MG TAB PO SCH ×2 (09:37→21:47)
[2019-08-04] MEDS: Isosorbide Mononitrate (ER) 30 MG TAB PO SCH (09:37)
[2019-08-04] MEDS: Atorvastatin Calcium 40 MG TAB PO SCH (09:37)
[2019-08-04] MEDS: Heparin 5,000 UNITS/ML VIAL SC SCH ×3 (09:37→21:49)
[2019-08-04] MEDS: Digoxin 0.125 MG TAB PO SCH (09:37)
[2019-08-04] MEDS: Allopurinol 100 MG TAB PO SCH (09:37)
[2019-08-04] MEDS: Metoprolol Tartrate 50 MG TAB PO SCH ×2 (09:38→21:47)
[2019-08-04] MEDS: Lisinopril 5 MG TAB PO SCH (09:38)
[2019-08-04] MEDS: Colchicine 0.6 MG TAB PO SCH ×2 (09:38→21:49)
[2019-08-04] MEDS: Sodium Chloride 0.9% 1,000 ML IV SCH (09:41)
[2019-08-04] MEDS: Aspirin 325 mg Enteric Coated Tablet PO SCH (09:49)
[2019-08-04] MEDS: Aspirin 300 MG Suppository PR SCH (09:50)
[2019-08-04] MEDS: Potassium Chloride 20 MEQ TAB PO SCH ×2 (12:57→17:49)
[2019-08-04] MEDS ORDERED: Magnesium 2 GM/50 ML 2 GM in Premix Bag 1 BAG IVPB SCH (13:15)
--- NOTE | 2019-08-04 13:16 | PDOC.HOSPP ---
- Subjective Encounter Date: 08/04/19 Encounter Time: 12:14 Subjective: 64 y/o male with chronic systolic and diastolic heart failure, NICM with EF of 20-25, seizure disorder, recent CVA amongst others admitted after he was found unresponsive in his parked car reminiscent of recent admission when he was found to have acute CVA. Patient was extubated on 08/03/2019. Developed A fib with RVR post extubation. Still impulsive. No fever or vomiting. - Objective Vital Signs & Weight: Vital Signs (12 hours) Temp Pulse Pulse Pulse BP BP BP 08/04/19 09:38 80 153/103 H 08/04/19 09:37 80 08/04/19 09:03 84 87 150/90 H 153/103 H 08/04/19 04:00 98.8 F Pulse Ox Pulse Ox 08/04/19 09:38 08/04/19 09:37 08/04/19 09:03 98 98 08/04/19 04:00 Weight Admit Weight 156 lb 1.396 oz Weight 158 lb 12.8 oz Most Recent Monitor Data Heart Rate from ECG 57 NIBP 142/79 NIBP BP-Mean 100 Respiration from ECG 25 SpO2 100 I&O: 08/03/19 08/04/19 08/05/19 06:59 06:59 06:59 Intake Total 2532 2262.8 Output Total 1700 2335 Balance 832 -72.2 Result Diagrams: 08/03/19 04:49 08/04/19 04:48 Hospitalist ROS - Medication Medications: Active Medications Generic Name Dose Route Start Last Admin Trade Name Freq PRN Reason Stop Dose Admin Allopurinol 100 mg 08/04/19 09:00 08/04/19 09:37 Zyloprim PO 100 mg DAILY MACARIO Administration Aspirin 300 mg 08/01/19 09:00 08/04/19 09:50 Aspirin OK Not Given DAILY MACARIO Aspirin 325 mg 08/04/19 09:00 08/04/19 09:49 Ecotrin PO 325 mg DAILY MACARIO Administration Atorvastatin Calcium 40 mg 08/04/19 09:00 08/04/19 09:37 Lipitor PO 40 mg DAILY MACARIO Administration Colchicine 0.6 mg 08/03/19 21:00 08/04/19 09:38 Colchicine PO 0.6 mg BID MACARIO Administration Digoxin 0.125 mg 08/04/19 09:00 08/04/19 09:37 Lanoxin PO 0.125 mg DAILY MACARIO Administration Famotidine 20 mg 08/04/19 09:00 08/04/19 09:37 Pepcid PO 20 mg Q12HR MACARIO Administration Heparin Sodium (Porcine) 5,000 units 08/01/19 09:00 08/04/19 09:37 Heparin SC 5,000 units TID MACARIO Administration Hydralazine HCl 10 mg 07/31/19 22:53 08/03/19 18:12 Apresoline SLOW IVP 10 mg Q4H PRN Administration SBP > 180 and HR < 70 Levetiracetam 500 mg/ Device 100 mls @ 200 mls/hr 08/01/19 21:00 08/04/19 12: 24 IVPB 100 mls BID MACARIO Administration Diltiazem HCl 125 mg/ 125 mls @ 0 mls/hr 08/03/19 13:30 08/03/19 13:51 Miscellaneous Medication 1 IVPB 125 mls each/ Sodium Chloride INF MACARIO Administration Protocol As Directed Vancomycin HCl 1 gm/ Device 200 mls @ 200 mls/hr 08/03/19 20:00 08/04/19 09: 36 IVPB 200 mls 0800,2000 MACARIO Administration Isosorbide Mononitrate 30 mg 08/04/19 09:00 08/04/19 09:37 Imdur Er PO 30 mg DAILY MACARIO Administration Lisinopril 5 mg 08/04/19 09:00 08/04/19 09:38 Zestril PO 5 mg DAILY MACARIO Administration Metoprolol Tartrate 50 mg 08/03/19 21:00 08/04/19 09:38 Lopressor PO 50 mg BID MACARIO Administration Potassium Chloride 40 meq 08/04/19 11:15 08/04/19 12:57 K-Dur PO 08/04/19 14:16 40 meq Q3H MACARIO Administration - Exam General Appearance: awake alert Eye: anicteric sclera ENT: normocephalic atraumatic Neck: supple Heart: irregular Respiratory: no wheezes, no rales, no ronchi, normal chest expansion, no tachypnea Gastrointestinal: soft, non-tender, non-distended, normal bowel sounds Extremities: no cyanosis, no edema Neurological: CN's grossly intact, no focal deficits Neurological - other findings: some confusion and memory lapses Psychiatric - other findings: oriented to person and place at least. Hosp A/P (1) Acute respiratory failure with hypoxia and hypercapnia Code(s): J96.01 - ACUTE RESPIRATORY FAILURE WITH HYPOXIA; J96.02 - ACUTE RESPIRATORY FAILURE WITH HYPERCAPNIA Status: Acute (2) Unresponsiveness Status: Acute (3) Acute encephalopathy Code(s): G93.40 - ENCEPHALOPATHY, UNSPECIFIED Status: Acute (4) Gout Code(s): M10.9 - GOUT, UNSPECIFIED Status: Acute (5) Seizure Code(s): R56.9 - UNSPECIFIED CONVULSIONS Status: Acute (6) Atrial fibrillation Code(s): I48.91 - UNSPECIFIED ATRIAL FIBRILLATION Status: Chronic Qualifiers: Atrial fibrillation type: chronic Qualified Code(s): I48.2 - Chronic atrial fibrillation (7) Chronic combined systolic and diastolic CHF (congestive heart failure) Code(s): I50.42 - CHRONIC COMBINED SYSTOLIC AND DIASTOLIC HRT FAIL Status: Chronic (8) Hypertension Code(s): I10 - ESSENTIAL (PRIMARY) HYPERTENSION Status: Chronic (9) Moderate mitral regurgitation Code(s): I34.0 - NONRHEUMATIC MITRAL (VALVE) INSUFFICIENCY Status: Chronic (10) Non-ischemic cardiomyopathy Code(s): I42.8 - OTHER CARDIOMYOPATHIES Status: Chronic (11) Pulmonary hypertension Code(s): I27.20 - PULMONARY HYPERTENSION, UNSPECIFIED Status: Chronic (12) Severe tricuspid regurgitation Code(s): I07.1 - RHEUMATIC TRICUSPID INSUFFICIENCY Status: Chronic (13) Non compliance with medical treatment Code(s): Z91.19 - PATIENT'S NONCOMPLIANCE W OTH MEDICAL TREATMENT AND REGIMEN Status: Acute (14) Hypomagnesemia Code(s): E83.42 - HYPOMAGNESEMIA Status: Acute (15) Hypokalemia Code(s): E87.6 - HYPOKALEMIA Status: Acute (16) Staphylococcus aureus pneumonia Code(s): J15.211 - PNEUMONIA DUE TO METHICILLIN SUSCEP STAPH Status: Acute - Plan Continue IV vancomycin for presumed MRSA Pneumia. Add imdur to metoprolol and lisinopril to get adequate BP control. Replete serum potassium and magnesium Wean off cardizem infusion Continue supportive care. Repeat CBC and Renal function and magnesium in the am. Diet as tolerated. DC Landers catheter
--- NOTE | 2019-08-04 14:35 | PQF ---
CLINICAL DOCUMENTATION IMPROVEMENT CLARIFICATION FORM: ICD-10 Updated PLEASE DO AN ADDENDUM TO THE PROGRESS NOTE WITH ANY DOCUMENTATION UPDATES OR ADDITIONS AND CARRY THROUGH TO DC SUMMARY. THANK YOU. DATE: 08/04/19 ATTN: DR. MCKEON Please exercise your independent, professional judgment in responding to the clarification form. Clinical indicators are provided on the bottom of this form for your review Please check appropriate box(s): [ ] Encephalopathy: Type: [ ] Acute [ ] Subacute [ ] Chronic Etiology: [ ] Hypertensive [ ] Metabolic [ ] Toxic [ ] Hepatic with Coma [ ] Hepatic w/o Coma [ ] Hypoxic [ ] Septic [ ] Drug induced: [ ] Unspecified [ ] in the setting of underlying dementia [ ] Other (please specify) [ ] Transient Alteration of Awareness [ ] Other diagnosis [ ] Unable to determine In addition, please specify: Present on Admission (POA): [ ] Yes [ ] No [ ] Unable to determine For continuity of documentation, please document condition throughout progress notes and discharge summary. Thank You. CLINICAL INDICATORS - SIGNS / SYMPTOMS / LABS H&P: "ACUTE ENCEPHALOPATHY" (PROGRESS NOTE 08/01) RISKS: FOUND UNRESPONSIVE IN A PARKED CAR (H&P 07/31) SEIZURE DISORDER (H&P 07/31) CVA (H&P 07/31) TREATMENT: BRAIN CT (07/31) BRAIN MRI (08/01) CRITICAL CARE MONITORING (This form is maintained as a part of the permanent medical record) 2014 [employer]. All Rights Reserved [email or web address] Office: [phone] [facility]ITAL[facility]
--- NOTE | 2019-08-04 16:28 | PRG ---
DATE OF SERVICE: 08/04/2019 SUBJECTIVE: Mr. Ortiz is in no distress. He is extubated. He is confused. OBJECTIVE: VITAL SIGNS: Blood pressure 129/81, heart rate 72, respiratory rate in the 20s. LUNGS: Clear. HEART: Regular rhythm. ABDOMEN: Soft. EXTREMITIES: Without edema. LABORATORY DATA: Sodium 142, potassium 3.1, chloride 109, bicarb 24, BUN 9, creatinine 0.85. IMPRESSION: 1. Status post intubation for encephalopathy associated with a seizure. 2. History of medical noncompliance. 3. History of cerebrovascular accident. 4. History of atrial fibrillation. 5. History of no anticoagulation because of his medical noncompliance. I do not feel he should be driving anymore. I suspect compliance will continue to be an issue as we move forward. He is stable to move out of critical care unit in my opinion. Job ID: [id number]
--- NOTE | 2019-08-04 17:48 | PDOC.PALCO ---
Palliative Care Consult - Consult Details Requesting Physician: Dr Clark Reason for Consult: goals of care Family Members Present: None - Pertinent HPI 64 year old male found unresponsive in his car, was taken to [facility] for evaluation secondary to incoherent, hypoxic, and acidotic. Eventually intubated and admitted to the [facility] for further care. - Pertinent PMH Frequent hospitalizations, CVA right sided weakness, chronic atrial fib without anticoagulation therapy secondary to non compliance, seizure disorder, chronic systolic heart failure requiring life vest at last admission. - Social History Smoking Status: Former smoker (unknown alcohol use, paitent states "two drinks" and then stated a few months ago) Living Situation: - Medications MAR Reviewed: Yes - Allergies Allergies/Adverse Reactions: Allergies Allergy/AdvReac Type Severity Reaction Status Date / Time No Known Drug Allergies Allergy Verified 06/26/19 09:49 - Subjective Extubated, sitting up at bedside finishing breakfast. No specific complaints, noted confusion. - Objective Vital Signs: Vital Signs - Most Recent Temp Pulse Resp BP Pulse Ox 98.6 F 80 9 L 153/103 H 98 08/04/19 08:00 08/04/19 09:38 08/03/19 10:00 08/04/19 09:38 08/04/19 09:03 Palliative Performance Scale: 60 - Physical Exam Constitutional: confusion HEENT: moist MMs, EOMI Respiratory: unlabored breathing Cardiovascular: irregular Gastrointestinal: non-tender, positive bowel sounds Musculoskeletal: pulses present Neurological: moves all 4 limbs Deviation from normal: confused, uzbek speaking only. - Problem List (1) Palliative care encounter Code(s): Z51.5 - ENCOUNTER FOR PALLIATIVE CARE Current Visit: Yes Status: Acute (2) Non compliance with medical treatment Code(s): Z91.19 - PATIENT'S NONCOMPLIANCE W OTH MEDICAL TREATMENT AND REGIMEN Current Visit: Yes Status: Acute (3) Chronic combined systolic and diastolic CHF (congestive heart failure) Code(s): I50.42 - CHRONIC COMBINED SYSTOLIC AND DIASTOLIC HRT FAIL Current Visit: No Status: Chronic (4) Metabolic encephalopathy Code(s): G93.41 - METABOLIC ENCEPHALOPATHY Current Visit: No Status: Resolved - Plan/Recommendations Plan: Jenny Beaulieu RN will attempt to coordinate with family to set up a family meeting to discuss how to better manage symptoms and promote optimal life. Will also address resuscitation status and barriers to compliance with medical care/ treatment. [40] minutes spent on this encounter with >50% of the time in counseling and coordination of care. Thank you for this very appropriate consult.
--- NOTE | 2019-08-04 17:57 | PDOC.CPN ---
- Subjective Date: 08/04/19 Time: 12:00 - Review of Systems ROS unobtainable: due to mental status - Objective Allergies/Adverse Reactions: Allergies Allergy/AdvReac Type Severity Reaction Status Date / Time No Known Drug Allergies Allergy Verified 06/26/19 09:49 Visit Medications: Current Medications Acetaminophen (Tylenol) 650 mg IA Q4H PRN PRN Reason: Headache/Fever/Mild Pain (1-3) Allopurinol (Zyloprim) 100 mg PO DAILY [facility] Last Admin: 08/04/19 09:37 Dose: 100 mg Aspirin (Aspirin) 300 mg IA DAILY [facility] Last Admin: 08/04/19 09:50 Dose: Not Given Aspirin (Ecotrin) 325 mg PO DAILY [facility] Last Admin: 08/04/19 09:49 Dose: 325 mg Atorvastatin Calcium (Lipitor) 40 mg PO DAILY [facility] Last Admin: 08/04/19 09:37 Dose: 40 mg Colchicine (Colchicine) 0.6 mg PO BID [facility] Last Admin: 08/04/19 09:38 Dose: 0.6 mg Digoxin (Lanoxin) 0.125 mg PO DAILY [facility] Last Admin: 08/04/19 09:37 Dose: 0.125 mg Famotidine (Pepcid) 20 mg PO Q12HR [facility] Last Admin: 08/04/19 09:37 Dose: 20 mg Heparin Sodium (Porcine) (Heparin) 5,000 units SC TID [facility] Last Admin: 08/04/19 17:49 Dose: 5,000 units Hydralazine HCl (Apresoline) 10 mg SLOW IVP Q4H PRN PRN Reason: SBP > 180 and HR < 70 Last Admin: 08/03/19 18:12 Dose: 10 mg Levetiracetam 500 mg/ Device 100 mls @ 200 mls/hr IVPB BID [facility] Last Admin: 08/04/19 12:24 Dose: 100 mls Diltiazem HCl 125 mg/Miscellaneous Medication 1 each/ Sodium Chloride 125 mls @ 0 mls/hr IVPB INF [facility]; Protocol Last Admin: 08/03/19 13:51 Dose: 125 mls Vancomycin HCl 1 gm/ Device 200 mls @ 200 mls/hr IVPB 0800,2000 [facility] Last Admin: 08/04/19 09:36 Dose: 200 mls Isosorbide Mononitrate (Imdur Er) 30 mg PO DAILY [facility] Last Admin: 08/04/19 09:37 Dose: 30 mg Lisinopril (Zestril) 5 mg PO DAILY [facility] Last Admin: 08/04/19 09:38 Dose: 5 mg Lorazepam (Ativan) 2 mg SLOW IVP Q15MIN PRN PRN Reason: Seizures Metoprolol Tartrate (Lopressor) 50 mg PO BID [facility] Last Admin: 08/04/19 09:38 Dose: 50 mg Miscellaneous Medication (Pharmacy To Dose) 1 each IVPB PRN PRN PRN Reason: Pharmacy to dose Sodium Chloride (Flush - Normal Saline) 10 ml IVF Q12HR [facility] Sodium Chloride (Flush - Normal Saline) 10 ml IVF PRN PRN PRN Reason: Saline Flush Vital Signs & Weight: Vital Signs Temp Pulse Pulse Pulse BP BP BP 08/04/19 09:38 80 153/103 H 08/04/19 09:37 80 08/04/19 09:03 84 87 150/90 H 153/103 H 08/04/19 08:00 98.6 F Pulse Ox Pulse Ox Pulse Ox 08/04/19 09:38 08/04/19 09:37 08/04/19 09:03 98 98 08/04/19 08:00 100 Admit Weight 156 lb 1.396 oz Weight 158 lb 12.8 oz - CHADS-VASc Congestive heart failure: 1 Age 65-74: 1 Stroke/TIA/thrombo-embolism: 2 Risk Score: 4 - Quality Measures CV meds: Beta Erica: Yes, YVONNE/ARB: Yes, ASA: Yes, Anticoagulant: No ( Contraindicated, due to seizures and alcohol use.) - Physical Exam General: no apparent distress, other (AA x person and place only.) Neck: supple neck Cardiac: irregularly regular Lungs: clear to auscultation Neuro: grossly intact, coordination normal Abdomen: active bowel sounds, soft, non-tender Skin: clear Musculoskeletal: normal range of motion - Labs Result Diagrams: 08/03/19 04:49 08/04/19 04:48 Troponin/CKMB Troponin I Less than 0.010 ng/mL (< 0.028) 07/31/19 17:19 - Telemetry Supraventricular conduction: atrial fibrillation - Assessment/Plan Assessment/Plan: 1. Seizure disorder 2. Dilated CM, non ischemic likely form [id number] use and chronic afib 3. Chronic afib, rate controlled. 4. Alcohol abuse, he states none in 6 months. 5. EF 20-25% not using lifevest per family members 6. Non compliance PLAN: - Continue rate control only. - No anticoagulation due to alcohol use and seizure disorder. - Continue BB and ACEI - Poor prison prognosis due to non compliance.
[2019-08-04 19:24] LABS: Vancomycin, Trough 14.3 ug/mL
[2019-08-05 07:16] LABS: Vancomycin, Trough 13.8 ug/mL
[2019-08-05 07:19] LABS: Albumin 3.1 g/dL (3.4-4.8); Anion Gap 12 mmol/L (10-20); BUN (Urea Nitrogen) 11 mg/dL (8.4-25.7); Calc. Creatinine Clearance 96 mL/min (70-130); Calcium 8.9 mg/dL (7.8-10.44); Carbon Dioxide 22 mmol/L (23-31); Chloride 112 mmol/L (98-107); Estimated GFR-MDRD Greater than 90; Glucose 104 mg/dL (80-115); Magnesium 1.7 mg/dL (1.6-2.6); Phosphorus 2.9 mg/dL (2.3-4.7); Potassium 3.8 mmol/L (3.5-5.1); Sodium 142 mmol/L (136-145)
[2019-08-05] MEDS ORDERED: Vancomycin HCl 1.25 GM in Sodium Chloride 0.9% 250 ML 250 ML IVPB SCH (08:00)
[2019-08-05] MEDS: Digoxin 0.125 MG TAB PO SCH (09:09)
[2019-08-05] MEDS: Aspirin 325 mg Enteric Coated Tablet PO SCH (09:11)
[2019-08-05] MEDS: Metoprolol Tartrate 50 MG TAB PO SCH ×2 (09:11→20:23)
[2019-08-05] MEDS: Lisinopril 5 MG TAB PO SCH (09:12)
[2019-08-05] MEDS: Colchicine 0.6 MG TAB PO SCH ×2 (09:13→20:24)
[2019-08-05] MEDS: Isosorbide Mononitrate (ER) 30 MG TAB PO SCH (09:14)
[2019-08-05] MEDS: Allopurinol 100 MG TAB PO SCH (09:15)
[2019-08-05] MEDS: Heparin 5,000 UNITS/ML VIAL SC SCH ×3 (09:15→20:26)
[2019-08-05] MEDS ORDERED: Famotidine 20 MG TAB PO SCH (09:30)
[2019-08-05] MEDS: Atorvastatin Calcium 40 MG TAB PO SCH (10:26)
[2019-08-05] MEDS: Famotidine 20 MG TAB PO SCH ×2 (10:27→20:23)
--- NOTE | 2019-08-05 12:11 | PDOC.HOSPP ---
- Subjective Encounter Date: 08/05/19 Encounter Time: 12:10 Subjective: 64 y/o male with chronic systolic and diastolic heart failure, NICM with EF of 20-25, seizure disorder, recent CVA amongst others admitted after he was found unresponsive in his parked car reminiscent of recent admission when he was found to have acute CVA. Patient was extubated on 08/03/2019. Developed A fib with RVR post extubation. Calmer and more conversational. No fever, worsening cough, SOB or vomiting. - Objective Vital Signs & Weight: Vital Signs (12 hours) Temp Pulse Resp BP BP Pulse Ox 08/05/19 12:00 98.1 F 76 16 96 08/05/19 09:12 86 137/85 08/05/19 09:09 86 08/05/19 09:01 98 08/05/19 08:13 98.2 F 86 18 137/85 98 08/05/19 04:00 97.9 F 94 18 159/100 H 95 Weight Admit Weight 156 lb 1.396 oz Weight 158 lb 12.8 oz Most Recent Monitor Data Heart Rate from ECG 82 NIBP 163/92 NIBP BP-Mean 115 Respiration from ECG 23 SpO2 97 I&O: 08/04/19 08/05/19 08/06/19 06:59 06:59 06:59 Intake Total 2262.8 1783.1 Output Total 2335 905 Balance -72.2 878.1 Result Diagrams: 08/03/19 04:49 08/05/19 06:48 Hospitalist ROS - Medication Medications: Active Medications Generic Name Dose Route Start Last Admin Trade Name Corbyq PRN Reason Stop Dose Admin Allopurinol 100 mg 08/04/19 09:00 08/05/19 09:15 Zyloprim PO 100 mg DAILY [facility] Administration Aspirin 325 mg 08/04/19 09:00 08/05/19 09:11 Ecotrin PO 325 mg DAILY [facility] Administration Colchicine 0.6 mg 08/03/19 21:00 08/05/19 09:13 Colchicine PO 0.6 mg BID [facility] Administration Digoxin 0.125 mg 08/04/19 09:00 08/05/19 09:09 Lanoxin PO 0.125 mg DAILY [facility] Administration Heparin Sodium (Porcine) 5,000 units 08/01/19 09:00 08/05/19 09:15 Heparin SC Not Given TID [facility] Hydralazine HCl 10 mg 07/31/19 22:53 08/03/19 18:12 Apresoline SLOW IVP 10 mg Q4H PRN Administration SBP > 180 and HR < 70 Vancomycin HCl 1.25 gm/ Sodium 250 mls @ 166.667 mls/hr 08/05/19 08:00 09:01 Chloride IVPB 250 mls 0800,2000 [facility] Administration Isosorbide Mononitrate 30 mg 08/04/19 09:00 08/05/19 09:14 Imdur Er PO 30 mg DAILY [facility] Administration Lisinopril 5 mg 08/04/19 09:00 08/05/19 09:12 Zestril PO 5 mg DAILY [facility] Administration Metoprolol Tartrate 50 mg 08/03/19 21:00 08/05/19 09:11 Lopressor PO 50 mg BID [facility] Administration Sodium Chloride 10 ml 08/04/19 21:00 08/05/19 11:21 Flush - Normal Saline IVF 10 ml Q12HR [facility] Administration - Exam General Appearance: awake alert Eye: anicteric sclera ENT: normocephalic atraumatic, moist mucosa Neck: supple, symmetric Heart: irregular Respiratory: no wheezes, no ronchi, normal chest expansion, no tachypnea Respiratory - other findings: fair air entry bilaterally Gastrointestinal: soft, non-tender, non-distended, normal bowel sounds Extremities: no cyanosis, no edema Neurological: CN's grossly intact, no focal deficits Neurological - other findings: conscious and alert, conversational, oriented x 3. memory lapses noted Psychiatric: A&O x 3 Hosp A/P (1) Acute respiratory failure with hypoxia and hypercapnia Code(s): J96.01 - ACUTE RESPIRATORY FAILURE WITH HYPOXIA; J96.02 - ACUTE RESPIRATORY FAILURE WITH HYPERCAPNIA Status: Acute (2) Unresponsiveness Status: Acute (3) Acute encephalopathy Code(s): G93.40 - ENCEPHALOPATHY, UNSPECIFIED Status: Acute (4) Gout Code(s): M10.9 - GOUT, UNSPECIFIED Status: Acute (5) Seizure Code(s): R56.9 - UNSPECIFIED CONVULSIONS Status: Acute (6) Atrial fibrillation Code(s): I48.91 - UNSPECIFIED ATRIAL FIBRILLATION Status: Chronic Qualifiers: Atrial fibrillation type: chronic Qualified Code(s): I48.2 - Chronic atrial fibrillation (7) Chronic combined systolic and diastolic CHF (congestive heart failure) Code(s): I50.42 - CHRONIC COMBINED SYSTOLIC AND DIASTOLIC HRT FAIL Status: Chronic (8) Hypertension Code(s): I10 - ESSENTIAL (PRIMARY) HYPERTENSION Status: Chronic (9) Moderate mitral regurgitation Code(s): I34.0 - NONRHEUMATIC MITRAL (VALVE) INSUFFICIENCY Status: Chronic (10) Non-ischemic cardiomyopathy Code(s): I42.8 - OTHER CARDIOMYOPATHIES Status: Chronic (11) Pulmonary hypertension Code(s): I27.20 - PULMONARY HYPERTENSION, UNSPECIFIED Status: Chronic (12) Severe tricuspid regurgitation Code(s): I07.1 - RHEUMATIC TRICUSPID INSUFFICIENCY Status: Chronic (13) Non compliance with medical treatment Code(s): Z91.19 - PATIENT'S NONCOMPLIANCE W OTH MEDICAL TREATMENT AND REGIMEN Status: Acute (14) Hypomagnesemia Code(s): E83.42 - HYPOMAGNESEMIA Status: Acute (15) Hypokalemia Code(s): E87.6 - HYPOKALEMIA Status: Acute (16) Staphylococcus aureus pneumonia Code(s): J15.211 - PNEUMONIA DUE TO METHICILLIN SUSCEP STAPH Status: Acute - Plan Continue IV vancomycin for presumed MRSA Pneumonia. sputum culture grew staph susceptibility is awaited Continue imdur,metoprolol and lisinopril Change keppra to oral Start oral magnesium supplementation Continue supportive care. Repeat CBC and BMP in the am. Diet as tolerated.
--- NOTE | 2019-08-05 17:18 | PDOC.CPN ---
- Subjective Date: 08/05/19 Time: 17:16 Interval history: he denies any chest pain, he denies drinking anything for the past 6 months but admits to not wearing his lifevest. - Review of Systems General: denies: fever/chills, weight/appetite/sleep changes, night sweats, fatigue Respiratory: denies: cough, congestion, shortness of breath, exercise intolerance Cardiovascular: denies: chest pain, palpitation, edema, paroxysmal nocturnal dyspnea, orthopnea Gastrointestinal: denies: nausea, vomiting, diarrhea, constipation, abd pain, GI bleeding Musculoskeletal: denies: pain, tenderness, stiffness, swelling, arthritis/ arthralgias Neurological: denies: numbness, syncope, seizure, weakness - Objective Allergies/Adverse Reactions: Allergies Allergy/AdvReac Type Severity Reaction Status Date / Time No Known Drug Allergies Allergy Verified 06/26/19 09:49 Visit Medications: Current Medications Acetaminophen (Tylenol) 650 mg MS Q4H PRN PRN Reason: Headache/Fever/Mild Pain (1-3) Allopurinol (Zyloprim) 100 mg PO DAILY [facility] Last Admin: 08/05/19 09:15 Dose: 100 mg Aspirin (Ecotrin) 325 mg PO DAILY [facility] Last Admin: 08/05/19 09:11 Dose: 325 mg Atorvastatin Calcium (Lipitor) 40 mg PO DAILY [facility] Colchicine (Colchicine) 0.6 mg PO BID [facility] Last Admin: 08/05/19 09:13 Dose: 0.6 mg Digoxin (Lanoxin) 0.125 mg PO DAILY [facility] Last Admin: 08/05/19 09:09 Dose: 0.125 mg Famotidine (Pepcid) 20 mg PO Q12HR [facility] Heparin Sodium (Porcine) (Heparin) 5,000 units SC TID [facility] Last Admin: 08/05/19 15:01 Dose: Not Given Hydralazine HCl (Apresoline) 10 mg SLOW IVP Q4H PRN PRN Reason: SBP > 180 and HR < 70 Last Admin: 08/03/19 18:12 Dose: 10 mg Vancomycin HCl 1.25 gm/ Sodium (Chloride) 250 mls @ 166.667 mls/hr IVPB 0800, 2000 [facility] Last Admin: 08/05/19 09:01 Dose: 250 mls Isosorbide Mononitrate (Imdur Er) 30 mg PO DAILY [facility] Last Admin: 08/05/19 09:14 Dose: 30 mg Levetiracetam (Keppra) 500 mg PO BID [facility] Lisinopril (Zestril) 5 mg PO DAILY [facility] Last Admin: 08/05/19 09:12 Dose: 5 mg Lorazepam (Ativan) 2 mg SLOW IVP Q15MIN PRN PRN Reason: Seizures Magnesium Oxide (Magnesium Oxide) 400 mg PO BID [facility] Metoprolol Tartrate (Lopressor) 50 mg PO BID [facility] Last Admin: 08/05/19 09:11 Dose: 50 mg Miscellaneous Medication (Pharmacy To Dose) 1 each IVPB PRN PRN PRN Reason: Pharmacy to dose Sodium Chloride (Flush - Normal Saline) 10 ml IVF Q12HR [facility] Last Admin: 08/05/19 11:21 Dose: 10 ml Sodium Chloride (Flush - Normal Saline) 10 ml IVF PRN PRN PRN Reason: Saline Flush Vital Signs & Weight: Vital Signs Temp Pulse Pulse Pulse Resp BP BP 08/05/19 15:48 97.4 F L 77 16 08/05/19 12:21 08/05/19 12:00 98.1 F 76 16 08/05/19 09:21 97 94 154/92 H 08/05/19 09:12 86 137/85 08/05/19 09:09 86 08/05/19 09:01 08/05/19 08:13 98.2 F 86 18 BP BP Pulse Ox 08/05/19 15:48 151/94 H 95 08/05/19 12:21 137/88 08/05/19 12:00 96 08/05/19 09:21 146/91 H 08/05/19 09:12 08/05/19 09:09 08/05/19 09:01 98 08/05/19 08:13 137/85 98 Admit Weight 156 lb 1.396 oz Weight 158 lb 12.8 oz - Quality Measures Condition: Heart Failure CV meds: Beta Erica: Yes, YVONNE/ARB: Yes, ASA: Yes, Anticoagulant: No ( Contraindicated, due to seizures and alcohol use.) - Physical Exam General: alert & oriented x3, no apparent distress HEENT: mucus membranes moist Neck: supple neck Cardiac: irregularly regular Lungs: clear to auscultation Neuro: grossly intact Abdomen: active bowel sounds, soft, non-tender Skin: clear Musculoskeletal: normal range of motion - Labs Result Diagrams: 08/03/19 04:49 08/05/19 06:48 Troponin/CKMB Troponin I Less than 0.010 ng/mL (< 0.028) 07/31/19 17:19 - Telemetry Supraventricular conduction: atrial fibrillation - Assessment/Plan Assessment/Plan: 1. Seizure disorder 2. Dilated CM, non ischemic likely form [id number] use and chronic afib 3. Chronic afib, rate controlled. 4. Alcohol abuse, he states none in 6 months. 5. EF 20-25% not using lifevest. 6. Non compliance PLAN: - Continue rate control only. - No anticoagulation due to alcohol use and seizure disorder. - Continue BB and ACEI - Poor senior care prognosis due to non compliance. - Will discuss with EP as he may need an AICD now. This may have been an episode of VT that caused seizures. - He would not be a candidate for an AICD just yet until MRSA cleared.
[2019-08-05] MEDS: Magnesium Oxide 400 MG TAB PO SCH (20:23)
[2019-08-05] MEDS: levETIRAcetam 500 MG TAB PO SCH (20:24)
[2019-08-06 05:07] LABS: #Eosinphils 1.2 thou/uL (0.0-0.7); #Lymphocytes 2.8 thou/uL (1.20-3.40); #Monocytes 0.9 thou/uL (0.11-0.59); #Neutrophils 2.3 thou/uL (1.40-6.50); %Basophils 0.3 % (0.0-1.0); %Eosinophils 16.4 % (0.0-10.0); %Monocytes 11.8 % (0.0-10.0); %Neutrophils 32.6 % (42.0-75.0); Mean Corpuscular HGB CONC 33.6 g/dL (32.0-36.0); Mean Corpuscular Hemoglobin 31.2 pg (27.0-31.0); Mean Corpuscular Volume 92.6 fL (78.0-98.0); Mean Platelet Volume 10.9 fL (7.4-10.4); Platelet Count 143 thou/uL (130-400); RBC Distribution Width 12.6 % (11.5-14.5); Red Blood Cell (RBC) Count 4.16 mill/uL (4.70-6.10); White Blood Cell (WBC) Count 7.2 thou/uL (4.8-10.8)
[2019-08-06 05:30] LABS: Anion Gap 13 mmol/L (10-20); BUN (Urea Nitrogen) 10 mg/dL (8.4-25.7); Calc. Creatinine Clearance 92 mL/min (70-130); Calcium 8.8 mg/dL (7.8-10.44); Carbon Dioxide 24 mmol/L (23-31); Chloride 112 mmol/L (98-107); Estimated GFR-MDRD Greater than 90; Glucose 99 mg/dL (80-115); Potassium 3.4 mmol/L (3.5-5.1); Sodium 146 mmol/L (136-145)
[2019-08-06] MEDS ORDERED: Potassium Chloride 20 MEQ TAB PO SCH ×2 (06:45→12:45)
[2019-08-06] MEDS ORDERED: Lisinopril 10 MG TAB PO SCH (09:00)
--- NOTE | 2019-08-06 09:23 | EEG ---
Referring Physician: Goldy ALEXANDRA EEG # [id number] TEST TYPE: ROUTINE PORTABLE INPATIENT REPORT: AN EEG USING THE INTERNATIONAL TEN-TWENTY SYSTEM OF ELECTRODE PLACEMENT WAS PERFORMED. The waking background is a 9 hertz alpha frequency. The patient remained awake throughout the study. Photic stimulation was unremarkable. No epileptiform features were seen. IMPRESSION: THIS IS A NORMAL AWAKE EEG. Coal Washer: CIPRIANO Assistant Chief Of Police: [email or web address] AU
[2019-08-06] MEDS: Heparin 5,000 UNITS/ML VIAL SC SCH ×3 (09:56→21:57)
[2019-08-06] MEDS: Allopurinol 100 MG TAB PO SCH (09:58)
[2019-08-06] MEDS: Spironolactone 25 MG TAB PO SCH (09:58)
[2019-08-06] MEDS: Aspirin 325 mg Enteric Coated Tablet PO SCH (09:58)
[2019-08-06] MEDS: Digoxin 0.125 MG TAB PO SCH (09:58)
[2019-08-06] MEDS: Atorvastatin Calcium 40 MG TAB PO SCH (09:58)
[2019-08-06] MEDS: Colchicine 0.6 MG TAB PO SCH ×2 (09:58→21:56)
[2019-08-06] MEDS: Metoprolol Tartrate 50 MG TAB PO SCH ×2 (09:59→21:56)
[2019-08-06] MEDS: levETIRAcetam 500 MG TAB PO SCH ×2 (09:59→21:56)
[2019-08-06] MEDS: Magnesium Oxide 400 MG TAB PO SCH ×2 (09:59→21:56)
[2019-08-06] MEDS: Famotidine 20 MG TAB PO SCH ×2 (09:59→21:56)
[2019-08-06] MEDS: Isosorbide Mononitrate (ER) 30 MG TAB PO SCH (09:59)
[2019-08-06 11:56] VITALS: BMI 26.3
--- NOTE | 2019-08-06 15:10 | PDOC.HOSPP ---
- Subjective Encounter Date: 08/06/19 Encounter Time: 11:08 Subjective: 64 y/o male with chronic systolic and diastolic heart failure, NICM with EF of 20-25, seizure disorder, recent CVA amongst others admitted after he was found unresponsive in his parked car reminiscent of recent admission when he was found to have acute CVA. Patient was extubated on 08/03/2019. Developed A fib with RVR post extubation. No new problem. No fever, worsening cough, SOB or vomiting. - Objective Vital Signs & Weight: Vital Signs (12 hours) Temp Pulse Pulse Pulse Resp BP BP 08/06/19 12:00 97.8 F 87 18 08/06/19 09:59 158/90 H 08/06/19 09:58 80 08/06/19 08:43 90 70 146/86 H 08/06/19 08:00 98.6 F 80 16 08/06/19 07:20 08/06/19 04:00 97.8 F 75 18 BP BP Pulse Ox 08/06/19 12:00 153/89 H 98 08/06/19 09:59 08/06/19 09:58 08/06/19 08:43 154/81 H 08/06/19 08:00 158/90 H 95 08/06/19 07:20 95 08/06/19 04:00 159/87 H 95 Weight Admit Weight 156 lb 1.396 oz Weight 158 lb 1.6 oz Most Recent Monitor Data Heart Rate from ECG 82 NIBP 163/92 NIBP BP-Mean 115 Respiration from ECG 23 SpO2 97 I&O: 08/05/19 08/06/19 08/07/19 06:59 06:59 06:59 Intake Total 1783.1 460 480 Output Total 905 325 Balance 878.1 460 155 Result Diagrams: 08/06/19 04:38 08/06/19 04:38 Hospitalist ROS - Medication Medications: Active Medications Generic Name Dose Route Start Last Admin Trade Name Freq PRN Reason Stop Dose Admin Allopurinol 100 mg 08/04/19 09:00 08/06/19 09:58 Zyloprim PO 100 mg DAILY [facility] Administration Aspirin 325 mg 08/04/19 09:00 08/06/19 09:58 Ecotrin PO 325 mg DAILY [facility] Administration Atorvastatin Calcium 40 mg 08/06/19 09:00 08/06/19 09:58 Lipitor PO 40 mg DAILY [facility] Administration Colchicine 0.6 mg 08/03/19 21:00 08/06/19 09:58 Colchicine PO 0.6 mg BID [facility] Administration Digoxin 0.125 mg 08/04/19 09:00 08/06/19 09:58 Lanoxin PO 0.125 mg DAILY [facility] Administration Famotidine 20 mg 08/05/19 21:00 08/06/19 09:59 Pepcid PO 20 mg Q12HR [facility] Administration Heparin Sodium (Porcine) 5,000 units 08/01/19 09:00 08/06/19 14:28 Heparin SC Not Given TID [facility] Hydralazine HCl 10 mg 07/31/19 22:53 08/03/19 18:12 Apresoline SLOW IVP 10 mg Q4H PRN Administration SBP > 180 and HR < 70 Isosorbide Mononitrate 30 mg 08/04/19 09:00 08/06/19 09:59 Imdur Er PO 30 mg DAILY [facility] Administration Levetiracetam 500 mg 08/05/19 21:00 08/06/19 09:59 Keppra PO 500 mg BID [facility] Administration Levofloxacin 750 mg 08/06/19 06:00 08/06/19 09:57 Levaquin PO 750 mg 0600 [facility] Administration Lisinopril 10 mg 08/06/19 09:00 08/06/19 09:59 Zestril PO 10 mg DAILY [facility] Administration Magnesium Oxide 400 mg 08/05/19 21:00 08/06/19 09:59 Magnesium Oxide PO 400 mg BID [facility] Administration Metoprolol Tartrate 50 mg 08/03/19 21:00 08/06/19 09:59 Lopressor PO 50 mg BID [facility] Administration Sodium Chloride 10 ml 08/04/19 21:00 08/06/19 09:59 Flush - Normal Saline IVF 10 ml Q12HR [facility] Administration Spironolactone 25 mg 08/06/19 08:00 08/06/19 09:58 Aldactone PO 25 mg QAM-WM [facility] Administration - Exam General Appearance: awake alert Eye: anicteric sclera ENT: normocephalic atraumatic Neck: supple, symmetric Heart: irregular Respiratory: no wheezes, no ronchi, normal chest expansion Respiratory - other findings: fair air entry bilaterally with some transmitted sound Gastrointestinal: soft, non-tender, non-distended, normal bowel sounds Extremities: no cyanosis, no edema Neurological: CN's grossly intact, no focal deficits Neurological - other findings: ambulating with PT Psychiatric: A&O x 3 Hosp A/P (1) Acute respiratory failure with hypoxia and hypercapnia Code(s): J96.01 - ACUTE RESPIRATORY FAILURE WITH HYPOXIA; J96.02 - ACUTE RESPIRATORY FAILURE WITH HYPERCAPNIA Status: Acute (2) Unresponsiveness Status: Acute (3) Acute encephalopathy Code(s): G93.40 - ENCEPHALOPATHY, UNSPECIFIED Status: Acute (4) Gout Code(s): M10.9 - GOUT, UNSPECIFIED Status: Acute (5) Seizure Code(s): R56.9 - UNSPECIFIED CONVULSIONS Status: Acute (6) Atrial fibrillation Code(s): I48.91 - UNSPECIFIED ATRIAL FIBRILLATION Status: Chronic Qualifiers: Atrial fibrillation type: chronic Qualified Code(s): I48.2 - Chronic atrial fibrillation (7) Chronic combined systolic and diastolic CHF (congestive heart failure) Code(s): I50.42 - CHRONIC COMBINED SYSTOLIC AND DIASTOLIC HRT FAIL Status: Chronic (8) Hypertension Code(s): I10 - ESSENTIAL (PRIMARY) HYPERTENSION Status: Chronic (9) Moderate mitral regurgitation Code(s): I34.0 - NONRHEUMATIC MITRAL (VALVE) INSUFFICIENCY Status: Chronic (10) Non-ischemic cardiomyopathy Code(s): I42.8 - OTHER CARDIOMYOPATHIES Status: Chronic (11) Pulmonary hypertension Code(s): I27.20 - PULMONARY HYPERTENSION, UNSPECIFIED Status: Chronic (12) Severe tricuspid regurgitation Code(s): I07.1 - RHEUMATIC TRICUSPID INSUFFICIENCY Status: Chronic (13) Non compliance with medical treatment Code(s): Z91.19 - PATIENT'S NONCOMPLIANCE W OTH MEDICAL TREATMENT AND REGIMEN Status: Acute (14) Hypomagnesemia Code(s): E83.42 - HYPOMAGNESEMIA Status: Acute (15) Hypokalemia Code(s): E87.6 - HYPOKALEMIA Status: Acute (16) Staphylococcus aureus pneumonia Code(s): J15.211 - PNEUMONIA DUE TO METHICILLIN SUSCEP STAPH Status: Acute - Plan Increase coreg and lisinopril to get better BP control. Start levaquin and DC IV vancomycin. Sputum culture grew MSSA Continue imdur,metoprolol and lisinopril Continue keppra Continue supportive care. Diet as tolerated.
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
[2019-08-06] MEDS: guaiFENesin ER 600 MG TAB PO SCH (21:56)
[2019-08-07 06:36] LABS: Anion Gap 10 mmol/L (10-20); BUN (Urea Nitrogen) 13 mg/dL (8.4-25.7); Calc. Creatinine Clearance 86 mL/min (70-130); Calcium 8.8 mg/dL (7.8-10.44); Carbon Dioxide 27 mmol/L (23-31); Chloride 106 mmol/L (98-107); Estimated GFR-MDRD 88; Glucose 86 mg/dL (80-115); Potassium 3.8 mmol/L (3.5-5.1); Sodium 139 mmol/L (136-145)
[2019-08-07] MEDS: Heparin 5,000 UNITS/ML VIAL SC SCH (08:51)
[2019-08-07] MEDS: Digoxin 0.125 MG TAB PO SCH (08:53)
[2019-08-07] MEDS: Allopurinol 100 MG TAB PO SCH (08:53)
[2019-08-07] MEDS: Atorvastatin Calcium 40 MG TAB PO SCH (08:54)
[2019-08-07] MEDS: Isosorbide Mononitrate (ER) 30 MG TAB PO SCH (08:55)
[2019-08-07] MEDS: Famotidine 20 MG TAB PO SCH (08:55)
[2019-08-07] MEDS: Magnesium Oxide 400 MG TAB PO SCH (08:55)
[2019-08-07] MEDS: Metoprolol Tartrate 50 MG TAB PO SCH (08:55)
[2019-08-07] MEDS: levETIRAcetam 500 MG TAB PO SCH (08:56)
[2019-08-07] MEDS: Colchicine 0.6 MG TAB PO SCH (08:57)
[2019-08-07] MEDS: Aspirin 325 mg Enteric Coated Tablet PO SCH (08:57)
[2019-08-07] MEDS: guaiFENesin ER 600 MG TAB PO SCH (08:57)
[2019-08-07] MEDS: Spironolactone 25 MG TAB PO SCH (08:57)
[2019-08-07] MEDS ORDERED: Lisinopril 20 MG TAB PO SCH (09:00)
--- NOTE | 2019-08-07 09:36 | PDOC.EVN ---
Event Note - Event Note Event Note: Seen and examined. Discharged home. Syed Sewell contacted and updated on care plan including discharge and follow up as well as DO NOT DRIVE ORDER. discharge summary dictated. #[id number]
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
[2019-08-07 11:44] VITALS: BP 156/92; TEMP 98
[2019-08-07] MEDS ORDERED: Prevnar 13-Val Conj/PF 0.5 ML SYRINGE IM ONE (12:30)
== END 2019-08-07 13:00 | disposition home or self-care (01) | DRG 100 ==
LOC: ERS 17:02 → CCU 21:10 → 2SE 08-04 22:31
PROVIDERS: ADMIT Internal Medicine; ATTEND Internal Medicine
PROC: 0BH17EZ Insertion of Endotracheal Airway into Trachea, Via Natural or Artificial Opening (ICD-10-PCS; principal; 2019-07-31)
PROC: 5A1945Z Respiratory Ventilation, 24-96 Consecutive Hours (ICD-10-PCS; 2019-07-31)
DX: G40.909 Epilepsy, unspecified, not intractable, without status epilepticus (principal); J96.01 Acute respiratory failure with hypoxia; J96.02 Acute respiratory failure with hypercapnia; G93.41 Metabolic encephalopathy; J15.211 Pneumonia due to Methicillin susceptible Staphylococcus aureus; G93.40 Encephalopathy, unspecified; I50.42 Chronic combined systolic (congestive) and diastolic (congestive) heart failure; I42.8 Other cardiomyopathies; I69.351 Hemiplegia and hemiparesis following cerebral infarction affecting right dominant side; Z51.5 Encounter for palliative care; I48.2 Chronic atrial fibrillation; I11.0 Hypertensive heart disease with heart failure; I34.0 Nonrheumatic mitral (valve) insufficiency; I27.20 Pulmonary hypertension, unspecified; I07.1 Rheumatic tricuspid insufficiency; M10.9 Gout, unspecified; E83.42 Hypomagnesemia; E87.6 Hypokalemia; I48.0 Paroxysmal atrial fibrillation; Z98.890 Other specified postprocedural states; Z87.891 Personal history of nicotine dependence; Z79.82 Long term (current) use of aspirin; Z79.899 Other long term (current) drug therapy; Z91.19 Patient's noncompliance with other medical treatment and regimen
CPT/HCPCS: 31500; 36415; 36416; 51701; 70450; 70551; 71045; 80048; 80053; 80069; 80162; 80202; 80306; 80307; 81003; 82550; 82805; 83735; 84146; 84484; 85025; 87070; 87077; 87186; 87205; 90471; 90670; 93005; 94002; 94003; 94660; 95816; 95819; 96365; 96367; 96374; 96375; 96376; 99292; G0009; J0360; J0461; J1644; J1953; J2060; J2704; J3010; J3370; J3475; J3480; J3490; J7050; S0028

== ENCOUNTER 2019-08-10 19:38 | Emergency (ER) | payer MEDICARE ==
--- NOTE | 2019-08-10 22:25 | ULT ---
ULTRASOUND DOPPLER DUPLEX VENOUS RIGHT LOWER EXTREMITY: DATE: 08/10/2019 HISTORY: 64-year-old male with right lower extremity pain and swelling TECHNIQUE: Grayscale, color-flow, and spectral analysis, of major veins of right lower extremity. FINDINGS: There is demonstration of blood flow with normal compressibility, of the right common femoral, profun da femoral, greater saphenous, femoral, popliteal, and posterior tibial, veins. In the calf, there is soft tissue edema. IMPRESSION: 1. No deep venous thrombosis of right lower extremity. 2. Soft tissue edema at the right leg.
== END 2019-08-10 23:02 | disposition home or self-care (01) ==
LOC: ERS 19:38
DX: M79.89 Other specified soft tissue disorders (principal); I11.0 Hypertensive heart disease with heart failure; I50.9 Heart failure, unspecified; I48.91 Unspecified atrial fibrillation; Z86.73 Personal history of transient ischemic attack (TIA), and cerebral infarction without residual deficits; Z87.891 Personal history of nicotine dependence; Z79.82 Long term (current) use of aspirin; Z79.899 Other long term (current) drug therapy

== ENCOUNTER 2019-10-01 22:00 | Inpatient (IN) | payer MEDICARE ==
[~2019-10-01 22:00] MED LIST: ISOVUE-370 76%-LOCM 1 ML ONE
--- NOTE | 2019-10-01 22:14 | CT ---
CT Brain WO Con: 10/01/2019 12:00 AM CLINICAL HISTORY: LEVEL 1 STROKE...CALL DR. BUCHANAN AT 4706 WITH RESULTS M65, LAST SEEN NORMAL AT 19 00, PATIENT IS AWAKE BUT NOT RESPONDING TO QUESTIONS. IMAGING TECHNIQUE: Multiple CT images were obtained of the brain without IV contrast. COMPARISON: July 31, 2019 CT of the brain FINDINGS: Brain: No acute infarct or hemorrhage is evident. No midline shift. There is a remote cortical infa rct involving the left parietal lobe. There are remote lacunar infarcts involving the left lr radiata and subcortical white matter of the right frontal lobe. There is a remote lacunar infarct inv olving the right basal ganglia. There is moderate chronic small vessel white matter ischemic change. Ventricles: Normal. No hydrocephalus.. Skull: Intact.. Visualized Paranasal sinuses: Stable remote deformity involving the left medial orbital wall. No air- fluid levels are evident.. Mastoid air cells:Stable partial fusion of the right mastoid air cells. Left mastoid air cells are cl ear. Extracranial soft tissues:Normal. IMPRESSION: No acute intracranial abnormality. Findings called to Dr. Buchanan at 10:10 PM on October 01, 2019.
[2019-10-01 22:19] LABS: Hemoglobin 13.1 g/dL (14.0-18.0); Mean Corpuscular Hemoglobin 30.8 pg (27.0-31.0); Mean Corpuscular Volume 93.3 fL (78.0-98.0); Mean Platelet Volume 10.3 fL (7.4-10.4); Platelet Count 158 thou/uL (130-400); Red Blood Cell (RBC) Count 4.24 mill/uL (4.70-6.10); White Blood Cell (WBC) Count 15.5 thou/uL (4.8-10.8)
[2019-10-01 22:24] LABS: INR-International Normal Ratio 1.1; PTT 29.2 SEC (22.9-36.1)
[2019-10-01] MEDS ORDERED: Lorazepam 2 MG/ML VIAL ONE (22:24)
[2019-10-01 22:30] LABS: ALT (SGPT) 16 U/L (8-55); AST (SGOT) 23 U/L (5-34); Albumin 4.2 g/dL (3.4-4.8); Alkaline Phosphatase 80 U/L (40-110); Anion Gap 13 mmol/L (10-20); BUN (Urea Nitrogen) 9 mg/dL (8.4-25.7); Bilirubin, Total 0.6 mg/dL (0.2-1.2); CK (CPK) 147 U/L (30-200); Calc. Creatinine Clearance 0 mL/min (70-130); Calcium 8.8 mg/dL (7.8-10.44); Carbon Dioxide 27 mmol/L (23-31); Chloride 105 mmol/L (98-107); Estimated GFR-MDRD 64; Globulin 3.3 g/dL (2.4-3.5); Glucose 94 mg/dL (80-115); Potassium 3.8 mmol/L (3.5-5.1); Protein, Total 7.5 g/dL (5.8-8.1); Sodium 141 mmol/L (136-145)
--- NOTE | 2019-10-01 22:32 | CT ---
CTA of the head with IV contrast and 3-D reformatted imaging. CTA of the neck with IV contrast and 3-D reformatted imaging. INDICATION: LEVEL 1 STROKE...CALL DR. BUCHANAN AT 4706 WITH RESULTS M65, LAST SEEN NORMAL AT 1900, PETEY RICO IS AWAKE BUT NOT RESPONDING TO QUESTIONS COMPARISON: Noncontrast CT the brain dated October 01, 2019 FINDINGS: CTA OF THE HEAD WITH CONTRAST: CTA OF THE BRAIN: Right ICA: Patent. Right MCA: Patent. Right CHENCHO: Patent. ACOM: Patent. Left ICA: Patent. Left MCA: Patent. Left CHENCHO: Patent. PCOMs: Present on the right. Vertebral arteries: Diminutive right vertebral artery is likely congenital. Basilar Artery: Patent. instrument and control technician: There is a origin to the left DRY ROOM OPERATOR. Both appear patent. Incidentals: No abnormal enhancement. Remote ischemic change as detailed on the CT the brain without contrast dated 10/01/2019. CTA OF THE NECK WITH CONTRAST: Right CCA: Patent. Right ICA: Patent. Right Subclavian: Patent. Right Vertebral Artery: Patent. Left CCA: Patent. Left ICA: Patent. Left Subclavian: Patent. Left Vertebral Artery: Severe narrowing involving the origin and proximal left vertebral artery. Aerodigestive tract: Clear. Parotids/Submandibular/Thyroid glands: Normal. Lymph nodes: No pathologically enlarged lymph nodes. Lung Apices: Clear. Bones: No acute osseous abnormality. There is scattered degenerative and osteoarthritic change prese nt. Incidentals: None. IMPRESSION: 1. Chronic appearing severe narrowing involving the origin and proximal left vertebral artery. No add itional hemodynamically significant stenosis, occlusion or aneurysmal formation demonstrated.
[2019-10-01] MEDS ORDERED: levETIRAcetam 500 MG/100 ML PREMIX BAG ONE (22:38)
[2019-10-01 22:39] LABS: Acetaminophen Less than 6.0 mcg/mL (10.0-30.0); Alcohol Less than 10 mg/dL (Less than 10); Band 2 % (5-11); Eosinophils 9 % (0-10); Hypochromia SLIGHT = 6-15 cells (100X) (0-5/hpf); Lymphocytes 46 % (21-51); MDiff Complete? YES; Monocytes 4 % (0-10); Neutrophil 39 % (42-75); Salicylate Less than 8.0 mg/dL (15.0-30.0)
[2019-10-01] MEDS ORDERED: levETIRAcetam In NaCl (Iso-Os) 1,000 MG in Premix Bag 1 BAG IVPB SCH (22:45)
--- NOTE | 2019-10-01 22:49 | RAD ---
Chest AP view INDICATION: Altered mental status COMPARISON: July 31, 2019 FINDINGS: Lungs:The lungs are clear Cardiac silhouette:Stable prominent cardiomegaly Pulmonary vasculature:Normal Pleural spaces:No pleural effusion or pneumothorax is demonstrated. Upper abdomen:No abnormality seen. Osseous structures: No acute osseous abnormality. Additional findings:None. IMPRESSION: Stable cardiomegaly
[2019-10-02] MEDS ORDERED: Lorazepam 2 MG/ML VIAL SLOW IVP SCH (01:45)
[2019-10-02] MEDS ORDERED: Diltiazem HCl 125 MG, Admixture Fee 1 EACH in Sodium Chloride 0.9% 100 ML IVPB SCH (01:45)
[2019-10-02 03:05] VITALS: BMI 22.3
[2019-10-02] MEDS ORDERED: Lorazepam 2 MG/ML VIAL SLOW IVP PRN (04:22)
[2019-10-02] MEDS ORDERED: hydrALAZINE 20 MG/ML VIAL SLOW IVP PRN (04:22)
[2019-10-02] MEDS ORDERED: Acetaminophen 325 MG TAB PO PRN (04:22)
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
[2019-10-02 05:28] LABS: #Lymphocytes 0.9 thou/uL (1.20-3.40); #Monocytes 0.3 thou/uL (0.11-0.59); #Neutrophils 8.1 thou/uL (1.40-6.50); %Basophils 0.5 % (0.0-1.0); %Eosinophils 0.3 % (0.0-10.0); %Lymphocytes 9.5 % (21.0-51.0); %Monocytes 3.6 % (0.0-10.0); %Neutrophils 86.1 % (42.0-75.0); Hemoglobin 13.2 g/dL (14.0-18.0); Mean Corpuscular HGB CONC 32.4 g/dL (32.0-36.0); Mean Corpuscular Hemoglobin 30.6 pg (27.0-31.0); Mean Corpuscular Volume 94.6 fL (78.0-98.0); Mean Platelet Volume 10.8 fL (7.4-10.4); Platelet Count 154 thou/uL (130-400); RBC Distribution Width 13.1 % (11.5-14.5); Red Blood Cell (RBC) Count 4.33 mill/uL (4.70-6.10); White Blood Cell (WBC) Count 9.5 thou/uL (4.8-10.8)
[2019-10-02 05:48] LABS: Anion Gap 12 mmol/L (10-20); BUN (Urea Nitrogen) 8 mg/dL (8.4-25.7); Calc. Creatinine Clearance 62 mL/min (70-130); Calcium 8.7 mg/dL (7.8-10.44); Carbon Dioxide 27 mmol/L (23-31); Chloride 102 mmol/L (98-107); Estimated GFR-MDRD 69; Glucose 162 mg/dL (80-115); Sodium 136 mmol/L (136-145)
[2019-10-02] MEDS ORDERED: levETIRAcetam In NaCl (Iso-Os) 750 MG in Premix Bag 1 BAG IVPB SCH (09:00)
[2019-10-02] MEDS: Famotidine 20 MG TAB PO SCH ×2 (10:08→20:59)
[2019-10-02] MEDS: Enoxaparin Sodium 40 MG/0.4 ML SYRINGE SC SCH (10:09)
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
[2019-10-02] MEDS ORDERED: FLU VACC TS2019-20(65YR UP)/PF 180 MCG/0.5 ML SYRINGE IM ONE (21:00)
--- NOTE | 2019-10-02 22:49 | PDOC.HOSPP ---
- Subjective Encounter Date: 10/02/19 Encounter Time: 12:00 Subjective: The patient very confused. He is niuean speaking however answers to questions don't make much sense. Patient says "pocito" to every question asked - Objective Vital Signs & Weight: Vital Signs (12 hours) Temp Pulse Resp BP Pulse Ox 10/02/19 20:00 97.6 F 98 18 119/77 98 10/02/19 15:58 98.5 F 83 17 122/77 99 10/02/19 11:52 98.8 F 73 16 121/67 98 Weight Weight 142 lb 6.4 oz I&O: 10/01/19 10/02/19 10/03/19 06:59 06:59 06:59 Intake Total 2 Output Total 200 Balance 2 -200 Result Diagrams: 10/02/19 04:49 10/02/19 04:49 Additional Labs: Accuchecks 10/01/19 22:07 POC Glucose 92 Hospitalist ROS - Review of Systems ROS unobtainable: due to mental status - Medication Medications: Active Medications Generic Name Dose Route Start Last Admin Trade Name Andre PRN Reason Stop Dose Admin Enoxaparin Sodium 40 mg 10/02/19 09:00 10/02/19 10:09 Lovenox SC 40 mg 0900 MACARIO Administration Famotidine 20 mg 10/02/19 09:00 10/02/19 20:59 Pepcid PO 20 mg BID MACARIO Administration Levetiracetam 750 mg/ Sodium 107.5 mls @ 215 mls/hr 10/02/19 09:00 10/02/19 20:59 Chloride IVPB 107.5 mls BID MACARIO Administration - Exam General Appearance: NAD, awake alert Eye: PERRL, anicteric sclera Neck: no JVD Heart: RRR, no murmur, no gallops, no rubs Respiratory: CTAB, no wheezes, no rales Gastrointestinal: soft, non-tender, non-distended Extremities: no cyanosis, no clubbing, no edema Skin: normal turgor, no lesions, no rashes Neurological: cranial nerve grossly intact, normal sensation to touch, no focal deficits, no new deficit Musculoskeletal: normal tone, normal strength, no muscle wasting Psychiatric: normal affect, normal behavior, A&O x 3 Hosp A/P - Plan CTA: severe narrowing of left vertebral artery CT head: negative Chest X ray: stable cardiomegaly This is a 64 year old male with PMH Of seizure brought in for altered mental status. Had seizure in ER and was given keppra. Acute encephalopathy secondary to seizure - IV keppra bid, increase to 750 mg bid - MRI brain per neuro consult AFib - got one dose of diltiazem. Will check ECHO GERD - protonix Anemia - hb 13. Check B12 and folate in am Leukocytosis - resolved Code status: full code
[2019-10-03 07:29] LABS: Hemoglobin 13.2 g/dL (14.0-18.0); Mean Corpuscular HGB CONC 33.6 g/dL (32.0-36.0); Mean Corpuscular Hemoglobin 31.1 pg (27.0-31.0); Mean Corpuscular Volume 92.5 fL (78.0-98.0); Mean Platelet Volume 10.5 fL (7.4-10.4); Platelet Count 148 thou/uL (130-400); RBC Distribution Width 13.1 % (11.5-14.5); Red Blood Cell (RBC) Count 4.24 mill/uL (4.70-6.10)
[2019-10-03] MEDS: Famotidine 20 MG TAB PO SCH ×2 (09:07→20:45)
[2019-10-03] MEDS: Enoxaparin Sodium 40 MG/0.4 ML SYRINGE SC SCH (09:07)
--- NOTE | 2019-10-03 10:32 | MRI ---
MRI Brain WITHOUT CONTRAST: DATE: 10/03/2019 9:00 AM. CLINICAL HISTORY: Encephalopathy, seizure. COMPARISON: 08/01/2019. FINDINGS: There is parenchymal volume loss with compensatory dilatation of the ventricular system. Signal abnor mality involves the medial left temporal lobe. Increased signal of this region is present on the DWI series with a component of T2 shine through demonstrated by ADC map. Stable susceptibility artifa ct at the right lentiform nucleus indicates hemosiderin staining from remote lacunar infarction. There is microvascular ischemic disease of the bilateral cerebral white matter, moderate in degree wi th superimposed multifocal lacunar infarctions. Encephalomalacia of the posterior left temporal lobe is stable. IMPRESSION: Abnormal signal of the medial left temporal lobe, nonspecific. This can be seen in the setting of enc ephalitis such as herpes encephalitis, limbic encephalitis from paraneoplastic syndrome. Consider follow-up with postcontrast imaging for additional evaluation. Transcribed Date/Time: 10/03/2019 10:39 AM
--- NOTE | 2019-10-03 11:36 | MRI ---
MRI Brain W Con: 10/03/2019 10:44 AM CLINICAL HISTORY: Seizure, encephalitis COMPARISON: Reference is made to preceding brain MRI, same date FINDINGS: Postcontrast imaging does not reveal pathologic intra-axial enhancement. IMPRESSION: No pathologic intra-axial enhancement. Reference preceding noncontrast brain MRI for additional detai ls.
[2019-10-03] MEDS ORDERED: Gadobenate Dimeglumine 529 MG/1 ML (20ML VIAL) ONE (12:00)
--- NOTE | 2019-10-03 13:00 | PDOC.HOSPP ---
- Subjective Encounter Date: 10/03/19 Encounter Time: 12:59 - Objective Vital Signs & Weight: Vital Signs (12 hours) Temp Pulse Resp BP Pulse Ox 10/03/19 12:07 98.4 F 87 18 150/84 H 95 10/03/19 08:02 97.4 F L 77 16 155/82 H 93 L 10/03/19 03:35 97.3 F L 94 18 123/69 99 Weight Weight 142 lb 6.4 oz I&O: 10/02/19 10/03/19 10/04/19 06:59 06:59 05:59 Intake Total 2 460 220 Output Total 200 Balance 2 260 220 Result Diagrams: 10/03/19 07:21 10/02/19 04:49 Hospitalist ROS - Medication Medications: Active Medications Generic Name Dose Route Start Last Admin Trade Name Freq PRN Reason Stop Dose Admin Enoxaparin Sodium 40 mg 10/02/19 09:00 10/03/19 09:07 Lovenox SC 40 mg 0900 MACARIO Administration Famotidine 20 mg 10/02/19 09:00 10/03/19 09:07 Pepcid PO 20 mg BID MACARIO Administration Levetiracetam 750 mg/ Sodium 107.5 mls @ 215 mls/hr 10/02/19 09:00 10/03/19 09:07 Chloride IVPB 107.5 mls BID MACARIO Administration - Exam General Appearance: NAD Eye: PERRL ENT: normocephalic atraumatic Neck: supple Heart: RRR Respiratory: CTAB Gastrointestinal: soft Extremities: no edema Skin: normal turgor Neurological - other findings: mild weakness, speech/memory issues Musculoskeletal: normal tone Psychiatric: normal affect Hosp A/P (1) Seizure Code(s): R56.9 - UNSPECIFIED CONVULSIONS Status: Acute (2) Atrial fibrillation Code(s): I48.91 - UNSPECIFIED ATRIAL FIBRILLATION Status: Chronic Qualifiers: Atrial fibrillation type: chronic (3) H/O: CVA (cerebrovascular accident) Code(s): Z86.73 - PRSNL HX OF TIA (TIA), AND CEREB INFRC W/O RESID DEFICITS Status: Chronic (4) Metabolic encephalopathy Code(s): G93.41 - METABOLIC ENCEPHALOPATHY Status: Resolved - Plan old records reviewed/req, plan discussed w/ family, PT/OT, DVT proph w/lovenox, GI proph continue to follow neurology recs. Keppra dose increased seizures controlled.
--- NOTE | 2019-10-03 14:06 | PRG ---
DATE OF TELEMEDICINE SERVICE: 10/03/2019 CHIEF COMPLAINT: Altered mental status. HISTORY OF PRESENT ILLNESS: The patient continues to be altered today. He is trying to talk, but he has palilalia. He is still mildly confused. I reviewed the lab workup so far; white count 10, hemoglobin 13.2, hematocrit 39.2, and platelet count 148. Chemistry; sodium 136, potassium 5.0, chloride 102, bicarb 27, BUN 8 , creatinine 1.08, and glucose 162. B12 was slightly low at 319 and his Keppra level is 34.8 and his MRI was completed. MRI of the brain showed hyperintensity, abnormality in the left temporal lobe consistent with either limbic encephalitis or herpes encephalitis. I ordered an MRI with contrast, which was completed and that study did not demonstrate any kind of enhancement. PHYSICAL EXAMINATION: VITAL SIGNS: Temperature 98.4, pulse rate 77, O2 saturations 93%, respiratory rate 16, and blood pressure 155/82. GENERAL APPEARANCE: The patient appears confused. He repeats himself. He has palilalia and he is trying to talk today, tries to make a full sentence, can follow commands. Cranial nerves, normal extraocular movements. Tongue midline. Motor , he is able to move all extremities equally and no focal weakness was demonstrated. IMPRESSION: The patient is a 64-year-old man, who has had recurrent admissions for seizures and altered mental status, currently he comes back with more profound altered mental status. 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 At this time , it is important to establish a diagnosis for this patient. TREATMENT RECOMMENDATIONS: Please obtain CSF while lumbar puncture and please include the following CSF studies Herpes simplex PCR and cytology and also viral cultures to find out what underlying etiology is. Please obtain Infectious Disease consultation as well. I will continue to follow this patient. Job ID: [id number] MTDD
--- NOTE | 2019-10-04 11:22 | PDOC.HOSPP ---
- Subjective Encounter Date: 10/04/19 Encounter Time: 11:20 Subjective: Patient seen and examined. No new complaints. No overnight events. Had LP today. BP high today. - Objective Vital Signs & Weight: Vital Signs (12 hours) Temp Pulse Resp BP Pulse Ox 10/04/19 07:45 97.7 F 90 16 160/97 H 95 10/04/19 03:28 97.7 F 90 16 150/91 H 94 L Weight Weight 142 lb 6.4 oz I&O: 10/03/19 10/04/19 10/05/19 07:59 06:59 06:59 Intake Total Output Total Balance Result Diagrams: 10/03/19 07:21 10/02/19 04:49 Hospitalist ROS - Medication Medications: Active Medications Generic Name Dose Route Start Last Admin Trade Name Freq PRN Reason Stop Dose Admin Enoxaparin Sodium 40 mg 10/02/19 09:00 10/03/19 09:07 Lovenox SC 40 mg 0900 MACARIO Administration Famotidine 20 mg 10/02/19 09:00 10/03/19 20:45 Pepcid PO 20 mg BID MACARIO Administration Levetiracetam 750 mg/ Sodium 107.5 mls @ 215 mls/hr 10/02/19 09:00 10/03/19 20:46 Chloride IVPB 107.5 mls BID MACARIO Administration - Exam General Appearance: NAD Eye: anicteric sclera ENT: normocephalic atraumatic Neck: supple Heart: RRR Respiratory: CTAB Gastrointestinal: soft Neurological: no weakness Musculoskeletal: normal tone Hosp A/P (1) Seizure Code(s): R56.9 - UNSPECIFIED CONVULSIONS Status: Acute (2) Atrial fibrillation Code(s): I48.91 - UNSPECIFIED ATRIAL FIBRILLATION Status: Chronic Qualifiers: Atrial fibrillation type: chronic (3) H/O: CVA (cerebrovascular accident) Code(s): Z86.73 - PRSNL HX OF TIA (TIA), AND CEREB INFRC W/O RESID DEFICITS Status: Chronic (4) Metabolic encephalopathy Code(s): G93.41 - METABOLIC ENCEPHALOPATHY Status: Resolved - Plan old records reviewed/req, plan discussed w/ family continue to follow neurology recs. LP ordered and done today. Awaiting results consult ID to evaluate for possible encephalitis causing recurrent seizures. Keppra dose increased yesterday. seizures controlled. will add coreg for BP control.
--- NOTE | 2019-10-04 11:26 | RAD ---
XR Lumbar Punct Only W/Fluoro History: Altered mental status Comparison: None. Findings: Patient was brought to the fluoroscopy suite. All questions were answered. Informed consent was obtained. Timeout performed. The patient's back was prepped and draped in normal sterile fashion. Using fluoroscopic guidance the L3-4 interspace was accessed. 10 mL of clear CSF was aspirated. Patient tolerated the procedure well without complication. Impression: Technically successful fluoroscopic guided lumbar puncture.
[2019-10-04] MEDS: Enoxaparin Sodium 40 MG/0.4 ML SYRINGE SC SCH (11:28)
[2019-10-04] MEDS ORDERED: Carvedilol 6.25 MG TAB PO SCH (11:30)
[2019-10-04] MEDS: Famotidine 20 MG TAB PO SCH ×2 (11:32→22:53)
[2019-10-04 12:18] LABS: CSF, Glucose 70 mg/dl (40-70); CSF, Protein 27 mg/dL (15-40)
[2019-10-04 13:50] LABS: CSF Source CSF; Clarity Clear (Clear)
[2019-10-04] MEDS: Carvedilol 6.25 MG TAB PO SCH (17:57)
--- NOTE | 2019-10-05 01:22 | CON ---
DATE OF CONSULTATION: 10/04/2019 REASON FOR CONSULTATION: Possible encephalitis. HISTORY OF PRESENT ILLNESS: A 64-year-old who has had numerous admissions to this hospital for complications related to alcoholism, atrial fibrillation, multiple cerebrovascular accidents, and seizure activity in the past, who now comes in with altered mental status. He presented on October 02 and he was confused on admission. Of note, the patient has not had benefit of anticoagulation because of concern with prior hemorrhagic CVAs and his poor compliance due to persistent alcoholism. Reportedly abstinent from beer intake since July of this year. He was brought by the family because of expressive aphasia, weakness in extremities. Apparently, he had some rhythmic eye movements with possible seizure activity. TPA was not given. He was placed on observation, given Keppra and Ativan and he was moved to the floor, was found to be in atrial fibrillation with RVR. Initial BP 170/105, heart rate 112, respiratory rate 20, and temperature 97. Lungs were clear to auscultation percussion. Heart exam showed irregular rate, no murmurs. Abdomen soft not tender. Initial labs with a white cell count 15.5, hemoglobin 13, platelets 158 with 39% neutrophils, 2% bands, 46% lymphocytes. Creatinine 1.15. Liver profile normal. Albumin 4.2. CSF was done today and it showed zero WBCs and glucose and protein were normal. MRI showed an area in the temporal lobe and medial left side, nonspecific this was an area of abnormal signal. This is the only one of the DWI series. Postcontrast imaging did not reveal any intra-axial enhancement. Currently, Mr. Ortiz seems to be back to normal. He had some difficulty in telling me the name of the hospital, but everything else he was able to remember. He has some headaches, no visual symptoms, sore throat, odynophagia, dysphagia, no back pain, no cough, no shortness of breath or chest pain, no abdominal pain, or diarrhea. No genitourinary symptoms. No joint symptoms. PAST MEDICAL HISTORY: Includes alcoholism, multiple CVAs, seizure activity, hemorrhagic CVA, systolic heart failure with EF 20 to 25%. The patient has not had an AICD placed. Allergies none. There is a history of ventriculostomy. This was for management of hydrocephalus following hemorrhagic CVA. SOCIAL HISTORY: Alcoholism active up till July this year. Quit smoking a few years ago. . Lives in [place] with family members. CURRENT MEDICATIONS: Tylenol, Coreg, Lovenox, Pepcid, apresoline, Keppra, lorazepam. PHYSICAL EXAMINATION: VITAL SIGNS: Essentially normal except for some elevation of systolic blood pressure. SKIN: Normal. Patient is voiding in the diaper. No lymphadenopathy. HEENT: Ocular movements conjugate. Sclerae white. Pupils are equal. Oral cavity normal. NECK: Supple. No jugular vein distention. LUNGS: Symmetric. Clear breath sounds. Irregular rate and rhythm. No S3 or S4. No murmurs. ABDOMEN: Soft not distended or tender. No ascites. No bladder distention. EXTREMITIES: Moves all extremities equally. NEUROLOGIC: Cognitive function, patient speech appears normal. He speaks only Fijian. He has a little bit of difficulty in telling me the name of the hospital, but everything else seems to be normal. LABORATORY DATA: White cell count now is 10.0, hemoglobin 13, platelets 148, and chemistry essentially normal. Toxicology was negative. IMAGING STUDIES: Have been discussed above. ASSESSMENT: 1. History of alcoholism. 2. Prior CVAs, one of them was with hemorrhagic transformation. 3. Atrial fibrillation chronic without benefit of anticoagulation due to concerns with compliance and alcoholism and prior hemorrhage episodes. 4. Altered mental status, which has shown recovery with normal CSF findings and the one nonspecific finding on MRI. DISCUSSION: The patient has a low pretest likelihood for herpes simplex encephalitis, or any other type of encephalitis in view of the recovered mental state and the normal findings in CSF. Probably had another seizure event with postictal manifestations. I would not advise treatment for encephalitis. Specifically, no treatment for herpes simplex encephalitis is advised at this point in time. Job ID: [id number]
[2019-10-05 03:42] VITALS: TEMP 97.8
[2019-10-05 08:39] VITALS: BP 152/89
[2019-10-05] MEDS: Carvedilol 6.25 MG TAB PO SCH (08:47)
[2019-10-05] MEDS: Famotidine 20 MG TAB PO SCH (08:47)
[2019-10-05] MEDS: Enoxaparin Sodium 40 MG/0.4 ML SYRINGE SC SCH (08:47)
--- NOTE | 2019-10-05 12:02 | DIS ---
DATE OF ADMISSION: 10/04/2019 DATE OF DISCHARGE: 10/05/2019 DISCHARGE DISPOSITION: Home. FOLLOWUP: 1. Follow up with primary care physician at [facility] in 1 week. 2. Follow up with Neurology, Dr. Adilson Torres in 2 weeks. No driving until cleared by MD. ALLERGIES: NO KNOWN DRUG ALLERGIES. DISCHARGE MEDICATIONS: 1. Keppra dose was increased to 750 mg b.i.d. 2. All other home medications were left unchanged. SIGNIFICANT DISCHARGE LABS: Keppra level on 02 October 2019, was 34.8. CSF fluid was colorless with 0 WBCs, glucose of 70, total protein of 27. CSF culture is negative at 24 hours. Primary care physician advised to follow up on the final cultures. Troponin was negative. Creatinine was 1.15. Vitamin B12 was 319. Folic acid 8.6. Hemoglobin 13.2. WBC on admission 15.5 with 39% neutrophils, at discharge it is 10.0. CT scan of the brain on admission was negative for acute CVA. CT angiogram of the head and neck was negative for new stenosis. It showed chronic appearing severe narrowing involving the origin and proximal left vertebral artery. Echocardiogram showed left ventricular ejection fraction 25% to 30% with moderately increased size of the left ventricle. Mild tricuspid regurgitation. Ejection fraction 25% to 30%. MRI of the brain showed some nonspecific lesion in the medial left temporal lobe. There was no enhancement on the postcontrast imaging. BRIEF HOSPITAL COURSE: The patient is a 64-year-old male with seizure disorder, presented to the hospital on 02 October 2019, with altered mentation. Please refer to the history and physical for further details. The patient was admitted to the hospital with a diagnosis of altered mentation of unclear etiology. His Keppra dose was increased to 750 b.i.d. He was monitored closely in the Stroke Unit. There was some nonspecific lesion on the temporal lobe. For this reason, he was evaluated by Infectious Disease. CSF studies are negative so far. He has been cleared by Neurology and Infectious Disease for discharge. Keppra dose has been increased to 750 mg b.i.d. The patient also had atrial fibrillation with rapid ventricular response, for which he was transiently placed on Cardizem drip. This was discontinued on admission. He is not a candidate for anticoagulation, presumably due to noncompliance as well as seizure disorder. He appears stable for discharge. FINAL DIAGNOSES: 1. Toxic metabolic encephalopathy secondary to seizure. 2. Chronic atrial fibrillation, not a candidate for anticoagulation. 3. Chronic systolic and diastolic heart failure, compensated. 4. Hypertension. 5. History of gout. 6. Dyslipidemia. 7. History of heavy alcohol abuse in the past. 8. Former smoker. 9. Gastroesophageal reflux disease. Job ID: [id number]
[2019-10-05] MEDS ORDERED: levETIRAcetam 500 MG TAB PO SCH (21:00)
[2019-10-05] MEDS ORDERED: Lisinopril 5 MG TAB PO SCH (21:00)
[2019-10-06] MEDS ORDERED: Cyanocobalamin (Vitamin B-12) 1,000 MCG TAB PO SCH (09:00)
[2019-10-06] MEDS ORDERED: Thiamine 100 MG TAB PO SCH (09:00)
[2019-10-06] MEDS ORDERED: Folic Acid 1 MG TAB PO SCH (09:00)
[2019-10-06] MEDS ORDERED: Multivit, Therapeutic 1 TAB PO SCH (09:00)
[2019-10-13 07:14] LABS: Final Culture No virus isolated. (.)
== END 2019-10-05 11:51 | disposition home or self-care (01) | DRG 100 ==
LOC: ERS 22:00 → 2SE 10-02 00:45 → OBSVTOIN 10-04 20:38
PROVIDERS: ADMIT Internal Medicine; ATTEND Internal Medicine
PROC: 009U3ZX Drainage of Spinal Canal, Percutaneous Approach, Diagnostic (ICD-10-PCS; principal; 2019-10-04)
PROC: B01B1ZZ Fluoroscopy of Spinal Cord using Low Osmolar Contrast (ICD-10-PCS; 2019-10-04)
DX: G40.909 Epilepsy, unspecified, not intractable, without status epilepticus (principal); R40.2212 Coma scale, best verbal response, none, at arrival to emergency department; G92 Toxic encephalopathy; I50.42 Chronic combined systolic (congestive) and diastolic (congestive) heart failure; I48.20 Chronic atrial fibrillation, unspecified; I48.91 Unspecified atrial fibrillation; R40.2142 Coma scale, eyes open, spontaneous, at arrival to emergency department; R40.2352 Coma scale, best motor response, localizes pain, at arrival to emergency department; I11.0 Hypertensive heart disease with heart failure; K21.9 Gastro-esophageal reflux disease without esophagitis; D64.9 Anemia, unspecified; D72.829 Elevated white blood cell count, unspecified; I07.1 Rheumatic tricuspid insufficiency; M10.9 Gout, unspecified; Z86.73 Personal history of transient ischemic attack (TIA), and cerebral infarction without residual deficits; Z87.891 Personal history of nicotine dependence; Z98.890 Other specified postprocedural states; Z79.82 Long term (current) use of aspirin
CPT/HCPCS: 36415; 36416; 62270; 70450; 70496; 70498; 70551; 70552; 71045; 80048; 80053; 80177; 80307; 82550; 82607; 82746; 82945; 84157; 84484; 85025; 85027; 85610; 85730; 87070; 87205; 87252; 87529; 89051; 93005; 93306; 96365; 96375; A9577; J1650; J1953; J2060; J3490; Q9966

== ENCOUNTER 2019-10-07 09:03 | Emergency (ER) | payer MEDICARE ==
[2019-10-07 09:43] LABS: #Basophils 0.1 thou/uL (0.0-0.2); #Eosinphils 1.6 thou/uL (0.0-0.7); #Monocytes 1.1 thou/uL (0.11-0.59); #Neutrophils 7.4 thou/uL (1.40-6.50); %Basophils 0.6 % (0.0-1.0); %Eosinophils 12.2 % (0.0-10.0); %Lymphocytes 22.6 % (21.0-51.0); %Monocytes 8.3 % (0.0-10.0); %Neutrophils 56.4 % (42.0-75.0); Hemoglobin 13.2 g/dL (14.0-18.0); Mean Corpuscular HGB CONC 33.9 g/dL (32.0-36.0); Mean Corpuscular Hemoglobin 31.3 pg (27.0-31.0); Mean Corpuscular Volume 92.3 fL (78.0-98.0); Mean Platelet Volume 10.9 fL (7.4-10.4); Platelet Count 147 thou/uL (130-400); Red Blood Cell (RBC) Count 4.23 mill/uL (4.70-6.10); White Blood Cell (WBC) Count 13.1 thou/uL (4.8-10.8)
[2019-10-07 10:40] LABS: ALT (SGPT) 15 U/L (8-55); AST (SGOT) 24 U/L (5-34); Albumin 4.1 g/dL (3.4-4.8); Alkaline Phosphatase 78 U/L (40-110); Anion Gap 10 mmol/L (10-20); BUN (Urea Nitrogen) 9 mg/dL (8.4-25.7); Bilirubin, Total 0.7 mg/dL (0.2-1.2); Calc. Creatinine Clearance 0 mL/min (70-130); Calcium 9.3 mg/dL (7.8-10.44); Carbon Dioxide 30 mmol/L (23-31); Chloride 105 mmol/L (98-107); Estimated GFR-MDRD 65; Globulin 3.3 g/dL (2.4-3.5); Glucose 82 mg/dL (80-115); Potassium 3.9 mmol/L (3.5-5.1); Protein, Total 7.4 g/dL (5.8-8.1); Sodium 141 mmol/L (136-145)
[2019-10-07] MEDS ORDERED: Ibuprofen 800 MG TAB ONE (10:58)
--- NOTE | 2019-10-07 11:40 | RAD ---
Exam: Left wrist 3 views: HISTORY: Pain and swelling FINDINGS: Bony demineralization. Arthrosis and degenerative changes are noted including the radial lunate joint , with subchondral cystic changes of the lunate bone. Prominent vascular calcifications. No evidence for acute fracture or dislocation. IMPRESSION: Arthrosis changes with bony demineralization without acute fracture.
== END 2019-10-07 12:25 | disposition home or self-care (01) ==
LOC: ERS 09:03
DX: M10.9 Gout, unspecified (principal); I11.0 Hypertensive heart disease with heart failure; I50.9 Heart failure, unspecified; Z87.891 Personal history of nicotine dependence; Z79.899 Other long term (current) drug therapy
CPT/HCPCS: 36415; 80053; 85025; 93005

== ENCOUNTER 2019-11-23 10:18 | Observation (INO) | payer MEDICARE ==
[2019-11-23] MEDS ORDERED: Nitroglycerin 2% Ointment 1 INCH/1 GM Packet ONE (11:13)
[2019-11-23 11:44] LABS: #Eosinphils 0.2 thou/uL (0.0-0.7); #Lymphocytes 2.3 thou/uL (1.20-3.40); #Monocytes 0.7 thou/uL (0.11-0.59); #Neutrophils 8.5 thou/uL (1.40-6.50); %Basophils 0.3 % (0.0-1.0); %Eosinophils 1.8 % (0.0-10.0); %Lymphocytes 19.7 % (21.0-51.0); %Monocytes 5.9 % (0.0-10.0); %Neutrophils 72.3 % (42.0-75.0); Hemoglobin 13.3 g/dL (14.0-18.0); Mean Corpuscular HGB CONC 34.3 g/dL (32.0-36.0); Mean Corpuscular Hemoglobin 31.4 pg (27.0-31.0); Mean Corpuscular Volume 91.8 fL (78.0-98.0); Mean Platelet Volume 11.6 fL (7.4-10.4); Platelet Count 153 thou/uL (130-400); RBC Distribution Width 12.2 % (11.5-14.5); Red Blood Cell (RBC) Count 4.24 mill/uL (4.70-6.10); White Blood Cell (WBC) Count 11.8 thou/uL (4.8-10.8)
[2019-11-23 11:52] LABS: ALT (SGPT) 14 U/L (8-55); AST (SGOT) 24 U/L (5-34); Albumin 4.3 g/dL (3.4-4.8); Alkaline Phosphatase 68 U/L (40-110); Anion Gap 15 mmol/L (10-20); BUN (Urea Nitrogen) 11 mg/dL (8.4-25.7); Bilirubin, Total 0.8 mg/dL (0.2-1.2); Calc. Creatinine Clearance 0 mL/min (70-130); Calcium 9.6 mg/dL (7.8-10.44); Carbon Dioxide 28 mmol/L (23-31); Chloride 105 mmol/L (98-107); Estimated GFR-MDRD 62; Globulin 3.1 g/dL (2.4-3.5); Glucose 88 mg/dL (80-115); Lipase 32 U/L (8-78); Potassium 4.5 mmol/L (3.5-5.1); Protein, Total 7.4 g/dL (5.8-8.1); Sodium 143 mmol/L (136-145)
--- NOTE | 2019-11-23 11:59 | RAD ---
ABDOMEN TWO VIEWS: CHEST ONE VIEW: TECHNIQUE: PA upright chest with upper abdomen and an upright view of the abdomen obtained. FINDINGS: Lung horne appear clear on the chest exam. Scattered stool and gas throughout the colon. There is scattered nonspecific small bowel gas without significant dilatation. No evidence of free air or mass effect. IMPRESSION: Nonspecific bowel gas pattern. POS: [facility]
[2019-11-23] MEDS ORDERED: Labetalol HCl 100 MG/20 ML VIAL ONE (13:20)
[2019-11-23 14:30] LABS: Digoxin 0.61 ng/mL (0.8-2.0)
[2019-11-23] MEDS ORDERED: Aspirin Chewable 81 MG TAB ONE (14:46)
[2019-11-23 16:12] VITALS: BMI 23.1
[2019-11-23] MEDS ORDERED: Ondansetron PF 4 MG/2 ML Vial IVP PRN (16:37)
[2019-11-23] MEDS ORDERED: Ondansetron ODT 4 MG TAB SL PRN (16:37)
[2019-11-23 18:50] LABS: Troponin I Less than 0.010 ng/mL (< 0.028)
--- NOTE | 2019-11-23 19:07 | PDOC.HHP ---
Hospitalist HPI - History of Present Illness weakness History of Present Illness: This is a 64 year old male patient with history of seizures, hypertension, CHF who presented to the emergency room with persistent weakness for the past one week. Patient is a poor historian and is unable to really state why he is here. The patient talks about an accident he had while lifting up boxes that fell on his shoulder and back three years ago but is unable to state current complaints. Per , the patient has been having shortness of breath on exertion, weakness and dizziness while ambulating for the past one week. Patient denies chest pain while walking or fainting. He is compliant with his medications. He denies fevers, chills, cough, abdominal pain. He reports some nausea, but no vomiting, constipation or diarrhea. His only complaint is intermittent pain in his left shoulder but not currently. ED Course: On arrival to the ER, the patients' blood pressure was noted to be 155/110. THe patient was given aspirin 324 mg, nitro, labetalol 20 mg IV with improvement in his blood pressure to the 150's. Chest Xray and Abdominal X ray was unremarkable. EKG showed atrial fibrillation. Troponin negative times three. Labs show a WBC of 11.8, some anemia. Hospitalist ROS - Review of Systems Constitutional: denies: fever, chills ENT: reports: other (patient states he had earache the other day and saw ear doctor who gave him medicine for it?) Cardiovascular: denies: chest pain, palpitations, orthopnea Gastrointestinal: denies: nausea, vomiting, abdominal pain, diarrhea Genitourinary: denies: dysuria, frequency, incontinence, hematuria Musculoskeletal: denies: neck pain Skin: denies: rash, lesions, dao, bruising Neurological: denies: weakness, numbness Hospitalist History - Past Medical History Cardiac: reports: AFIB, CHF, HTN Other Medical History: Seizures - Past Surgical History Other Surgical History: Craniotomy for blood in his brain - Family History Other Family History: Sister of heart problems - Social History Smoking Status: Former smoker (Quit five monthsago) Alcohol: reports: None - Exam General Appearance: NAD, awake alert Eye: PERRL, anicteric sclera ENT: normocephalic atraumatic, no oropharyngeal lesions Neck: supple, symmetric, no JVD, no thyromegaly Heart: RRR, no murmur, no gallops, no rubs Respiratory: CTAB, no wheezes, no rales, no ronchi Gastrointestinal: soft, non-tender, non-distended, normal bowel sounds Extremities: no cyanosis, no clubbing, no edema Skin: normal turgor, no lesions, no rashes Neurological: cranial nerve grossly intact, normal sensation to touch, no weakness, no focal deficits Musculoskeletal: normal tone, normal strength, no muscle wasting Psychiatric: normal affect, normal behavior, A&O x 3, oriented to person Hospitalist Results - Labs Result Diagrams: 11/23/19 11:07 11/23/19 11:07 Lab results: WBC 11.8 thou/uL (4.8-10.8) H 11/23/19 11:07 Hgb 13.3 g/dL (14.0-18.0) L 11/23/19 11:07 Hct 38.9 % (42.0-52.0) L 11/23/19 11:07 MCV 91.8 fL (78.0-98.0) 11/23/19 11:07 Plt Count 153 thou/uL (130-400) 11/23/19 11:07 Neutrophils % 72.3 % (42.0-75.0) 11/23/19 11:07 Sodium 143 mmol/L (136-145) 11/23/19 11:07 Potassium 4.5 mmol/L (3.5-5.1) 11/23/19 11:07 Chloride 105 mmol/L (98-107) 11/23/19 11:07 Carbon Dioxide 28 mmol/L (23-31) 11/23/19 11:07 BUN 11 mg/dL (8.4-25.7) 11/23/19 11:07 Creatinine 1.18 mg/dL (0.7-1.3) 11/23/19 11:07 Glucose 88 mg/dL (80-115) 11/23/19 11:07 Calcium 9.6 mg/dL (7.8-10.44) 11/23/19 11:07 Total Bilirubin 0.8 mg/dL (0.2-1.2) 11/23/19 11:07 AST 24 U/L (5-34) 11/23/19 11:07 ALT 14 U/L (8-55) 11/23/19 11:07 Alkaline Phosphatase 68 U/L (40-110) 11/23/19 11:07 Troponin I Less than 0.010 ng/mL (< 0.028) 11/23/19 18:13 Serum Total Protein 7.4 g/dL (5.8-8.1) 11/23/19 11:07 Albumin 4.3 g/dL (3.4-4.8) 11/23/19 11:07 Lipase 32 U/L (8-78) 11/23/19 11:07 - EKG Interpretation EKG: EKG 09/23: atrial fibrillation Hospitalist H&P A/P - Plan Plan: Chest X ray: normal Abdominal X ray: nonspecific bowel gas pattern This is a 64 year old male with past medical history of hypertension, gout, seizures, atrial fibrillation who presented to the emergency room with weakness upon ambulation, found to be hypertensive #Weakness/shortness of breath on exertion #Chronic diastolic heart failure - check orthostatics - will keep NPO for stress test tomorrow. Last ECHO on 10/20 showed an EF of 25- 30%, no cath or stress test done previou.sly - hold beta nataliia, continue lisinopril, spironolactone, atorvastatin, aspirin - PT evaluation Hypertensive urgency -had BP of 155/110, s/p labetalol with improvement in his BP to 130's - resume home antihypertensives - continue lisinopril 10 mg daily Atrial fibrillation - controlled, hold beta nataliia for tonight - continue aspirin 325 mg daily - continue digoxin Leukocytosis - WBC 11.3, no signs of infection. Chest X ray and abdominal X ray normal - check UA GERD - protonix Seizures - keppra Code status: full code for now DVT prophylaxis: hold due to weakness
[2019-11-23] MEDS ORDERED: Acetaminophen 325 MG TAB PO PRN (19:24)
[2019-11-23] MEDS: levETIRAcetam 500 MG TAB PO SCH (20:36)
[2019-11-23 20:50] LABS: Bilirubin Negative (Negative); Blood, Urine Negative (Negative); Clarity Clear (Clear); Glucose, Urine (Dipstick) Normal (Negative); Leukocyte Negative Leu/uL (Negative); Nitrite Negative (Negative); Protein, Urine (Dipstick) 20 mg/dL (Neg-Trace)
[2019-11-23] MEDS ORDERED: Metoprolol Tartrate 50 MG TAB PO SCH (21:00)
[2019-11-23] MEDS ORDERED: Atorvastatin Calcium 40 MG TAB PO SCH (21:00)
[2019-11-24 04:58] LABS: #Basophils 0.1 thou/uL (0.0-0.2); #Eosinphils 0.6 thou/uL (0.0-0.7); #Lymphocytes 3.7 thou/uL (1.20-3.40); #Monocytes 1.6 thou/uL (0.11-0.59); #Neutrophils 9.6 thou/uL (1.40-6.50); %Basophils 0.4 % (0.0-1.0); %Eosinophils 4.1 % (0.0-10.0); %Lymphocytes 23.8 % (21.0-51.0); %Neutrophils 61.7 % (42.0-75.0); Hemoglobin 13.2 g/dL (14.0-18.0); Mean Corpuscular HGB CONC 33.3 g/dL (32.0-36.0); Mean Corpuscular Hemoglobin 30.4 pg (27.0-31.0); Mean Corpuscular Volume 91.4 fL (78.0-98.0); Mean Platelet Volume 10.7 fL (7.4-10.4); Platelet Count 153 thou/uL (130-400); RBC Distribution Width 12.4 % (11.5-14.5); Red Blood Cell (RBC) Count 4.35 mill/uL (4.70-6.10); White Blood Cell (WBC) Count 15.5 thou/uL (4.8-10.8)
[2019-11-24 05:15] LABS: Anion Gap 12 mmol/L (10-20); BUN (Urea Nitrogen) 15 mg/dL (8.4-25.7); Calc. Creatinine Clearance 59 mL/min (70-130); Calcium 9.1 mg/dL (7.8-10.44); Carbon Dioxide 28 mmol/L (23-31); Chloride 107 mmol/L (98-107); Estimated GFR-MDRD 66; Glucose 100 mg/dL (80-115); Potassium 3.7 mmol/L (3.5-5.1); Sodium 143 mmol/L (136-145)
[2019-11-24] MEDS ORDERED: Spironolactone 25 MG TAB PO SCH (08:00)
[2019-11-24] MEDS ORDERED: Lisinopril 10 MG TAB PO SCH (09:00)
[2019-11-24] MEDS ORDERED: Allopurinol 100 MG TAB PO SCH (09:00)
[2019-11-24] MEDS ORDERED: Digoxin 0.125 MG TAB PO SCH (09:00)
[2019-11-24] MEDS ORDERED: Aspirin 325 mg Enteric Coated Tablet PO SCH (09:00)
[2019-11-24] MEDS ORDERED: Multivit, Therapeutic 1 TAB PO SCH (09:00)
[2019-11-24] MEDS: levETIRAcetam 500 MG TAB PO SCH (12:37)
--- NOTE | 2019-11-24 12:50 | NM ---
Radionucleotide stress and rest myocardial perfusion scan with CT attenuation correction and SPECT im aging Left ventricular wall motion evaluation and ejection fraction HISTORY: Chest pain. FINDINGS: Lexiscan protocol. There is homogeneous uptake of radiotracer throughout the left ventricul ar myocardium. No focal perfusion defect or reversibility. QGS analysis of gated SPECT images shows global hypokinesis, most pronounced at the septum. No focal wall motion abnormalities. Ejection fraction calculated at 38%. IMPRESSION: No evidence of ischemia. Global hypokinesis with ejection fraction of 38%.
[2019-11-24] MEDS ORDERED: Regadenoson 0.4 MG/5 ML SYRINGE ONE (14:22)
[2019-11-24] MEDS ORDERED: Metoprolol Tartrate 50 MG TAB PO SCH ×2 (16:00→21:00)
[2019-11-24 16:33] VITALS: BP 171/92
[2019-11-24 16:42] VITALS: TEMP 98.3
--- NOTE | 2019-11-24 21:46 | DIS ---
DATE OF ADMISSION: 11/23/2019 DATE OF DISCHARGE: 11/24/2019 DISCHARGE DIAGNOSES: Shortness of breath on exertion/weakness possibly secondary to chronic systolic heart failure, hypertensive urgency, leukocytosis. SECONDARY DISCHARGE DIAGNOSES: Systolic congestive heart failure, atrial fibrillation, gastroesophageal reflux disease, seizures. CONSULTATIONS: None. PROCEDURES: Stress test, which showed no evidence of ischemia. BRIEF HISTORY OF PRESENT ILLNESS: This 64-year-old male with past medical history of seizures, hypertension, CHF, who presented to the emergency room with weakness for the past 1 week. The patient is a very poor historian. However, according to his , they felt that the patient was having exertional dyspnea, weakness and dizziness. Upon arrival to the emergency room, the patient's blood pressure was noted to be 155/110. The patient states that he is compliant with his medications and takes his medications daily. The patient was given aspirin, nitroglycerin, and labetalol with improvement in his blood pressure to the 150s. EKG showed atrial fibrillation. Troponin was negative x3. Chest and abdominal x-ray were unremarkable. The patient was admitted for further workup. HOSPITAL COURSE: Dyspnea on exertion/weakness: Given that the patient had an echo on October 20 that showed an EF of 25% to 30%, it was decided to have the patient scheduled for a stress test since the patient has had no cardiac workup previously. The patient underwent a stress test, which showed no evidence of ischemia. Orthostatics were checked which were negative. PT was unable to evaluate the patient since the patient was in a stress test. However, the nurses saw the patient ambulating and the patient did not seem to have any difficulty ambulating on his own. The patient should follow up with his PCP in a week and he should consider following up with a traveling operator for further workup of his heart failure. Hypertensive urgency: The patient presented with a blood pressure 155/110. The patient states that occasionally at times, he does not remember to take his medications. He is advised to have his help him take his medications. He was resumed on all his home antihypertensives and his blood pressure remained controlled in the 140s. Atrial fibrillation: The patient is on aspirin and digoxin. His beta-nataliia was held for stress test and was resumed on day of discharge with adequate control of his heart rate. Leukocytosis: The patient had a white blood cell count of 11.3 on admission. Chest x-ray and abdominal x-ray were normal. UA was unremarkable. The patient's white blood cell count went up to 15 on the day of discharge, however, patient was afebrile. He denies fevers, chills, night sweats, or weight loss. This can be followed up with his PCP as an outpatient. Consider malignancy workup as necessary. His son was called and told to bring patient back if he has a fever. Anemia: Patient hemoglobin of 13.2. The patient denied any symptoms of bleeding. This can be worked up further as an outpatient with his PCP. DISCHARGE PHYSICAL EXAMINATION: VITAL SIGNS: Temperature 98.3, heart rate 90, blood pressure 139/85, respiratory rate 20, O2 saturation 97% on room air. GENERAL: The patient is alert, awake, and oriented x3. CVS: Regular rate and rhythm with no murmurs, rubs, or gallops. LUNGS: Clear to auscultation bilaterally. ABDOMEN: Positive bowel sounds, soft, nontender, nondistended. EXTREMITIES: No edema. NEUROLOGICAL: Patient's cranial nerves 2 through 12 are intact. The patient has 5/5 strength in all 4 extremities. He has normal sensation in all 4 extremities. There are no neurologic deficits. PERTINENT LABORATORY DATA: CBC from 11/24 : white count of 15.5, hemoglobin 13.2, hematocrit 39.8, platelet count 153. BMP on 11/24 : normal. Troponin I :0.010, 0.020, then 0.010. UA from 11/23 : normal. U-tox from 11/23 : low digoxin level of 0.61. PERTINENT IMAGIN/23, acute abdomen series shows scattered stool and gas throughout the colon. No free air. No acute disease in the chest. Nuclear stress test from 11/24: shows no evidence of ischemia. EF is 38%. DISCHARGE CONDITION: Stable. ACTIVITY: As tolerated. DIET: Heart healthy diet. The patient should consider doing a 2 L fluid restriction. DISPOSITION: Home. DISCHARGE MEDICATIONS: 1. Aspirin 325 mg daily 2. Atorvastatin 40 mg p.o. daily 3. Digoxin 0.125 mg p.o. daily 4. Keppra 750 mg p.o. b.i.d 5. Metoprolol 50 mg p.o. b.i.d., 6. Spironolactone 25 mg p.o. q.a.m 7. Protonix 40 mg p.o. daily 8. Lisinopril 10 mg p.o.daily 9. Allopurinol 100 mg p.o. daily. DISCHARGE INSTRUCTIONS: The patient to follow up with PCP in a week. He should follow up with his traveling operator for his heart failure. He should get a repeat CBC in a week for followup of his elevated white blood cell count. The patient should take all of his medications on a regular basis. Job ID: [id number] [facility] HOSPITALAndrade
== END 2019-11-24 17:48 | disposition home or self-care (01) ==
LOC: ERS 10:18 → 2SW 14:57
PROVIDERS: ADMIT Internal Medicine; ATTEND Internal Medicine
DX: I16.0 Hypertensive urgency (principal); I11.0 Hypertensive heart disease with heart failure; I50.42 Chronic combined systolic (congestive) and diastolic (congestive) heart failure; I48.91 Unspecified atrial fibrillation; D72.829 Elevated white blood cell count, unspecified; K21.9 Gastro-esophageal reflux disease without esophagitis; D64.9 Anemia, unspecified; R56.9 Unspecified convulsions; Z79.82 Long term (current) use of aspirin; Z79.899 Other long term (current) drug therapy; Z87.891 Personal history of nicotine dependence
CPT/HCPCS: 74022; 78452; 80048; 80053; 80162; 81003; 83690; 84484 ×2; 85025 ×2; 93005; 93017; 96374; 97139; 99285; A9500; G0378 ×3; 36415; J2785

== ENCOUNTER 2020-03-24 22:31 | Inpatient (IN) | payer MEDICARE ==
--- NOTE | 2020-03-24 23:08 | CT ---
CT OF THE BRAIN WITHOUT CONTRAST: 03/24/20 COMPARISON: 10/01/19 HISTORY: Altered mental status. Hypertension. TECHNIQUE: Multiple contiguous axial images were obtained in a CT of the brain without contrast. FINDINGS: There is scattered hypodensities in the subcortical and periventricular white matter, likely secondar y to small vessel ischemic disease. There is stable encephalomalacia in the left parietal lobe. There is no evidence of hydrocephalus, intracranial hemorrhage or extra-axial fluid collection. No new lar ge confluent infarction is seen. The calvarium and overlying soft tissues are unremarkable. The visualized paranasal sinuses and masto id air cells are well aerated. IMPRESSION: No evidence of acute intracranial abnormality. POS: EAA
[2020-03-24 23:19] LABS: #Lymphocytes 1.9 thou/uL (1.20-3.40); #Monocytes 0.4 thou/uL (0.11-0.59); #Neutrophils 6.8 thou/uL (1.40-6.50); %Basophils 0.2 % (0.0-1.0); %Eosinophils 0.1 % (0.0-10.0); %Monocytes 4.4 % (0.0-10.0); %Neutrophils 74.2 % (42.0-75.0); Hemoglobin 13.8 g/dL (14.0-18.0); Mean Corpuscular HGB CONC 32.7 g/dL (32.0-36.0); Mean Corpuscular Hemoglobin 31.4 pg (27.0-31.0); Mean Corpuscular Volume 95.9 fL (78.0-98.0); Mean Platelet Volume 10.1 fL (7.4-10.4); Platelet Count 139 thou/uL (130-400); RBC Distribution Width 12.7 % (11.5-14.5); Red Blood Cell (RBC) Count 4.41 mill/uL (4.70-6.10); White Blood Cell (WBC) Count 9.2 thou/uL (4.8-10.8)
[2020-03-24 23:31] LABS: Digoxin 0.87 ng/mL (0.8-2.0)
[2020-03-24 23:41] LABS: Acetaminophen Less than 6.0 mcg/mL (10.0-30.0); Alcohol Less than 10 mg/dL (Less than 10); CK (CPK) 129 U/L (30-200); Salicylate Less than 8.0 mg/dL (15.0-30.0)
[2020-03-24 23:48] LABS: ALT (SGPT) 23 U/L (8-55); AST (SGOT) 41 U/L (5-34); Albumin 4.2 g/dL (3.4-4.8); Alkaline Phosphatase 69 U/L (40-110); Anion Gap 15 mmol/L (10-20); BUN (Urea Nitrogen) 10 mg/dL (8.4-25.7); Bilirubin, Total 0.9 mg/dL (0.2-1.2); Calc. Creatinine Clearance 0 mL/min (70-130); Calcium 9.1 mg/dL (7.8-10.44); Carbon Dioxide 25 mmol/L (23-31); Chloride 110 mmol/L (98-107); Estimated GFR-MDRD 73; Globulin 2.8 g/dL (2.4-3.5); Glucose 101 mg/dL (80-115); Potassium 4.8 mmol/L (3.5-5.1); Sodium 145 mmol/L (136-145)
[2020-03-24 23:55] LABS: CKMB 1.8 ng/mL (0-6.6)
[2020-03-25] MEDS ORDERED: Aspirin 325 MG TAB ONE (00:22)
[2020-03-25 00:45] LABS: Bilirubin Negative (Negative); Blood, Urine Negative (Negative); Clarity Clear (Clear); Glucose, Urine (Dipstick) Normal (Negative); Leukocyte Negative Leu/uL (Negative); Nitrite Negative (Negative); Protein, Urine (Dipstick) 20 mg/dL (Neg-Trace); Urobilinogen Normal mg/dL (Less than 2)
[2020-03-25 00:54] LABS: Amphetamine Not Detected (NotDetected); Barbiturates Screen Not Detected (NotDetected); Benzodiazepine Screen Not Detected (NotDetected); Cocaine Metabolite Screen Not Detected (NotDetected); Medtox Control Line Valid? VALID (VALID); Medtox Reader # READER 1; Methadone Not Detected (NotDetected); Methamphetamine Not Detected (NotDetected); Opiate Screen Not Detected (NotDetected); Oxycodone Screen Not Detected (NotDetected); Phencyclidine (PCP) Not Detected (NotDetected); THC/Cannabinoid Screen Not Detected (NotDetected); Tricyclic Screen Not Detected (NotDetected)
[2020-03-25 02:10] VITALS: BMI 23.3
[2020-03-25] MEDS ORDERED: Lorazepam 2 MG/ML VIAL SLOW IVP PRN (02:18)
--- NOTE | 2020-03-25 02:22 | PDOC.HHP ---
Hospitalist HPI - History of Present Illness Dizziness History of Present Illness: Patient brought in due to AMS. He was noted to be hypertensive and in Afib RVR. He is solomon islander speaking only. 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 Per ED records, EMS reported patient was found to be incontinent and oriented to person only. He was given Cardizem by EMS (15 mg) for the afib RVR. At present he is able to answer some questions, otherwise appears to have dysarthria. No slurred speech but notable drooping on the left side of his face. Unable to state where he is or why he is here. Does not provide his own name. Answers other questions appropriately and following most commands. He denies any complaints at present. Reports having some dysuria. Per ED note there was mention of a possible seizure, patient known to have a history of heavy ETOH. Unable to confirm with patient if remote history or if he currently drinks excessively. He answers that he doesnt know. With regards to smoking, he states he used to. Patient with zero alcohol level and has not been found to be showing any signs of withdrawal while in the ED or on the floor. 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 Unclear if some confusion at baseline. ED Course: EKG in ED shwoed Afib with controlled ventricular response, HR 48. T waves flattened. Repeat EKG showed Afib with controlled ventricular response, HR 63. T waves flattned. Aspirin 325 mg PO x [address] head done and without acute changes. UA and UDS negative. FBC unremarkable. Keppra 17.3 CK 129, Ammonia was less than 12. LFTs normal. Trop 0.069. Hospitalist ROS - Review of Systems ROS unobtainable: due to mental status - Medication Medications: ALLERGIES: No known drug allergies. HOME MEDICATIONS: digoxin oral Ayala Mar 24, 2020 23:32 GREGG Presley Lee TABLET : Strength - 125 mcg : ORAL Patient Dose: 125 mcg Oral once a day. meTOPROLOL tartrate oral Ayala Mar 24, 2020 23:32 GREGG Presley Lee TABLET : Strength - 50 mg : ORAL Patient Dose: 1 tab(s) Oral 2 times a day. atorvastatin Ayala Mar 24, 2020 23:32 GREGG Presley Lee TABLET : Strength - 40 mg : ORAL Patient Dose: 40 mg Oral once a day (in the morning). levETIRAcetam oral [facility] Mar 24, 2020 23:32 GREGG Presley Lee TABLET : Strength - 500 mg : ORAL Patient Dose: 500 mg Oral 2 times a day. spironolactone [facility] Mar 24, 2020 23:32 GREGG Presley Lee TABLET : Strength - 25 mg : ORAL Patient Dose: 25 mg Oral once a day. isosorbide mononitrate [facility] Mar 24, 2020 23:38 GREGG Presley Lee tablet : Strength - 10 mg : ORAL Patient Dose: 30 mg Oral once a day (in the morning). lisinopril [facility] Mar 24, 2020 23:39 GREGG Presley Lee tablet : Strength - 40 mg : ORAL Patient Dose: 40 mg Oral once a day (in the morning). magnesium oxide [facility] Mar 24, 2020 23:40 GREGG Presley Lee capsule : Strength - 400 mg : ORAL Patient Dose: 400 mg Oral once a day (in the morning). famotidine oral [facility] Mar 24, 2020 23:40 GREGG Presley Lee tablet : Strength - 20 mg : ORAL Patient Dose: 20 mg Oral 2 times a day (before meals). 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 - Family History Family History: reports: no pertinent history - Social History Smoking Status: Former smoker Drugs: reports: none Living Situation: With Family - Exam General Appearance: NAD Eye: PERRL, anicteric sclera ENT: normocephalic atraumatic, no oropharyngeal lesions Neck: supple, symmetric, no lymphadenopathy Heart: RRR, no murmur, no gallops, normal peripheral pulses Respiratory: CTAB, no wheezes, no rales, normal chest expansion Gastrointestinal: soft, non-tender, non-distended, normal bowel sounds Extremities: no edema Skin: normal turgor, no lesions Neurological: facial droop (left sided lip droop), speech deficit (dysarthria) Musculoskeletal: normal tone, normal strength (power 5/5 in all limbs, reflexes intact) Psychiatric: normal affect Psychiatric - other findings: confused Hospitalist Results - Labs Result Diagrams: 03/24/20 23:09 03/24/20 23:09 Lab results: WBC 9.2 thou/uL (4.8-10.8) 03/24/20 23:09 Hgb 13.8 g/dL (14.0-18.0) L 03/24/20 23:09 Hct 42.3 % (42.0-52.0) 03/24/20 23:09 MCV 95.9 fL (78.0-98.0) 03/24/20 23:09 Plt Count 139 thou/uL (130-400) 03/24/20 23:09 Neutrophils % 74.2 % (42.0-75.0) 03/24/20 23:09 Sodium 145 mmol/L (136-145) 03/24/20 23:09 Potassium 4.8 mmol/L (3.5-5.1) 03/24/20 23:09 Chloride 110 mmol/L (98-107) H 03/24/20 23:09 Carbon Dioxide 25 mmol/L (23-31) 03/24/20 23:09 BUN 10 mg/dL (8.4-25.7) 03/24/20 23:09 Creatinine 1.02 mg/dL (0.7-1.3) 03/24/20 23:09 Glucose 101 mg/dL (80-115) 03/24/20 23:09 Calcium 9.1 mg/dL (7.8-10.44) 03/24/20 23:09 Total Bilirubin 0.9 mg/dL (0.2-1.2) 03/24/20 23:09 AST 41 U/L (5-34) H 03/24/20 23:09 ALT 23 U/L (8-55) 03/24/20 23:09 Alkaline Phosphatase 69 U/L (40-110) 03/24/20 23:09 Ammonia Less than 12 umol/L (18-72) L 03/24/20 23:09 Creatine Kinase 129 U/L (30-200) 03/24/20 23:09 CK-MB (CK-2) 1.8 ng/mL (0-6.6) 03/24/20 23:09 Troponin I 0.069 ng/mL (< 0.028) H 03/24/20 23:09 Serum Total Protein 7.0 g/dL (5.8-8.1) 03/24/20 23:09 Albumin 4.2 g/dL (3.4-4.8) 03/24/20 23:09 Urine Ketones 10 mg/dL (Negative) A 03/25/20 00:30 Urine Blood Negative (Negative) 03/25/20 00:30 Urine Nitrite Negative (Negative) 03/25/20 00:30 Ur Leukocyte Esterase Negative Srinivasa/uL (Negative) 03/25/20 00:30 - Radiology Interpretation CT scan - head Status: report reviewed by nc Hospitalist H&P A/P - Problem (1) AMS (altered mental status) Code(s): R41.82 - ALTERED MENTAL STATUS, UNSPECIFIED Status: Acute (2) Dysarthria Code(s): R47.1 - DYSARTHRIA AND ANARTHRIA Status: Acute (3) Atrial fibrillation with RVR Code(s): I48.91 - UNSPECIFIED ATRIAL FIBRILLATION Status: Acute (4) Seizure disorder Code(s): G40.909 - EPILEPSY, UNSP, NOT INTRACTABLE, WITHOUT STATUS EPILEPTICUS Status: Chronic (5) History of cerebral hemorrhage Code(s): Z86.79 - PERSONAL HISTORY OF OTHER DISEASES OF THE CIRCULATORY SYSTEM Status: Chronic (6) Alcohol abuse Code(s): F10.10 - ALCOHOL ABUSE, UNCOMPLICATED Status: Chronic (7) H/O: CVA (cerebrovascular accident) Code(s): Z86.73 - PRSNL HX OF TIA (TIA), AND CEREB INFRC W/O RESID DEFICITS Status: Chronic (8) HTN (hypertension) Code(s): I10 - ESSENTIAL (PRIMARY) HYPERTENSION Status: Chronic Qualifiers: (9) Gout Code(s): M10.9 - GOUT, UNSPECIFIED Status: Chronic - Plan Plan: Bedside dysphagia screening. Echo and Brain MRI. Neuro consult. Trend troponin. Cardiac monitoring. Monitor BP. Neuro checks. ASE protocol. Ativan prn for seizures/withdrawal. Resume keppra. Need to verify medications/reconcile. CODE STATUS FULL Surrogate decision maker, His Manuela Ortiz.
[2020-03-25 04:50] LABS: #Basophils 0.1 thou/uL (0.0-0.2); #Lymphocytes 2.8 thou/uL (1.20-3.40); #Monocytes 0.7 thou/uL (0.11-0.59); #Neutrophils 5.6 thou/uL (1.40-6.50); %Basophils 0.8 % (0.0-1.0); %Eosinophils 0.2 % (0.0-10.0); %Lymphocytes 30.4 % (21.0-51.0); %Monocytes 8.1 % (0.0-10.0); %Neutrophils 60.5 % (42.0-75.0); Hemoglobin 13.1 g/dL (14.0-18.0); Mean Corpuscular HGB CONC 31.2 g/dL (32.0-36.0); Mean Corpuscular Hemoglobin 30.3 pg (27.0-31.0); Mean Platelet Volume 10.6 fL (7.4-10.4); Platelet Count 139 thou/uL (130-400); RBC Distribution Width 12.8 % (11.5-14.5); Red Blood Cell (RBC) Count 4.33 mill/uL (4.70-6.10); White Blood Cell (WBC) Count 9.2 thou/uL (4.8-10.8)
[2020-03-25 05:13] LABS: Anion Gap 15 mmol/L (10-20); BUN (Urea Nitrogen) 9 mg/dL (8.4-25.7); Calc. Creatinine Clearance 67 mL/min (70-130); Carbon Dioxide 24 mmol/L (23-31); Cardiac Risk 1.7 (Less than 4.5); Chloride 108 mmol/L (98-107); Cholesterol 93 mg/dl (< 200 Desired); Estimated GFR-MDRD 79; Glucose 92 mg/dL (80-115); HDL Cholesterol 56 mg/dL (>60 Neg Risk); LDL Cholesterol, Calculated 27 mg/dL; Sodium 143 mmol/L (136-145); Triglycerides 51 mg/dL (Less than 150)
[2020-03-25 05:17] LABS: Troponin I 0.147 ng/mL (< 0.028)
[2020-03-25] MEDS ORDERED: Aspirin 81 mg Enteric Coated Tablet PO SCH (09:00)
[2020-03-25] MEDS ORDERED: Digoxin 0.125 MG TAB PO SCH (09:00)
[2020-03-25] MEDS ORDERED: levETIRAcetam 500 MG TAB PO SCH (09:00)
[2020-03-25 09:18] LABS: Troponin I 0.087 ng/mL (< 0.028)
--- NOTE | 2020-03-25 09:39 | MRI ---
EXAM: MRI Brain WO Con PROVIDED CLINICAL HISTORY: Altered mental status. Stroke. Hypertension and atrial fibrillation with RVR. Patient confused. COMPARISON: 10/03/2019 FINDINGS: Again noted are punctate and patchy areas of increased FLAIR and T2-weighted signal intensity in the periventricular and subcortical white matter most likely reflective of chronic small vessel ischemic changes. Area of encephalomalacia and gliosis in the left temporal lobe is again present lik urbano due to remote infarction. Wedge-shaped signal abnormality in the right cerebellar hemisphere is again seen related to remote infarction. No areas of restricted diffusion are seen to suggest an acut e infarction. Multiple small areas of susceptibility artifact are seen in the right thalamus and right lentiform nu cleus with single punctate focus of susceptibility artifact in the left thalamus which are stable compared to the prior exam and are most compatible with remote lacunar infarctions. Stable area of islas sceptibility artifact in the superior anterior right frontal lobe is again seen which may potentially represent focus of hemosiderin staining in this region. No obvious calcification is seen in this region on recent CT exam. The previously described signal abnormality in the medial left temporal lobe on the prior exam is les s apparent on the current study and the signal in the medial aspect of the temporal lobes is overall symmetric. Mild cerebral and cerebellar volume loss is present similar to prior exam. The ventricular system is normal in size, shape, and position for the degree of sulcal atrophy. The right vertebral artery is very small in size. The distal left vertebral artery flow-void is domin ant. Otherwise, appropriate flow voids are demonstrated in the large intracranial vessels at the base of the brain. Minimal mucosal thickening is seen scattered in the maxillary antra and ethmoidal air cells. The orbi ts and remainder of the skull base demonstrate a normal MRI appearance. IMPRESSION: 1. No acute intracranial abnormality is demonstrated. 2. Stable remote lacunar infarctions in each thalamus and right lentiform nucleus with evidence of he mosiderin staining. 3. Chronic small vessel ischemic changes and cerebral volume loss.
[2020-03-25 11:31] VITALS: TEMP 98.4
--- NOTE | 2020-03-25 12:46 | CON ---
DATE OF CONSULTATION: 03/25/2020 REASON FOR CONSULTATION: Dizziness/seizure. HISTORY OF PRESENT ILLNESS: Mr. Angel Breen is a 65-year-old male, who was consulted for dizziness and altered mental status. He speaks Azeri only, so history is taken with a help of a postal superintendent. The patient was confused at the time of the visit, so history is done from review of the records. He came to the ED this morning and was found to be incontinent of urine and was oriented to person only. He was given Cardizem 15 mg by the EMS to treat his atrial fibrillation and RVR. There was no documented focal weakness at the time of the initial examination. The patient is confused and unable to provide good history. The patient has a history of hemorrhagic stroke in the past, requiring craniotomy. There is also history of alcohol abuse. In the emergency room, he was found to be in atrial fibrillation with controlled ventricular response, heart rate was 48. Aspirin was given and head CT was without any acute changes. Urine drug screen was negative. REVIEW OF SYSTEMS: The patient denies headache, nausea, vomiting, chest pain, focal weakness, or tinnitus or vertigo. Medication Medications: ALLERGIES: No known drug allergies. HOME MEDICATIONS: digoxin oral TABLET : Strength - 125 mcg : ORAL Patient Dose: 125 mcg Oral once a day. meTOPROLOL tartrate oral TABLET : Strength - 50 mg : ORAL Patient Dose: 1 tab(s) Oral 2 times a day. atorvastatin SatMar 24, 2020 TABLET : Strength - 40 mg : ORAL Patient Dose: 40 mg Oral once a day (in the morning). levETIRAcetam oral SatMar 24, 2020 TABLET : Strength - 500 mg : ORAL Patient Dose: 500 mg Oral 2 times a day. spironolactone SatMar 24, 2020 TABLET : Strength - 25 mg : ORAL Patient Dose: 25 mg Oral once a day. isosorbide mononitrate SatMar 24, 2020 tablet : Strength - 10 mg : ORAL Patient Dose: 30 mg Oral once a day (in the morning). lisinopril SatMar 24, 2020 tablet : Strength - 40 mg : ORAL Patient Dose: 40 mg Oral once a day (in the morning). magnesium oxide SatMar 24, 2020 capsule : Strength - 400 mg : ORAL Patient Dose: 400 mg Oral once a day (in the morning). famotidine oral Ayala Mar 24, 2020 tablet : Strength - 20 mg : ORAL Patient Dose: 20 mg Oral 2 times a day (before meals). 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 - Family History Family History: reports: no pertinent history - Social History Smoking Status: Former smoker Drugs: reports: none Living Situation: With Family - Exam General Appearance: NAD Eye: PERRL, anicteric sclera ENT: normocephalic atraumatic, no oropharyngeal lesions Neck: supple, symmetric, no lymphadenopathy Heart: RRR, no murmur, no gallops, normal peripheral pulses Respiratory: CTAB, no wheezes, no rales, normal chest expansion Gastrointestinal: soft, non-tender, non-distended, normal bowel sounds Extremities: no edema Skin: normal turgor, no lesions Neurological: facial droop (left), speech deficit (dysarthria) Mental status, the patient is only alert and oriented to himself. He does not follow commands. He does not maintain any eye contacts. Cranial nerves, pupils are equal and reactive to light. Face is symmetric. Tongue midline. Moves neck in both directions. Hearing seems to be intact. Motor, muscle tone and bulk are normal. Moving all 4 extremities equally and symmetrically. Cerebellar, did not cooperate with the testing. Reflexes, deferred secondary to agitation. Sensory, withdraws to nailbed pressure bilaterally. Gait, deferred due to the patient's safety reasons. Musculoskeletal: normal tone, normal strength (power 5/5 in all limbs, reflexes intact) Psychiatric: normal affect Psychiatric - other findings: confused Hospitalist Results - Labs Lab results: WBC 9.2 thou/uL (4.8-10.8) 03/24/20 23:09 Hgb 13.8 g/dL (14.0-18.0) L 03/24/20 23:09 Hct 42.3 % (42.0-52.0) 03/24/20 23:09 MCV 95.9 fL (78.0-98.0) 03/24/20 23:09 Plt Count 139 thou/uL (130-400) 03/24/20 23:09 Neutrophils % 74.2 % (42.0-75.0) 03/24/20 23:09 Sodium 145 mmol/L (136-145) 03/24/20 23:09 Potassium 4.8 mmol/L (3.5-5.1) 03/24/20 23:09 Chloride 110 mmol/L (98-107) H 03/24/20 23:09 Carbon Dioxide 25 mmol/L (23-31) 03/24/20 23:09 BUN 10 mg/dL (8.4-25.7) 03/24/20 23:09 Creatinine 1.02 mg/dL (0.7-1.3) 03/24/20 23:09 Glucose 101 mg/dL (80-115) 03/24/20 23:09 Calcium 9.1 mg/dL (7.8-10.44) 03/24/20 23:09 Total Bilirubin 0.9 mg/dL (0.2-1.2) 03/24/20 23:09 AST 41 U/L (5-34) H 03/24/20 23:09 ALT 23 U/L (8-55) 03/24/20 23:09 Alkaline Phosphatase 69 U/L (40-110) 03/24/20 23:09 Ammonia Less than 12 umol/L (18-72) L 03/24/20 23:09 Creatine Kinase 129 U/L (30-200) 03/24/20 23:09 CK-MB (CK-2) 1.8 ng/mL (0-6.6) 03/24/20 23:09 Troponin I 0.069 ng/mL (< 0.028) H 03/24/20 23:09 Serum Total Protein 7.0 g/dL (5.8-8.1) 03/24/20 23:09 Albumin 4.2 g/dL (3.4-4.8) 03/24/20 23:09 Urine Ketones 10 mg/dL (Negative) A 03/25/20 00:30 Urine Blood Negative (Negative) 03/25/20 00:30 Urine Nitrite Negative (Negative) 03/25/20 00:30 Ur Leukocyte Esterase Negative Srinivasa/uL (Negative) 03/25/20 00:30 - Radiology Interpretation CT scan - head Status: report reviewed by me - Problem (1) AMS (altered mental status) Code(s): R41.82 - ALTERED MENTAL STATUS, UNSPECIFIED Status: Acute (2) Dysarthria Code(s): R47.1 - DYSARTHRIA AND ANARTHRIA Status: Acute (3) Atrial fibrillation with RVR Code(s): I48.91 - UNSPECIFIED ATRIAL FIBRILLATION Status: Acute (4) Seizure disorder Code(s): G40.909 - EPILEPSY, UNSP, NOT INTRACTABLE, WITHOUT STATUS EPILEPTICUS Status: Chronic (5) History of cerebral hemorrhage Code(s): Z86.79 - PERSONAL HISTORY OF OTHER DISEASES OF THE CIRCULATORY SYSTEM Status: Chronic (6) Alcohol abuse Code(s): F10.10 - ALCOHOL ABUSE, UNCOMPLICATED Status: Chronic (7) H/O: CVA (cerebrovascular accident) Code(s): Z86.73 - PRSNL HX OF TIA (TIA), AND CEREB INFRC W/O RESID DEFICITS Status: Chronic (8) HTN (hypertension) Code(s): I10 - ESSENTIAL (PRIMARY) HYPERTENSION Status: Chronic Qualifiers: (9) Gout Code(s): M10.9 - GOUT, UNSPECIFIED Status: Chronic DIAGNOSTIC STUDIES: Labs were essentially unremarkable. Head CT reviewed, which did not reveal any acute intracranial pathology. However, there is history of remote infarction in the left temporal region. ASSESSMENT AND PLAN: Mr. Jamshid Ortiz has been consulted for dizziness. There is a concern about seizure versus stroke. 1.MRI of brain reviewed, which did not reveal any acute intracranial pathology. 2. Recommend angiocardiography and consider Cardiology input. 3. Neuro checks every 4 hours. 4. EEG reviewed, which did not reveal the presence of any epileptiform discharges. 5. Resume Keppra 750 mg twice daily, home dose. 6. Observe seizure precautions and continue home medications, continue medical management per primary team. 7. Continue aspirin and statin for secondary stroke prevention, 8.PT/OT plus Speech when stable, 9.Continue medical management per primary team. We will continue to follow. Job ID: [id number] [facility]
--- NOTE | 2020-03-25 14:37 | EKG ---
Test Reason : Blood Pressure : / mmHG Vent. Rate : 048 BPM Atrial Rate : 375 BPM P-R Int : 000 ms QRS Dur : 088 ms QT Int : 442 ms P-R-T Axes : 000 011 -02 degrees QTc Int : 394 ms Atrial fibrillation with slow ventricular response Nonspecific ST and T wave abnormality , probably digitalis effect Abnormal ECG Reconfirmed by NEO AYALA ([id number]), graphic editor ELSY MENDEZ ([id number]) on 03/25/2020 2:37:09 PM Referred By: Confirmed By:NEO AYALA
--- NOTE | 2020-03-25 14:39 | EKG ---
Test Reason : Blood Pressure : / mmHG Vent. Rate : 063 BPM Atrial Rate : 065 BPM P-R Int : 000 ms QRS Dur : 088 ms QT Int : 428 ms P-R-T Axes : 000 003 212 degrees QTc Int : 437 ms Atrial fibrillation Abnormal ECG Reconfirmed by NEO AYALA ([id number]), mapping editor ELSY MENDEZ ([id number]) on 03/25/2020 2:38:37 PM Referred By: Confirmed By:NEO AYALA
[2020-03-25 15:14] VITALS: BP 160/96
--- NOTE | 2020-03-25 15:38 | EEG ---
Referring Physician: Mellisa FREEMAN EEG # [id number] TEST TYPE: ROUTINE PORTABLE INPATIENT REPORT: This EEG was performed using 24 channel [employer] video digital EEG machine with 24 disc electrodes. This was a routine EEG recording. BACKGROUND: The posterior background rhythm is 10-12 hertz. Beta activity is seen intermixed with the background. The background activity attenuates with eye opening and enhances with eye closure. HYPERVENTILATION: No significant response was seen with hyperventilation. PHOTIC STIMULATION: Bilateral symmetric driving response is observed. SLEEP: Drowsiness is observed. CLINICAL INTERPRETATION: NORMAL AWAKE AND DROWSY EEG. Rn Cardiovascular: CIPRIANO Air Drier: EEG.LANE AU
[2020-03-25] MEDS ORDERED: Atorvastatin Calcium 40 MG TAB PO SCH (21:00)
--- NOTE | 2020-03-26 02:45 | DIS ---
DATE OF ADMISSION: 03/25/2020 DATE OF DISCHARGE: 03/25/2020 DISCHARGE DIAGNOSES: 1. Altered mental status, likely due to a seizure. 2. Atrial fibrillation. 3. Dysarthria. 4. Seizure disorder. 5. History of ICH. 6. Alcohol abuse. 7. Hypertension. 8. Gout. DISCHARGE MEDICATIONS: 1. Digoxin 0.125 mg orally daily. 2. Keppra 750 mg orally twice daily. 3. Allopurinol 100 mg orally daily. 4. Aspirin 325 mg orally daily. 5. Atorvastatin 40 mg orally nightly. 6. Lisinopril 40 mg orally daily. 7. Metoprolol tartrate 50 mg orally twice daily. 8. Pantoprazole 40 mg orally daily. 9. Aldactone 25 mg orally daily. All the above-mentioned home medications will be continued with the exception of digoxin which will be discontinued due to bradycardia. HISTORY OF PRESENT ILLNESS AND HOSPITAL COURSE: The patient is a 65-year-old male with past medical history of atrial fibrillation, CHF, hypertension, seizures, and CVA who was brought to the hospital in altered mental state. He was noted to be hypertensive and confused. He was in atrial fibrillation with RVR and was given Cardizem by EMS service prior to admission. The patient was able to answer some questions, but otherwise was confused and dysarthric. He was admitted to the hospital and MRI of the brain did not show any acute CVA. EEG was performed, which ruled out seizures at that time. Of note, the patient has history of heavy alcohol use and his confusion could be related to the withdrawal episode. He also had a history of hemorrhagic CVA, chronic craniotomy in the past and is on Keppra. At this time, the patient appears to be stable and will be discharged home with outpatient followup with PCP in 3 to 5 days. Job ID: [id number]
== END 2020-03-25 18:05 | disposition home or self-care (01) | DRG 101 ==
LOC: ERS 22:31 → 2SE 03-25 00:20
PROVIDERS: ADMIT Internal Medicine; ATTEND Internal Medicine
DX: G40.909 Epilepsy, unspecified, not intractable, without status epilepticus (principal); I48.91 Unspecified atrial fibrillation; I10 Essential (primary) hypertension; F10.10 Alcohol abuse, uncomplicated; M10.9 Gout, unspecified; R47.1 Dysarthria and anarthria; Z86.79 Personal history of other diseases of the circulatory system; Z86.73 Personal history of transient ischemic attack (TIA), and cerebral infarction without residual deficits
CPT/HCPCS: 36415; 70450; 70551; 80048; 80053; 80061; 80162; 80177; 80306; 80307; 81003; 82140; 82550; 82553; 84484; 85025; 93005; 93306; 95816; 95819

== ENCOUNTER 2020-06-09 07:12 | Inpatient (IN) | payer MEDICARE ==
[2020-06-09] MEDS ORDERED: niCARdipine 20MG In NaCl 20 MG/200 ML BAG ONE (07:20)
[2020-06-09] MEDS ORDERED: Lorazepam 2 MG/ML VIAL ONE ×3 (07:21→10:32)
--- NOTE | 2020-06-09 07:35 | CT ---
Exam: Head CT without contrast HISTORY: Level 1 stroke. Last seen normal at 2100 hours last night. Seizure. COMPARISON: 03/24/2020 Correlation: Brain MRI 03/25/2020 FINDINGS: Hemorrhage: No intraparenchymal hemorrhage or extra-axial hematoma. Brain parenchyma: With the exception of the right frontal lobe and left temporal parietal region, cor tical robles-white matter differentiation is preserved. No parenchymal mass, mass effect or midline shift. Brain volume is age-appropriate.Stable. Ventricular white matter hypodensities Ventricular system: Ventricles and sulci are patent and symmetric. Calvarium: Intact. Sinuses and mastoid air cells: Adequate aeration. Small mucous retention cyst in the left frontal sin us. IMPRESSION: 1. No acute intracranial process. 2. Stable chronic small vessel ischemic changes white matter as well as encephalomalacia and gliosis involving the left and right cerebrum as described above. 3. Results of study discussed with Dr. Rapp 06/09/2020 at 7:31 AM Code CR
[2020-06-09 07:40] LABS: Mean Corpuscular HGB CONC 32.5 g/dL (32.0-36.0); Mean Corpuscular Hemoglobin 31.9 pg (27.0-31.0); Mean Corpuscular Volume 98.4 fL (78.0-98.0); Mean Platelet Volume 11.1 fL (7.4-10.4); Platelet Count 158 thou/uL (130-400); RBC Distribution Width 13.6 % (11.5-14.5); Red Blood Cell (RBC) Count 4.69 mill/uL (4.70-6.10); White Blood Cell (WBC) Count 16.7 thou/uL (4.8-10.8)
[2020-06-09 07:49] LABS: INR-International Normal Ratio 1.2; PTT 20.5 sec (22.9-36.1); Prothrombin Time 15.3 sec (12.0-14.7)
[2020-06-09 07:54] LABS: Band 1 % (5-11); Eosinophils 4 % (0-10); Lymphocytes 65 % (21-51); MDiff Complete? YES; Monocytes 5 % (0-10); Neutrophil 24 % (42-75); RBC Morphology Normal; Reactive Lymphocytes 1 % (0-10)
--- NOTE | 2020-06-09 07:56 | CT ---
EXAM: CT ANGIOGRAM OF THE HEAD AND NECK INDICATION: Level 1 stroke. Last seen normal at 11:00 PM. Seizure. COMPARISON: 10/01/2019 TECHNIQUE: CT angiogram of the head and neck are performed in the axial plane. Three-dimensional refo rmatted images are submitted for interpretation. FINDINGS: CTA OF THE HEAD WITH AND WITHOUT CONTRAST: POSTCONTRAST CT OF BRAIN: Pathologic enhancement: No pathologic enhancement the brain. Postcontrast soft tissue neck CT: Aerodigestive tract:Aerodigestive tract is patent. No mucosal abnormality. Sinuses: Adequate aeration. Old left lamina Propecia fracture.. Orbits: Bilateral ocular lenses are appropriately located. Both globes are intact. Retrobulbar fat is preserved. Symmetric attenuation the optic nerves and ocular rectus muscles. Salivary glands:Symmetric attenuation of the parotid and submandibular glands Thyroid gland: Appropriate attenuation. Lymph nodes: No evidence of lymphadenopathy by size criteria. Paraspinal muscles: Symmetric attenuation of the sternocleidomastoid muscles. Appropriate attenuation of the paraspinal muscles. Cervical spine:Vertebral body height is maintained. No fracture. Varying degrees of central canal justine nosis or significant neural foraminal narrowing due to degenerative change. Limited evaluation by technique. Upper mediastinum and lung apices: Patchy opacities in the visualized lung parenchyma. CTA OF THE NECK WITH CONTRAST: Aorta: Appropriate enhancement and luminal diameter Right carotid artery: Appropriate enhancement and luminal diameter of the origin the right carotid ar carlyle, common carotid artery, carotid bifurcation, internal carotid artery. No significant stenosis based upon NASCET criteria. Calcified plaque in the right carotid bifurcation is unchanged. Left carotid: Appropriate enhancement and luminal diameter of the origin left carotid artery, common carotid artery, carotid bifurcation and internal carotid artery. No significant stenosis based upon NASCET criteria. Calcified plaque involving the origin the left external carotid artery is unchanged. Subclavian arteries:Symmetric and patent. Vertebral arteries:Patent throughout the course of the neck. Left vertebral artery is dominant. CTA OF THE BRAIN: Intracranial internal carotid arteries:Appropriate enhancement and luminal diameter. Anterior circulation: Symmetric enhancement and luminal diameter the A1 segments, proximal A2 segment s, M1 segments and proximal MCA branches. Intracranial vertebral arteries and posterior circulation: No acute abnormality. Visualized height ar carlyle origins have appropriate enhancement and luminal diameter. Both vertebral arteries supply the basilar artery. The left vertebral artery is the dominant supplying vessel. Basilar artery has approp riate enhancement and luminal diameter. Left GEOPHYSICS PROFESSOR has a origin. Right P1 segment has appropriate enhancement and luminal diameter. IMPRESSION: 1. No hemodynamically significant stenosis, occlusion or aneurysmal formation. 2. Results study discussed with Dr. Rapp 06/09/2020 at 7:41 AM Code CR
[2020-06-09 08:03] LABS: ALT (SGPT) 19 U/L (8-55); AST (SGOT) 39 U/L (5-34); Albumin 4.6 g/dL (3.4-4.8); Alkaline Phosphatase 91 U/L (40-110); Anion Gap 23 mmol/L (10-20); BUN (Urea Nitrogen) 9 mg/dL (8.4-25.7); Bilirubin, Total 0.5 mg/dL (0.2-1.2); CK (CPK) 154 U/L (30-200); Calc. Creatinine Clearance 0 mL/min (70-130); Calcium 9.4 mg/dL (7.8-10.44); Carbon Dioxide 17 mmol/L (23-31); Chloride 108 mmol/L (98-107); Estimated GFR-MDRD 56; Globulin 3.7 g/dL (2.4-3.5); Glucose 195 mg/dL (80-115); Potassium 3.8 mmol/L (3.5-5.1); Protein, Total 8.3 g/dL (5.8-8.1); Sodium 144 mmol/L (136-145)
--- NOTE | 2020-06-09 08:04 | RAD ---
Exam: Chest one view HISTORY:Altered mental status Comparison: 10/01/2019 FINDINGS: Cardiac silhouette:Cardiomegaly Aorta: Unremarkable Pulmonary vessels: Normal Costophrenic angles: Clear LUNGS: No masses or consolidation. Pneumothorax: None Osseous abnormalities: None IMPRESSION: No acute cardiopulmonary process.
[2020-06-09] MEDS ORDERED: levETIRAcetam In NaCl (Iso-Os) 1,000 MG in Premix Bag 1 BAG IVPB SCH (08:15)
[2020-06-09] MEDS ORDERED: Diltiazem 125 MG/25 ML ONE (08:49)
[2020-06-09 10:01] LABS: Bilirubin Negative (Negative); Blood, Urine Negative (Negative); Clarity Clear (Clear); Glucose, Urine (Dipstick) 30 mg/dL (Negative); Ketone, Urine Negative (Negative); Leukocyte Negative Leu/uL (Negative); Nitrite Negative (Negative); Protein, Urine (Dipstick) 20 mg/dL (Neg-Trace); Specific Gravity, Urine 1.025 (1.002-1.036); Urobilinogen Normal mg/dL (Less than 2)
[2020-06-09 10:12] LABS: Amphetamine Not Detected (NotDetected); Barbiturates Screen Not Detected (NotDetected); Benzodiazepine Screen Not Detected (NotDetected); Cocaine Metabolite Screen Not Detected (NotDetected); Medtox Control Line Valid? VALID (VALID); Medtox Reader # READER 4; Methadone Not Detected (NotDetected); Methamphetamine Not Detected (NotDetected); Opiate Screen Not Detected (NotDetected); Oxycodone Screen Not Detected (NotDetected); Phencyclidine (PCP) Not Detected (NotDetected); THC/Cannabinoid Screen Not Detected (NotDetected); Tricyclic Screen Not Detected (NotDetected)
[2020-06-09] MEDS ORDERED: Acetaminophen 325 MG TAB PO PRN (11:42)
[2020-06-09] MEDS ORDERED: Lorazepam 2 MG/ML VIAL SLOW IVP PRN (11:47)
--- NOTE | 2020-06-09 11:53 | PDOC.HHP ---
Hospitalist HPI - History of Present Illness Altered mental status History of Present Illness: History is obtained from the patient's who is present. Patient is unable to give history. She reports he awoke in his usual state of health. He has not been ill in any way that she is aware of. She was ready to leave for work and he stopped responding to her. She asked if he was ok and he shook his head no. She called her son and he recommended the ambulance. He was brought to the ED. She did not witness a seizure at home. Here the patient was taken to CT where he had two seizures. One spont. resolved and the second required ativan. He has been obtunded since, but he is protecting his airway. This is a very similar presentation to his admission in March. Patient's indicates he has been compliant with his medications. ED Course: In the ED the patient was noted to be very hypertensive and and in afib with RVR. He was started on a Cardene gtt for the BP and the BP came down precipitously. 235/120 to 165/102. He was also started on a Cardizem gtt at 5 mg/hr and he remains tachycardic. He had a loading dose of Keppra and three rounds of lorazepam. Hospitalist ROS - Review of Systems Constitutional: denies: fever, chills Respiratory: denies: shortness of breath Cardiovascular: denies: chest pain Gastrointestinal: denies: nausea, vomiting, abdominal pain Other: Per patient's . - Medication Medications: Unconfirmed: Pharmacy records indicate: Lisinopril 20 mg po q day Keppra 750 mg po q day Atorvastatin 20 mg po q day Hospitalist History - Past Medical History Cardiac: reports: CHF, HTN EDUCATIONAL ASSISTANT: reports: Seizure, Other (Hx of cerebral hemorrhage requiring surgical intervention.) - Past Surgical History Past Surgical History: reports: Other (Craniotomy (? wendy hole).) - Social History Smoking Status: Never smoker Alcohol: reports: None Drugs: reports: none Other Social History: Some history of alcohol abuse. Full code. would be the surrogate decision make if necessary. - Exam General Appearance: NAD Neck: supple, symmetric, no JVD, no thyromegaly, no lymphadenopathy, no carotid bruit Heart: RRR, no murmur, no gallops, no rubs, normal peripheral pulses Respiratory: CTAB, no wheezes, no rales, no ronchi, normal chest expansion, no tachypnea, normal percussion Gastrointestinal: soft, non-tender, non-distended, normal bowel sounds, no palpable masses, no hepatomegaly, no splenomegaly, no bruit Extremities: no cyanosis, no clubbing, no edema Skin: normal turgor, no lesions, no rashes Neurological: no focal deficits Psychiatric: somnolent, lethargic Hospitalist Results - Labs Result Diagrams: 06/09/20 07:30 06/09/20 07:30 Lab results: WBC 16.7 thou/uL (4.8-10.8) H 06/09/20 07:30 Hgb 15.0 g/dL (14.0-18.0) 06/09/20 07:30 Hct 46.1 % (42.0-52.0) 06/09/20 07:30 MCV 98.4 fL (78.0-98.0) H 06/09/20 07:30 Plt Count 158 thou/uL (130-400) 06/09/20 07:30 Band Neuts % (Manual) 1 % (5-11) L 06/09/20 07:30 Sodium 144 mmol/L (136-145) 06/09/20 07:30 Potassium 3.8 mmol/L (3.5-5.1) 06/09/20 07:30 Chloride 108 mmol/L (98-107) H 06/09/20 07:30 Carbon Dioxide 17 mmol/L (23-31) L 06/09/20 07:30 BUN 9 mg/dL (8.4-25.7) 06/09/20 07:30 Creatinine 1.28 mg/dL (0.7-1.3) 06/09/20 07:30 Glucose 195 mg/dL (80-115) H 06/09/20 07:30 Calcium 9.4 mg/dL (7.8-10.44) 06/09/20 07:30 Total Bilirubin 0.5 mg/dL (0.2-1.2) 06/09/20 07:30 AST 39 U/L (5-34) H 06/09/20 07:30 ALT 19 U/L (8-55) 06/09/20 07:30 Alkaline Phosphatase 91 U/L (40-110) 06/09/20 07:30 Creatine Kinase 154 U/L (30-200) 06/09/20 07:30 Troponin I 0.023 ng/mL (< 0.028) 06/09/20 07:30 Serum Total Protein 8.3 g/dL (5.8-8.1) H 06/09/20 07:30 Albumin 4.6 g/dL (3.4-4.8) 06/09/20 07:30 Urine Ketones Negative mg/dL (Negative) 06/09/20 09:27 Urine Blood Negative (Negative) 06/09/20 09:27 Urine Nitrite Negative (Negative) 06/09/20 09:27 Ur Leukocyte Esterase Negative Srinivasa/uL (Negative) 06/09/20 09:27 - Radiology Interpretation CT scan - head Status: image reviewed by me, report reviewed by me Additional Comment: IMPRESSION: 1. No acute intracranial process. 2. Stable chronic small vessel ischemic changes white matter as well as encephalomalacia and gliosis involving the left and right cerebrum as described above. 3. Results of study discussed with Dr. Rapp 06/09/2020 at 7:31 AM Code CR Other Status: image reviewed by me, report reviewed by me Additional Comment: CTA: IMPRESSION: 1. No hemodynamically significant stenosis, occlusion or aneurysmal formation. Chest x-ray Status: image reviewed by me, report reviewed by me Additional Comment: clear Hospitalist H&P A/P - Problem (1) Hypertensive urgency Code(s): I16.0 - HYPERTENSIVE URGENCY Status: Acute (2) Atrial fibrillation with RVR Code(s): I48.91 - UNSPECIFIED ATRIAL FIBRILLATION Status: Acute (3) Seizure Code(s): R56.9 - UNSPECIFIED CONVULSIONS Status: Acute (4) Post-ictal state Code(s): R56.9 - UNSPECIFIED CONVULSIONS Status: Acute (5) Acute encephalopathy Code(s): G93.40 - ENCEPHALOPATHY, UNSPECIFIED Status: Acute (6) H/O: CVA (cerebrovascular accident) Code(s): Z86.73 - PRSNL HX OF TIA (TIA), AND CEREB INFRC W/O RESID DEFICITS Status: Chronic (7) HTN (hypertension) Code(s): I10 - ESSENTIAL (PRIMARY) HYPERTENSION Status: Chronic Qualifiers: (8) Leukocytosis Code(s): D72.829 - ELEVATED WHITE BLOOD CELL COUNT, UNSPECIFIED Status: Acute - Plan Plan: Seizure/Post ictal state: Patient had a similar presentation in March. Had the afib with RVR then as well. He is currently somnolent and confused. Likley combination of post-ictal state and the lorazepam. He was loaded with Keppra in the ED, but has apparently been taking this at home compliantly per his . Continue IV Keppra. Consult Neurology. HTN Urgency: Cardene gtt for pressure control with goal of 20% reduction. His BP dropped in the ED and going very carefully now. He is confused, but has spont movement of all extremities and the CN's. Volitional movement. Negative head CT. Do not suspect CVA. Afib with RVR: In the setting of a seizure. Similar to prior presentation with early spontaneous conversion to NSR. Continue Diltiazem gtt. Consult Cardiology. Had a relatively normal echo in March. Will not anticoagulate him in light of the seizures and the hx of the brain bleed. There is documentation of valvular disease, non-ischemic CM and CHF, but there is noting on echo from 2015 or recently to support that. Leukocytosis: Likely secondary to stress related cortisol release. No sign of infection. Will not give abx. Recheck in am.
[2020-06-09] MEDS ORDERED: Diltiazem 125 MG in Sodium Chloride 0.9% 100 ML IVPB SCH (12:30)
[2020-06-09 13:34] LABS: Troponin I 0.027 ng/mL (< 0.028)
[2020-06-09 13:35] VITALS: BMI 23.8
[2020-06-09] MEDS ORDERED: Iopamidol 370 76% 100 ML VIAL ONE (13:37)
--- NOTE | 2020-06-09 14:19 | CON ---
NEUROLOGY CONSULTATION DATE OF CONSULTATION: 06/09/2020 REASON FOR CONSULTATION: Altered mental status/breakthrough seizure. HISTORY OF PRESENT ILLNESS: Mr. Jamshid Ortiz is a 65-year-old male with medical history significant for hypertension, seizure disorder, hyperlipidemia, history of cerebral hemorrhage requiring surgical intervention, and alcohol abuse, who presented with altered mental status. The history is obtained from review of the medical records. According to the patient's , he woke up in the usual state of health, but then when she was about to leave to work, he stopped responding to her. She did not witness the seizure, but asked the son to call the ambulance. He was taken to the emergency room, where a head CT was done, and he had 2 [id number] seizures requiring Ativan. In the emergency room, he was found to have a blood pressure 235/120 and was in atrial fibrillation with an RVR. He was started on a Cardene drip and blood pressure came down to 165/102, but he remained tachycardic. He was loaded with Keppra and was given 3 rounds of lorazepam. Per , he has been compliant with the medications and has not missed any doses. REVIEW OF SYSTEMS: Unobtainable secondary to the patient's mental status. PAST MEDICAL HISTORY: Hypertension, congestive heart failure, seizure disorder, history of cerebral hemorrhage requiring surgical intervention. PAST SURGICAL HISTORY: Craniotomy. SOCIAL HISTORY: . Lives with his . Denies smoking. He is a heavy drinker. No history of documented illegal drug use. ALLERGIES: NKDA FAMILY HISTORY: No history of epilepsy MEDICATIONS: 1. Lisinopril 20 mg p.o. daily. 2. Keppra 750 mg p.o. daily. 3. Atorvastatin 20 mg p.o. daily. PHYSICAL EXAMINATION: VITAL SIGNS: Blood pressure 160/100, pulse 80, respiratory rate 18. CVS: Regular rate and rhythm. CHEST: Clear. ABDOMEN: Soft. NEUROLOGIC: Mental status, the patient is extremely somnolent and sedated. He does not follow commands. He does not respond to verbal stimuli. Opens eyes to noxious stimuli, but does not track response. Cranial nerves; pupils are round and reactive to light. Face symmetric. Tongue midline. Corneals positive. Motor; muscle tone and bulk are normal. Spontaneous movement of all 4 extremities seen. Sensory, withdrawal of all 4 extremities to nailbed pressure. Cerebellar, unable to assess secondary to the patient's mental condition. Gait deferred due to the patient's safety reason. LABORATORY DATA: Data reviewed, which were essentially unremarkable. CT head reviewed, which was negative for acute intracranial process. He has stable small-vessel changes with encephalomalacia and gliosis involving the right and left cerebrums. CTA was negative for hemodynamically significant stenosis or aneurysmal formation. ASSESSMENT AND PLAN: Mr. Jamshid Ortiz is a 65-year-old male, who presented with altered mental status associated with 2 [id number] breakthrough seizure with atrial fibrillation and rapid ventricular response. He does have history of alcohol abuse, but per has been compliant with the medications. He was already loaded with Keppra and given Ativan to avoid the seizure activity. Continue increased Keppra dose of 1000 mg IV q.12 hours. Observe seizure precautions. Neuro checks every 2 hours. Ativan 2 mg IV for seizure greater than 2 minutes. Recommend EEG to see the extent of interictal epileptiform discharges, which may require more aggressive management of his seizure disorder. I recommend MRI when stable. Strict control of blood pressure. Telemetry. The patient is in atrial fibrillation with rapid ventricular response. Consider Cardiology input. Continue medical management per primary team. Continue home medications. N.p.o. until cleared by Speech. We will continue to follow. Thank you for the consult. Job ID: [id number] [id number]
[2020-06-09 16:37] LABS: Troponin I 0.044 ng/mL (< 0.028)
[2020-06-09] MEDS: levETIRAcetam In NaCl (Iso-Os) 1,000 MG in Premix Bag 1 BAG IVPB SCH (20:23)
[2020-06-09 20:34] LABS: Troponin I 0.037 ng/mL (< 0.028)
--- NOTE | 2020-06-09 22:58 | CON ---
DATE OF CONSULTATION: 06/09/2020 REASON FOR CONSULTATION: Atrial fibrillation, chronic. PRIMARY LANG PATH THERAPIST: Ion Quintero MD HISTORY OF PRESENT ILLNESS: Mr. Ortiz is a 65-year-old gentleman with a history of atrial fibrillation and previous history of congestive heart failure. The patient is now admitted with altered mental status. The patient is very hypertensive initially and initially had atrial fibrillation with a rapid rate. Blood pressure was 235/120. He is given intravenous Cardizem. He is no longer tachycardic. MEDICATIONS: At home are unclear. The pharmacy records indicate; 1. Lisinopril. 2. Keppra. 3. Atorvastatin. PAST MEDICAL HISTORY: Congestive heart failure, hypertension, and RIVETER HAND history of intracerebral hemorrhage. PAST SURGICAL HISTORY: ? Craniotomy. SOCIAL HISTORY: No tobacco. PHYSICAL EXAMINATION: GENERAL: This is a 65-year-old man, sleeping. VITAL SIGNS: Blood pressure 149/85 and pulse in the 70s, it is atrial fibrillation. LUNGS: Clear. CARDIAC: Irregularly irregular. ABDOMEN: Soft and nontender. EXTREMITIES: No edema. PERTINENT LABORATORY DATA: Creatinine is 1.28. Troponin 0.044. Most recent echocardiogram, ejection fraction was 55% to 60%, but has been low in the past. ASSESSMENT: 1. History of congestive heart failure, previously systolic later diastolic. 2. Chronic atrial fibrillation, rate is not controlled. PLAN: 1. Intravenous Cardizem as needed. 2. Cannot be anticoagulated due to history of intracerebral hemorrhage. Dr. Quintero to check tomorrow. Job ID: [id number]
[2020-06-10 03:26] LABS: #Basophils 0.1 thou/uL (0.0-0.2); #Eosinphils 0.3 thou/uL (0.0-0.7); #Lymphocytes 2.5 thou/uL (1.20-3.40); #Neutrophils 7.3 thou/uL (1.40-6.50); %Basophils 0.6 % (0.0-1.0); %Eosinophils 2.4 % (0.0-10.0); %Lymphocytes 22.3 % (21.0-51.0); %Monocytes 9.2 % (0.0-10.0); %Neutrophils 65.6 % (42.0-75.0); Hemoglobin 14.3 g/dL (14.0-18.0); Mean Corpuscular HGB CONC 34.2 g/dL (32.0-36.0); Mean Corpuscular Hemoglobin 32.3 pg (27.0-31.0); Mean Corpuscular Volume 94.7 fL (78.0-98.0); Platelet Count 156 thou/uL (130-400); RBC Distribution Width 13.9 % (11.5-14.5); Red Blood Cell (RBC) Count 4.41 mill/uL (4.70-6.10); White Blood Cell (WBC) Count 11.2 thou/uL (4.8-10.8)
[2020-06-10 03:54] LABS: Anion Gap 15 mmol/L (10-20); BUN (Urea Nitrogen) 12 mg/dL (8.4-25.7); Calc. Creatinine Clearance 64 mL/min (70-130); Carbon Dioxide 25 mmol/L (23-31); Chloride 105 mmol/L (98-107); Estimated GFR-MDRD 69; Glucose 92 mg/dL (80-115); Potassium 4.3 mmol/L (3.5-5.1); Sodium 141 mmol/L (136-145)
[2020-06-10] MEDS: levETIRAcetam In NaCl (Iso-Os) 1,000 MG in Premix Bag 1 BAG IVPB SCH ×2 (09:37→21:32)
--- NOTE | 2020-06-10 12:00 | MRI ---
MRI BRAIN WITH AND WITHOUT CONTRAST: DATE: 06/10/2020 HISTORY: 65-year-old male with seizures. Abnormal CT. Rule out mass. COMPARISON: 03/25/2020 TECHNIQUE: Multiplanar, multisequence MRI of the brain performed pre- and post-IV injection of gadolinium based contrast agent. FINDINGS: Right mastoid effusion, similar to prior MRI. Questionable asymmetrically slightly greater degree of hyperintensity at left mesial temporal lobe co mpared to right noted on FLAIR sequence, unchanged. Multiple foci of encephalomalacia and gliosis representing old insults: right cerebellar hemisphere, right PICA territory: Small wedge-shaped old infarction, unchanged. Moderate-sized old infarction at lateral aspect of left occipital lobe, left MCA territory, unchanged . Small old infarction left lateral upper frontal lobe involving middle frontal gyrus, left MCA territo ry, unchanged. Small old infarction right upper frontal lobe, including right middle frontal gyrus. Right MCA versus watershed zone between MCA and CHENCHO territories. Unchanged. Multiple small old bilateral deep cerebral white matter infarctions in the lr radiata and centrum semiovale, watershed zones bilaterally, unchanged. A few small hemosiderin stains at medial and posterior right thalamus representing sites of prior hem orrhages, unchanged. Small hemosiderin stain at right basal ganglia representing site of prior hemorrhage., Unchanged. No obstructive hydrocephalus, abnormal intra-axial enhancement, mass, mass effect, midline shift, or extra-axial fluid collection. Mild to moderate chronic ischemic white matter changes, throughout periventricular white matter. No definite restricted diffusion. No dural venous sinus thrombosis. No significant interval change overall.. IMPRESSION: 1) no acute intracranial findings. 2) no evidence of intracranial neoplastic tumor. 3) multiple old infarctions. 4) evidence of prior hemorrhages in right thalamus and right basal ganglia. 5) right mastoid effusion. 6) no interval change overall.
--- NOTE | 2020-06-10 12:18 | PDOC.HOSPP ---
- Subjective Encounter Date: 06/10/20 Subjective: NEUROLOGY PROGRESS NOTE Patient awake, alert and orient X2. Followed commands intermittently. - Objective Vital Signs & Weight: Vital Signs (12 hours) Temp BP Pulse Ox 06/10/20 11:44 98.2 F 06/10/20 08:00 137/82 06/10/20 07:45 100 06/10/20 07:00 97.4 F L 06/10/20 03:52 97.6 F Weight Weight 147 lb 11.355 oz Most Recent Monitor Data Heart Rate from ECG 131 NIBP 173/108 NIBP BP-Mean 129 Respiration from ECG 15 SpO2 91 I&O: 06/09/20 06/10/20 06/11/20 06:59 06:59 06:59 Intake Total 45 Balance 45 Result Diagrams: 06/10/20 02:52 06/10/20 02:52 Radiology Reviewed by me: Yes EKG Reviewed by me: Yes Hospitalist ROS - Review of Systems ROS unobtainable: due to mental status Constitutional: denies: fever, chills, sweats, weakness, malaise, other Eyes: denies: pain, vision change, conjunctivae inflammation, eyelid inflammation, redness, other ENT: denies: ear pain, ear discharge, nose pain, nose discharge, nose congestion , mouth pain, mouth swelling, throat pain, throat swelling, other Respiratory: reports: shortness of breath. denies: cough, dry, hemoptysis, SOB with excertion, pleuritic pain, sputum, wheezing, other Cardiovascular: denies: chest pain, palpitations, orthopnea, paroxysmal noc. dyspnea, edema, light headedness, other Gastrointestinal: denies: nausea, vomiting, abdominal pain, diarrhea, constipation, melena, hematochezia, other Genitourinary: denies: dysuria, frequency, incontinence, hematuria, retention, other Musculoskeletal: denies: neck pain, shoulder pain, arm pain, back pain, hand pain, leg pain, foot pain, other Skin: denies: rash, lesions, dao, bruising, other Neurological: reports: confusion, seizures - Medication Medications: Active Medications Generic Name Dose Route Start Last Admin Trade Name Freq PRN Reason Stop Dose Admin Levetiracetam 1,000 mg/ Device 100 mls @ 200 mls/hr 06/09/20 21:00 06/10/20 09:37 IVPB 100 mls BID MACARIO Administration Pneumococcal 13-Valent Conj Vacc 0.5 ml 06/10/20 14:15 06/10/20 11:47 Prevnar IM 06/10/20 14:16 Not Given .ONCE ONE - Exam General Appearance: awake alert Eye: PERRL ENT: normocephalic atraumatic Neck: supple Heart: RRR Respiratory: CTAB Gastrointestinal: soft Extremities: no cyanosis Skin: normal turgor Neurological: no new deficit Musculoskeletal: normal tone, normal strength, no muscle wasting Psychiatric: normal affect, normal behavior, oriented to person, oriented to place Hosp A/P (1) Seizure disorder Code(s): G40.909 - EPILEPSY, UNSP, NOT INTRACTABLE, WITHOUT STATUS EPILEPTICUS Status: Acute (2) Alcohol abuse Code(s): F10.10 - ALCOHOL ABUSE, UNCOMPLICATED Status: Chronic (3) Atrial fibrillation Code(s): I48.91 - UNSPECIFIED ATRIAL FIBRILLATION Status: Chronic Qualifiers: Atrial fibrillation type: chronic (4) Hypertension Code(s): I10 - ESSENTIAL (PRIMARY) HYPERTENSION Status: Chronic (5) Moderate mitral regurgitation Code(s): I34.0 - NONRHEUMATIC MITRAL (VALVE) INSUFFICIENCY Status: Chronic (6) Non-ischemic cardiomyopathy Code(s): I42.8 - OTHER CARDIOMYOPATHIES Status: Chronic - Plan PT/OT 65 year old with history significant for prior cva and seizure disorder presented with breakthrough seizures. MRI brain reviewed which was negative for acute intracranial pathology. Multiple old infarcts. EEG negative for seizure activity. Neurochecks every 4 hours. Observe seizure precautions. Continue increased dose of Keppra 1000 mg twice daily. Switch to PO once cleared by speech. Telemetry. Consider cardiology input regarding atrial fibrillation. Continue asprin and high intensity statin for secondary stroke prevention. PT/OT Continue home medications. Continue medical management per primary team. Plan discussed with the nursing staff and the primary attending Dr. Spivey.
[2020-06-10] MEDS ORDERED: Digoxin 0.5 MG/2 ML AMP SLOW IVP SCH (14:15)
[2020-06-10] MEDS ORDERED: Prevnar 13-Val Conj/PF 0.5 ML SYRINGE IM ONE (14:15)
--- NOTE | 2020-06-10 14:20 | PRG ---
DATE OF SERVICE: 06/10/2020 SUBJECTIVE: Mr. Ortiz is more awake today. He says he wants to go home. No chest pain or pressure. OBJECTIVE: VITAL SIGNS: Blood pressure is variable, but it looks most recent one is high 150/110. Other times it has been 140/100. The patient is still in atrial fibrillation with a rate of 90. ASSESSMENT: 1. Atrial fibrillation, longstanding persistent. 2. History of cardiomyopathy. 3. Disorientation, confusion, improved. PLAN: We will talk to the nurse to see whether he is starting oral medicines yet. for blood pressure and heart rate control. Job ID: [id number]
--- NOTE | 2020-06-10 14:49 | PDOC.HOSPP ---
- Subjective Encounter Date: 06/10/20 Encounter Time: 12:25 Subjective: awake, follows simple verbal verbal stimuli this am no sob is getting EEG done sitter at bedside - Objective Vital Signs & Weight: Vital Signs (12 hours) Temp BP Pulse Ox 06/10/20 12:10 152/110 H 06/10/20 11:44 98.2 F 06/10/20 08:00 137/82 06/10/20 07:45 100 06/10/20 07:00 97.4 F L 06/10/20 03:52 97.6 F Weight Weight 147 lb 11.355 oz Most Recent Monitor Data Heart Rate from ECG 97 NIBP 142/92 NIBP BP-Mean 108 Respiration from ECG 1 SpO2 100 I&O: 06/09/20 06/10/20 06/11/20 06:59 06:59 06:59 Intake Total 45 Balance 45 Result Diagrams: 06/10/20 02:52 06/10/20 02:52 Hospitalist ROS - Medication Medications: Active Medications Generic Name Dose Route Start Last Admin Trade Name Freq PRN Reason Stop Dose Admin Levetiracetam 1,000 mg/ Device 100 mls @ 200 mls/hr 06/09/20 21:00 06/10/20 09:37 IVPB 100 mls BID MACARIO Administration - Exam General Appearance: awake alert, ill appearing Eye: PERRL, anicteric sclera ENT: no oropharyngeal lesions, dry oral mucosa Neck: supple, no JVD Heart: no murmur, irregular Respiratory: no wheezes, no rales Gastrointestinal: soft, non-tender, non-distended, normal bowel sounds Extremities: no cyanosis, no edema Neurological: cranial nerve grossly intact, no focal deficits Hosp A/P (1) Seizure disorder Code(s): G40.909 - EPILEPSY, UNSP, NOT INTRACTABLE, WITHOUT STATUS EPILEPTICUS Status: Acute (2) Non compliance with medical treatment Code(s): Z91.19 - PATIENT'S NONCOMPLIANCE W OTH MEDICAL TREATMENT AND REGIMEN Status: Suspected (3) Atrial fibrillation Code(s): I48.91 - UNSPECIFIED ATRIAL FIBRILLATION Status: Chronic Qualifiers: Atrial fibrillation type: longstanding persistent Qualified Code(s): I48.11 - Longstanding persistent atrial fibrillation (4) Gout Code(s): M10.9 - GOUT, UNSPECIFIED Status: Chronic Qualifiers: Gout site: unspecified site (5) H/O: CVA (cerebrovascular accident) Code(s): Z86.73 - PRSNL HX OF TIA (TIA), AND CEREB INFRC W/O RESID DEFICITS Status: Chronic (6) Hypertension Code(s): I10 - ESSENTIAL (PRIMARY) HYPERTENSION Status: Chronic (7) Moderate mitral regurgitation Code(s): I34.0 - NONRHEUMATIC MITRAL (VALVE) INSUFFICIENCY Status: Chronic (8) Non-ischemic cardiomyopathy Code(s): I42.8 - OTHER CARDIOMYOPATHIES Status: Chronic (9) Seizure disorder Code(s): G40.909 - EPILEPSY, UNSP, NOT INTRACTABLE, WITHOUT STATUS EPILEPTICUS Status: Chronic (10) Metabolic encephalopathy Code(s): G93.41 - METABOLIC ENCEPHALOPATHY Status: Resolved - Plan hemostable no further seizures remove restraints ambulate as tolerated continue cardizem drip for rvr with afib on keppra tx to telemetry
[2020-06-11] MEDS ORDERED: Aspirin 325 mg Enteric Coated Tablet PO SCH (09:00)
[2020-06-11] MEDS: Digoxin 0.125 MG TAB PO SCH (10:19)
[2020-06-11] MEDS: Allopurinol 100 MG TAB PO SCH (10:20)
[2020-06-11] MEDS: Multivit, Therapeutic 1 TAB PO SCH (10:21)
[2020-06-11] MEDS: levETIRAcetam 500 MG TAB PO SCH ×2 (10:21→20:39)
--- NOTE | 2020-06-11 10:49 | EEG ---
DATE OF SERVICE: 06/10/2020 ATTENDING PHYSICIAN: Carolyn Mendoza MD This EEG was performed using 24-channel [employer] video digital EEG machine with 24-disk electrodes. This was a 2-hour 5 minutes of inpatient video EEG recording. Digital analysis of the EEG was done for spike and seizure detection, which revealed no abnormalities. BACKGROUND: The posterior background rhythm is 8.5 to 9 Hz. Minimal reactivity is seen with eye opening and closure. HYPERVENTILATION: Not performed. PHOTIC STIMULATION: Not performed. SLEEP: Drowsiness and sleep are observed. EEG DIAGNOSIS: Occasional irregular theta activity seen during the recording. CLINICAL INTERPRETATION: This EEG is consistent with mild generalized nonspecific cerebral function. No ictal or interictal epileptiform abnormalities seen during the recording. Job ID: [id number]
--- NOTE | 2020-06-11 11:57 | PDOC.HOSPP ---
- Subjective Encounter Date: 06/11/20 Encounter Time: 08:15 Subjective: is awake and oriented well this morning no sob or palp is amb in room - Objective Vital Signs & Weight: Vital Signs (12 hours) Temp Pulse Resp BP BP BP Pulse Ox 06/11/20 08:00 147/97 H 06/11/20 07:58 97.5 F L 101 H 20 147/97 H 97 06/11/20 02:48 98.4 F 92 18 142/96 H 96 06/10/20 23:55 98 Weight Weight 147 lb 11.355 oz Most Recent Monitor Data Heart Rate from ECG 86 NIBP 146/100 NIBP BP-Mean 115 Respiration from ECG 30 SpO2 100 I&O: 06/10/20 06/11/20 06/12/20 06:59 06:59 06:59 Intake Total 45 1107 Output Total 900 Balance 45 207 Result Diagrams: 06/10/20 02:52 06/10/20 02:52 Hospitalist ROS - Medication Medications: Active Medications Generic Name Dose Route Start Last Admin Trade Name Andre PRN Reason Stop Dose Admin Allopurinol 100 mg 06/11/20 09:00 06/11/20 10:20 Zyloprim PO 100 mg DAILY MACARIO Administration Aspirin 325 mg 06/11/20 09:00 06/11/20 10:21 Ecotrin PO 325 mg DAILY MACARIO Administration Digoxin 0.125 mg 06/11/20 09:00 06/11/20 10:19 Lanoxin PO 0.125 mg DAILY MACARIO Administration Levetiracetam 1,000 mg 06/11/20 09:00 06/11/20 10:21 Keppra PO 1,000 mg BID MACARIO Administration Multivitamins 1 tab 06/11/20 09:00 06/11/20 10:21 Theragran PO 1 tab DAILY [facility]ARIO Administration Pantoprazole Sodium 40 mg 06/11/20 09:00 06/11/20 10:21 Protonix PO 40 mg DAILY MACARIO Administration - Exam General Appearance: awake alert Eye: PERRL, anicteric sclera ENT: no oropharyngeal lesions, moist mucosa Neck: supple, no JVD Heart: no murmur, irregular Respiratory: no wheezes, no rales Gastrointestinal: soft, non-tender, non-distended, normal bowel sounds Extremities: no cyanosis, no edema Neurological: cranial nerve grossly intact, no focal deficits Psychiatric: A&O x 3 Hosp A/P (1) Seizure disorder Code(s): G40.909 - EPILEPSY, UNSP, NOT INTRACTABLE, WITHOUT STATUS EPILEPTICUS Status: Acute (2) Non compliance with medical treatment Code(s): Z91.19 - PATIENT'S NONCOMPLIANCE W OTH MEDICAL TREATMENT AND REGIMEN Status: Suspected (3) Atrial fibrillation Code(s): I48.91 - UNSPECIFIED ATRIAL FIBRILLATION Status: Chronic Qualifiers: Atrial fibrillation type: longstanding persistent Qualified Code(s): I48.11 - Longstanding persistent atrial fibrillation (4) Gout Code(s): M10.9 - GOUT, UNSPECIFIED Status: Chronic Qualifiers: Gout site: unspecified site (5) H/O: CVA (cerebrovascular accident) Code(s): Z86.73 - PRSNL HX OF TIA (TIA), AND CEREB INFRC W/O RESID DEFICITS Status: Chronic (6) Hypertension Code(s): I10 - ESSENTIAL (PRIMARY) HYPERTENSION Status: Chronic Qualifiers: Hypertension type: essential hypertension Qualified Code(s): I10 - Essential (primary) hypertension (7) Moderate mitral regurgitation Code(s): I34.0 - NONRHEUMATIC MITRAL (VALVE) INSUFFICIENCY Status: Chronic (8) Non-ischemic cardiomyopathy Code(s): I42.8 - OTHER CARDIOMYOPATHIES Status: Chronic (9) Seizure disorder Code(s): G40.909 - EPILEPSY, UNSP, NOT INTRACTABLE, WITHOUT STATUS EPILEPTICUS Status: Chronic (10) Metabolic encephalopathy Code(s): G93.41 - METABOLIC ENCEPHALOPATHY Status: Resolved - Plan hemostable no further seizures, change keppra to po bid increased dose. is on toprol xl 100mg po daily from am got 50mg this am, digoxin 0.125mg daily, still has rvr into 100's ambulate as tolerated dc plan in am if stable and cleared by cardiology
--- NOTE | 2020-06-11 12:09 | PDOC.CPN ---
- Subjective Date: 06/11/20 Time: 12:27 Interval history: The pt seen and examined. No overnight events. No cardiac complaints. - Objective Allergies/Adverse Reactions: Allergies Allergy/AdvReac Type Severity Reaction Status Date / Time No Known Drug Allergies Allergy Verified 10/02/19 01:17 Visit Medications: Current Medications Acetaminophen (Tylenol) 650 mg PO Q4H PRN PRN Reason: Headache/Fever/Mild Pain (1-3) Allopurinol (Zyloprim) 100 mg PO DAILY [facility] Last Admin: 06/11/20 10:20 Dose: 100 mg Aspirin (Ecotrin) 325 mg PO DAILY [facility] Last Admin: 06/11/20 10:21 Dose: 325 mg Atorvastatin Calcium (Lipitor) 40 mg PO HS [facility] Digoxin (Lanoxin) 0.125 mg PO DAILY [facility] Last Admin: 06/11/20 10:19 Dose: 0.125 mg Hydralazine HCl (Apresoline) 10 mg SLOW IVP Q4H PRN PRN Reason: Hypertension SBP>185 DBP>100 Diltiazem HCl 125 mg/ Sodium (Chloride) 125 mls @ 5 mls/hr IVPB INF MACARIO; Protocol Levetiracetam (Keppra) 1,000 mg PO BID [facility] Last Admin: 06/11/20 10:21 Dose: 1,000 mg Lorazepam (Ativan) 2 mg SLOW IVP Q2H PRN PRN Reason: Seizures Metoprolol Succinate (Toprol Xl) 100 mg PO DAILY [facility] Multivitamins (Theragran) 1 tab PO DAILY [facility] Last Admin: 06/11/20 10:21 Dose: 1 tab Pantoprazole Sodium (Protonix) 40 mg PO DAILY [facility] Last Admin: 06/11/20 10:21 Dose: 40 mg Sodium Chloride (Flush - Normal Saline) 10 ml IVF Q12HR [facility] Sodium Chloride (Flush - Normal Saline) 10 ml IVF PRN PRN PRN Reason: Saline Flush Vital Signs & Weight: Vital Signs Temp Pulse Resp BP BP BP Pulse Ox 06/11/20 08:00 147/97 H 06/11/20 07:58 97.5 F L 101 H 20 147/97 H 97 06/11/20 02:48 98.4 F 92 18 142/96 H 96 Weight 147 lb 11.355 oz - Physical Exam General: alert & oriented x3 HEENT: mucus membranes moist Neck: supple neck Cardiac: irregularly regular Lungs: decreased breath sounds Extremities: no edema - Labs Result Diagrams: 06/10/20 02:52 06/10/20 02:52 Troponin/CKMB Troponin I 0.037 ng/mL (< 0.028) H 06/09/20 19:58 - Telemetry Supraventricular conduction: atrial fibrillation - Assessment/Plan Assessment/Plan: 1. Chronic Afib - well controlled HR with toprol 100mg qd, Digoxin 0.125mg qd, and ASA 81mg qd (the pt is very high risk of falls due to hx of seizure and high risk of bleeding 2/2 ETOH abuse) 2. HTN urgency - will resume Lisinopril 20 mg qd from today for elevated BP today 3. Seizure 4. hx of CVA 5. ETOH abuse - strongly recommend stop drinking MAR reviewed * Echo in 03/2020 with EF 55-60%, mild-mod LAE, mild TR * From Cardiac standpoint, the pt can be d/christal home once his BP is stable * The pt will f/u with Dr Quintero in 2 wks. Pt. seen and eval. by me. I agree with the A/P by the ACCESSIBILITY LIFT TECHNICIAN. The HR is elevated today and worse with walking. I will increase the betablocker today and add diltiazem IV again if the rate is not controlled.. Chest clear.Irreg/irreg. , tachycardia.
[2020-06-11] MEDS: hydrALAZINE 20 MG/ML VIAL SLOW IVP PRN (12:29)
[2020-06-11] MEDS ORDERED: Lisinopril 20 MG TAB PO SCH (12:30)
[2020-06-11] MEDS ORDERED: Diltiazem 125 MG in Sodium Chloride 0.9% 100 ML IVPB SCH (18:20)
[2020-06-11] MEDS ORDERED: Metoprolol Tartrate 50 MG TAB PO SCH (18:39)
[2020-06-11] MEDS ORDERED: Atorvastatin Calcium 40 MG TAB PO SCH (21:00)
[2020-06-12] MEDS: hydrALAZINE 20 MG/ML VIAL SLOW IVP PRN (04:39)
[2020-06-12] MEDS: Allopurinol 100 MG TAB PO SCH (08:30)
[2020-06-12] MEDS: Digoxin 0.125 MG TAB PO SCH (08:31)
[2020-06-12] MEDS: levETIRAcetam 500 MG TAB PO SCH (08:32)
[2020-06-12] MEDS: Multivit, Therapeutic 1 TAB PO SCH (08:33)
[2020-06-12] MEDS ORDERED: Lisinopril 20 MG TAB PO SCH (09:00)
[2020-06-12] MEDS ORDERED: Aspirin 81 mg Enteric Coated Tablet PO SCH (09:00)
[2020-06-12 11:38] VITALS: BP 161/102; TEMP 97.9
--- NOTE | 2020-06-12 15:33 | PDOC.CPN ---
- Subjective Date: 06/12/20 Time: 08:25 Interval history: The pt seen and examined. No overnight events. No cardiac complaints. - Objective Allergies/Adverse Reactions: Allergies Allergy/AdvReac Type Severity Reaction Status Date / Time No Known Drug Allergies Allergy Verified 10/02/19 01:17 Vital Signs & Weight: Vital Signs Temp Pulse Resp BP BP Pulse Ox 06/12/20 11:36 97.9 F 85 16 161/102 H 96 06/12/20 08:33 156/103 H 06/12/20 08:31 88 06/12/20 08:26 98.0 F 17 173/105 H 173/105 H 98 06/12/20 04:39 88 171/102 H 06/12/20 04:26 97.6 F 88 20 171/102 H 96 06/12/20 04:00 171/102 H Weight 147 lb 11.355 oz - Physical Exam General: alert & oriented x3 HEENT: mucus membranes moist Neck: supple neck Cardiac: irregularly regular Lungs: decreased breath sounds Abdomen: no masses - Labs Result Diagrams: 06/10/20 02:52 06/10/20 02:52 Troponin/CKMB Troponin I 0.037 ng/mL (< 0.028) H 06/09/20 19:58 - Telemetry Supraventricular conduction: atrial fibrillation - Assessment/Plan Assessment/Plan: 1. Chronic Afib - well controlled HR with toprol 100mg qd, Digoxin 0.125mg qd, and ASA 81mg qd (the pt is very high risk of falls due to hx of seizure and high risk of bleeding 2/2 ETOH abuse) 2. HTN urgency - better; 3. Seizure 4. hx of CVA 5. ETOH abuse - strongly recommend stop drinking MAR reviewed * Echo in 03/2020 with EF 55-60%, mild-mod LAE, mild TR * From Cardiac standpoint, the pt can be d/christal home once his BP is stable * The pt will f/u with Dr Quintero in 2 wks.
--- NOTE | 2020-06-12 15:40 | DIS ---
DATE OF ADMISSION: 06/09/2020 DATE OF DISCHARGE: 06/12/2020 DISCHARGE DISPOSITION: Home. PRIMARY DISCHARGE DIAGNOSES: 1. Breakthrough seizures with history of seizure disorder, likely noncompliance, stable. 2. Atrial fibrillation with RVR, rate controlled. 3. Prior history of low ejection fraction with cardiomyopathy, currently, has normal ejection fraction. 4. History of CVA with no residual paralysis. 5. History of gout. 6. Hypertension. 7. Moderate mitral regurgitation. 8. Metabolic encephalopathy on arrival, resolved. PROCEDURES DONE DURING HOSPITALIZATION: 1. CT angio of the head and neck done showed no hemodynamically significant stenosis or occlusion or aneurysmal formation. 2. CT brain without contrast done showed no acute intracranial process. There is stable encephalomalacia and gliosis involving the left and right cerebrum. 3. EEG done showed mild generalized nonspecific cerebral . No ictal or interictal epileptiform abnormalities were seen. 4. MRI brain with contrast done showed no acute intracranial findings. No evidence of intracranial neoplastic tumor. There are multiple old infarctions seen. Evidence of prior hemorrhages in right thalamus and right basal ganglia. 5. H and H of 14 and 41, platelet count is 156. BUN 12, creatinine 1.0. Prolactin was 40. Urine drug screen was negative. DISCHARGE MEDICATIONS: 1. Keppra 1000 mg twice daily. 2. Digoxin 0.125 mg p.o. daily. 3. Toprol-XL 100 mg p.o. daily. 4. Lisinopril 20 mg daily. 5. Allopurinol 100 mg p.o. daily. 6. Aspirin 325 mg p.o. daily. 7. Protonix 40 mg p.o. daily. 8. Multivitamin 1 tablet once daily. ALLERGIES: NO KNOWN DRUG ALLERGIES. DISCHARGE PLAN: The patient to follow up with Dr. Quintero in 2 weeks, Dr. Huber in 1 week. INPATIENT CONSULTS: 1. Dr. Coulter for Cardiology. 2. Dr. Mendoza for Neurology. BRIEF COURSE DURING HOSPITALIZATION: The patient initially got admitted on the after his brought him to ER as he was not feeling well and later stopped responding to her. On arrival in ER, the patient has had 2 episodes of seizures. He also had hypertensive urgency on arrival and he was also found to be in atrial fibrillation with RVR and was started on Cardizem drip. The patient got Keppra loading dose along with 3 doses of lorazepam on arrival. He was admitted to [facility] for close monitoring of airway along with atrial fibrillation with RVR. He has had consultation with both Cardiology and Neurology. The patient did not have any further seizure episodes. He is on increased dose of 1000 mg Keppra twice daily and has remained neurologically stable. His atrial fibrillation with RVR has been rate controlled. Digoxin has been added to his home medication dose of Toprol-XL 100 mg daily. Prior to discharge, he is ambulating and eating well. His initial acute encephalopathy likely is due to postictal phase and medications given to control his initial seizure, which has completely resolved. He is hemodynamically stable and will be shortly discharged home. Please note, I have seen and examined the patient on the day of discharge. Job ID: [id number] MTDD
--- NOTE | 2020-06-13 15:45 | CT ---
EXAM: CT ANGIOGRAM OF THE HEAD AND NECK INDICATION: Level 1 stroke. Last seen normal at 11:00 PM. Seizure. COMPARISON: 10/01/2019 TECHNIQUE: CT angiogram of the head and neck are performed in the axial plane. Three-dimensional refo rmatted images are submitted for interpretation. FINDINGS: CTA OF THE HEAD WITH AND WITHOUT CONTRAST: POSTCONTRAST CT OF BRAIN: Pathologic enhancement: No pathologic enhancement the brain. Postcontrast soft tissue neck CT: Aerodigestive tract:Aerodigestive tract is patent. No mucosal abnormality. Sinuses: Adequate aeration. Old left lamina Propecia fracture.. Orbits: Bilateral ocular lenses are appropriately located. Both globes are intact. Retrobulbar fat is preserved. Symmetric attenuation the optic nerves and ocular rectus muscles. Salivary glands:Symmetric attenuation of the parotid and submandibular glands Thyroid gland: Appropriate attenuation. Lymph nodes: No evidence of lymphadenopathy by size criteria. Paraspinal muscles: Symmetric attenuation of the sternocleidomastoid muscles. Appropriate attenuation of the paraspinal muscles. Cervical spine:Vertebral body height is maintained. No fracture. Varying degrees of central canal justine nosis or significant neural foraminal narrowing due to degenerative change. Limited evaluation by technique. Upper mediastinum and lung apices: Patchy opacities in the visualized lung parenchyma. CTA OF THE NECK WITH CONTRAST: Aorta: Appropriate enhancement and luminal diameter Right carotid artery: Appropriate enhancement and luminal diameter of the origin the right carotid ar carlyle, common carotid artery, carotid bifurcation, internal carotid artery. No significant stenosis based upon NASCET criteria. Calcified plaque in the right carotid bifurcation is unchanged. Left carotid: Appropriate enhancement and luminal diameter of the origin left carotid artery, common carotid artery, carotid bifurcation and internal carotid artery. No significant stenosis based upon NASCET criteria. Calcified plaque involving the origin the left external carotid artery is unchanged. Subclavian arteries:Symmetric and patent. Vertebral arteries:Patent throughout the course of the neck. Left vertebral artery is dominant. CTA OF THE BRAIN: Intracranial internal carotid arteries:Appropriate enhancement and luminal diameter. Anterior circulation: Symmetric enhancement and luminal diameter the A1 segments, proximal A2 segment s, M1 segments and proximal MCA branches. Intracranial vertebral arteries and posterior circulation: No acute abnormality. Visualized height ar carlyle origins have appropriate enhancement and luminal diameter. Both vertebral arteries supply the basilar artery. The left vertebral artery is the dominant supplying vessel. Basilar artery has approp riate enhancement and luminal diameter. Left DIGITAL EDITOR has a origin. Right P1 segment has appropriate enhancement and luminal diameter. IMPRESSION: 1. No hemodynamically significant stenosis, occlusion or aneurysmal formation. 2. Results study discussed with Dr. Rapp 06/09/2020 at 7:41 AM Code CR Transcribed Date/Time: 06/13/2020 2:36 PM
== END 2020-06-12 14:05 | disposition home or self-care (01) | DRG 100 ==
LOC: ERS 07:12 → IMCU/EMU 10:13 → 2NO 06-10 20:35
PROVIDERS: ADMIT Internal Medicine; ATTEND Internal Medicine
DX: G40.909 Epilepsy, unspecified, not intractable, without status epilepticus (principal); G93.41 Metabolic encephalopathy; R40.2312 Coma scale, best motor response, none, at arrival to emergency department; R40.2112 Coma scale, eyes open, never, at arrival to emergency department; R40.2212 Coma scale, best verbal response, none, at arrival to emergency department; I48.20 Chronic atrial fibrillation, unspecified; I50.42 Chronic combined systolic (congestive) and diastolic (congestive) heart failure; I42.8 Other cardiomyopathies; M10.9 Gout, unspecified; I34.0 Nonrheumatic mitral (valve) insufficiency; I16.0 Hypertensive urgency; I11.0 Hypertensive heart disease with heart failure; D72.829 Elevated white blood cell count, unspecified; F10.10 Alcohol abuse, uncomplicated; Z86.73 Personal history of transient ischemic attack (TIA), and cerebral infarction without residual deficits; Z79.899 Other long term (current) drug therapy; Z79.82 Long term (current) use of aspirin; Z78.1 Physical restraint status; Z87.891 Personal history of nicotine dependence; Z91.19 Patient's noncompliance with other medical treatment and regimen
CPT/HCPCS: 36415; 36416; 51701; 70450; 70496; 70498; 70553; 71045; 80048; 80053; 80306; 81003; 82550; 84146; 84484; 85025; 85610; 85730; 93005; 95712; 95816; 95819; 95957; 96365; 96366; 96368; 96375; 96376; J0360; J1160; J1953; J2060; Q9967

== ENCOUNTER 2021-09-18 14:45 | Inpatient (IN) | payer MEDICARE ==
[2021-09-18 16:10] LABS: #Lymphocytes 0.6 thou/uL (1.20-3.40); #Monocytes 0.4 thou/uL (0.11-0.59); #Neutrophils 14.1 thou/uL (1.40-6.50); %Eosinophils 0.1 % (0.0-10.0); %Lymphocytes 4.3 % (21.0-51.0); %Monocytes 2.5 % (0.0-10.0); %Neutrophils 93.1 % (42.0-75.0); Hemoglobin 16.7 g/dL (14.0-18.0); Mean Corpuscular HGB CONC 34.6 g/dL (32.0-36.0); Mean Corpuscular Hemoglobin 33.3 pg (27.0-31.0); Mean Corpuscular Volume 96.3 fL (78.0-98.0); Mean Platelet Volume 10.7 fL (7.4-10.4); Platelet Count 162 thou/uL (130-400); Red Blood Cell (RBC) Count 5.01 mill/uL (4.70-6.10); White Blood Cell (WBC) Count 15.1 thou/uL (4.8-10.8)
[2021-09-18 17:57] LABS: Acetaminophen Less than 6.0 mcg/mL (10.0-30.0); Alcohol Less than 10 mg/dL (Less than 10); Salicylate Less than 8.0 mg/dL (15.0-30.0)
[2021-09-18 18:06] LABS: ALT (SGPT) 18 U/L (8-55); AST (SGOT) 37 U/L (5-34); Albumin 4.9 g/dL (3.4-4.8); Alkaline Phosphatase 73 U/L (40-110); Anion Gap 20 mmol/L (10-20); BUN (Urea Nitrogen) 11 mg/dL (8.4-25.7); Calc. Creatinine Clearance 0 mL/min (70-130); Carbon Dioxide 24 mmol/L (23-31); Chloride 98 mmol/L (98-107); Globulin 4.1 g/dL (2.4-3.5); Glucose 111 mg/dL (80-115); Potassium 4.8 mmol/L (3.5-5.1); Sodium 137 mmol/L (136-145)
[2021-09-18] MEDS ORDERED: levETIRAcetam in NS 1,500 MG in Premix Bag 1 BAG IVPB SCH (18:15)
[2021-09-18] MEDS ORDERED: Aspirin Chewable 81 MG TAB ONE (18:19)
[2021-09-18 18:36] LABS: Bacteria/HPF None Seen HPF (None Seen); Bilirubin Negative (Negative); Blood, Urine Trace (Negative); Clarity Clear (Clear); Glucose, Urine (Dipstick) Normal (Negative); Ketone, Urine 20 mg/dL (Negative); Leukocyte Negative Leu/uL (Negative); Nitrite Negative (Negative); Protein, Urine (Dipstick) Negative (Neg-Trace); RBC/HPF None Seen HPF (0-3); Specific Gravity, Urine 1.009 (1.002-1.036); Squamous Epithelial None Seen HPF (0-3); Urobilinogen Normal mg/dL (Less than 2); WBC/HPF None Seen HPF (0-3); pH, Urine 6.5 (5.0-9.0)
[2021-09-18 18:44] LABS: Amphetamine Not Detected (NotDetected); Barbiturates Screen Not Detected (NotDetected); Benzodiazepine Screen Not Detected (NotDetected); Cocaine Metabolite Screen Not Detected (NotDetected); Methadone Not Detected (NotDetected); Methamphetamine Not Detected (NotDetected); Opiate Screen Not Detected (NotDetected); Oxycodone Screen Not Detected (NotDetected); Phencyclidine (PCP) Not Detected (NotDetected); THC/Cannabinoid Screen Not Detected (NotDetected); Tricyclic Screen Not Detected (NotDetected)
[2021-09-18 20:03] LABS: Troponin I 0.018 ng/mL (< 0.028)
[2021-09-18] MEDS ORDERED: Acetaminophen 325 MG TAB PO PRN (21:26)
[2021-09-18] MEDS ORDERED: Ondansetron ODT 4 MG TAB PO PRN (21:26)
[2021-09-18] MEDS ORDERED: Lorazepam 2 MG/ML VIAL SLOW IVP PRN (21:30)
[2021-09-18] MEDS ORDERED: Electrolyte Replacement Protocol 1 EACH FS SCH (21:30)
[2021-09-18 22:20] LABS: Troponin I 0.023 ng/mL (< 0.028)
[2021-09-18 23:13] VITALS: BMI 24.8
[2021-09-19] MEDS ORDERED: Lorazepam 1 MG TAB PO PRN
[2021-09-19] MEDS ORDERED: Lorazepam 2 MG/ML VIAL IM PRN
[2021-09-19] MEDS ORDERED: Ondansetron ODT 4 MG TAB PO PRN
[2021-09-19] MEDS ORDERED: Electrolyte Replacement Protocol 1 EACH FS PRN
[2021-09-19] MEDS: Thiamine HCl 200 MG/2 ML VIAL SLOW IVP SCH (00:42)
[2021-09-19 05:33] LABS: #Eosinphils 0.3 thou/uL (0.0-0.7); #Lymphocytes 2.7 thou/uL (1.20-3.40); #Monocytes 1.1 thou/uL (0.11-0.59); #Neutrophils 6.4 thou/uL (1.40-6.50); %Basophils 0.4 % (0.0-1.0); %Eosinophils 2.8 % (0.0-10.0); %Lymphocytes 25.6 % (21.0-51.0); %Monocytes 10.2 % (0.0-10.0); %Neutrophils 60.9 % (42.0-75.0); Hemoglobin 15.1 g/dL (14.0-18.0); Mean Corpuscular HGB CONC 34.7 g/dL (32.0-36.0); Mean Corpuscular Hemoglobin 33.4 pg (27.0-31.0); Mean Corpuscular Volume 96.4 fL (78.0-98.0); Mean Platelet Volume 9.9 fL (7.4-10.4); Platelet Count 150 thou/uL (130-400); Red Blood Cell (RBC) Count 4.51 mill/uL (4.70-6.10); White Blood Cell (WBC) Count 10.4 thou/uL (4.8-10.8)
[2021-09-19 05:53] LABS: ALT (SGPT) 15 U/L (8-55); AST (SGOT) 36 U/L (5-34); Albumin 3.9 g/dL (3.4-4.8); Alkaline Phosphatase 57 U/L (40-110); Anion Gap 16 mmol/L (10-20); BUN (Urea Nitrogen) 9 mg/dL (8.4-25.7); Bilirubin, Total 0.9 mg/dL (0.2-1.2); Calc. Creatinine Clearance 81 mL/min (70-130); Calcium 9.2 mg/dL (7.8-10.44); Carbon Dioxide 25 mmol/L (23-31); Chloride 102 mmol/L (98-107); Globulin 3.3 g/dL (2.4-3.5); Glucose 93 mg/dL (80-115); Magnesium 1.9 mg/dL (1.6-2.6); Potassium 3.6 mmol/L (3.5-5.1); Protein, Total 7.2 g/dL (5.8-8.1); Sodium 139 mmol/L (136-145)
[2021-09-19] MEDS: Lorazepam 1 MG TAB PO SCH ×3 (05:54→18:14)
[2021-09-19] MEDS ORDERED: Magnesium 2 GM/50 ML 2 GM in Premix Bag 1 BAG IVPB SCH (07:00)
[2021-09-19] MEDS: Aspirin 325 MG TAB PO SCH (08:21)
[2021-09-19] MEDS: Enoxaparin Sodium 40 MG/0.4 ML SYRINGE SC SCH (08:21)
[2021-09-19] MEDS: Multivit, Therapeutic 1 TAB PO SCH (08:21)
[2021-09-19] MEDS: Folic Acid 1 MG TAB PO SCH (08:21)
[2021-09-19] MEDS: Atorvastatin Calcium 40 MG TAB PO SCH (08:21)
[2021-09-19] MEDS: levETIRAcetam in NS 1,500 MG in Premix Bag 1 BAG IVPB SCH ×2 (11:39→20:50)
[2021-09-20] MEDS ORDERED: Lorazepam 1 MG TAB PO PRN
[2021-09-20] MEDS: Lorazepam 1 MG TAB PO SCH ×5 (00:01→23:00)
[2021-09-20] MEDS: Thiamine HCl 200 MG/2 ML VIAL SLOW IVP SCH ×2 (02:17)
[2021-09-20 06:09] LABS: #Basophils 0.1 thou/uL (0.0-0.2); #Eosinphils 0.7 thou/uL (0.0-0.7); #Lymphocytes 3.1 thou/uL (1.20-3.40); #Monocytes 1.2 thou/uL (0.11-0.59); #Neutrophils 6.3 thou/uL (1.40-6.50); %Basophils 0.6 % (0.0-1.0); %Eosinophils 6.1 % (0.0-10.0); %Lymphocytes 27.4 % (21.0-51.0); %Monocytes 10.4 % (0.0-10.0); %Neutrophils 55.5 % (42.0-75.0); Hemoglobin 15.4 g/dL (14.0-18.0); Mean Corpuscular HGB CONC 35.2 g/dL (32.0-36.0); Mean Corpuscular Hemoglobin 34.1 pg (27.0-31.0); Mean Corpuscular Volume 96.9 fL (78.0-98.0); Mean Platelet Volume 10.7 fL (7.4-10.4); Platelet Count 144 thou/uL (130-400); RBC Distribution Width 13.1 % (11.5-14.5); Red Blood Cell (RBC) Count 4.51 mill/uL (4.70-6.10); White Blood Cell (WBC) Count 11.4 thou/uL (4.8-10.8)
[2021-09-20 06:30] LABS: Anion Gap 15 mmol/L (10-20); BUN (Urea Nitrogen) 12 mg/dL (8.4-25.7); Calc. Creatinine Clearance 63 mL/min (70-130); Calcium 9.3 mg/dL (7.8-10.44); Carbon Dioxide 29 mmol/L (23-31); Chloride 104 mmol/L (98-107); Glucose 96 mg/dL (80-115); Potassium 4.7 mmol/L (3.5-5.1); Sodium 143 mmol/L (136-145)
[2021-09-20] MEDS ORDERED: Lorazepam 2 MG/ML VIAL IM SCH (06:30)
[2021-09-20] MEDS: Folic Acid 1 MG TAB PO SCH (08:39)
[2021-09-20] MEDS: Aspirin 325 MG TAB PO SCH (08:39)
[2021-09-20] MEDS: Multivit, Therapeutic 1 TAB PO SCH (08:39)
[2021-09-20] MEDS: Enoxaparin Sodium 40 MG/0.4 ML SYRINGE SC SCH (08:39)
[2021-09-20] MEDS: Atorvastatin Calcium 40 MG TAB PO SCH (08:39)
[2021-09-20] MEDS: levETIRAcetam 500 MG TAB PO SCH ×2 (08:42→20:59)
[2021-09-20] MEDS ORDERED: Ziprasidone 20 MG VIAL IM SCH (16:30)
[2021-09-21] MEDS ORDERED: Lorazepam 1 MG TAB PO PRN
[2021-09-21] MEDS ORDERED: Lorazepam 1 MG TAB PO SCH (00:15)
[2021-09-21] MEDS: Thiamine HCl 200 MG/2 ML VIAL SLOW IVP SCH (00:22)
[2021-09-21] MEDS: Lorazepam 0.5 MG TAB PO SCH ×4 (06:11→23:23)
[2021-09-21] MEDS ORDERED: FLU VACC QS2021-22(65YR UP)/PF 240 MCG/0.7 ML SYRINGE IM ONE (09:00)
[2021-09-21] MEDS: Atorvastatin Calcium 40 MG TAB PO SCH (09:20)
[2021-09-21] MEDS: Aspirin 325 MG TAB PO SCH (09:20)
[2021-09-21] MEDS: levETIRAcetam 500 MG TAB PO SCH ×2 (09:20→20:29)
[2021-09-21] MEDS: Folic Acid 1 MG TAB PO SCH (09:20)
[2021-09-21] MEDS: Enoxaparin Sodium 40 MG/0.4 ML SYRINGE SC SCH (09:21)
[2021-09-21] MEDS: Multivit, Therapeutic 1 TAB PO SCH (09:21)
[2021-09-22] MEDS ORDERED: Lorazepam 0.5 MG TAB PO PRN (06:00)
[2021-09-22] MEDS: Thiamine 100 MG TAB PO SCH (07:53)
[2021-09-22] MEDS: Aspirin 325 MG TAB PO SCH (07:53)
[2021-09-22] MEDS: Atorvastatin Calcium 40 MG TAB PO SCH (07:53)
[2021-09-22] MEDS: levETIRAcetam 500 MG TAB PO SCH ×2 (07:53→21:20)
[2021-09-22] MEDS: Multivit, Therapeutic 1 TAB PO SCH (07:53)
[2021-09-22] MEDS: Enoxaparin Sodium 40 MG/0.4 ML SYRINGE SC SCH (07:54)
[2021-09-22] MEDS: Folic Acid 1 MG TAB PO SCH (07:54)
[2021-09-22] MEDS ORDERED: Digoxin 0.5 MG/2 ML AMP SLOW IVP SCH (17:00)
[2021-09-22] MEDS ORDERED: Ketorolac Tromethamine 30 MG/ML VIAL IVP PRN (18:06)
[2021-09-23 06:31] LABS: Hemoglobin 15.8 g/dL (14.0-18.0); Mean Corpuscular HGB CONC 33.4 g/dL (32.0-36.0); Mean Corpuscular Hemoglobin 32.4 pg (27.0-31.0); Mean Corpuscular Volume 96.8 fL (78.0-98.0); Mean Platelet Volume 10.9 fL (7.4-10.4); Platelet Count 135 thou/uL (130-400); RBC Distribution Width 12.8 % (11.5-14.5); Red Blood Cell (RBC) Count 4.88 mill/uL (4.70-6.10); White Blood Cell (WBC) Count 12.3 thou/uL (4.8-10.8)
[2021-09-23 06:44] LABS: Anion Gap 15 mmol/L (10-20); BUN (Urea Nitrogen) 17 mg/dL (8.4-25.7); Calc. Creatinine Clearance 59 mL/min (70-130); Calcium 9.1 mg/dL (7.8-10.44); Carbon Dioxide 21 mmol/L (23-31); Chloride 108 mmol/L (98-107); Glucose 102 mg/dL (80-115); Potassium 4.2 mmol/L (3.5-5.1); Sodium 140 mmol/L (136-145)
[2021-09-23 06:48] LABS: Band 3 % (5-11); Lymphocytes 24 % (21-51); MDiff Complete? YES; Monocytes 12 % (0-10); Neutrophil 61 % (42-75)
[2021-09-23] MEDS: Multivit, Therapeutic 1 TAB PO SCH (08:59)
[2021-09-23] MEDS: Folic Acid 1 MG TAB PO SCH (08:59)
[2021-09-23] MEDS: Atorvastatin Calcium 40 MG TAB PO SCH (08:59)
[2021-09-23] MEDS: Thiamine 100 MG TAB PO SCH (08:59)
[2021-09-23] MEDS: Aspirin 325 MG TAB PO SCH (08:59)
[2021-09-23] MEDS: Enoxaparin Sodium 40 MG/0.4 ML SYRINGE SC SCH (08:59)
[2021-09-23] MEDS: levETIRAcetam 500 MG TAB PO SCH (09:00)
[2021-09-23 16:23] VITALS: BP 124/84; TEMP 98.4
== END 2021-09-23 18:03 | disposition home or self-care (01) | DRG 101 ==
LOC: ERS 14:45 → 3SE 18:51 → OBSVTOIN 09-20 08:38 → 3SE 09-22 13:16
PROVIDERS: ADMIT Internal Medicine; ATTEND Internal Medicine
DX: G40.509 Epileptic seizures related to external causes, not intractable, without status epilepticus (principal); I50.22 Chronic systolic (congestive) heart failure; M25.062 Hemarthrosis, left knee; F10.139 Alcohol abuse with withdrawal, unspecified; E51.2 Wernicke's encephalopathy; M25.562 Pain in left knee; E78.5 Hyperlipidemia, unspecified; D72.829 Elevated white blood cell count, unspecified; I48.91 Unspecified atrial fibrillation; I11.0 Hypertensive heart disease with heart failure; M1A.0620 Idiopathic chronic gout, left knee, without tophus (tophi); G93.89 Other specified disorders of brain; W19.XXXA Unspecified fall, initial encounter; Z86.73 Personal history of transient ischemic attack (TIA), and cerebral infarction without residual deficits; Z79.01 Long term (current) use of anticoagulants; Z98.890 Other specified postprocedural states; Z87.891 Personal history of nicotine dependence; Z79.899 Other long term (current) drug therapy; Z79.82 Long term (current) use of aspirin; Z91.14 Patient's other noncompliance with medication regimen
CPT/HCPCS: 36415; 36416; 51701; 70450; 71045; 80048; 80053; 80177; 80306; 80307; 81003; 81015; 82140; 82553; 83735; 84484; 85025; 93005; 94760; 95712; 95819; 95957; 96365; 96372; 96375; 96376; G0378; J1160; J1650; J1953; J2060; J3411; J3475; J3486

== ENCOUNTER 2022-09-10 14:54 | Emergency (ER) | payer MEDICARE ==
[2022-09-10] MEDS ORDERED: Metoclopramide HCl 10 MG/2 ML VIAL ONE (17:18)
[2022-09-10] MEDS ORDERED: diphenhydrAMINE 25 MG CAP ONE (17:18)
[2022-09-10] MEDS ORDERED: Metoprolol Tartrate 5 MG/5 ML VIAL ONE ×2 (18:38→18:39)
== END 2022-09-10 19:04 | disposition home or self-care (01) ==
LOC: ERS 14:54
DX: R51.9 Headache, unspecified (principal); I11.0 Hypertensive heart disease with heart failure; I50.9 Heart failure, unspecified; I48.91 Unspecified atrial fibrillation; E78.00 Pure hypercholesterolemia, unspecified; G40.909 Epilepsy, unspecified, not intractable, without status epilepticus; Z87.891 Personal history of nicotine dependence; Z86.73 Personal history of transient ischemic attack (TIA), and cerebral infarction without residual deficits; Z79.899 Other long term (current) drug therapy
CPT/HCPCS: 96372; 96374; J2765

== ENCOUNTER 2023-04-12 21:52 | Inpatient (IN) | payer MEDICARE ==
[2023-04-13 00:54] VITALS: BMI 27.1
[2023-04-13] MEDS ORDERED: Acetaminophen 325 MG TAB PO PRN (01:29)
[2023-04-13] MEDS ORDERED: Ondansetron PF 4 MG/2 ML Vial IVP PRN (01:29)
[2023-04-13] MEDS ORDERED: Ondansetron ODT 4 MG TAB PO PRN (01:29)
[2023-04-13] MEDS ORDERED: Aspirin 325 mg Enteric Coated Tablet PO SCH (01:30)
[2023-04-13] MEDS ORDERED: Lorazepam 1 MG TAB PO PRN (01:36)
[2023-04-13] MEDS ORDERED: Electrolyte Replacement Protocol 1 EACH FS SCH (01:45)
[2023-04-13] MEDS ORDERED: levETIRAcetam 500 MG TAB PO SCH (02:15)
[2023-04-13] MEDS: Thiamine HCl 200 MG/2 ML VIAL SLOW IVP SCH (02:22)
[2023-04-13 02:32] LABS: #Monocytes 0.1 thou/uL (0.11-0.59); #Neutrophils 6.9 thou/uL (1.40-6.50); %Basophils 0.1 % (0.0-1.0); %Eosinophils 0.1 % (0.0-10.0); %Lymphocytes 12.7 % (21.0-51.0); %Monocytes 0.8 % (0.0-10.0); %Neutrophils 85.9 % (42.0-75.0); Hemoglobin 16.1 g/dL (14.0-18.0); Mean Corpuscular HGB CONC 33.9 g/dL (32.0-36.0); Mean Corpuscular Hemoglobin 31.2 pg (27.0-31.0); Mean Corpuscular Volume 92.1 fl (78.0-98.0); Mean Platelet Volume 12.1 fL (7.4-10.4); Platelet Count 197 10x3/uL (130-400); RBC Distribution Width 13.1 % (11.5-14.5); Red Blood Cell (RBC) Count 5.16 mill/uL (4.70-6.10)
[2023-04-13 02:57] LABS: Magnesium 1.7 mg/dL (1.6-2.6); Phosphorus 3.2 mg/dL (2.3-4.7)
[2023-04-13] MEDS ORDERED: Dextrose 5 %-0.45 % NaCl 1,000 ML IV SCH (03:00)
[2023-04-13 03:15] LABS: Alcohol Less than 10 mg/dL (Less than 10); Anion Gap 19 mmol/L (10-20); BUN (Urea Nitrogen) 12 mg/dL (8.4-25.7); Calc. Creatinine Clearance 76 mL/min (70-130); Calcium 9.1 mg/dL (7.8-10.44); Carbon Dioxide 24 mmol/L (23-31); Chloride 102 mmol/L (98-107); Estimated GFR 92; Glucose 125 mg/dL (80-115); Potassium 4.1 mmol/L (3.5-5.1); Sodium 141 mmol/L (136-145)
[2023-04-13 03:21] LABS: Troponin I 0.041 ng/mL (< 0.028)
[2023-04-13] MEDS ORDERED: Magnesium 2 GM/50 ML(in water) 2 GM in Premix Bag 1 BAG IVPB SCH (03:45)
[2023-04-13] MEDS: Folic Acid 1 MG TAB PO SCH (09:39)
[2023-04-13] MEDS: Atorvastatin Calcium 40 MG TAB PO SCH (09:39)
[2023-04-13] MEDS: Multivit, Therapeutic 1 TAB PO SCH (09:40)
[2023-04-13] MEDS: levETIRAcetam 500 MG TAB PO SCH ×2 (09:40→20:42)
[2023-04-13] MEDS: methylPREDNISolone Sod Succ 40 MG VIAL IVP SCH (09:41)
[2023-04-13] MEDS ORDERED: Dextrose 50% Abboject 50 ML SYRINGE SLOW IVP PRN (18:56)
[2023-04-13] MEDS ORDERED: HumaLOG 300 UNITS/3 ML VIAL SC PRN (18:56)
[2023-04-13] MEDS ORDERED: Dextrose 5% in Water 1,000 ML IV PRN (18:56)
[2023-04-13] MEDS: hydrOXYzine 25 MG TAB PO PRN (20:42)
[2023-04-14] MEDS ORDERED: Lorazepam 1 MG TAB PO PRN (01:36)
[2023-04-14] MEDS: Thiamine HCl 200 MG/2 ML VIAL SLOW IVP SCH (02:45)
[2023-04-14] MEDS: hydrOXYzine 25 MG TAB PO PRN (04:58)
[2023-04-14 05:09] LABS: Hemoglobin A1c 5.2 % (4.0-6.0)
[2023-04-14 05:23] LABS: Anion Gap 11 mmol/L (10-20); BUN (Urea Nitrogen) 15 mg/dL (8.4-25.7); Calc. Creatinine Clearance 69 mL/min (70-130); Carbon Dioxide 27 mmol/L (23-31); Cardiac Risk 2.3 (Less than 4.5); Chloride 105 mmol/L (98-107); Cholesterol 136 mg/dl (< 200 Desired); Estimated GFR 83; Glucose 144 mg/dL (80-115); HDL Cholesterol 59 mg/dL (>60 Neg Risk); LDL Cholesterol, Calculated 69 mg/dL; Magnesium 1.9 mg/dL (1.6-2.6); Potassium 4.2 mmol/L (3.5-5.1); Sodium 139 mmol/L (136-145); Triglycerides 41 mg/dL (Less than 150)
[2023-04-14] MEDS ORDERED: Magnesium 2 GM/50 ML(in water) 2 GM in Premix Bag 1 BAG IVPB SCH (08:00)
[2023-04-14] MEDS: Aspirin 81 mg Enteric Coated Tablet PO SCH (09:00)
[2023-04-14] MEDS: Atorvastatin Calcium 40 MG TAB PO SCH (09:00)
[2023-04-14] MEDS: levETIRAcetam 500 MG TAB PO SCH ×2 (09:01→20:06)
[2023-04-14] MEDS: Folic Acid 1 MG TAB PO SCH (09:01)
[2023-04-14] MEDS: Multivit, Therapeutic 1 TAB PO SCH (09:01)
[2023-04-14] MEDS: methylPREDNISolone Sod Succ 40 MG VIAL IVP SCH (09:05)
[2023-04-14] MEDS ORDERED: Regadenoson 0.4 MG/5 ML SYRINGE ONE (09:39)
[2023-04-15] MEDS ORDERED: Lorazepam 1 MG TAB PO PRN (01:36)
[2023-04-15] MEDS: Thiamine HCl 200 MG/2 ML VIAL SLOW IVP SCH (04:46)
[2023-04-15] MEDS: Aspirin 81 mg Enteric Coated Tablet PO SCH (10:10)
[2023-04-15] MEDS: Multivit, Therapeutic 1 TAB PO SCH (10:10)
[2023-04-15] MEDS: Atorvastatin Calcium 40 MG TAB PO SCH (10:10)
[2023-04-15] MEDS: Folic Acid 1 MG TAB PO SCH (10:10)
[2023-04-15] MEDS: levETIRAcetam 500 MG TAB PO SCH (10:10)
[2023-04-15] MEDS: methylPREDNISolone Sod Succ 40 MG VIAL IVP SCH (10:11)
[2023-04-15 16:04] VITALS: BP 164/104; TEMP 98
[2023-04-16] MEDS ORDERED: Lorazepam 0.5 MG TAB PO PRN (01:36)
[2023-04-16] MEDS ORDERED: Thiamine 100 MG TAB PO SCH (01:45)
== END 2023-04-15 18:23 | disposition home or self-care (01) | DRG 280 ==
LOC: 2NO 21:52 → UNDOADMOB 21:52 → 2NO 04-13 02:03 → OBSVTOIN 04-14 14:29
PROVIDERS: ADMIT Internal Medicine; ATTEND Internal Medicine
DX: I48.20 Chronic atrial fibrillation, unspecified (principal); I21.A1 Myocardial infarction type 2; G92.8 Other toxic encephalopathy; I50.22 Chronic systolic (congestive) heart failure; I13.0 Hypertensive heart and chronic kidney disease with heart failure and stage 1 through stage 4 chronic kidney disease, or unspecified chronic kidney disease; G40.909 Epilepsy, unspecified, not intractable, without status epilepticus; E78.5 Hyperlipidemia, unspecified; M10.9 Gout, unspecified; L30.9 Dermatitis, unspecified; F10.129 Alcohol abuse with intoxication, unspecified; Y90.4 Blood alcohol level of 80-99 mg/100 ml; N18.2 Chronic kidney disease, stage 2 (mild); E83.42 Hypomagnesemia; Z79.82 Long term (current) use of aspirin; Z79.899 Other long term (current) drug therapy; Z91.199 Patient's noncompliance with other medical treatment and regimen due to unspecified reason
CPT/HCPCS: 36415; 36416; 70450; 78452; 80048; 80061; 80177; 80307; 82140; 83036; 83735; 84100; 84443; 84484; 85025; 93005; 93010; 93017; 93306; 96374; 96375; 96376; A9500; G0378; J1815; J2785; J2920; J3411; J3475; J7042

== ENCOUNTER 2024-01-25 08:47 | Inpatient (IN) | payer MEDICARE ==
[2024-01-25 09:47] LABS: #Eosinphils 0.1 thou/uL (0.0-0.7); #Monocytes 0.7 thou/uL (0.11-0.59); #Neutrophils 3.6 thou/uL (1.40-6.50); %Eosinophils 0.8 % (0.0-10.0); %Lymphocytes 34.2 % (21.0-51.0); %Neutrophils 54.4 % (42.0-75.0); Hematocrit 12.1 % (42.0-52.0); Hemoglobin 3.8 g/dL (14.0-18.0); Mean Corpuscular HGB CONC 31.4 g/dL (32.0-36.0); Mean Corpuscular Hemoglobin 31.1 pg (27.0-31.0); Mean Corpuscular Volume 99.2 fl (78.0-98.0); Mean Platelet Volume 12.2 fL (7.4-10.4); RBC Distribution Width 16.8 % (11.5-14.5); Red Blood Cell (RBC) Count 1.22 mill/uL (4.70-6.10); White Blood Cell (WBC) Count 6.6 10x3/uL (4.8-10.8)
[2024-01-25 09:48] LABS: Platelet Count 82 10x3/uL (130-400)
[2024-01-25 09:52] LABS: Actual Bicarbonate (HCO3v) 27.9 mEq/L (22-28); Base Excess 4.5 mEq/L (-2.0 to +3.0); Chloride (VBG) 100 mmol/L (98-106); Critical Call w/ Read Back ER.JAN @0951; Hematocrit-VBG 13 % (42.0-52.0); Potassium (VBG) 3.12 mmol/L (3.70-5.30); Sodium 132 mmol/L (133-146); pH (venous) 7.522 (7.32-7.43)
[2024-01-25 10:03] LABS: Acetaminophen Less than 10 mcg/mL (10.0-30.0); Alcohol Less than 10.0 mg/dL (Less than 10); Magnesium 1.7 mg/dL (1.6-2.6); Salicylate Less than 8.0 mg/dL (15.0-30.0)
[2024-01-25 10:05] LABS: ALT (SGPT) 19 U/L (8-55); AST (SGOT) 20 U/L (5-34); Albumin 2.2 g/dL (3.4-4.8); Alkaline Phosphatase 60 U/L (40-110); Anion Gap 11 mmol/L (10-20); BUN (Urea Nitrogen) 36 mg/dL (8.4-25.7); Bilirubin, Total 0.5 mg/dL (0.2-1.2); Calc. Creatinine Clearance 0 mL/min (70-130); Carbon Dioxide 31 mmol/L (23-31); Chloride 99 mmol/L (98-107); Estimated GFR 21; Globulin 2.2 g/dL (2.4-3.5); Glucose 116 mg/dL (80-115); Potassium 3.3 mmol/L (3.5-5.1); Protein, Total 4.4 g/dL (5.8-8.1); Sodium 138 mmol/L (136-145)
[2024-01-25] MEDS ORDERED: Pantoprazole 40 MG VIAL ONE (10:06)
[2024-01-25] MEDS ORDERED: Pantoprazole 80 MG, Admixture Fee 1 EACH in Sodium Chloride 0.9% 100 ML IVPB SCH ×2 (10:15→15:00)
[2024-01-25 10:17] LABS: Critical Call Chem-Lactate NUR.LR15 @1017
[2024-01-25 10:34] LABS: Bacteria/HPF 1+ HPF (None Seen); Bilirubin 1+ (Negative); Blood, Urine 3+ (Negative); CAUTI Indications for Culture Pelvic or flank pain; Clarity Turbid (Clear); Glucose, Urine (Dipstick) Normal (Negative); Ketone, Urine Negative (Negative); Leukocyte 75 Leu/uL (Negative); Nitrite Negative (Negative); Protein, Urine (Dipstick) 300 mg/dL (Neg-Trace); RBC/HPF Greater than 50 HPF (0-3); Specific Gravity, Urine 1.024 (1.002-1.036); Squamous Epithelial 0-3 HPF (0-3); Urobilinogen Normal mg/dL (Less than 2); WBC/HPF 21-50 HPF (0-3); pH, Urine 5.5 (5.0-9.0)
[2024-01-25 10:35] LABS: Urine Culture Reflex Yes Yes
[2024-01-25] MEDS ORDERED: Vancomycin 1 GM/200 ML (FROZEN) BAG ONE (10:48)
[2024-01-25 11:02] LABS: INR-International Normal Ratio 1.2; PTT 34.1 sec (22.9-36.1); Prothrombin Time 15.4 sec (12.0-14.7)
[2024-01-25] MEDS ORDERED: Ondansetron PF 4 MG/2 ML Vial IVP PRN (11:16)
[2024-01-25] MEDS ORDERED: Ondansetron ODT 4 MG TAB PO PRN (11:16)
[2024-01-25 11:24] LABS: Influenza A by NAA Not Detected (NotDetected); Influenza B by NAA Not Detected (NotDetected); SARS-CoV-2 NAA Rapid Test Not Detected (NotDetected)
[2024-01-25] MEDS ORDERED: Sodium Chloride 0.9% 100 ML ONE (11:46)
[2024-01-25] MEDS ORDERED: cefTRIAXone (ROCEPHIN) 2 GM VIAL ONE (11:46)
[2024-01-25 12:50] LABS: Lactic Acid 2.2 mmol/L (0.5-2.2)
[2024-01-25 12:56] LABS: Troponin I 0.042 ng/mL (< 0.028)
[2024-01-25] MEDS: Multivitamins, Adult 10 ML, Folic Acid 1 MG, Thiamine HCl 100 MG in Dextrose 5 %-0.45 %... IV SCH (15:59)
[2024-01-25] MEDS: dilTIAZem CD 120 MG CAP PO SCH (16:01)
[2024-01-25 17:07] LABS: Troponin I 0.035 ng/mL (< 0.028)
[2024-01-25 18:04] LABS: Hematocrit 18.3 % (42.0-52.0); Hemoglobin 6.3 g/dL (14.0-18.0)
[2024-01-25] MEDS: Atorvastatin Calcium 40 MG TAB PO SCH (19:46)
[2024-01-25] MEDS: Acetaminophen 325 MG TAB PO PRN (19:47)
[2024-01-25] MEDS: levETIRAcetam 500 MG (5 mL) VIAL SLOW IVP SCH (19:48)
[2024-01-25] MEDS: Furosemide 40 MG (4 mL) VIAL SLOW IVP SCH (23:57)
[2024-01-26 03:38] LABS: #Eosinphils 0.1 thou/uL (0.0-0.7); #Monocytes 0.9 thou/uL (0.11-0.59); #Neutrophils 3.9 thou/uL (1.40-6.50); %Basophils 0.2 % (0.0-1.0); %Eosinophils 0.7 % (0.0-10.0); %Lymphocytes 40.4 % (21.0-51.0); %Monocytes 10.5 % (0.0-10.0); %Neutrophils 46.5 % (42.0-75.0); Hematocrit 24.5 % (42.0-52.0); Hemoglobin 8.4 g/dL (14.0-18.0); Mean Corpuscular HGB CONC 34.3 g/dL (32.0-36.0); Mean Corpuscular Hemoglobin 30.5 pg (27.0-31.0); Mean Platelet Volume 11.8 fL (7.4-10.4); RBC Distribution Width 16.1 % (11.5-14.5); Red Blood Cell (RBC) Count 2.75 mill/uL (4.70-6.10); White Blood Cell (WBC) Count 8.4 10x3/uL (4.8-10.8)
[2024-01-26 03:39] LABS: Mean Corpuscular Volume 89.1 fl (78.0-98.0); Platelet Count 73 10x3/uL (130-400)
[2024-01-26 04:41] LABS: Anion Gap 14 mmol/L (10-20); BUN (Urea Nitrogen) 41 mg/dL (8.4-25.7); Calc. Creatinine Clearance 20 mL/min (70-130); Calcium 7.1 mg/dL (7.8-10.44); Carbon Dioxide 25 mmol/L (23-31); Chloride 101 mmol/L (98-107); Estimated GFR 18; Glucose 86 mg/dL (80-115); Potassium 3.5 mmol/L (3.5-5.1); Sodium 136 mmol/L (136-145)
[2024-01-26] MEDS ORDERED: FLU VACC QS2023(65UP)/MF59C/PF 60 MCG/0.5 ML SYRINGE IM ONE (09:00)
[2024-01-26] MEDS: dilTIAZem CD 120 MG CAP PO SCH (09:43)
[2024-01-26] MEDS ORDERED: Etomidate 40 MG (20 mL) VIAL ONE (11:20)
[2024-01-26] MEDS ORDERED: Phenylephrine 10 MG/ML VIAL ONE (11:20)
[2024-01-26] MEDS ORDERED: KETAMINE 100 MG/ML (5ML VIAL) ONE (11:21)
[2024-01-26] MEDS ORDERED: Calcium Chloride 1 GM/10 ML Abboject SYRINGE ONE (11:22)
[2024-01-26] MEDS ORDERED: Promethazine HCl 25 MG/ML VIAL IM PRN (11:46)
[2024-01-26] MEDS ORDERED: Ondansetron HCl/PF 4 MG/2 ML Vial IVP PRN (11:46)
[2024-01-26] MEDS: Pantoprazole 40 MG VIAL IVP SCH (20:43)
[2024-01-27 04:19] LABS: #Eosinphils 0.1 thou/uL (0.0-0.7); #Monocytes 0.8 thou/uL (0.11-0.59); #Neutrophils 3.1 thou/uL (1.40-6.50); %Basophils 0.3 % (0.0-1.0); %Eosinophils 1.5 % (0.0-10.0); %Lymphocytes 42.2 % (21.0-51.0); %Monocytes 10.5 % (0.0-10.0); Hematocrit 22.7 % (42.0-52.0); Hemoglobin 7.6 g/dL (14.0-18.0); Mean Corpuscular HGB CONC 33.5 g/dL (32.0-36.0); Mean Corpuscular Volume 92.7 fl (78.0-98.0); Mean Platelet Volume 12.2 fL (7.4-10.4); RBC Distribution Width 17.4 % (11.5-14.5); Red Blood Cell (RBC) Count 2.45 mill/uL (4.70-6.10); White Blood Cell (WBC) Count 7.1 10x3/uL (4.8-10.8)
[2024-01-27 04:22] LABS: Platelet Count 96 10x3/uL (130-400)
[2024-01-27 04:47] LABS: Anion Gap 11 mmol/L (10-20); BUN (Urea Nitrogen) 46 mg/dL (8.4-25.7); Calc. Creatinine Clearance 16 mL/min (70-130); Calcium 7.2 mg/dL (7.8-10.44); Carbon Dioxide 27 mmol/L (23-31); Chloride 101 mmol/L (98-107); Estimated GFR 14; Glucose 90 mg/dL (80-115); Potassium 3.3 mmol/L (3.5-5.1); Sodium 136 mmol/L (136-145)
[2024-01-27 07:53] LABS: HBSAB Concentration Less than 8.00 mIU/mL; HBSAg Index 0.28 S/CO (0-0.99); Hep B Core Total Ab Non-Reactive (NonReactive); Hep B Core Total Index 0.22 S/CO (0-0.79); Hep B Surf AB Non-Reactive (NonReactive); Hep B Surf Ag Non-Reactive S/CO (NonReactive); Hep C IgG Ab Non-Reactive S/CO (NonReactive); Hep C Index 0.29 S/CO (0-0.79)
[2024-01-27] MEDS: levETIRAcetam 500 MG TAB PO SCH ×2 (10:08→21:02)
[2024-01-27 13:30] LABS: Hemoglobin (Hb) 4.3 g/dL (12.6-17.4)
[2024-01-27 14:28] VITALS: BMI 24.2
[2024-01-27] MEDS: EPOETIN ALFA-EPBX 10,000 UNITS/ML VIAL IVP SCH (18:03)
[2024-01-28 04:49] LABS: #Eosinphils 0.1 thou/uL (0.0-0.7); #Neutrophils 3.9 thou/uL (1.40-6.50); %Basophils 0.2 % (0.0-1.0); %Eosinophils 1.4 % (0.0-10.0); %Lymphocytes 44.7 % (21.0-51.0); %Monocytes 10.7 % (0.0-10.0); %Neutrophils 41.1 % (42.0-75.0); Hematocrit 22.2 % (42.0-52.0); Hemoglobin 7.3 g/dL (14.0-18.0); Mean Corpuscular HGB CONC 32.9 g/dL (32.0-36.0); Mean Corpuscular Hemoglobin 31.7 pg (27.0-31.0); Mean Corpuscular Volume 96.5 fl (78.0-98.0); Mean Platelet Volume 12.3 fL (7.4-10.4); Platelet Count 96 10x3/uL (130-400); RBC Distribution Width 18.3 % (11.5-14.5); White Blood Cell (WBC) Count 9.6 10x3/uL (4.8-10.8)
[2024-01-28 05:55] LABS: Anion Gap 10 mmol/L (10-20); BUN (Urea Nitrogen) 25 mg/dL (8.4-25.7); Calc. Creatinine Clearance 21 mL/min (70-130); Calcium 7.2 mg/dL (7.8-10.44); Carbon Dioxide 27 mmol/L (23-31); Chloride 105 mmol/L (98-107); Estimated GFR 20; Glucose 98 mg/dL (80-115); Potassium 3.4 mmol/L (3.5-5.1); Sodium 139 mmol/L (136-145)
[2024-01-28] MEDS: cefTRIAXone\\ROCEPHIN 1 GM in Sodium Chloride 0.9% 100 ML IVPB SCH (12:58)
[2024-01-28] MEDS: Fioricet 325/50/40 mg Tablet PO PRN (22:17)
[2024-01-29 07:03] LABS: #Eosinphils 0.1 thou/uL (0.0-0.7); #Monocytes 0.9 thou/uL (0.11-0.59); #Neutrophils 3.7 thou/uL (1.40-6.50); %Basophils 0.1 % (0.0-1.0); %Eosinophils 1.5 % (0.0-10.0); %Lymphocytes 42.7 % (21.0-51.0); %Monocytes 10.7 % (0.0-10.0); %Neutrophils 43.3 % (42.0-75.0); Hematocrit 23.8 % (42.0-52.0); Hemoglobin 7.6 g/dL (14.0-18.0); Mean Corpuscular HGB CONC 31.9 g/dL (32.0-36.0); Mean Corpuscular Hemoglobin 30.9 pg (27.0-31.0); Mean Corpuscular Volume 96.7 fl (78.0-98.0); Mean Platelet Volume 11.8 fL (7.4-10.4); Platelet Count 131 10x3/uL (130-400); RBC Distribution Width 18.7 % (11.5-14.5); Red Blood Cell (RBC) Count 2.46 mill/uL (4.70-6.10); White Blood Cell (WBC) Count 8.6 10x3/uL (4.8-10.8)
[2024-01-29 07:51] LABS: Anion Gap 9 mmol/L (10-20); BUN (Urea Nitrogen) 28 mg/dL (8.4-25.7); Calc. Creatinine Clearance 16 mL/min (70-130); Carbon Dioxide 28 mmol/L (23-31); Chloride 104 mmol/L (98-107); Estimated GFR 14; Glucose 105 mg/dL (80-115); Potassium 2.9 mmol/L (3.5-5.1); Sodium 138 mmol/L (136-145)
[2024-01-29] MEDS ORDERED: LevoFLOXacin 250 mg/D5W 250 MG in Premix 1 BAG IVPB SCH ×2 (09:00→17:00)
[2024-01-29] MEDS: Multivit, Therapeutic 1 TAB PO SCH (13:46)
[2024-01-29] MEDS: Thiamine 100 MG TAB PO SCH (13:47)
[2024-01-29] MEDS: Folic Acid 1 MG TAB PO SCH (13:48)
[2024-01-29 14:27] VITALS: BP 145/89; TEMP 98.5
== END 2024-01-29 16:00 | disposition home or self-care (01) | DRG 811 ==
LOC: ERS 08:47 → ERHOLD 11:20 → 2NO 17:55
PROVIDERS: ADMIT Family Medicine; ATTEND Internal Medicine
PROC: 30243N1 Transfusion of Nonautologous Red Blood Cells into Central Vein, Percutaneous Approach (ICD-10-PCS; 2024-01-25)
PROC: 0DJ08ZZ Inspection of Upper Intestinal Tract, Via Natural or Artificial Opening Endoscopic (ICD-10-PCS; principal; 2024-01-26)
DX: D64.89 Other specified anemias (principal); N18.6 End stage renal disease; I50.22 Chronic systolic (congestive) heart failure; I13.2 Hypertensive heart and chronic kidney disease with heart failure and with stage 5 chronic kidney disease, or end stage renal disease; I48.11 Longstanding persistent atrial fibrillation; E78.5 Hyperlipidemia, unspecified; G40.909 Epilepsy, unspecified, not intractable, without status epilepticus; F10.10 Alcohol abuse, uncomplicated; I25.10 Atherosclerotic heart disease of native coronary artery without angina pectoris; D63.1 Anemia in chronic kidney disease; E87.6 Hypokalemia; Z91.148 Patient's other noncompliance with medication regimen for other reason; Z79.899 Other long term (current) drug therapy; Z87.891 Personal history of nicotine dependence; Z99.2 Dependence on renal dialysis
CPT/HCPCS: 36415; 36430; 71045; 80048; 80053; 80307; 81001; 82728; 82805; 83605; 83735; 83880; 84443; 84484; 85025; 85610; 85730; 86704; 86850; 86870; 86900; 86901; 86922; 87040; 87077; 87086; 87186; 90935; 93005; 94760; 96361; 96365; 96366; 96367; 96375; C9113; G0257; J0696; J1940; J1953; J2371; J3370-JW; J3411; J3490; J7042; P9016; Q5106

== ENCOUNTER 2024-05-31 13:32 | Emergency (ER) | payer MEDICARE ==
[2024-05-31] MEDS ORDERED: Iopamidol 370 76% 100 ML VIAL ONE (14:13)
[2024-05-31 14:16] LABS: #Basophils Less than 0.03 10x3/uL (0.0-0.2); %Basophils 0.3 % (0.0-1.0); %Eosinophils 12.2 % (0.0-10.0); %Lymphocytes 36.4 % (21.0-51.0); %Monocytes 8.4 % (0.0-10.0); %Neutrophils 42.4 % (42.0-75.0); Hematocrit 32.5 % (42.0-52.0); Hemoglobin 10.3 g/dL (14.0-18.0); Mean Corpuscular HGB CONC 31.7 g/dL (32.0-36.0); Mean Corpuscular Hemoglobin 29.6 pg (27.0-31.0); Mean Corpuscular Volume 93.4 fL (78.0-98.0); Mean Platelet Volume 11.4 fL (7.4-10.4); Platelet Count 229 10x3/uL (130-400); RBC Distribution Width 18.8 % (11.5-14.5); Red Blood Cell (RBC) Count 3.48 mill/uL (4.70-6.10)
[2024-05-31 14:30] LABS: INR-International Normal Ratio 1.2; PTT 36.5 sec (22.9-36.1); Prothrombin Time 15.6 sec (12.0-14.7)
[2024-05-31 14:35] LABS: Acetaminophen Less than 10 mcg/mL (10.0-30.0); Alcohol 10.8 mg/dL (Less than 10); Salicylate Less than 8.0 mg/dL (15.0-30.0)
[2024-05-31 14:38] LABS: Amphetamine Not Detected (NotDetected); Barbiturates Screen Not Detected (NotDetected); Benzodiazepine Screen Not Detected (NotDetected); Cocaine Metabolite Screen Not Detected (NotDetected); Methadone Not Detected (NotDetected); Methamphetamine Not Detected (NotDetected); Opiate Screen Not Detected (NotDetected); Oxycodone Screen Not Detected (NotDetected); Phencyclidine (PCP) Not Detected (NotDetected); THC/Cannabinoid Screen Not Detected (NotDetected); Tricyclic Screen Not Detected (NotDetected)
[2024-05-31 14:39] LABS: ALT (SGPT) 9 U/L (8-55); AST (SGOT) 17 U/L (5-34); Albumin 2.3 g/dL (3.4-4.8); Alkaline Phosphatase 58 U/L (40-110); Anion Gap 16 mmol/L (10-20); BUN (Urea Nitrogen) 11 mg/dL (8.4-25.7); Bilirubin, Total 0.5 mg/dL (0.2-1.2); CK (CPK) 39 U/L (30-200); Calc. Creatinine Clearance 0 mL/min (70-130); Calcium 7.8 mg/dL (7.8-10.44); Carbon Dioxide 22 mmol/L (23-31); Chloride 106 mmol/L (98-107); Estimated GFR 55; Globulin 3.5 g/dL (2.4-3.5); Glucose 73 mg/dL (80-115); Potassium 3.7 mmol/L (3.5-5.1); Protein, Total 5.8 g/dL (5.8-8.1); Sodium 139 mmol/L (136-145)
[2024-05-31 14:39] LABS: Bacteria/HPF None Seen HPF (None Seen); Bilirubin Negative (Negative); Blood, Urine 3+ (Negative); CAUTI Indications for Culture Alt mental st,lethar; Clarity Clear (Clear); Glucose, Urine (Dipstick) Normal (Negative); Ketone, Urine Negative (Negative); Leukocyte Negative Leu/uL (Negative); Nitrite Negative (Negative); Protein, Urine (Dipstick) 30 mg/dL (Neg-Trace); RBC/HPF 21-50 HPF (0-3); Specific Gravity, Urine 1.018 (1.002-1.036); Squamous Epithelial None Seen HPF (0-3); Urobilinogen Normal mg/dL (Less than 2); pH, Urine 6.5 (5.0-9.0)
[2024-05-31 14:40] LABS: Urine Culture Reflex No No
[2024-05-31 14:41] LABS: Troponin I 0.055 ng/mL (< 0.028)
[2024-05-31] MEDS ORDERED: Aspirin Chewable 81 MG TAB ONE (15:05)
[2024-05-31] MEDS ORDERED: Lorazepam 2 MG/ML VIAL ONE (16:31)
== END 2024-05-31 16:57 | disposition short-term general hospital (02) ==
LOC: ERS 13:32 → MERGE 13:32 → ERS 16:57
DX: I63.9 Cerebral infarction, unspecified (principal); R29.717 NIHSS score 17; I11.0 Hypertensive heart disease with heart failure; I50.9 Heart failure, unspecified; I48.91 Unspecified atrial fibrillation; E78.5 Hyperlipidemia, unspecified; Z75.8 Other problems related to medical facilities and other health care; Z79.899 Other long term (current) drug therapy
CPT/HCPCS: 70450; 70496; 70498; 71045; 80053; 80306; 80307; 81001; 82550; 83605; 84484; 85025; 85610; 85730; 86850; 86900; 86901; 87040; 87077; 87149 ×2; 93005; 96374; 99285; J2060; Q9967; 36415

== ENCOUNTER 2024-09-18 11:22 | Inpatient (IN) | payer MEDICARE ==
[2024-09-18 12:06] LABS: Hematocrit 31.6 % (42.0-52.0); Hemoglobin 9.6 g/dL (14.0-18.0); Mean Corpuscular HGB CONC 30.4 g/dL (32.0-36.0); Mean Corpuscular Hemoglobin 28.2 pg (27.0-31.0); Mean Corpuscular Volume 92.9 fL (78.0-98.0); Platelet Count 241 10x3/uL (130-400)
[2024-09-18 12:18] LABS: Lipase 8 U/L (8-78); Magnesium 1.9 mg/dL (1.6-2.6)
[2024-09-18 12:19] LABS: Acetaminophen Less than 10 mcg/mL (Less than 10); Alcohol Less than 10.0 mg/dL (Less than 10); Salicylate Less than 8.0 mg/dL (Less than 8.0)
[2024-09-18 12:23] LABS: Troponin I 0.053 ng/mL (< 0.028)
[2024-09-18 12:32] LABS: Anisocytosis SLIGHT = 6-15 cells HPF (0-5); Band 10 % (5-11); Burr Cells SLIGHT = 2-5 cells HPF (0-1); Eosinophils 1 % (0-10); Large Platelets 4.8 % (0-5); Lymphocytes 11 % (21-51); Microcytosis SLIGHT = 6-15 cells HPF (0-5); Monocytes 4 % (0-10); Neutrophil 75 % (42-75); Platelet Adequacy Comment Platelets Normal; Polychromasia SLIGHT = 2-3 cells HPF (0-2); Schistocytes SLIGHT = 2-5 cells HPF (0-1); Smudge Cells 12.4 %
[2024-09-18 12:51] LABS: Bacteria/HPF None Seen HPF (None Seen); Bilirubin Negative (Negative); Blood, Urine 2+ (Negative); CAUTI Indications for Culture Alt mental st,lethar; Clarity Clear (Clear); Glucose, Urine (Dipstick) Normal (Negative); Ketone, Urine Negative (Negative); Leukocyte Negative Leu/uL (Negative); Nitrite Negative (Negative); Protein, Urine (Dipstick) 20 mg/dL (Neg-Trace); Specific Gravity, Urine 1.015 (1.002-1.036); Squamous Epithelial None Seen HPF (0-3); WBC/HPF 0-3 HPF (0-3); pH, Urine 6.5 (5.0-9.0)
[2024-09-18 12:52] LABS: Amphetamine Not Detected (NotDetected); Barbiturates Screen Not Detected (NotDetected); Benzodiazepine Screen Not Detected (NotDetected); Cocaine Metabolite Screen Not Detected (NotDetected); Methadone Not Detected (NotDetected); Methamphetamine Not Detected (NotDetected); Opiate Screen Not Detected (NotDetected); Oxycodone Screen Not Detected (NotDetected); Phencyclidine (PCP) Not Detected (NotDetected); THC/Cannabinoid Screen Not Detected (NotDetected); Tricyclic Screen Detected (NotDetected); Urine Culture Reflex No No
[2024-09-18 13:22] LABS: ALT (SGPT) 15 U/L (8-55); AST (SGOT) 27 U/L (5-34); Albumin 2.3 g/dL (3.4-4.8); Alkaline Phosphatase 89 U/L (40-110); Anion Gap 14 mmol/L (10-20); BUN (Urea Nitrogen) 18 mg/dL (8.4-25.7); Bilirubin, Total 0.5 mg/dL (0.2-1.2); Calc. Creatinine Clearance 0 mL/min (70-130); Calcium 8.5 mg/dL (7.8-10.44); Carbon Dioxide 27 mmol/L (23-31); Chloride 106 mmol/L (98-107); Estimated GFR 47; Globulin 3.8 g/dL (2.4-3.5); Glucose 75 mg/dL (80-115); Potassium 4.5 mmol/L (3.5-5.1); Protein, Total 6.1 g/dL (5.8-8.1); Sodium 142 mmol/L (136-145)
[2024-09-18 15:02] LABS: Actual Bicarbonate (HCO3v) 27.7 mEq/L (22-28); Analyzer IN Cardio ER; Base Excess 1.8 mEq/L (-2.0 to +3.0); Calcium, Ionized (venous) 1.08 mmol/L (1.16-1.32); Chloride (VBG) 105 mmol/L (98-106); Hematocrit-VBG 31 % (42.0-52.0); Hemoglobin (Hb) 10.4 g/dL (12.6-17.4); Potassium (VBG) 4.52 mmol/L (3.70-5.30); Sodium 142 mmol/L (133-146); pH (venous) 7.365 (7.32-7.43)
[2024-09-18 15:23] LABS: Lactic Acid 1.32 mmol/L (0.5-2.2)
[2024-09-18] MEDS ORDERED: Ondansetron PF 4 MG/2 ML Vial IVP PRN (15:31)
[2024-09-18] MEDS ORDERED: Dextrose 50% Abboject 50 ML SYRINGE SLOW IVP PRN (15:46)
[2024-09-18] MEDS ORDERED: Glucagon 1 MG/ML KIT IM PRN (15:46)
[2024-09-18] MEDS ORDERED: Dextrose 5% in Water 1,000 ML IV PRN (15:46)
[2024-09-18] MEDS: Lactated Ringer's 1,000 ML IV SCH (17:27)
[2024-09-18 18:19] LABS: Glucose 71 mg/dL (80-115)
[2024-09-18] MEDS: Acetaminophen 325 MG TAB PO SCH (18:28)
[2024-09-18] MEDS: Dextrose 5% in Water 1,000 ML IV SCH (19:44)
[2024-09-18] MEDS: Famotidine/PF 20 mg/2ml Vial SLOW IVP SCH (21:34)
[2024-09-18] MEDS: levETIRAcetam 500 MG (5 mL) VIAL SLOW IVP SCH (21:34)
[2024-09-18] MEDS: Haloperidol Lactate 5 MG/ML VIAL IM SCH (22:50)
[2024-09-19 00:32] LABS: Glucose 68 mg/dL (80-115)
[2024-09-19 04:30] LABS: %Basophils 0.5 % (0.0-1.0); %Eosinophils 2.3 % (0.0-10.0); %Lymphocytes 31.6 % (21.0-51.0); %Monocytes 7.4 % (0.0-10.0); Hematocrit 32.6 % (42.0-52.0); Hemoglobin 10.1 g/dL (14.0-18.0); Mean Corpuscular Hemoglobin 28.1 pg (27.0-31.0); Mean Corpuscular Volume 90.6 fL (78.0-98.0); Mean Platelet Volume 12.8 fL (7.4-10.4); Platelet Count 227 10x3/uL (130-400); RBC Distribution Width 19.4 % (11.5-14.5)
[2024-09-19 04:31] LABS: #Basophils 0.04 10x3/uL (0.0-0.2)
[2024-09-19 05:06] LABS: Anion Gap 14 mmol/L (10-20); BUN (Urea Nitrogen) 17 mg/dL (8.4-25.7); Calc. Creatinine Clearance 42 mL/min (70-130); Calcium 8.1 mg/dL (7.8-10.44); Carbon Dioxide 24 mmol/L (23-31); Cardiac Risk 2.4 (Less than 4.5); Chloride 107 mmol/L (98-107); Cholesterol 91 mg/dl (< 200 Desired); Estimated GFR 50; Glucose 79 mg/dL (80-115); HDL Cholesterol 38 mg/dL (>60 Neg Risk); LDL Cholesterol, Calculated 44 mg/dL; Sodium 141 mmol/L (136-145); Triglycerides 46 mg/dL (Less than 150)
[2024-09-19] MEDS: Lacosamide 200 MG in Sodium Chloride 0.9% 50 ML IVPB SCH ×2 (10:37→21:28)
[2024-09-19] MEDS ORDERED: Lorazepam 2 MG/ML VIAL SLOW IVP PRN (15:23)
[2024-09-19] MEDS: Lorazepam 2 MG/ML VIAL SLOW IVP SCH (15:52)
[2024-09-19] MEDS ORDERED: Non-Formulary Item 1 EACH (Lacosamide [Vimpat] 200 MG Tablet) PO SCH (21:00)
[2024-09-19] MEDS: Apixaban 2.5 MG TAB PO SCH (21:36)
[2024-09-19] MEDS: Sacubitril 24MG/Valsartan 26 MG TAB PO SCH (21:36)
[2024-09-19] MEDS: QUEtiapine 25 MG TAB PO SCH (21:36)
[2024-09-19] MEDS: levETIRAcetam 500 mg/5 ml Oral Solution PO SCH (21:47)
[2024-09-19] MEDS: levETIRAcetam 500 MG TAB PO SCH (21:48)
[2024-09-20 05:00] LABS: #Basophils 0.03 10x3/uL (0.0-0.2); %Basophils 0.3 % (0.0-1.0); %Eosinophils 3.4 % (0.0-10.0); %Lymphocytes 37.2 % (21.0-51.0); %Monocytes 9.4 % (0.0-10.0); %Neutrophils 49.4 % (42.0-75.0); Hematocrit 31.1 % (42.0-52.0); Hemoglobin 9.5 g/dL (14.0-18.0); Mean Corpuscular HGB CONC 30.5 g/dL (32.0-36.0); Mean Corpuscular Hemoglobin 27.5 pg (27.0-31.0); Mean Corpuscular Volume 90.1 fL (78.0-98.0); Mean Platelet Volume 12.9 fL (7.4-10.4); Platelet Count 215 10x3/uL (130-400); RBC Distribution Width 19.2 % (11.5-14.5); Red Blood Cell (RBC) Count 3.45 mill/uL (4.70-6.10)
[2024-09-20 05:14] LABS: Anion Gap 12 mmol/L (10-20); BUN (Urea Nitrogen) 16 mg/dL (8.4-25.7); Calc. Creatinine Clearance 45 mL/min (70-130); Carbon Dioxide 22 mmol/L (23-31); Chloride 106 mmol/L (98-107); Estimated GFR 55; Glucose 94 mg/dL (80-115); Potassium 3.6 mmol/L (3.5-5.1); Sodium 136 mmol/L (136-145)
[2024-09-20] MEDS: Folic Acid 1 MG TAB PO SCH (09:21)
[2024-09-20] MEDS: Thiamine 100 MG TAB PO SCH (09:22)
[2024-09-20] MEDS: Sertraline 25 MG TAB PO SCH (09:22)
[2024-09-20] MEDS: Atorvastatin Calcium 40 MG TAB PO SCH (09:22)
[2024-09-20] MEDS: Gabapentin 100 MG CAP PO SCH (09:22)
[2024-09-20] MEDS: levETIRAcetam 500 mg/5 ml Oral Solution PO SCH (09:23)
[2024-09-20] MEDS: Ipratropium/Albuterol 3 ML NEB NEB PRN (09:27)
[2024-09-20] MEDS: Lansoprazole 30 MG/10 ML UDCUP PER TUBE SCH (09:29)
[2024-09-20] MEDS ORDERED: RisperDAL M 1 MG TAB SL PRN (14:34)
[2024-09-20] MEDS: risperiDONE 0.25 MG TAB PO PRN (15:32)
[2024-09-20 16:52] VITALS: BMI 23.3
[2024-09-20] MEDS: Haloperidol Lactate 5 MG/ML VIAL IM SCH (21:52)
[2024-09-21] MEDS: Metoprolol Tartrate 5 MG (5 mL) VIAL IVP SCH (01:19)
[2024-09-21 01:47] LABS: Hematocrit 28.5 % (42.0-52.0); Hemoglobin 8.9 g/dL (14.0-18.0); Mean Corpuscular HGB CONC 31.2 g/dL (32.0-36.0); Mean Corpuscular Hemoglobin 28.3 pg (27.0-31.0); Mean Corpuscular Volume 90.8 fL (78.0-98.0); Mean Platelet Volume 12.7 fL (7.4-10.4); Platelet Count 214 10x3/uL (130-400); RBC Distribution Width 19.4 % (11.5-14.5); Red Blood Cell (RBC) Count 3.14 mill/uL (4.70-6.10)
[2024-09-21 02:05] LABS: Anisocytosis SLIGHT = 6-15 cells HPF (0-5); Band 2 % (5-11); Eosinophils 1 % (0-10); Hypochromia SLIGHT = 6-15 cells HPF (0-5); Lymphocytes 23 % (21-51); Monocytes 2 % (0-10); Neutrophil 72 % (42-75); Platelet Adequacy Comment Platelets Normal; Polychromasia SLIGHT = 2-3 cells HPF (0-2)
[2024-09-21 02:33] LABS: Anion Gap 13 mmol/L (10-20); BUN (Urea Nitrogen) 16 mg/dL (8.4-25.7); Calc. Creatinine Clearance 43 mL/min (70-130); Calcium 8.1 mg/dL (7.8-10.44); Carbon Dioxide 23 mmol/L (23-31); Chloride 103 mmol/L (98-107); Estimated GFR 49; Glucose 101 mg/dL (80-115); Magnesium 1.7 mg/dL (1.6-2.6); Potassium 3.8 mmol/L (3.5-5.1); Sodium 135 mmol/L (136-145)
[2024-09-21] MEDS ORDERED: dilTIAZem 125 MG in Sodium Chloride 0.9% 100 ML IVPB SCH (02:45)
[2024-09-21] MEDS: Diltiazem HCl/D5W 125 MG in Premix 1 BAG IVPB SCH (02:55)
[2024-09-21] MEDS: Haloperidol Lactate 5 MG/ML VIAL SLOW IVP SCH (04:10)
[2024-09-21] MEDS ORDERED: Pharmacy to Dose UNASYN IVPB PRN (12:12)
[2024-09-21] MEDS: Furosemide 20 MG (2 mL) VIAL SLOW IVP SCH (13:44)
[2024-09-21] MEDS: Ampicillin/Sulbactam 3 GM in Sodium Chloride 0.9% 100 ML IVPB SCH (13:47)
[2024-09-21] MEDS: Thiamine HCl 200 MG/2 ML VIAL SLOW IVP SCH (15:30)
[2024-09-22 05:07] LABS: #Basophils 0.03 10x3/uL (0.0-0.2); %Basophils 0.3 % (0.0-1.0); %Eosinophils 6.5 % (0.0-10.0); %Lymphocytes 28.2 % (21.0-51.0); %Monocytes 8.9 % (0.0-10.0); %Neutrophils 55.8 % (42.0-75.0); Hematocrit 31.8 % (42.0-52.0); Hemoglobin 9.9 g/dL (14.0-18.0); Mean Corpuscular HGB CONC 31.1 g/dL (32.0-36.0); Mean Corpuscular Hemoglobin 28.7 pg (27.0-31.0); Mean Corpuscular Volume 92.2 fL (78.0-98.0); Mean Platelet Volume 12.8 fL (7.4-10.4); Platelet Count 205 10x3/uL (130-400); RBC Distribution Width 19.4 % (11.5-14.5); Red Blood Cell (RBC) Count 3.45 mill/uL (4.70-6.10)
[2024-09-22 05:20] LABS: Anion Gap 12 mmol/L (10-20); BUN (Urea Nitrogen) 15 mg/dL (8.4-25.7); Calc. Creatinine Clearance 44 mL/min (70-130); Calcium 8.2 mg/dL (7.8-10.44); Carbon Dioxide 26 mmol/L (23-31); Chloride 108 mmol/L (98-107); Estimated GFR 51; Glucose 79 mg/dL (80-115); Potassium 3.6 mmol/L (3.5-5.1); Sodium 142 mmol/L (136-145)
[2024-09-23 04:19] LABS: #Basophils 0.03 10x3/uL (0.0-0.2); %Basophils 0.3 % (0.0-1.0); %Eosinophils 10.1 % (0.0-10.0); %Neutrophils 49.4 % (42.0-75.0); Hematocrit 33.8 % (42.0-52.0); Hemoglobin 10.5 g/dL (14.0-18.0); Mean Corpuscular HGB CONC 31.1 g/dL (32.0-36.0); Mean Corpuscular Hemoglobin 28.5 pg (27.0-31.0); Mean Corpuscular Volume 91.6 fL (78.0-98.0); Mean Platelet Volume 12.7 fL (7.4-10.4); Platelet Count 214 10x3/uL (130-400); RBC Distribution Width 19.9 % (11.5-14.5); Red Blood Cell (RBC) Count 3.69 mill/uL (4.70-6.10)
[2024-09-23 04:39] LABS: Anion Gap 14 mmol/L (10-20); BUN (Urea Nitrogen) 12 mg/dL (8.4-25.7); Calc. Creatinine Clearance 55 mL/min (70-130); Carbon Dioxide 23 mmol/L (23-31); Chloride 107 mmol/L (98-107); Estimated GFR 67; Glucose 83 mg/dL (80-115); Potassium 3.4 mmol/L (3.5-5.1); Sodium 141 mmol/L (136-145)
[2024-09-23] MEDS: Potassium Chloride 20 MEQ TAB PO SCH (10:37)
[2024-09-23] MEDS: Potassium Chloride 20 MEQ in Premix 1 BAG IVPB SCH (13:23)
[2024-09-24 21:46] VITALS: BP 133/99; TEMP 97.5
== END 2024-09-24 21:04 | disposition hospice, inpatient (51) | DRG 177 ==
LOC: ERS 11:22 → 2NO 14:46 → OBSVTOIN 09-19 15:24
PROVIDERS: ADMIT Hospitalist; ATTEND Internal Medicine
PROC: 4A00X4Z Measurement of Central Nervous Electrical Activity, External Approach (ICD-10-PCS; principal; 2024-09-19)
PROC: 4A00X4Z Measurement of Central Nervous Electrical Activity, External Approach (ICD-10-PCS; 2024-09-22)
DX: J69.0 Pneumonitis due to inhalation of food and vomit (principal); G93.41 Metabolic encephalopathy; N18.6 End stage renal disease; I50.22 Chronic systolic (congestive) heart failure; I13.2 Hypertensive heart and chronic kidney disease with heart failure and with stage 5 chronic kidney disease, or end stage renal disease; I48.20 Chronic atrial fibrillation, unspecified; R47.1 Dysarthria and anarthria; R13.10 Dysphagia, unspecified; Z66 Do not resuscitate; Z51.5 Encounter for palliative care; F10.10 Alcohol abuse, uncomplicated; W06.XXXA Fall from bed, initial encounter; D63.8 Anemia in other chronic diseases classified elsewhere; D72.829 Elevated white blood cell count, unspecified; G40.901 Epilepsy, unspecified, not intractable, with status epilepticus; E78.5 Hyperlipidemia, unspecified; E87.70 Fluid overload, unspecified; Z87.891 Personal history of nicotine dependence; Y93.89 Activity, other specified; Y92.89 Other specified places as the place of occurrence of the external cause; Z95.0 Presence of cardiac pacemaker; Z86.73 Personal history of transient ischemic attack (TIA), and cerebral infarction without residual deficits; Z99.2 Dependence on renal dialysis; Z79.899 Other long term (current) drug therapy; Z79.01 Long term (current) use of anticoagulants
CPT/HCPCS: 36415; 36416; 51701; 70450; 71045; 72125; 80048; 80053; 80061; 80306; 80307; 81001; 82140; 82805; 83605; 83690; 83735; 84484; 85025; 93005; 94640; 95700; 95711; 95957; 96360; C9254; G0390; J0295; J1630; J1940; J1953; J3411; J3480; J3490; J7070; J7120; J7620